=== PATIENT | female | born 1950 | race Caucasian/White ===

== ENCOUNTER 2020-07-25 10:12 | Outpatient (REF) | payer MEDICARE, SELFPAY ==
[2020-07-25 11:38] LABS: Anion Gap 9 (12-20); Blood Urea Nitrogen 12 mg/dL (9-16); Calcium 8.4 mg/dL (8.4-10.2); Carbon Dioxide 32 mmol/L (22-29); Chloride 106 mmol/L (96-108); Cholesterol 123 mg/dL; Estimated Glomerular Filt Rate 51; Glucose Random 98 mg/dL (60-115); HDL Cholesterol 36 mg/dL; LDL Cholesterol Calculated 46 mg/dl; Sodium 143 mmol/L (135-145); Triglycerides 206 mg/dL
== END 2020-07-25 10:13 | disposition home or self-care (01) ==
LOC: HO.HVNA 10:12
PROVIDERS: Visit Provider Internal Medicine
DX: E11.8 Type 2 diabetes mellitus with unspecified complications (principal); N17.9 Acute kidney failure, unspecified
CPT/HCPCS: 80048; 80061

== ENCOUNTER → 2020-07-30 10:13 | Outpatient (BNVA) | payer MEDICARE, SELFPAY | PROVIDERS: PCP Internal Medicine; Referring Provider Internal Medicine; Visit Provider Internal Medicine Pulmonary Disease | DX: J44.1 Chronic obstructive pulmonary disease with (acute) exacerbation (principal); G47.33 Obstructive sleep apnea (adult) (pediatric); Z99.89 Dependence on other enabling machines and devices | CPT/HCPCS: 99214 ==

== ENCOUNTER → 2020-08-29 14:36 | Outpatient (BNVA) | payer MEDICARE, SELFPAY | PROVIDERS: PCP Internal Medicine; Referring Provider Internal Medicine; Visit Provider Internal Medicine Pulmonary Disease | DX: J44.9 Chronic obstructive pulmonary disease, unspecified (principal); G47.33 Obstructive sleep apnea (adult) (pediatric); Z79.899 Other long term (current) drug therapy; Z99.89 Dependence on other enabling machines and devices | CPT/HCPCS: Q3014 ==

== ENCOUNTER → 2020-09-01 14:06 | Outpatient (BNVA) | payer MEDICARE, SELFPAY | PROVIDERS: PCP Internal Medicine; Referring Provider Internal Medicine; Visit Provider Surgery | DX: Z01.818 Encounter for other preprocedural examination (principal); Z86.010 Personal history of colon polyps | CPT/HCPCS: 99202 ==

== ENCOUNTER → 2020-10-13 11:03 | Outpatient (BNVA) | payer MEDICARE, SELFPAY | PROVIDERS: PCP Internal Medicine; Visit Provider Urology | DX: N39.41 Urge incontinence (principal); R35.0 Frequency of micturition | CPT/HCPCS: 51798; 81002; 99202 ==

== ENCOUNTER → 2020-10-28 15:07 | Outpatient (BNVA) | payer MEDICARE, SELFPAY | PROVIDERS: PCP Internal Medicine; Visit Provider Urology | DX: R35.0 Frequency of micturition (principal); N39.41 Urge incontinence | CPT/HCPCS: 81002; 99212 ==

== ENCOUNTER 2020-11-01 21:37 | Emergency (ER) | payer MEDICARE, SELFPAY ==
[2020-11-01 21:42] VITALS: BP 112/69; PULSE 68; RESP 18; TEMP 37.1; O2SAT 96; BMI 37.5
--- NOTE | 2020-11-01 22:12 | ED_ITS ---
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 Mode of arrival: ambulatory Limitations: no limitations History of Present Illness HPI narrative: 70 yo female with chronic headaches and last night developed n/v/d and L sided abdominal pain states she was on antibiotics for URI last week, comes in due to c/o pain and nausea that has not gone away, states she always has a headache takes no blood thinners and today's headache is no different MD elicited complaint: abdominal pain Pertinent past history: none Onset (ago): day(s) (2 (but did c/o this in past as she was supposed to have a colonoscopy in August but it was not scheduled)) Pain Consistency: constant Location: epigastric, LUQ and LLQ Severity: moderate Quality: cramping Radiation: none Migration to: no migration Exacerbating factors: movement Relieving factors: nothing Context: recent antibiotic use Associated symptoms: nausea, vomiting and diarrhea Related Data Home Medications Medication Instructions Recorded Confirmed acetaminophen 500 mg tablet 500 mg PO QID PRN 07/30/20 10/29/20 albuterol sulfate 90 mcg/actuation 1 inh INHALATION QID 07/30/20 10/29/20 aerosol inhaler bupropion HCl 300 mg 24 hr tablet, 300 mg PO QAM 07/30/20 10/29/20 extended release citalopram 20 mg tablet 20 mg PO DAILY 07/30/20 10/29/20 gabapentin 300 mg capsule 300 mg PO DAILY 07/30/20 10/29/20 glipizide 2.5 mg tablet, extended 2.5 mg PO DAILY 07/30/20 10/29/20 release 24 hr hydrochlorothiazide 12.5 mg tablet 12.5 mg PO DAILY 07/30/20 10/29/20 levothyroxine 200 mcg tablet 200 mcg PO DAILY 07/30/20 10/29/20 omeprazole 20 mg capsule,delayed 20 mg PO DAILY 07/30/20 10/29/20 release propranolol 20 mg tablet 20 mg PO BID 07/30/20 10/29/20 sitagliptin 100 mg tablet 100 mg PO DAILY 07/30/20 10/29/20 trazodone 100 mg tablet 100 mg PO BEDTIME PRN 07/30/20 10/29/20 alendronate 70 mg tablet 70 mg PO QWEEK 10/13/20 10/29/20 atorvastatin 40 mg tablet 40 mg PO BEDTIME 10/13/20 10/29/20 blood sugar diagnostic #10 ea 10/13/20 10/29/20 bupropion HCl 150 mg 24 hr tablet, 150 mg PO QAM 10/13/20 10/29/20 extended release estradiol 1 g VAGINAL 2XW 10/13/20 10/29/20 fluticasone propionate 220 1 puff INHALATION BID 10/13/20 10/29/20 mcg/actuation HFA aerosol inhaler fluticasone propionate 50 2 spray INTRANASAL DAILY PRN 10/13/20 10/29/20 mcg/actuation nasal spray,suspension insulin lispro 100 unit/mL unit SUBCUT 10/13/20 10/29/20 subcutaneous pen lancets 33 gauge #100 ea 10/13/20 10/29/20 lisinopril 20 mg tablet 20 mg PO BEDTIME 10/13/20 10/29/20 loratadine 10 mg tablet 10 mg PO DAILY PRN 10/13/20 10/29/20 pen needle, diabetic 31 gauge x #50 ea 10/13/20 10/29/20 3/16 prednisone 20 mg tablet 40 mg PO DAILY 10/13/20 10/29/20 primidone 50 mg tablet 0 mg PO 10/13/20 10/29/20 sennosides 8.6 mg tablet 17.2 mg PO DAILY PRN 10/13/20 10/29/20 tiotropium bromide 18 mcg capsule 1 cap INHALATION DAILY 10/13/20 10/29/20 with inhalation device Previous Rx's Medication Instructions Recorded azithromycin 250 mg tablet See Rx Instructions PO .COMPLEX #6 07/30/20 tab sodium,potassium,mag sulfates 17.5 See Rx Instructions PO .COMPLEX 09/01/20 gram-3.13 gram-1.6 gram oral soln #354 ml furosemide 20 mg tablet 10 mg PO DAILY #30 tab 09/30/20 oxybutynin chloride 5 mg 5 mg PO DAILY #30 tab 10/13/20 tablet,extended release 24 hr oxybutynin chloride 10 mg 10 mg PO DAILY #30 tab 10/28/20 tablet,extended release 24 hr dicyclomine 20 mg PO TID PRN #20 tab 11/02/20 ondansetron 4 mg PO Q8H PRN #20 tab 11/02/20 Allergies Allergy/AdvReac Type Severity Reaction Status Date / Time aspirin [Aspirin] Allergy Mild UPSET Verified 11/01/20 21:42 STOMACH Review of Systems Review of Systems Constitutional : No Weight loss, No Fever, No Chills ENT/Mouth : No sore throat, No Rhinorrhea Eyes: No Swelling, No Redness Cardiovascular : No Chest Pain, No SOB, NoEdema Respiratory : No Cough, No Sputum, No Wheezing Gastrointestinal : Positive Nausea, Positive Vomiting, positive Diarrhea, positive abdominal Pain, No Hematochezia, No Melena Genitourinary : No Dysuria, No Urinary Frequency, No Hematuria, No Urgency Musculoskeletal : No joint pain, No Myalgias, No Joint Swelling Skin : No Skin Lesions, No rash Neuro : No Weakness, No Numbness, No Dizziness, pos Headache Psych : No Anxiety/Panic, No Depression Heme/Lymph: No Bruising, No Lymphadenopathy Endocrine : No Polyuria, No Polydipsia All other systems reviewed and are negative. Physical Exam Vital Signs: Vital Signs: Last Vital Signs Temp 98.7 F 11/01/20 21:42 Pulse 68 11/01/20 21:42 Resp 15 11/01/20 22:52 BP 112/69 11/01/20 21:42 Pulse Ox 96 11/01/20 21:42 Body Mass Index 37.5 Appearance: Alert. Oriented X3. No acute distress. Eyes: Pupils equal, round and reactive to light. ENT: Pharynx normal. Neck: Normal inspection. Neck supple. CVS: Normal heart rate and rhythm. Pulses normal. Respiratory: No respiratory distress. Breath sounds normal. Abdomen: Soft and moderate LUQ and LLQ pain with no rebound or guarding Skin: Skin warm and dry. Normal skin color. Normal skin turgor. Extremities: No lower extremity edema. No calf ttp Neuro: Oriented X 3. No motor deficit. No sensory deficit. Course Course Course Narrative: normal WBC, negative leukocytes, normal CT scan doubt c diff patient feels much better, stool studies negative stable for DC MDM - Abdominal Pain MDM Narrative Medical decision making narrative: 70 yo female with HPL, asthma, obesity, DM, GERD here with abdominal pain n/v/d with recent antibiotic use at this time will obtain labs, given gentle fluids, IV morphine for pain, CT scan for colitis, she also c/o headache but states it is chronic and no change from baseline - has no focal deficits Lab Data Result diagrams: 11/01/20 22:45 11/01/20 22:45 Labs: Lab Results 11/01/20 11/01/20 11/01/20 Range/Units 22:45 22:45 22:45 WBC 6.9 (4.8-10.8) X10*3/uL RBC 5.55 H (4.20-5.50) X10*6/uL Hgb 15.1 (12.0-16.0) g/dl Hct 48.5 H (37-47) % MCV 87.4 (80-98) fL MCH 27.2 (27.0-33.0) pg MCHC 31.1 (31.0-35.0) g/dl RDW 13.4 (11.0-16.0) % Plt Count 209 (160-400) X10*3/uL MPV 10.1 (9.4-12.3) fL Immature Gran % (Auto) 0.3 (0.0-0.4) % Neut % (Auto) 61.4 (45-73) % Lymph % (Auto) 29.5 (20-40) % [place] % (Auto) 5.8 (2-11) % Eos % (Auto) 2.7 (0-4) % Baso % (Auto) 0.3 (0-2) % Lymph # (Auto) 2.1 (1.2-4.9) X10*3/uL [place] # (Auto) 0.4 (0.1-1.2) X10*3/uL Eos # (Auto) 0.2 (0.0-0.4) X10*3/uL Baso # (Auto) 0.0 (0.0-0.2) X10*3/uL Abs Immat Gran (auto) 0.02 (0.00-0.03) X10*3/uL Absolute Neuts (auto) 4.3 (2.0-8.3) X10*3/uL Absolute Nucleated RBC 0.000 (0.0-0.012) X10*3/uL Nucleated RBC % (auto) 0.0 (0.0-0.2) /100WBC Hold Blue Top Sodium 140 (135-145) mmol/L Potassium 4.1 (3.3-5.1) mmol/l Chloride 106 (96-108) mmol/L Carbon Dioxide 23 (22-29) mmol/L Anion Gap 15 (12-20) BUN 16 (9-16) mg/dL Creatinine 1.37 (0.5-1.4) mg/dL Estim Creat Clear Calc 39.4 Estimated GFR 38 Random Glucose 195 H D (60-115) mg/dL Lactic Acid (0.5-2.0) mmol/L Calcium 9.3 D (8.4-10.2) mg/dL Magnesium 2.0 (1.6-2.6) mg/dL Total Bilirubin 0.6 (0.0-1.0) mg/dL Direct Bilirubin 0.3 (0.0-0.5) mg/dL AST 19 (5-31) U/L ALT 17 (0-31) U/L Alkaline Phosphatase 95 (39-117) U/L Total Protein 7.6 (6.5-8.0) g/dL Albumin 4.7 (3.5-5.0) g/dL Lipase (8-78) U/L Stool Leukocytes, Qual (NEGATIVE) C. difficile Toxin A&B (Negative) C. difficile Antigen (Negative) C. difficile Interpret COVID-19 ([facility]) Negative (Negative) COVID-19 Clin Com See Note 11/01/20 11/01/20 11/01/20 Range/Units 22:45 22:45 22:45 WBC (4.8-10.8) X10*3/uL RBC (4.20-5.50) X10*6/uL Hgb (12.0-16.0) g/dl Hct (37-47) % MCV (80-98) fL MCH (27.0-33.0) pg MCHC (31.0-35.0) g/dl RDW (11.0-16.0) % Plt Count (160-400) X10*3/uL MPV (9.4-12.3) fL Immature Gran % (Auto) (0.0-0.4) % Neut % (Auto) (45-73) % Lymph % (Auto) (20-40) % [place] % (Auto) (2-11) % Eos % (Auto) (0-4) % Baso % (Auto) (0-2) % Lymph # (Auto) (1.2-4.9) X10*3/uL [place] # (Auto) (0.1-1.2) X10*3/uL Eos # (Auto) (0.0-0.4) X10*3/uL Baso # (Auto) (0.0-0.2) X10*3/uL Abs Immat Gran (auto) (0.00-0.03) X10*3/uL Absolute Neuts (auto) (2.0-8.3) X10*3/uL Absolute Nucleated RBC (0.0-0.012) X10*3/uL Nucleated RBC % (auto) (0.0-0.2) /100WBC Hold Blue Top SEE NOTE Sodium (135-145) mmol/L Potassium (3.3-5.1) mmol/l Chloride (96-108) mmol/L Carbon Dioxide (22-29) mmol/L Anion Gap (12-20) BUN (9-16) mg/dL Creatinine (0.5-1.4) mg/dL Estim Creat Clear Calc Estimated GFR Random Glucose (60-115) mg/dL Lactic Acid 1.0 (0.5-2.0) mmol/L Calcium (8.4-10.2) mg/dL Magnesium (1.6-2.6) mg/dL Total Bilirubin (0.0-1.0) mg/dL Direct Bilirubin (0.0-0.5) mg/dL AST (5-31) U/L ALT (0-31) U/L Alkaline Phosphatase (39-117) U/L Total Protein (6.5-8.0) g/dL Albumin (3.5-5.0) g/dL Lipase 34 (8-78) U/L Stool Leukocytes, Qual (NEGATIVE) C. difficile Toxin A&B (Negative) C. difficile Antigen (Negative) C. difficile Interpret COVID-19 ([facility]) (Negative) COVID-19 Clin Com 11/01/20 11/01/20 Range/Units 23:36 23:36 WBC (4.8-10.8) X10*3/uL RBC (4.20-5.50) X10*6/uL Hgb (12.0-16.0) g/dl Hct (37-47) % MCV (80-98) fL MCH (27.0-33.0) pg MCHC (31.0-35.0) g/dl RDW (11.0-16.0) % Plt Count (160-400) X10*3/uL MPV (9.4-12.3) fL Immature Gran % (Auto) (0.0-0.4) % Neut % (Auto) (45-73) % Lymph % (Auto) (20-40) % [place] % (Auto) (2-11) % Eos % (Auto) (0-4) % Baso % (Auto) (0-2) % Lymph # (Auto) (1.2-4.9) X10*3/uL [place] # (Auto) (0.1-1.2) X10*3/uL Eos # (Auto) (0.0-0.4) X10*3/uL Baso # (Auto) (0.0-0.2) X10*3/uL Abs Immat Gran (auto) (0.00-0.03) X10*3/uL Absolute Neuts (auto) (2.0-8.3) X10*3/uL Absolute Nucleated RBC (0.0-0.012) X10*3/uL Nucleated RBC % (auto) (0.0-0.2) /100WBC Hold Blue Top Sodium (135-145) mmol/L Potassium (3.3-5.1) mmol/l Chloride (96-108) mmol/L Carbon Dioxide (22-29) mmol/L Anion Gap (12-20) BUN (9-16) mg/dL Creatinine (0.5-1.4) mg/dL Estim Creat Clear Calc Estimated GFR Random Glucose (60-115) mg/dL Lactic Acid (0.5-2.0) mmol/L Calcium (8.4-10.2) mg/dL Magnesium (1.6-2.6) mg/dL Total Bilirubin (0.0-1.0) mg/dL Direct Bilirubin (0.0-0.5) mg/dL AST (5-31) U/L ALT (0-31) U/L Alkaline Phosphatase (39-117) U/L Total Protein (6.5-8.0) g/dL Albumin (3.5-5.0) g/dL Lipase (8-78) U/L Stool Leukocytes, Qual NEGATIVE (NEGATIVE) C. difficile Toxin A&B Negative (Negative) C. difficile Antigen Negative (Negative) C. difficile Interpret SEE NOTE COVID-19 ([facility]) (Negative) COVID-19 Clin Com Discharge Plan Discharge Clinical Impression: Abdominal pain, Diarrhea Patient Disposition: Home, Self-Care Instructions: Acute Diarrhea (ED), Abdominal Pain (ED) Additional Instructions: return to ED for any worsening symptoms or concerns Prescriptions: New ondansetron 4 mg tablet,disintegrating 4 mg PO Q8H PRN (Reason: nausea and vomiting) Qty: 20 RF: 0 dicyclomine 20 mg tablet 20 mg PO TID PRN (Reason: abdominal discomfort) Qty: 20 RF: 0 No Action furosemide 20 mg tablet 10 mg PO DAILY Qty: 30 RF: 1 propranolol 20 mg tablet 20 mg PO BID RF: 0 hydrochlorothiazide 12.5 mg tablet 12.5 mg PO DAILY RF: 0 Januvia 100 mg tablet 100 mg PO DAILY RF: 0 glipizide 2.5 mg tablet extended release 24hr 2.5 mg PO DAILY RF: 0 levothyroxine 200 mcg tablet 200 mcg PO DAILY RF: 0 omeprazole 20 mg capsule,delayed release(DR/EC) 20 mg PO DAILY RF: 0 bupropion HCl 300 mg tablet extended release 24 hr 300 mg PO QAM RF: 0 trazodone 100 mg tablet 100 mg PO BEDTIME PRNRF: 0 acetaminophen 500 mg tablet 500 mg PO QID PRNRF: 0 gabapentin 300 mg capsule 300 mg PO DAILY RF: 0 citalopram 20 mg tablet 20 mg PO DAILY RF: 0 albuterol sulfate 90 mcg/actuation HFA aerosol inhaler 1 inh inhalation QID RF: 0 azithromycin 250 mg tablet See Rx Instructions PO .COMPLEX Qty: 6 RF: 0 Suprep Bowel Prep Kit 17.5-3.13-1.6 gram recon soln See Rx Instructions PO .COMPLEX Qty: 354 RF: 0 prednisone 20 mg tablet 40 mg PO DAILY RF: 0 Spiriva with HandiHaler 18 mcg capsule, w/inhalation device 1 cap inhalation DAILY RF: 0 bupropion HCl 150 mg tablet extended release 24 hr 150 mg PO QAM RF: 0 fluticasone propionate 50 mcg/actuation spray,suspension 2 spray intranasal DAILY PRNRF: 0 alendronate 70 mg tablet 70 mg PO QWEEK RF: 0 lisinopril 20 mg tablet 20 mg PO BEDTIME RF: 0 sennosides 8.6 mg tablet 17.2 mg PO DAILY PRNRF: 0 primidone 50 mg tablet 0 mg PO RF: 0 estradiol 0.01 % (0.1 mg/gram) cream 1 g vaginal 2XW RF: 0 (DME) pen needle, diabetic 31 gauge x 3/16 needle See Rx Instructions ea .ROUTE TID Qty: 50 RF: 0 insulin lispro 100 unit/mL insulin pen subcut RF: 0 atorvastatin 40 mg tablet 40 mg PO BEDTIME RF: 0 (DME) lancets 33 gauge misc See Rx Instructions ea Not Applicable BID Qty: 100 RF: 0 loratadine 10 mg tablet 10 mg PO DAILY PRN (Reason: allergies) RF: 0 Flovent HFA 220 mcg/actuation HFA aerosol inhaler 1 puff inhalation BID RF: 0 (DME) OneTouch Ultra Blue Test Strip Strip See Rx Instructions ea Not Applicable BID Qty: 10 RF: 0 oxybutynin chloride 5 mg tablet extended release 24hr 5 mg PO DAILY Qty: 30 RF: 6 oxybutynin chloride 10 mg tablet extended release 24hr 10 mg PO DAILY Qty: 30 RF: 6 Referrals: Amparo Bustamante MD [Primary Care Provider] - 2 days (if not better) Print Language: Swedish [facility] Past Medical History Attestation statement: The following information was validated with the patient. Medical History Anxiety and depression Colon cancer screening COPD exacerbation Diabetes mellitus Frequency of micturition Urgency incontinence Urgency of micturition Surgical History History of cholecystectomy History of lumpectomy of right breast Family History Family History Mother History of pancreatic cancer Social History Social History Alcohol intake: unknown Smoking Status: Unknown if ever smoked Years Smoked: 55 yrs Smoked in Last 30 Days: No Use of substances other than those prescribed or required for medical reasons: No Advance Directives: No Advance Directives Information Provided: Yes
--- NOTE | 2020-11-01 22:25 | CT_ITS ---
EXAMINATION: CT ABDOMEN AND PELVIS WITH CONTRAST CLINICAL INFORMATION: Abdominal pain and diarrhea COMPARISON: 06/30/2019 TECHNIQUE: Multidetector volumetric images were obtained from the superior aspect of the liver through the pubic symphysis following administration 130 mL of Omnipaque 350 intravenous contrast. Sagittal and coronal reformatted images were obtained on the technologist's workstation. Oral contrast: No This CT examination was performed using dose optimization techniques as appropriate, variously including the following: *Automated exposure control *Adjustment of mA and/or kV according to patient size (this includes techniques or standardized protocols for targeted exams where dose is matched to indication/reason for exam; i.e. extremities or head) *Use of iterative reconstruction technique DLP: 881 mGy-cm FINDINGS: LUNG BASES: Some chronic reticulonodular changes are present at the lung bases. Findings are unchanged when compared to the prior study. LIVER, GALLBLADDER, AND BILIARY TREE: The liver is normal in size, shape, and attenuation. No focal hepatic lesion or biliary ductal dilatation is present. The gallbladder has been removed and surgical clips are present in the gallbladder fossa. PANCREAS: Unremarkable. SPLEEN: Unremarkable. ADRENAL GLANDS: Unremarkable. KIDNEYS AND URETERS: The kidneys are normal in size, shape, and attenuation. No hydronephrosis, hydroureter, or calculi seen. No perinephric stranding. BLADDER: Only partially filled and not adequately evaluated GASTROINTESTINAL TRACT: Fluid is present in the rectum. The small and large bowel are unremarkable. The appendix is unremarkable. ABDOMINAL WALL: No significant hernia is appreciated. LYMPH NODES: Normal. VASCULAR: Unremarkable. PELVIC VISCERA: Unremarkable. OSSEOUS STRUCTURES: Unremarkable. CT/CT abdomen pelvis w con IMPRESSION: An etiology for the patient's pain and diarrhea has not been found.
[2020-11-01 22:52] VITALS: RESP 15
[2020-11-01 22:52] LABS: MANUAL DIFF FLAG NO
[2020-11-01] MEDS: Morphine Sulfate 4 MG/ML CARTRIDGE IVPUSH (22:52)
[2020-11-01] MEDS: 0.9 % Sodium Chloride 500 ML IV (22:52)
[2020-11-01] MEDS: ondansetron HCL 4 MG/2 ML VIAL IVPUSH (22:52)
[2020-11-01 22:53] LABS: Basophils Percent Auto 0.3 % (0-2); Eosinophils Absolute Auto 0.2 X10*3/uL (0.0-0.4); Eosinophils Percent Auto 2.7 % (0-4); Hematocrit 48.5 % (37-47); Hemoglobin 15.1 g/dl (12.0-16.0); Imm Gran Abs Auto 0.02 X10*3/uL (0.00-0.03); Imm Gran Pct Auto 0.3 % (0.0-0.4); Lymphocytes Absolute Auto 2.1 X10*3/uL (1.2-4.9); Lymphocytes Percent Auto 29.5 % (20-40); Mean Corpuscular HGB Conc 31.1 g/dl (31.0-35.0); Mean Corpuscular Hemoglobin 27.2 pg (27.0-33.0); Mean Corpuscular Volume 87.4 fL (80-98); Mean Platelet Volume 10.1 fL (9.4-12.3); Monocytes Absolute Auto 0.4 X10*3/uL (0.1-1.2); Monocytes Percent Auto 5.8 % (2-11); Neutrophils Absolute Auto 4.3 X10*3/uL (2.0-8.3); Neutrophils Percent Auto 61.4 % (45-73); Platelet Count 209 X10*3/uL (160-400); Red Blood Count 5.55 X10*6/uL (4.20-5.50); Red Cell Distribution Width 13.4 % (11.0-16.0); White Blood Count 6.9 X10*3/uL (4.8-10.8)
[2020-11-01 23:08] LABS: COVID-19 Test Negative (Negative); IDNOW Serial# 9DD0AD1C
[2020-11-01 23:14] LABS: Lipase 34 U/L (8-78)
[2020-11-01 23:15] LABS: Alanine Aminotransferase 17 U/L (0-31); Albumin Level 4.7 g/dL (3.5-5.0); Alkaline Phosphatase 95 U/L (39-117); Anion Gap 15 (12-20); Aspartate Amino Transferase 19 U/L (5-31); Bilirubin Direct 0.3 mg/dL (0.0-0.5); Bilirubin Total 0.6 mg/dL (0.0-1.0); Blood Urea Nitrogen 16 mg/dL (9-16); Calcium 9.3 mg/dL (8.4-10.2); Carbon Dioxide 23 mmol/L (22-29); Chloride 106 mmol/L (96-108); Creatinine Clr Calc Pharmacy 39.4; Estimated Glomerular Filt Rate 38; Glucose Random 195 mg/dL (60-115); Potassium 4.1 mmol/l (3.3-5.1); Sodium 140 mmol/L (135-145); Total Protein 7.6 g/dL (6.5-8.0)
[2020-11-02] VITALS: BP 114/62; PULSE 68; RESP 15; O2SAT 96
[2020-11-02] MEDS: iohexoL 350 MG/ML 100 ML INFUS..BTL 85 ML IV (00:06)
[2020-11-02 00:41] LABS: CDIFF Ag Negative (Negative); CDIFF Internal ctrl Dots and bkg OK (V); CDiff Toxin Negative (Negative); Leukocytes Stool Qualitative NEGATIVE (NEGATIVE)
[2020-11-02 01:31] LABS: Glucose Urine UA NEG (NEG); Leukocyte Esterase Urine NEG (NEG); Nitrite Urine NEG (NEG); Urine Blood NEG (NEG); Urine Ketones NEG (NEG); Urine Protein NEG (NEG-TRACE)
[2020-11-02 01:32] LABS: Appearance Urine CLEAR; Color Urine YELLOW
== END 2020-11-02 02:23 | disposition home or self-care (01) ==
PROVIDERS: Emergency Provider Emergency Medicine; PCP Internal Medicine
DX: R51.9 Headache, unspecified (principal); R10.32 Left lower quadrant pain; R10.12 Left upper quadrant pain; R19.7 Diarrhea, unspecified; Z79.899 Other long term (current) drug therapy; Z20.822 Contact with and (suspected) exposure to COVID-19
CPT/HCPCS: 36415; 74177; 80048; 80076; 81003; 83605; 83690; 83735; 85025; 87045; 87046; 87324; 87449; 87635; 89055; 96361; 96374; 96375; 99284; 99285; J2270; J2405; Q9967

== ENCOUNTER 2020-11-14 06:57 | Day surgery (SDC) | payer MEDICARE, SELFPAY ==
[2020-11-07 14:10] VITALS: BMI 40.1
--- NOTE | 2020-11-12 14:12 | P.CONAN_ITS ---
Documented by User: Regina Christopher 11/12/20 14:15 HPI - Anesthesia Eval Consult details Narrative: 70yo F for Colonoscopy PMFSH Past Medical History Medical History Anxiety and depression Back pain Colon cancer screening COPD exacerbation Diabetes mellitus Frequency of micturition GERD (gastroesophageal reflux disease) High cholesterol Hypertension Hypothyroidism ENMA on CPAP Osteoarthritis Urgency incontinence Urgency of micturition Family History Family History Mother History of pancreatic cancer Surgical History Surgical History History of cholecystectomy History of lumpectomy of right breast Hx of colonoscopy Hx of cystoscopy Hx of right knee surgery Social History Social History Are you a primary behavioral health care coordinator to a significant other at home: No Do you presently have visiting nurse or 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 If so, by whom?: No Advance Directives: No Advance Directives Information Provided: No Advance Directives on File: No Recently lost weight without trying: No Meds Allergies Allergy/AdvReac Type Severity Reaction Status Date / Time aspirin [Aspirin] Allergy Mild UPSET Verified 11/07/20 13:41 STOMACH ibuprofen [From Motrin] Allergy Mild Gastrointestinal Verified 11/14/20 07:28 Upset Home Medications Medication Instructions Recorded Confirmed Type acetaminophen 500 mg tablet 500 mg PO QID PRN 07/30/20 11/07/20 History albuterol sulfate 90 mcg/actuation 1 inh INHALATION QID PRN 07/30/20 11/07/20 History aerosol inhaler bupropion HCl 300 mg 24 hr tablet, 300 mg PO QAM 07/30/20 10/29/20 History extended release citalopram 20 mg tablet 20 mg PO DAILY 07/30/20 11/07/20 History gabapentin 300 mg capsule 300 mg PO DAILY 07/30/20 11/07/20 History glipizide 2.5 mg tablet, extended 2.5 mg PO DAILY 07/30/20 11/07/20 History release 24 hr hydrochlorothiazide 12.5 mg tablet 12.5 mg PO DAILY 07/30/20 11/07/20 History levothyroxine 200 mcg tablet 200 mcg PO DAILY 07/30/20 11/07/20 History omeprazole 20 mg capsule,delayed 20 mg PO DAILY 07/30/20 11/07/20 History release propranolol 20 mg tablet 20 mg PO BID 07/30/20 11/07/20 History sitagliptin 100 mg tablet 100 mg PO DAILY 07/30/20 11/07/20 History trazodone 100 mg tablet 100 mg PO BEDTIME PRN 07/30/20 11/07/20 History alendronate 70 mg tablet 70 mg PO QWEEK 10/13/20 11/07/20 History atorvastatin 40 mg tablet 40 mg PO BEDTIME 10/13/20 11/07/20 History blood sugar diagnostic #10 ea 10/13/20 10/29/20 History bupropion HCl 150 mg 24 hr tablet, 150 mg PO QAM 10/13/20 11/07/20 History extended release estradiol 1 g VAGINAL 2XW 10/13/20 11/07/20 History fluticasone propionate 220 1 puff INHALATION BID 10/13/20 11/07/20 History mcg/actuation HFA aerosol inhaler fluticasone propionate 50 2 spray INTRANASAL DAILY PRN 10/13/20 11/07/20 History mcg/actuation nasal spray,suspension insulin lispro 100 unit/mL unit SUBCUT 10/13/20 10/29/20 History subcutaneous pen lancets 33 gauge #100 ea 10/13/20 10/29/20 History lisinopril 20 mg tablet 20 mg PO BEDTIME 10/13/20 11/07/20 History loratadine 10 mg tablet 10 mg PO DAILY PRN 10/13/20 11/07/20 History pen needle, diabetic 31 gauge x #50 ea 10/13/20 10/29/20 History 3/16 prednisone 20 mg tablet 40 mg PO DAILY 10/13/20 10/29/20 History primidone 50 mg tablet 50 mg PO DAILY 10/13/20 10/29/20 History sennosides 8.6 mg tablet 17.2 mg PO DAILY PRN 10/13/20 11/07/20 History tiotropium bromide 18 mcg capsule 1 cap INHALATION DAILY 10/13/20 11/07/20 History with inhalation device Exam Exam Date and Time: November 12, 2020 1412 Height,Weight and Vital Signs: Height 5 ft 3 in Weight 102.965 kg Pertinent Lab Results Pertinent Lab Results: Laboratory Tests 11/01/20 11/01/20 22:45 22:45 WBC 6.9 Hgb 15.1 Hct 48.5 H Plt Count 209 Sodium 140 Potassium 4.1 Chloride 106 Carbon Dioxide 23 BUN 16 Creatinine 1.37 Assessment and Plan Assessment Anesthesia Assessment: Chart Reviewed Documented by User: Beverley Huerta 11/14/20 08:07 PMFSH Past Medical History Medical History Anxiety and depression Back pain Colon cancer screening COPD exacerbation Diabetes mellitus Frequency of micturition GERD (gastroesophageal reflux disease) High cholesterol Hypertension Hypothyroidism ENMA on CPAP Osteoarthritis Urgency incontinence Urgency of micturition Family History Family History Mother History of pancreatic cancer Surgical History Surgical History History of cholecystectomy History of lumpectomy of right breast Hx of colonoscopy Hx of cystoscopy Hx of right knee surgery Social History Social History Are you a primary behavioral health care coordinator to a significant other at home: No Do you presently have visiting nurse or 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 If so, by whom?: No Advance Directives: No Advance Directives Information Provided: No Advance Directives on File: No Recently lost weight without trying: No Meds Allergies Allergy/AdvReac Type Severity Reaction Status Date / Time aspirin [Aspirin] Allergy Mild UPSET Verified 11/07/20 13:41 STOMACH ibuprofen [From Motrin] Allergy Mild Gastrointestinal Verified 11/14/20 07:28 Upset Home Medications Medication Instructions Recorded Confirmed Type acetaminophen 500 mg tablet 500 mg PO QID PRN 07/30/20 11/07/20 History albuterol sulfate 90 mcg/actuation 1 inh INHALATION QID PRN 07/30/20 11/07/20 History aerosol inhaler bupropion HCl 300 mg 24 hr tablet, 300 mg PO QAM 07/30/20 10/29/20 History extended release citalopram 20 mg tablet 20 mg PO DAILY 07/30/20 11/07/20 History gabapentin 300 mg capsule 300 mg PO DAILY 07/30/20 11/07/20 History glipizide 2.5 mg tablet, extended 2.5 mg PO DAILY 07/30/20 11/07/20 History release 24 hr hydrochlorothiazide 12.5 mg tablet 12.5 mg PO DAILY 07/30/20 11/07/20 History levothyroxine 200 mcg tablet 200 mcg PO DAILY 07/30/20 11/07/20 History omeprazole 20 mg capsule,delayed 20 mg PO DAILY 07/30/20 11/07/20 History release propranolol 20 mg tablet 20 mg PO BID 07/30/20 11/07/20 History sitagliptin 100 mg tablet 100 mg PO DAILY 07/30/20 11/07/20 History trazodone 100 mg tablet 100 mg PO BEDTIME PRN 07/30/20 11/07/20 History alendronate 70 mg tablet 70 mg PO QWEEK 10/13/20 11/07/20 History atorvastatin 40 mg tablet 40 mg PO BEDTIME 10/13/20 11/07/20 History blood sugar diagnostic #10 ea 10/13/20 10/29/20 History bupropion HCl 150 mg 24 hr tablet, 150 mg PO QAM 10/13/20 11/07/20 History extended release estradiol 1 g VAGINAL 2XW 10/13/20 11/07/20 History fluticasone propionate 220 1 puff INHALATION BID 10/13/20 11/07/20 History mcg/actuation HFA aerosol inhaler fluticasone propionate 50 2 spray INTRANASAL DAILY PRN 10/13/20 11/07/20 History mcg/actuation nasal spray,suspension insulin lispro 100 unit/mL unit SUBCUT 10/13/20 10/29/20 History subcutaneous pen lancets 33 gauge #100 ea 10/13/20 10/29/20 History lisinopril 20 mg tablet 20 mg PO BEDTIME 10/13/20 11/07/20 History loratadine 10 mg tablet 10 mg PO DAILY PRN 10/13/20 11/07/20 History pen needle, diabetic 31 gauge x #50 ea 10/13/20 10/29/20 History 3/16 prednisone 20 mg tablet 40 mg PO DAILY 10/13/20 10/29/20 History primidone 50 mg tablet 50 mg PO DAILY 10/13/20 10/29/20 History sennosides 8.6 mg tablet 17.2 mg PO DAILY PRN 10/13/20 11/07/20 History tiotropium bromide 18 mcg capsule 1 cap INHALATION DAILY 10/13/20 11/07/20 History with inhalation device Exam Airway Mallampati Class: II TM Dist: >3cm Neck ROM: Limited Assessment and Plan Assessment Anesthesia Assessment: Anesthesia Plan Discussed and Chart Reviewed Final Anesthetic Review NPO: Yes ASA Class: III Final Preanesthetic Review: No Changes in Pt Med Stat, Meds/Allgs Chart Reviewed, Consent Obtained/Reviewed and Anes Risks/Benef Reviewed Patient Risk: Intermediate Procedure Risk: Low Assessment/Block/Sedation in SS: Assess/Block/Sedation-SS Anesthetic Plan Anesthetic Plan: MAC: Disposition: Standard PACU
[2020-11-14 07:57] VITALS: BP 126/76; PULSE 68; RESP 16; TEMP 36.4; O2SAT 95
--- NOTE | 2020-11-14 08:00 | MHC.SHP ---
Pre-Procedural Eval Section A The patient is an INPATIENT: No The History & Physical has been completed within 30 days and I have reviewed it.: No Section B Chief Complaint: screening Details of Present Illness: 70-year-old female screening colonoscopy. No complaints, no family history of colon cancer Relevant Family History (Specify if Yes): No Relevant Social History: None Present Medications: see Short Stay Collaborative assessment Medical History: Significant History (COPD, sleep apnea, diabetes) Allergies: Allergies Allergy/AdvReac Type Severity Reaction Status Date / Time aspirin [Aspirin] Allergy Mild UPSET Verified 11/07/20 13:41 STOMACH ibuprofen [From Motrin] Allergy Mild Gastrointestinal Verified 11/14/20 07:28 Upset Review of Systems Sugical H&P ROS: Negative: Constitution, Cardiovascular, Respiratory, Neurological, Psychiatric, Hem-Onc, Allergic/Immunologic, Gastrointestinal, Genitourinary, Musculoskeletal, Integumentary, Endocrine and Eyes/Ears/Nose/Throat Exam Surgical H&P Exam: Normal: HEENT, Normal: Heart, Normal: Lungs, Normal: Extremities, Normal: Abdomen, Normal: Skin and Normal: Neurological Plan Diagnosis/Plan: Unchanged I have reviewed the history and physical and performed a pertinent physical examination on my patient. No changes have occurred unless specified.
[2020-11-14 08:02] LABS: Glucose, Whole Blood 152 mg/dL (60-115)
[2020-11-14] MEDS: Lactated Ringers 1,000 ML 100 ML IVCONT (08:07)
--- NOTE | 2020-11-14 08:55 | PM.OP ---
Brief Operative Note Date of Service: 11/14/20 Pre-op diagnosis: Colon cancer screening Post-op diagnosis: other (Polyp, about almost 1 cm right colon near the cecum; small polyp about 3 mm, hepatic flexure; polyp about 3 mm level 18 cm; diverticulosis, hemorrhoids) Procedure: Colonoscopy with polypectomy using hot snare x1, polypectomy using cold forceps x2 Surgeon: Hernan Laureano MD Anesthesia: MAC Estimated blood loss (mL): 2 Pathology: other (Polyps x3) Condition: stable Disposition: PACU
--- NOTE | 2020-11-14 08:57 | P.OP_ITS ---
Operative Note Operative Note Date of Service: 11/14/20 Narrative: PROCEDURE: COLONOSCOPY WITH POLYPECTOMY USING HOT SNARE X1 AND POLYPECTOMY USING COLD FORCEPS X2 PREOP DIAGNOSIS: COLON CANCER SCREENING POSTOP DIAGNOSIS: 1. POLYP ABOUT 9 MM IN THE RIGHT COLON NEAR THE ILEOCECAL VALVE 2.SMALL POLYP ABOUT 3 MM AT THE HEPATIC FLEXURE 3. SMALL POLYP ABOUT 2-3 MM AT LEVEL 18 CM 4. DIVERTICULOSIS, DIFFUSE, MODERATE IN THE SIGMOID 5. LARGE EXTERNAL HEMORRHOIDS SURGEON: HAILEY BOYER MD THE PATIENT IS A 70 YEAR FEMALE REFERRED FOR SCREENING COLONOSCOPY. HER LAST COLONOSCOPY IN 2008. SHE UNDERSTOOD THE TECHNIQUE OF THE PROCEDURE. SHE WAS AWARE OF THE RISKS, BENEFITS, AND ALTERNATIVES. THE PATIENT WAS BROUGHT THE OPERATING ROOM AND PLACED IN LEFT LATERAL DECUBITUS POSITION UNDER MONITORED ANESTHESIA CARE. A FULL DIGITAL RECTAL EXAM WAS DONE. SHE HAD A BULKY EXTERNAL HEMORRHOID. THERE WAS NO INDURATION OR ANY LESIONS IN THE ANAL CANAL. THE COLONOSCOPE WAS GENTLY INSERTED THROUGH THE ANAL ORIFICE ADVANCED GENTLY WITH INSUFFLATION ALL THE WAY TO CECUM. THE CECUM WAS INTUBATED. THE CECUM WAS IDENTIFIED VIA VISUALIZATION OF THE ILEOCECAL VALVE WELL THE APPENDICEAL ORIFICE. THE CECAL MUCOSA WAS UNREMARKABLE. THE SCOPE WAS GRADUALLY WITHDRAWN WITH CAREFUL EXAMINATION OF THE ENTIRE COLONIC MUCOSA BEING DONE WITH SCOPE WITHDRAWAL. THE PATIENT HAD ADEQUATE BOWEL PREP SO IT WAS UNLIKELY THAT ANY LARGE LESION MAY HAVE BEEN MISSED. THERE WAS NOTED OF A FLAT POLYP, RELATIVELY, AT THE RIGHT COLON JUST OUTSIDE OF THE ILEOCECAL VALVE. THIS WAS REMOVED USING HOT SNARE. THERE WAS NOTE OF A SMALL POLYP IN THE HEPATIC FLEXURE ABOUT 3 MM IN SIZE REMOVED USING COLD FORCEPS WITH MULTIPLE BITES. THERE WAS NOTE OF A SMALL POLYP AT THE LEVEL OF ABOUT 80 CM, ABOUT 2-3 MM IN SIZE REMOVED USING COLD FORCEPS WELL. THERE WAS NOTE OF SCATTERED DIVERTICULOSIS OF THE COLON, MODERATE IN THE SIGMOID. THE RECTUM WAS REACHED AN D THERE WERE NO LESIONS SEEN. THE ANAL CANAL WAS UNREMARKABLE EXCEPT FOR EXTERNAL HEMORRHOIDS AND THE SCOPE WAS WITHDRAWN COMPLETELY WITH DESUFFLATION. THE PROCEDURE WAS THEN COMPLETED. THE PATIENT TOLERATED THE PROCEDURE WELL. THERE WERE NO IMMEDIATE COMPLICATIONS. HER NEXT COLONOSCOPY MAY BE IN THE NEXT 5 YEARS DEPENDING ON THE PATH REPORT.
[2020-11-14 08:59] VITALS: BP 107/54; PULSE 61; RESP 16; TEMP 36.8; O2SAT 88
[2020-11-14 09:14] VITALS: BP 111/63; PULSE 56; RESP 16; O2SAT 95
[2020-11-14 09:30] VITALS: BP 104/58; PULSE 57; RESP 18; O2SAT 96
[2020-11-14 09:45] VITALS: BP 112/63; PULSE 55; RESP 18; TEMP 36.6; O2SAT 96
--- NOTE | 2020-11-14 10:21 | HO.POSTANES ---
Post Anesthesia Evaluation Post Anesthesia Evaluation Vital Signs: Vital Signs Temp Pulse Resp BP Pulse Ox 11/14/20 09:45 97.8 F 55 18 112/63 96 11/14/20 09:30 57 18 104/58 L 96 11/14/20 09:14 56 16 111/63 95 11/14/20 08:59 98.3 F 61 16 107/54 L 88 L 11/14/20 07:57 97.6 F 68 16 126/76 95 Anesthesia: TIVA Mental Status: Awake Pain Control: Satisfactory Nausea/Vomiting: None Hydration: Adequate Anesthesia-Related Issues: No Anes. Related Issues
== END 2020-11-14 10:27 | disposition home or self-care (01) ==
PROVIDERS: PCP Internal Medicine; Visit Provider Surgery
PROC: 0DJD8ZZ Inspection of Lower Intestinal Tract, Via Natural or Artificial Opening Endoscopic (ICD-10-PCS; CPT 45378; principal; 2020-11-14 09:30)
DX: Z12.11 Encounter for screening for malignant neoplasm of colon (principal); D12.3 Benign neoplasm of transverse colon; D12.2 Benign neoplasm of ascending colon; K63.5 Polyp of colon; K57.30 Diverticulosis of large intestine without perforation or abscess without bleeding; K64.4 Residual hemorrhoidal skin tags; E11.9 Type 2 diabetes mellitus without complications; I10 Essential (primary) hypertension; Z79.4 Long term (current) use of insulin; Z79.899 Other long term (current) drug therapy; Z80.0 Family history of malignant neoplasm of digestive organs; Z88.6 Allergy status to analgesic agent
CPT/HCPCS: 45385; 45380; 82947; 88305; J2405; J3010

== ENCOUNTER → 2020-11-26 09:35 | Outpatient (BNVA) | payer MEDICARE, SELFPAY | PROVIDERS: PCP Internal Medicine; Visit Provider Surgery | CPT/HCPCS: Q3014 ==

== ENCOUNTER → 2020-12-10 12:52 | Outpatient (BNVA) | payer MEDICARE, SELFPAY | PROVIDERS: PCP Internal Medicine; Visit Provider Internal Medicine Pulmonary Disease | DX: J44.9 Chronic obstructive pulmonary disease, unspecified (principal); R06.00 Dyspnea, unspecified; G47.33 Obstructive sleep apnea (adult) (pediatric); Z87.891 Personal history of nicotine dependence; Z79.899 Other long term (current) drug therapy; Z99.89 Dependence on other enabling machines and devices | CPT/HCPCS: 99212 ==

== ENCOUNTER 2020-12-28 13:26 | Emergency (ER) | payer MEDICARE, SELFPAY ==
--- NOTE | 2020-12-28 | ECG_ITS ---
Test Reason : CHEST PAIN Blood Pressure : / mmHG Vent. Rate : 058 BPM Atrial Rate : 058 BPM P-R Int : 174 ms QRS Dur : 140 ms QT Int : 448 ms P-R-T Axes : 033 -30 013 degrees QTc Int : 439 ms Sinus bradycardia Left axis deviation Right bundle branch block Minimal voltage criteria for LVH, may be normal variant Abnormal ECG When compared with ECG of 08-JUL-2020 22:23, No significant change was found Referred By: Generic ED Physician Electronically Signed By:TODD GILL
--- NOTE | ~2020-12-28 | CT_ITS ---
EXAMINATION: CT HEAD/BRAIN WITHOUT CONTRAST CLINICAL INFORMATION: Left-sided headache and dizziness COMPARISON: June 30, 2020 TECHNIQUE: CT scanning from base of skull to vertex performed without IV contrast administration. DLP: 702.5 to mGy-cm. FINDINGS: The ventricles, sulci, and cisterns appear unremarkable. No abnormal extra-axial fluid collection or intracranial hemorrhage is seen. No significant mass effect or midline structure shift is evident. Paranasal sinuses and mastoid air cells well aerated. CT/CT head/brain wo con IMPRESSION: Normal noncontrast cranial CT. EXAMINATION: CT OF THE CERVICAL SPINE CLINICAL INFORMATION: Left neck pain COMPARISON: August 15, 2017. TECHNIQUE: Thin helical images with sagittal and coronal reformats. DOSE: DLP 691.07 mGy-cm. FINDINGS: No abnormal prevertebral soft tissue swelling is seen. No acute cervical spine fracture is noted. Degenerative disc disease is seen at the C5-C6 and C6-C7 levels with narrowing of the disc space and marginal spurring. Schmorl's nodes are present within endplates of C5-C7. Visualized paranasal sinuses and mastoid air cells unremarkable. IMPRESSION: No acute cervical spine fracture. Degenerative change C5-C7.
--- NOTE | ~2020-12-28 | XR_ITS ---
EXAMINATION: XR CHEST CLINICAL INFORMATION: Chest pain COMPARISON: June 30, 2020 TECHNIQUE: AP portable view of the chest was obtained. FINDINGS: There are a few densities adjacent to the left heart border which may relate to atelectasis or pneumonitis. Lung nodule not excluded. There is some scarring seen along the left hemidiaphragm. Heart normal size. No evidence of pulmonary edema. No pneumothorax or pleural effusion. Status post previous neck surgery. XR/XR chest 1V IMPRESSION: A few small foci of density adjacent to the left heart border. No evidence of pulmonary edema.
--- NOTE | ~2020-12-28 | CT_ITS ---
EXAMINATION: CT HEAD/BRAIN WITHOUT CONTRAST CLINICAL INFORMATION: Left-sided headache and dizziness COMPARISON: June 30, 2020 TECHNIQUE: CT scanning from base of skull to vertex performed without IV contrast administration. DLP: 702.5 to mGy-cm. FINDINGS: The ventricles, sulci, and cisterns appear unremarkable. No abnormal extra-axial fluid collection or intracranial hemorrhage is seen. No significant mass effect or midline structure shift is evident. Paranasal sinuses and mastoid air cells well aerated. CT/CT cervical spine wo con IMPRESSION: Normal noncontrast cranial CT. EXAMINATION: CT OF THE CERVICAL SPINE CLINICAL INFORMATION: Left neck pain COMPARISON: August 15, 2017. TECHNIQUE: Thin helical images with sagittal and coronal reformats. DOSE: DLP 691.07 mGy-cm. FINDINGS: No abnormal prevertebral soft tissue swelling is seen. No acute cervical spine fracture is noted. Degenerative disc disease is seen at the C5-C6 and C6-C7 levels with narrowing of the disc space and marginal spurring. Schmorl's nodes are present within endplates of C5-C7. Visualized paranasal sinuses and mastoid air cells unremarkable. IMPRESSION: No acute cervical spine fracture. Degenerative change C5-C7.
[2020-12-28 13:30] VITALS: BP 106/56; PULSE 62; RESP 18; TEMP 37; O2SAT 97; BMI 39.3
--- NOTE | 2020-12-28 14:58 | ED.CHESTPAIN ---
HPI - Chest Pain General Chief Complaint: Chest Pain Stated Complaint: HEADACHE CHEST PAIN Time Seen by Provider: 12/28/20 14:52 Source: patient Mode of arrival: ambulatory Limitations: language barrier History of Present Illness HPI narrative: 70 y/o female with history of asthma/COPD overlap syndrome, ENMA on CPAP, DM, anxiety, depression, HTH, hypothyroidism, GERD, HLD chan presents to the ED with left sided chest pain x1 week, left sided headache and neck pain for the last 2 months. She is an inconsistent historian with multiple complaints. She reports the left sided chest pain comes from my head and neck. She is afraid she has a tumor. She states behind her ear is very tender on the left side and so are all of her muscles in her neck. It hurts to touch and move her neck for the last 2 months. She denies any injury. This last week she developed intermittently left sided chest pains that come and go. Her breathing it at her baseline. She recently ran out of her Trelegy inhaler. She has been non-compliant with her CPAP because it wakes her up at night so she has just been using nocturnal O2. She has no cough, fever, chills, abd pain, N/V/D, weakness, vision changes. She reports numbness in both of her arms and hands for the last 2 months. MD complaint: chest pain and other (headache and neck pain) Pertinent past history: asthma Onset (ago): week(s) Timing of current episode: episodic Prior episodes: Yes Onset: during rest and during exertion Pain location: left chest Pain radiation: left arm, neck and left shoulder Severity: moderate Quality: aching Relieving factors: nothing Exacerbating factors: inspiration, palpation and movement Treatment prior to arrival: none Risk Factors Coronary artery disease risk factors: diabetes, hyperlipidemia and hypertension Thoracic aortic dissection risk factors: longstanding hypertension Related Data On Oral Contraceptives: No Home Medications Medication Instructions Recorded Confirmed acetaminophen 500 mg tablet 500 mg PO QID PRN 07/30/20 11/26/20 albuterol sulfate 90 mcg/actuation 1 inh INHALATION QID PRN 07/30/20 11/26/20 aerosol inhaler bupropion HCl 300 mg 24 hr tablet, 300 mg PO QAM 07/30/20 11/26/20 extended release citalopram 20 mg tablet 20 mg PO DAILY 07/30/20 11/26/20 gabapentin 300 mg capsule 300 mg PO DAILY 07/30/20 11/26/20 glipizide 2.5 mg tablet, extended 2.5 mg PO DAILY 07/30/20 11/26/20 release 24 hr hydrochlorothiazide 12.5 mg tablet 12.5 mg PO DAILY 07/30/20 11/26/20 levothyroxine 200 mcg tablet 200 mcg PO DAILY 07/30/20 11/26/20 omeprazole 20 mg capsule,delayed 20 mg PO DAILY 07/30/20 11/26/20 release propranolol 20 mg tablet 20 mg PO BID 07/30/20 11/26/20 sitagliptin 100 mg tablet 100 mg PO DAILY 07/30/20 11/26/20 trazodone 100 mg tablet 100 mg PO BEDTIME PRN 07/30/20 11/26/20 alendronate 70 mg tablet 70 mg PO QWEEK 10/13/20 11/26/20 atorvastatin 40 mg tablet 40 mg PO BEDTIME 10/13/20 11/26/20 blood sugar diagnostic #10 ea 10/13/20 11/26/20 bupropion HCl 150 mg 24 hr tablet, 150 mg PO QAM 10/13/20 11/26/20 extended release estradiol 1 g VAGINAL 2XW 10/13/20 11/26/20 fluticasone propionate 50 2 spray INTRANASAL DAILY PRN 10/13/20 11/26/20 mcg/actuation nasal spray,suspension insulin lispro 100 unit/mL unit SUBCUT 10/13/20 11/26/20 subcutaneous pen lancets 33 gauge #100 ea 10/13/20 11/26/20 lisinopril 20 mg tablet 20 mg PO BEDTIME 10/13/20 11/26/20 loratadine 10 mg tablet 10 mg PO DAILY PRN 10/13/20 11/26/20 pen needle, diabetic 31 gauge x #50 ea 10/13/20 11/26/2012/23 prednisone 20 mg tablet 40 mg PO DAILY 10/13/20 11/26/20 primidone 50 mg tablet 50 mg PO DAILY 10/13/20 11/26/20 sennosides 8.6 mg tablet 17.2 mg PO DAILY PRN 10/13/20 11/26/20 Previous Rx's Medication Instructions Recorded sodium,potassium,mag sulfates 17.5 See Rx Instructions PO .COMPLEX 09/01/20 gram-3.13 gram-1.6 gram oral soln #354 ml oxybutynin chloride 5 mg 5 mg PO DAILY #30 tab 10/13/20 tablet,extended release 24 hr oxybutynin chloride 10 mg 10 mg PO DAILY #30 tab 10/28/20 tablet,extended release 24 hr dicyclomine 20 mg PO TID PRN #20 tab 11/02/20 ondansetron 4 mg PO Q8H PRN #20 tab 11/02/20 furosemide 20 mg tablet 20 mg PO QAM #30 tab 11/18/20 fluticasone fur. 200 mcg-umeclid 1 inh INHALATION DAILY 30 Days #1 12/10/20 62.5 mcg-vilant 25 mcg ea inhalat.powder [id number] 1 inh INHALATION DAILY #60 ea 12/28/20 [Trelegy Ellipta] Allergies Allergy/AdvReac Type Severity Reaction Status Date / Time aspirin [Aspirin] Allergy Mild UPSET Verified 12/10/20 13:03 STOMACH ibuprofen [From Motrin] Allergy Mild Gastrointestinal Verified 12/10/20 13:03 Upset Review of Systems Review of Systems: Constitutional: No Fever, No Chills ENT/Mouth: No sore throat, No Rhinorrhea, No Swallowing Difficulty Eyes: No Eye Pain, No Swelling, No Redness Cardiovascular: + Chest Pain, No SOB, No Orthopnea, No Edema Respiratory: No Cough, No Sputum, No Wheezing, + dyspnea Gastrointestinal: No Nausea, No Vomiting, No Diarrhea, No abdominal Pain, No Hematochezia, No Melena Genitourinary: No Dysuria, No Urinary Frequency, No Hematuria Musculoskeletal: + joint pain, + Myalgias Skin: No Skin Lesions, No rash Neuro: No Weakness, + Numbness, + Dizziness, + Headache Psych: + Anxiety/Panic, No Depression Heme/Lymph: No Bruising, No Lymphadenopathy Endocrine: No Polyuria, No Polydipsia PMFSH Past Medical History Attestation statement: The following information was validated with the patient. Medical History Anxiety and depression Back pain Colon cancer screening COPD exacerbation Diabetes mellitus Frequency of micturition GERD (gastroesophageal reflux disease) High cholesterol Hypertension Hypothyroidism ENMA on CPAP Osteoarthritis Tubular adenoma of colon Urgency incontinence Urgency of micturition Surgical History History of cholecystectomy History of lumpectomy of right breast Hx of colonoscopy Hx of cystoscopy Hx of right knee surgery Family History Family History Mother History of pancreatic cancer Social History Social History Alcohol intake: never Smoking Status: Former smoker Years Smoked: 30 Advance Directives: Yes Advance Directives Information Provided: Yes Advance Directives on File: No Physical Exam Vital Signs: Vital Signs: Last Vital Signs Temp 98.6 F 12/28/20 13:30 Pulse 62 12/28/20 13:30 Resp 18 12/28/20 13:30 BP 106/56 L 12/28/20 13:30 Pulse Ox 97 12/28/20 13:30 Body Mass Index 39.3 Appearance: Alert. Oriented X3. No acute distress. Eyes: Pupils equal, round and reactive to light. ENT: Pharynx normal. Dentures in place. Bilateral TM's are normal. Neck: Normal inspection. Neck supple. Left mastoid tenderness without skin changes. Left SCM tenderness and superior trapezius tenderness. No cervical spinal tenderness. CVS: Normal heart rate and rhythm. Pulses normal. Respiratory: No respiratory distress. Breath sounds diminished at bilateral bases. Abdomen: Obese, soft and nontender. +BS x4 Skin: Skin warm and dry. Normal skin color. Normal skin turgor. No rashes. Extremities: No lower extremity edema. Neuro: Oriented X 3. No motor deficit. No sensory deficit. Strength equal and symmetrical. Non-focal. Course Course Course Narrative: 70 y/o female with multiple medical co-morbidities presenting with multiple complaints including left sided chest pain, left sided headache, neck pain and back pain. These symptoms seem to be going on for 2 months aside from the chest pain. Neck pain seems muscular in nature with tenderness and pain w/ ROM. She could be experiencing cervical radiculopathy with numbness in her arms and hands. Doubt this is due to an acute CVA or dissection given chronicity and examination is non-focal. Will rule out PE and ACS. Will treat for muscular pain with low dose flexeril, tylenol and salonpas patch to her neck. Will reassess. Reevaluation(s) Reevaluation #1: CXR few small foci of density adjacent to the left heart border. No evidence of pulmonary edema. May be atelectasis vs pneumonitis. Will check procalcitonin to help differentiate for evolving infection as well as COVID swab. She has no productive cough or fevers. Labs show no leukocytosis. DDIMER 202 reassuring against PE. Reevaluation #2: 4:55 pm - patient reassessed, she was sleeping comfortably. She reports pain is improved after medications. Troponin slightly elevated at 23.9 with any new EKG changes from prior. Repeat troponin ordered. Will sign out to Jesu Hollis PA-C who will assume care. MDM - Chest Pain Medical Records Data Attestation: I reviewed the patient's medical records. Lab Data Attestation: I reviewed the patient's lab results. Result diagrams: 12/28/20 15:53 12/28/20 15:53 Labs: Lab Results 12/28/20 12/28/20 12/28/20 Range/Units 15:53 15:53 15:53 WBC 5.7 (4.8-10.8) X10*3/uL RBC 5.05 (4.20-5.50) X10*6/uL Hgb 13.8 (12.0-16.0) g/dl Hct 45.0 (37-47) % MCV 89.1 (80-98) fL MCH 27.3 (27.0-33.0) pg MCHC 30.7 L (31.0-35.0) g/dl RDW 14.0 (11.0-16.0) % Plt Count 166 (160-400) X10*3/uL MPV 10.0 (9.4-12.3) fL Immature Gran % (Auto) 0.2 (0.0-0.4) % Neut % (Auto) 56.2 (45-73) % Lymph % (Auto) 33.0 (20-40) % Schoolcraft % (Auto) 7.4 (2-11) % Eos % (Auto) 2.7 (0-4) % Baso % (Auto) 0.5 (0-2) % Lymph # (Auto) 1.9 (1.2-4.9) X10*3/uL Schoolcraft # (Auto) 0.4 (0.1-1.2) X10*3/uL Eos # (Auto) 0.2 (0.0-0.4) X10*3/uL Baso # (Auto) 0.0 (0.0-0.2) X10*3/uL Abs Immat Gran (auto) 0.01 (0.00-0.03) X10*3/uL Absolute Neuts (auto) 3.2 (2.0-8.3) X10*3/uL Absolute Nucleated RBC 0.000 (0.0-0.012) X10*3/uL Nucleated RBC % (auto) 0.0 (0.0-0.2) /100WBC D-Dimer 202 NG/ML Hold Blue Top SEE NOTE Sodium 141 (135-145) mmol/L Potassium 4.2 (3.3-5.1) mmol/L Chloride 105 (96-108) mmol/L Carbon Dioxide 26 (22-29) mmol/L Anion Gap 14 (12-20) BUN 14 (9-16) mg/dL Creatinine 1.10 (0.5-1.4) mg/dL Estim Creat Clear Calc 52.3 Estimated GFR 49 Random Glucose 85 D (60-115) mg/dL Calcium 8.5 D (8.4-10.2) mg/dL Magnesium 2.2 (1.6-2.6) mg/dL Total Bilirubin 0.3 (0.0-1.0) mg/dL Direct Bilirubin 0.2 (0.0-0.5) mg/dL AST 20 (5-31) U/L ALT 14 (0-31) U/L Alkaline Phosphatase 92 (39-117) U/L Troponin I High Sens (<3.5-17.0) ng/L B-Natriuretic Peptide (<100) pg/mL Total Protein 6.8 (6.5-8.0) g/dL Albumin 4.3 (3.5-5.0) g/dL Procalcitonin ng/mL COVID-19 ([facility]) (Negative) COVID-19 Clin Com 12/28/20 12/28/20 12/28/20 Range/Units 15:53 15:53 15:53 WBC (4.8-10.8) X10*3/uL RBC (4.20-5.50) X10*6/uL Hgb (12.0-16.0) g/dl Hct (37-47) % MCV (80-98) fL MCH (27.0-33.0) pg MCHC (31.0-35.0) g/dl RDW (11.0-16.0) % Plt Count (160-400) X10*3/uL MPV (9.4-12.3) fL Immature Gran % (Auto) (0.0-0.4) % Neut % (Auto) (45-73) % Lymph % (Auto) (20-40) % Schoolcraft % (Auto) (2-11) % Eos % (Auto) (0-4) % Baso % (Auto) (0-2) % Lymph # (Auto) (1.2-4.9) X10*3/uL Schoolcraft # (Auto) (0.1-1.2) X10*3/uL Eos # (Auto) (0.0-0.4) X10*3/uL Baso # (Auto) (0.0-0.2) X10*3/uL Abs Immat Gran (auto) (0.00-0.03) X10*3/uL Absolute Neuts (auto) (2.0-8.3) X10*3/uL Absolute Nucleated RBC (0.0-0.012) X10*3/uL Nucleated RBC % (auto) (0.0-0.2) /100WBC D-Dimer NG/ML Hold Blue Top Sodium (135-145) mmol/L Potassium (3.3-5.1) mmol/L Chloride (96-108) mmol/L Carbon Dioxide (22-29) mmol/L Anion Gap (12-20) BUN (9-16) mg/dL Creatinine (0.5-1.4) mg/dL Estim Creat Clear Calc Estimated GFR Random Glucose (60-115) mg/dL Calcium (8.4-10.2) mg/dL Magnesium (1.6-2.6) mg/dL Total Bilirubin (0.0-1.0) mg/dL Direct Bilirubin (0.0-0.5) mg/dL AST (5-31) U/L ALT (0-31) U/L Alkaline Phosphatase (39-117) U/L Troponin I High Sens 23.9 H (<3.5-17.0) ng/L B-Natriuretic Peptide 74 (<100) pg/mL Total Protein (6.5-8.0) g/dL Albumin (3.5-5.0) g/dL Procalcitonin 0.06 ng/mL COVID-19 ([facility]) Negative (Negative) COVID-19 Clin Com See Note ECG Data ECG #1: Attestation: I personally reviewed and interpreted this ECG as follows: ECG interpretation date: 12/28/20 ECG interpretation time: 16:48 Prior ECG tracings: available for review Interpretation: sinus bradycardia, HR 58 bpm, RBBB, no ST segment elevations. RBBB is old. Scores Heart Score History: -0- slightly suspicious ECG: -0- normal Age: -2- > or = 65 Risk factory: -2- 3 or more risk factors or treated atherosclerosis Troponin: -1- >1 - <3x normal limit Score: 5 Risk: 16.6% Discharge Plan Discharge Prescriptions: New Trelegy Ellipta 200-62.5-25 mcg blister with device 1 inh inhalation DAILY Qty: 60 RF: 0 No Action furosemide 20 mg tablet 20 mg PO QAM Qty: 30 RF: 12 ondansetron 4 mg tablet,disintegrating 4 mg PO Q8H PRN (Reason: nausea and vomiting) Qty: 20 RF: 0 dicyclomine 20 mg tablet 20 mg PO TID PRN (Reason: abdominal discomfort) Qty: 20 RF: 0 propranolol 20 mg tablet 20 mg PO BID RF: 0 hydrochlorothiazide 12.5 mg tablet 12.5 mg PO DAILY RF: 0 Januvia 100 mg tablet 100 mg PO DAILY RF: 0 glipizide 2.5 mg tablet extended release 24hr 2.5 mg PO DAILY RF: 0 levothyroxine 200 mcg tablet 200 mcg PO DAILY RF: 0 omeprazole 20 mg capsule,delayed release(DR/EC) 20 mg PO DAILY RF: 0 bupropion HCl 300 mg tablet extended release 24 hr 300 mg PO QAM RF: 0 trazodone 100 mg tablet 100 mg PO BEDTIME PRN (Reason: Sleep) RF: 0 acetaminophen 500 mg tablet 500 mg PO QID PRN (Reason: Pain) RF: 0 gabapentin 300 mg capsule 300 mg PO DAILY RF: 0 citalopram 20 mg tablet 20 mg PO DAILY RF: 0 albuterol sulfate 90 mcg/actuation HFA aerosol inhaler 1 inh inhalation QID PRN (Reason: Wheezing) RF: 0 Trelegy Ellipta 200-62.5-25 mcg blister with device 1 inh inhalation DAILY 30 Days Qty: 1 RF: 6 Suprep Bowel Prep Kit 17.5-3.13-1.6 gram recon soln See Rx Instructions PO .COMPLEX Qty: 354 RF: 0 prednisone 20 mg tablet 40 mg PO DAILY RF: 0 bupropion HCl 150 mg tablet extended release 24 hr 150 mg PO QAM RF: 0 fluticasone propionate 50 mcg/actuation spray,suspension 2 spray intranasal DAILY PRN (Reason: Nasal Congestion) RF: 0 alendronate 70 mg tablet 70 mg PO QWEEK RF: 0 lisinopril 20 mg tablet 20 mg PO BEDTIME RF: 0 sennosides 8.6 mg tablet 17.2 mg PO DAILY PRN (Reason: Constipation) RF: 0 primidone 50 mg tablet 50 mg PO DAILY RF: 0 estradiol 0.01 % (0.1 mg/gram) cream 1 g vaginal 2XW RF: 0 (DME) pen needle, diabetic 31 gauge x 3/16 needle See Rx Instructions ea .ROUTE TID Qty: 50 RF: 0 insulin lispro 100 unit/mL insulin pen subcut RF: 0 atorvastatin 40 mg tablet 40 mg PO BEDTIME RF: 0 (DME) lancets 33 gauge misc See Rx Instructions ea Not Applicable BID Qty: 100 RF: 0 loratadine 10 mg tablet 10 mg PO DAILY PRN (Reason: allergies) RF: 0 (DME) OneTouch Ultra Blue Test Strip Strip See Rx Instructions ea Not Applicable BID Qty: 10 RF: 0 oxybutynin chloride 5 mg tablet extended release 24hr 5 mg PO DAILY Qty: 30 RF: 6 oxybutynin chloride 10 mg tablet extended release 24hr 10 mg PO DAILY Qty: 30 RF: 6
[2020-12-28 16:03] LABS: MANUAL DIFF FLAG NO
[2020-12-28 16:04] LABS: Basophils Percent Auto 0.5 % (0-2); Eosinophils Absolute Auto 0.2 X10*3/uL (0.0-0.4); Eosinophils Percent Auto 2.7 % (0-4); Hemoglobin 13.8 g/dl (12.0-16.0); Imm Gran Abs Auto 0.01 X10*3/uL (0.00-0.03); Imm Gran Pct Auto 0.2 % (0.0-0.4); Lymphocytes Absolute Auto 1.9 X10*3/uL (1.2-4.9); Mean Corpuscular HGB Conc 30.7 g/dl (31.0-35.0); Mean Corpuscular Hemoglobin 27.3 pg (27.0-33.0); Mean Corpuscular Volume 89.1 fL (80-98); Monocytes Absolute Auto 0.4 X10*3/uL (0.1-1.2); Monocytes Percent Auto 7.4 % (2-11); Neutrophils Absolute Auto 3.2 X10*3/uL (2.0-8.3); Neutrophils Percent Auto 56.2 % (45-73); Platelet Count 166 X10*3/uL (160-400); Red Blood Count 5.05 X10*6/uL (4.20-5.50); White Blood Count 5.7 X10*3/uL (4.8-10.8)
[2020-12-28 16:19] LABS: D Dimer 202 NG/ML
[2020-12-28 16:23] LABS: Alanine Aminotransferase 14 U/L (0-31); Albumin Level 4.3 g/dL (3.5-5.0); Alkaline Phosphatase 92 U/L (39-117); Anion Gap 14 (12-20); Aspartate Amino Transferase 20 U/L (5-31); Bilirubin Direct 0.2 mg/dL (0.0-0.5); Bilirubin Total 0.3 mg/dL (0.0-1.0); Blood Urea Nitrogen 14 mg/dL (9-16); Calcium 8.5 mg/dL (8.4-10.2); Carbon Dioxide 26 mmol/L (22-29); Chloride 105 mmol/L (96-108); Creatinine Clr Calc Pharmacy 52.3; Estimated Glomerular Filt Rate 49; Glucose Random 85 mg/dL (60-115); Magnesium 2.2 mg/dL (1.6-2.6); Potassium 4.2 mmol/L (3.3-5.1); Sodium 141 mmol/L (135-145); Total Protein 6.8 g/dL (6.5-8.0)
[2020-12-28 16:26] LABS: COVID-19 Test Negative (Negative)
[2020-12-28] MEDS: 0.9 % Sodium Chloride 1,000 ML 999 ML IVCONT (16:26)
[2020-12-28] MEDS: Acetaminophen 325 MG TABLET 975 MG PO (16:27)
[2020-12-28] MEDS: Lidocaine 4 % Patch ADH..PATCH 1 PATCH TRANSDERMA (16:27)
[2020-12-28] MEDS: Cyclobenzaprine HCl 5 MG TABLET PO (16:27)
[2020-12-28 16:31] LABS: B Type Natriuretic Peptide 74 pg/mL (<100); Troponin-I High Sensitivity 23.9 ng/L (<3.5-17.0)
[2020-12-28 16:45] LABS: Procalcitonin 0.06 ng/mL
[2020-12-28 16:47] LABS: Glucose Urine UA NEG (NEG); Leukocyte Esterase Urine NEG (NEG); Nitrite Urine NEG (NEG); Specific Gravity - Urine <= 1.005 (1.005-1.025); Urine Blood NEG (NEG); Urine Ketones NEG (NEG); Urine Protein NEG (NEG-TRACE)
[2020-12-28 16:48] LABS: Appearance Urine CLEAR; Color Urine YELLOW
[2020-12-28 17:47] VITALS: BP 131/68; PULSE 59; RESP 16; TEMP 36.4; O2SAT 96
[2020-12-28 19:32] LABS: Troponin-I High Sensitivity 14.9 ng/L (<3.5-17.0)
[2020-12-28 21:11] VITALS: BP 135/78; PULSE 58; RESP 16; O2SAT 98
--- NOTE | 2020-12-28 21:14 | PC.NURSE ---
Pt aware of plan to DC, awaiting sign language interpreter. IV removed, VSS.
== END 2020-12-28 21:20 | disposition home or self-care (01) ==
PROVIDERS: Physician Assistant; Emergency Provider Emergency Medicine; PCP Internal Medicine
DX: R07.9 Chest pain, unspecified (principal); R51.9 Headache, unspecified; Z20.822 Contact with and (suspected) exposure to COVID-19; E11.9 Type 2 diabetes mellitus without complications; I10 Essential (primary) hypertension; J44.9 Chronic obstructive pulmonary disease, unspecified; Z79.899 Other long term (current) drug therapy
CPT/HCPCS: 36415; 70450; 71045; 72125; 80048; 80076; 81003; 83735; 83880; 84145; 84484; 85025; 85379; 87635; 93005; 96360; 99284

== ENCOUNTER → 2021-01-27 11:43 | Outpatient (BNVA) | payer MEDICARE, SELFPAY | PROVIDERS: PCP Internal Medicine; Visit Provider Urology | DX: N39.41 Urge incontinence (principal); R35.1 Nocturia | CPT/HCPCS: Q3014 ==

== ENCOUNTER 2021-03-02 11:32 | Outpatient (REF) | payer MEDICARE, SELFPAY ==
--- NOTE | ~2021-03-02 | MM_ITS ---
EXAMINATION: MM SCREENING DIGITAL BREAST TOMOSYNTHESIS, BILATERAL CLINICAL INFORMATION: Screening. Asymptomatic. The lifetime risk of breast cancer based on the Tyrer-Cuzick Model is 2.1%. COMPARISON: Mammography: December 17, 2019 and studies dating back to July 27, 2012 TECHNIQUE: Digital breast tomosynthesis is performed in both the craniocaudal and mediolateral oblique views along with computer-aided detection (CAD). Synthesized 2D images are generated from the tomosynthesis. FINDINGS: The breasts are heterogeneously dense, which may obscure small masses (ACR BI-RADS breast composition Category c). There are no significant masses, abnormal calcifications, or other abnormalities. MM/MM tomosynthesis screening BI IMPRESSION: There are no significant changes from prior study. ASSESSMENT: BI-RADS 1: Negative RECOMMENDATION: Routine annual mammography screening. This patient's information was entered into a reminder system with a target due date for their next mammogram.
== END 2021-03-02 11:33 | disposition home or self-care (01) ==
LOC: HO.MAMMO 11:32
PROVIDERS: Visit Provider Internal Medicine
DX: Z12.31 Encounter for screening mammogram for malignant neoplasm of breast (principal)
CPT/HCPCS: 77063; 77067

== ENCOUNTER → 2021-03-17 13:06 | Outpatient (BNVA) | payer MEDICARE, SELFPAY | PROVIDERS: PCP Internal Medicine; Visit Provider Internal Medicine Pulmonary Disease | DX: J44.9 Chronic obstructive pulmonary disease, unspecified (principal); G47.33 Obstructive sleep apnea (adult) (pediatric); Z99.89 Dependence on other enabling machines and devices | CPT/HCPCS: 99212 ==

== ENCOUNTER → 2021-03-31 14:08 | Outpatient (BNVA) | payer MEDICARE, SELFPAY | PROVIDERS: PCP Internal Medicine; Visit Provider Urology | DX: N32.81 Overactive bladder (principal) | CPT/HCPCS: 99212 ==

== ENCOUNTER 2021-04-08 14:38 | Emergency (ER) | payer MEDICARE, SELFPAY ==
--- NOTE | 2021-04-08 | ECG_ITS ---
Test Reason : CHEST PAIN Blood Pressure : / mmHG Vent. Rate : 066 BPM Atrial Rate : 066 BPM P-R Int : 172 ms QRS Dur : 140 ms QT Int : 440 ms P-R-T Axes : 029 -31 005 degrees QTc Int : 461 ms Normal sinus rhythm Left axis deviation Right bundle branch block Moderate voltage criteria for LVH, may be normal variant Abnormal ECG When compared with ECG of 28-DEC-2020 13:42, No significant change was found Referred By: Generic ED Physician Electronically Signed By:SHAVONNE IVERSON MD
--- NOTE | ~2021-04-08 | XR_ITS ---
EXAMINATION: XR CHEST CLINICAL INFORMATION: Chest pain. COMPARISON: None TECHNIQUE: 2 views of the chest were obtained. FINDINGS: The lungs are well-expanded and clear of acute pneumonic process. Minimal linear atelectasis is seen in the lingula segment. The heart size and pulmonary vascularity is normal. No gross bony abnormality seen. XR/XR chest 2V IMPRESSION: Interval atelectatic changes in the lingula. No acute consolidation seen.
[2021-04-08 15:59] VITALS: BP 113/68; PULSE 62; RESP 18; TEMP 36.6; O2SAT 96; BMI 38.9
[2021-04-08 16:19] LABS: MANUAL DIFF FLAG NO
[2021-04-08 16:25] LABS: Basophils Percent Auto 0.5 % (0-2); Eosinophils Absolute Auto 0.2 X10*3/uL (0.0-0.4); Eosinophils Percent Auto 2.7 % (0-4); Hematocrit 43.2 % (37-47); Hemoglobin 13.8 g/dl (12.0-16.0); Imm Gran Abs Auto 0.02 X10*3/uL (0.00-0.03); Imm Gran Pct Auto 0.3 % (0.0-0.4); Lymphocytes Absolute Auto 1.9 X10*3/uL (1.2-4.9); Lymphocytes Percent Auto 29.1 % (20-40); Mean Corpuscular HGB Conc 31.9 g/dl (31.0-35.0); Mean Corpuscular Hemoglobin 28.2 pg (27.0-33.0); Mean Corpuscular Volume 88.2 fL (80-98); Mean Platelet Volume 10.1 fL (9.4-12.3); Monocytes Absolute Auto 0.5 X10*3/uL (0.1-1.2); Monocytes Percent Auto 7.6 % (2-11); Neutrophils Absolute Auto 3.8 X10*3/uL (2.0-8.3); Neutrophils Percent Auto 59.8 % (45-73); Platelet Count 183 X10*3/uL (160-400); Red Cell Distribution Width 13.6 % (11.0-16.0); White Blood Count 6.4 X10*3/uL (4.8-10.8)
[2021-04-08 16:44] LABS: Anion Gap 11 (12-20); Blood Urea Nitrogen 12 mg/dL (9-16); Calcium 9.2 mg/dL (8.4-10.2); Carbon Dioxide 29 mmol/L (22-29); Chloride 104 mmol/L (96-108); Creatinine Clr Calc Pharmacy 50.2; Estimated Glomerular Filt Rate 47; Glucose Random 113 mg/dL (60-115); Sodium 140 mmol/L (135-145)
[2021-04-08 16:52] LABS: Troponin-I High Sensitivity 15.2 ng/L (<3.5-17.0)
--- NOTE | 2021-04-08 18:27 | ED.CHESTPAIN ---
HPI - Chest Pain General Chief Complaint: Chest Pain Stated Complaint: severe chest pain Time Seen by Provider: 04/08/21 20:41 Source: patient Mode of arrival: ambulatory Limitations: no limitations History of Present Illness HPI narrative: 70-year-old female with past medical history of asthma, COPD, ENMA on CPAP, urinary incontinence, diabetes, anxiety and depression presents with multiple complaints. Her initial triage complaint was severe chest pain however she states that her headache hurts more than her chest. She also reports restless legs. She states that the chest pain has been intermittent over the past several days, and the headache she gets on a daily basis. She does not report palpitations, fevers, chills, abdominal pain, abdominal distention, dysuria, hematuria, or any other concerning symptoms. MD complaint: chest pain Pertinent past history: asthma Onset (ago): day(s) Timing of current episode: episodic Prior episodes: Yes Onset: during rest and during exertion Pain location: substernal Pain radiation: none Severity: severe Quality: aching Relieving factors: nothing Associated symptoms: other ( Headache) Treatment prior to arrival: none Risk Factors Coronary artery disease risk factors: diabetes, hyperlipidemia and hypertension Thoracic aortic dissection risk factors: none Related Data On Oral Contraceptives: No Home Medications Medication Instructions Recorded Confirmed acetaminophen 500 mg tablet 500 mg PO QID PRN 07/30/20 11/26/20 albuterol sulfate 90 mcg/actuation 1 inh INHALATION QID PRN 07/30/20 11/26/20 aerosol inhaler bupropion HCl 300 mg 24 hr tablet, 300 mg PO QAM 07/30/20 11/26/20 extended release citalopram 20 mg tablet 20 mg PO DAILY 07/30/20 11/26/20 gabapentin 300 mg capsule 300 mg PO DAILY 07/30/20 11/26/20 glipizide 2.5 mg tablet, extended 2.5 mg PO DAILY 07/30/20 11/26/20 release 24 hr hydrochlorothiazide 12.5 mg tablet 12.5 mg PO DAILY 07/30/20 11/26/20 levothyroxine 200 mcg tablet 200 mcg PO DAILY 07/30/20 11/26/20 omeprazole 20 mg capsule,delayed 20 mg PO DAILY 07/30/20 11/26/20 release propranolol 20 mg tablet 20 mg PO BID 07/30/20 11/26/20 sitagliptin 100 mg tablet 100 mg PO DAILY 07/30/20 11/26/20 trazodone 100 mg tablet 100 mg PO BEDTIME PRN 07/30/20 11/26/20 alendronate 70 mg tablet 70 mg PO QWEEK 10/13/20 11/26/20 atorvastatin 40 mg tablet 40 mg PO BEDTIME 10/13/20 11/26/20 blood sugar diagnostic #10 ea 10/13/20 11/26/20 bupropion HCl 150 mg 24 hr tablet, 150 mg PO QAM 10/13/20 11/26/20 extended release estradiol 1 g VAGINAL 2XW 10/13/20 11/26/20 fluticasone propionate 50 2 spray INTRANASAL DAILY PRN 10/13/20 11/26/20 mcg/actuation nasal spray,suspension insulin lispro 100 unit/mL unit SUBCUT 10/13/20 11/26/20 subcutaneous pen lancets 33 gauge #100 ea 10/13/20 11/26/20 lisinopril 20 mg tablet 20 mg PO BEDTIME 10/13/20 11/26/20 loratadine 10 mg tablet 10 mg PO DAILY PRN 10/13/20 11/26/20 pen needle, diabetic 31 gauge x #50 ea 10/13/20 11/26/20/ primidone 50 mg tablet 50 mg PO DAILY 10/13/20 11/26/20 sennosides 8.6 mg tablet 17.2 mg PO DAILY PRN 10/13/20 11/26/20 Previous Rx's Medication Instructions Recorded sodium,potassium,mag sulfates 17.5 See Rx Instructions PO .COMPLEX 09/01/20 gram-3.13 gram-1.6 gram oral soln #354 ml oxybutynin chloride 5 mg 5 mg PO DAILY #30 tab 10/13/20 tablet,extended release 24 hr oxybutynin chloride 10 mg 10 mg PO DAILY #30 tab 10/28/20 tablet,extended release 24 hr dicyclomine 20 mg PO TID PRN #20 tab 11/02/20 ondansetron 4 mg PO Q8H PRN #20 tab 11/02/20 furosemide 20 mg tablet 20 mg PO QAM #30 tab 11/18/20 fluticasone fur. 200 mcg-umeclid 1 inh INHALATION DAILY 30 Days #1 12/10/20 62.5 mcg-vilant 25 mcg ea inhalat.powder prednisone 10 mg tablet 40 mg PO DAILY 5 Days #20 tab 03/17/21 mirabegron 25 mg tablet,extended 25 mg PO DAILY 90 Days #90 tab 03/31/21 release 24 hr cefuroxime axetil 500 mg PO Q12H 10 Days #20 tab 04/08/21 phenazopyridine [Pyridium] 200 mg PO TID PRN #6 tab 04/08/21 Allergies Allergy/AdvReac Type Severity Reaction Status Date / Time aspirin [Aspirin] Allergy Mild UPSET Verified 03/31/21 14:28 STOMACH ibuprofen [From Motrin] Allergy Mild Gastrointestinal Verified 03/31/21 14:28 Upset Review of Systems Review of Systems: Constitutional: No Weight loss, No Fever, No Chills, No Night Sweats, No Fatigue, No Malaise ENT/Mouth: No Hearing loss, No Ear Pain, No Nasal Congestion, No Sinus Pain, No Hoarseness, No sore throat, No Rhinorrhea, No Swallowing Difficulty Eyes: No Eye Pain, No Swelling, No Redness, No Foreign Body, No Discharge, No Vision Changes Cardiovascular: positive Chest Pain, no SOB, no Dyspnea on Exertion, No Orthopnea, No Edema, No Palpitations Respiratory: No Cough, No Sputum, No Wheezing, No Smoke Exposure, No Dyspnea Gastrointestinal: no Nausea, No Vomiting, No Diarrhea, No abdominal Pain, No Hematochezia, No Melena Genitourinary: No irregular bleeding, No Dysuria, No Urinary Frequency, No Hematuria, No Urinary Incontinence, No Urgency, No Flank Pain, No Urinary Flow Changes, No Hesitancy Musculoskeletal: No joint pain, No Myalgias, No Joint Swelling Skin: No Skin Lesions, No rash Neuro: positive headache, No Weakness, No Numbness, No Paresthesias, No Loss of Consciousness, No Dizziness Psych: No Anxiety/Panic, No Depression, No SI/HI/AH/VH Heme/Lymph: No Bruising, No Bleeding,No Lymphadenopathy Endocrine: No Polyuria, No Polydipsia, No Temperature Intolerance Yes all other systems are reviewed and are negative [facility] Past Medical History Attestation statement: The following information was validated with the patient. Source: old records reviewed Medical History Anxiety and depression Back pain Colon cancer screening COPD exacerbation Diabetes mellitus Frequency of micturition GERD (gastroesophageal reflux disease) High cholesterol Hypertension Hypothyroidism ENMA on CPAP Osteoarthritis Tubular adenoma of colon Urgency incontinence Urgency of micturition Surgical History History of cholecystectomy History of lumpectomy of right breast Hx of colonoscopy Hx of cystoscopy Hx of right knee surgery Family History Family History Mother History of pancreatic cancer Social History Social History Are you a primary certified caregiver to a significant other at home: No Do you presently have visiting nurse or other home services: Yes ([employer]) Alcohol intake: never Years Smoked: 30 Advance Directives: No Advance Directives Information Provided: Yes Physical Exam Vital Signs: Vital Signs: Last Vital Signs Temp 98.4 F 04/08/21 21:47 Pulse 63 04/08/21 21:47 Resp 16 04/08/21 21:47 BP 136/80 04/08/21 21:47 Pulse Ox 96 04/08/21 21:47 Body Mass Index 38.9 Appearance: Alert. Oriented X3. No acute distress. Head: Normal external exam. Normocephalic. Atraumatic. No [place] signs noted. No raccoon eyes noted Eyes: PERRLA. EOMI. Conjunctiva and sclera normal. Eyelids normal. ENT: TM's Normal. Pharynx normal. Uvula midline. Moist mucous membranes. No trismus noted. No drooling noted. No muffled voice noted. Neck: Normal inspection. Neck supple. No adenopathy. Thyroid Normal. No meningeal signs. No neck mass noted. CVS: Normal heart rate and rhythm. Heart sound normal. No murmurs noted. Pulses equal to all extremities. Respiratory: No respiratory distress. Painless inspiration. Breath sounds normal. No wheezes/rales/rhonchi noted. Chest nontender. No accessory muscle usage noted or decreased air movement noted. Abdomen: Soft and nontender. Bowel sounds normal in all 4 quadrants. No distention noted. No organomegaly noted. No visible injury noted. Back: No CVA tenderness. Full range of motion noted. Skin: Skin warm and dry. Normal skin color. Normal skin turgor. No rashes/lesions/lacerations noted. Extremities: No lower extremity edema. Extremities exhibit normal range of motion. Extremities nontender. Neuro: cranial nerves 2-12 intact, no focal neural deficits, strength 5/5 to all extremities, No motor deficit. No sensory deficit. Course Course Course Narrative: 70-year-old female presents with multiple complaints. Will rule out ACS, 1st troponin 15.2, will repeat at the 3 hour dino. Lab values drawn while patient was waiting in the emergency department waiting room. No abnormalities noted. Urinalysis is pending. Second troponin is 17, not a significant increase no 50% delta, highly unlikely that this is ACS at this time. Urinalysis positive for leukocyte esterase, will treat for UTI. Will have patient follow-up with primary care physician for further workup. Patient verbalized understanding of and agrees with plan of care discharge home. MDM - Chest Pain Differential Diagnosis Differential diagnosis: Likely fracture of rib, pneumothorax, stable angina, atypical chest pain, st elevation myocardial infarction, costochondritis and biliary colic Medical Records Data Attestation: I reviewed the patient's medical records. Lab Data Attestation: I reviewed the patient's lab results. Result diagrams: 04/08/21 16:09 04/08/21 16:09 Labs: Lab Results 04/08/21 04/08/21 04/08/21 Range/Units 16:09 16:09 16:09 WBC 6.4 (4.8-10.8) X10*3/uL RBC 4.90 (4.20-5.50) X10*6/uL Hgb 13.8 (12.0-16.0) g/dl Hct 43.2 (37-47) % MCV 88.2 (80-98) fL MCH 28.2 (27.0-33.0) pg MCHC 31.9 (31.0-35.0) g/dl RDW 13.6 (11.0-16.0) % Plt Count 183 (160-400) X10*3/uL MPV 10.1 (9.4-12.3) fL Immature Gran % (Auto) 0.3 (0.0-0.4) % Neut % (Auto) 59.8 (45-73) % Lymph % (Auto) 29.1 (20-40) % [place] % (Auto) 7.6 (2-11) % Eos % (Auto) 2.7 (0-4) % Baso % (Auto) 0.5 (0-2) % Lymph # (Auto) 1.9 (1.2-4.9) X10*3/uL [place] # (Auto) 0.5 (0.1-1.2) X10*3/uL Eos # (Auto) 0.2 (0.0-0.4) X10*3/uL Baso # (Auto) 0.0 (0.0-0.2) X10*3/uL Abs Immat Gran (auto) 0.02 (0.00-0.03) X10*3/uL Absolute Neuts (auto) 3.8 (2.0-8.3) X10*3/uL Absolute Nucleated RBC 0.000 (0.0-0.012) X10*3/uL Nucleated RBC % (auto) 0.0 (0.0-0.2) /100WBC Sodium 140 (135-145) mmol/L Potassium 4.0 (3.3-5.1) mmol/L Chloride 104 (96-108) mmol/L Carbon Dioxide 29 (22-29) mmol/L Anion Gap 11 L (12-20) BUN 12 (9-16) mg/dL Creatinine 1.14 (0.5-1.4) mg/dL Estim Creat Clear Calc 50.2 Estimated GFR 47 Random Glucose 113 (60-115) mg/dL Calcium 9.2 D (8.4-10.2) mg/dL Troponin I High Sens 15.2 (<3.5-17.0) ng/L Urine Color Urine Appearance Urine pH (5.0-8.0) Ur Specific [place] (1.005-1.025) Urine Protein (NEG-TRACE) MG/DL Urine Glucose (UA) (NEG) MG/DL Urine Ketones (NEG) MG/DL Urine Blood (NEG) Urine Nitrite (NEG) Ur Leukocyte Esterase (NEG) Urine RBC (0) /HPF Urine WBC (0-4) /HPF Ur Squamous Epith Cells /LPF Urine Bacteria /LPF Urine Mucus /LPF 04/08/21 04/08/21 Range/Units 19:48 19:48 WBC (4.8-10.8) X10*3/uL RBC (4.20-5.50) X10*6/uL Hgb (12.0-16.0) g/dl Hct (37-47) % MCV (80-98) fL MCH (27.0-33.0) pg MCHC (31.0-35.0) g/dl RDW (11.0-16.0) % Plt Count (160-400) X10*3/uL MPV (9.4-12.3) fL Immature Gran % (Auto) (0.0-0.4) % Neut % (Auto) (45-73) % Lymph % (Auto) (20-40) % [place] % (Auto) (2-11) % Eos % (Auto) (0-4) % Baso % (Auto) (0-2) % Lymph # (Auto) (1.2-4.9) X10*3/uL [place] # (Auto) (0.1-1.2) X10*3/uL Eos # (Auto) (0.0-0.4) X10*3/uL Baso # (Auto) (0.0-0.2) X10*3/uL Abs Immat Gran (auto) (0.00-0.03) X10*3/uL Absolute Neuts (auto) (2.0-8.3) X10*3/uL Absolute Nucleated RBC (0.0-0.012) X10*3/uL Nucleated RBC % (auto) (0.0-0.2) /100WBC Sodium (135-145) mmol/L Potassium (3.3-5.1) mmol/L Chloride (96-108) mmol/L Carbon Dioxide (22-29) mmol/L Anion Gap (12-20) BUN (9-16) mg/dL Creatinine (0.5-1.4) mg/dL Estim Creat Clear Calc Estimated GFR Random Glucose (60-115) mg/dL Calcium (8.4-10.2) mg/dL Troponin I High Sens 17.8 H* (<3.5-17.0) ng/L Urine Color YELLOW Urine Appearance CLEAR Urine pH 6.5 (5.0-8.0) Ur Specific [place] <= 1.005 (1.005-1.025) Urine Protein NEG (NEG-TRACE) MG/DL Urine Glucose (UA) NEG (NEG) MG/DL Urine Ketones NEG (NEG) MG/DL Urine Blood NEG (NEG) Urine Nitrite NEG (NEG) Ur Leukocyte Esterase 1+ H (NEG) Urine RBC 0-2 (0) /HPF Urine WBC 0-2 (0-4) /HPF Ur Squamous Epith Cells 2+ /LPF Urine Bacteria NONE /LPF Urine Mucus 2+ /LPF Imaging Data Chest x-ray: Attestation: I personally reviewed and interpreted this imaging study as follows: Radiologist's impression: EXAMINATION: XR CHEST CLINICAL INFORMATION: Chest pain. COMPARISON: None TECHNIQUE: 2 views of the chest were obtained. FINDINGS: The lungs are well-expanded and clear of acute pneumonic process. Minimal linear atelectasis is seen in the lingula segment. The heart size and pulmonary vascularity is normal. No gross bony abnormality seen. XR/XR chest 2V IMPRESSION: Interval atelectatic changes in the lingula. No acute consolidation seen. ECG Data ECG #1: Attestation: I personally reviewed and interpreted this ECG as follows: ECG interpretation date: 04/08/21 ECG interpretation time: 15:11 Prior ECG tracings: available for review Interpretation: Vent. rate 66 BPM NH interval 172 ms QRS duration 140 ms QT/QTc 440/461 ms P-R-T axes 29 -31 5 Normal sinus rhythm Left axis deviation Right bundle branch block Moderate voltage criteria for LVH, may be normal variant Abnormal ECG When compared with ECG of 28-DEC-2020 13:42, No significant change was found Scores Heart Score History: -1- moderately suspicious ECG: -0- normal Age: -2- > or = 65 Risk factory: -1- 1 or 2 risk factors Troponin: -0- < or = normal limit Score: 4 Risk: 16.6% Discharge Plan Discharge Clinical Impression: Atypical chest pain, Acute UTI, Headache Patient Disposition: Home, Self-Care Instructions: Acute Headache (ED), Noncardiac Chest Pain (ED), Urinary Tract Infection in Older Adults (ED) Additional Instructions: you were evaluated for chest pain. Your EKG was normal, your cardiac enzymes are mildly elevated Which is consistent with her prior medical history of diabetes and hypertension. You must follow-up with primary care physician. your urine is positive for UTI. Please take cefuroxime twice a day for the next 10 days. Use Pyridium as needed for pain management. This medication will turn your urine bright orange. This is a normal side effect of this medication. Thank you for choosing this emergency department for evaluation. Please follow-up with primary care physician as needed. Return to the emergency department for any new, concerning, or worsening symptoms. Prescriptions: New cefuroxime axetil 500 mg tablet 500 mg PO Q12H 10 Days Qty: 20 RF: 0 phenazopyridine [Pyridium] 200 mg tablet 200 mg PO TID PRN (Reason: pain) Qty: 6 RF: 0 No Action furosemide 20 mg tablet 20 mg PO QAM Qty: 30 RF: 12 ondansetron 4 mg tablet,disintegrating 4 mg PO Q8H PRN (Reason: nausea and vomiting) Qty: 20 RF: 0 dicyclomine 20 mg tablet 20 mg PO TID PRN (Reason: abdominal discomfort) Qty: 20 RF: 0 propranolol 20 mg tablet 20 mg PO BID RF: 0 hydrochlorothiazide 12.5 mg tablet 12.5 mg PO DAILY RF: 0 Januvia 100 mg tablet 100 mg PO DAILY RF: 0 glipizide 2.5 mg tablet extended release 24hr 2.5 mg PO DAILY RF: 0 levothyroxine 200 mcg tablet 200 mcg PO DAILY RF: 0 omeprazole 20 mg capsule,delayed release(DR/EC) 20 mg PO DAILY RF: 0 bupropion HCl 300 mg tablet extended release 24 hr 300 mg PO QAM RF: 0 trazodone 100 mg tablet 100 mg PO BEDTIME PRN (Reason: Sleep) RF: 0 acetaminophen 500 mg tablet 500 mg PO QID PRN (Reason: Pain) RF: 0 gabapentin 300 mg capsule 300 mg PO DAILY RF: 0 citalopram 20 mg tablet 20 mg PO DAILY RF: 0 albuterol sulfate 90 mcg/actuation HFA aerosol inhaler 1 inh inhalation QID PRN (Reason: Wheezing) RF: 0 Trelegy Ellipta 200-62.5-25 mcg blister with device 1 inh inhalation DAILY 30 Days Qty: 1 RF: 6 prednisone 10 mg tablet 40 mg PO DAILY 5 Days Qty: 20 RF: 0 Myrbetriq 25 mg tablet extended release 24 hr 25 mg PO DAILY 90 Days Qty: 90 RF: 1 Suprep Bowel Prep Kit 17.5-3.13-1.6 gram recon soln See Rx Instructions PO .COMPLEX Qty: 354 RF: 0 bupropion HCl 150 mg tablet extended release 24 hr 150 mg PO QAM RF: 0 fluticasone propionate 50 mcg/actuation spray,suspension 2 spray intranasal DAILY PRN (Reason: Nasal Congestion) RF: 0 alendronate 70 mg tablet 70 mg PO QWEEK RF: 0 lisinopril 20 mg tablet 20 mg PO BEDTIME RF: 0 sennosides 8.6 mg tablet 17.2 mg PO DAILY PRN (Reason: Constipation) RF: 0 primidone 50 mg tablet 50 mg PO DAILY RF: 0 estradiol 0.01 % (0.1 mg/gram) cream 1 g vaginal 2XW RF: 0 (DME) pen needle, diabetic 31 gauge x 3/16 needle See Rx Instructions ea .ROUTE TID Qty: 50 RF: 0 insulin lispro 100 unit/mL insulin pen subcut RF: 0 atorvastatin 40 mg tablet 40 mg PO BEDTIME RF: 0 (DME) lancets 33 gauge misc See Rx Instructions ea Not Applicable BID Qty: 100 RF: 0 loratadine 10 mg tablet 10 mg PO DAILY PRN (Reason: allergies) RF: 0 (DME) OneTouch Ultra Blue Test Strip Strip See Rx Instructions ea Not Applicable BID Qty: 10 RF: 0 oxybutynin chloride 5 mg tablet extended release 24hr 5 mg PO DAILY Qty: 30 RF: 6 oxybutynin chloride 10 mg tablet extended release 24hr 10 mg PO DAILY Qty: 30 RF: 6 Interventions: ED Discharge Assessment Last Done: 04/08/21 22:03 Discharge Date/Time: 04/08/21 22:06
[2021-04-08] MEDS: Butalb/Acetamin/Caff 50/325/40 TABLET 1 TAB PO (19:30)
[2021-04-08 19:41] VITALS: BP 123/84; PULSE 60; RESP 12; TEMP 36.4; O2SAT 95
[2021-04-08 19:55] LABS: Glucose Urine UA NEG (NEG); Leukocyte Esterase Urine 1+ (NEG); Nitrite Urine NEG (NEG); PH 6.5 (5.0-8.0); Specific Gravity - Urine <= 1.005 (1.005-1.025); UACC Culture Trigger YES; Urine Blood NEG (NEG); Urine Ketones NEG (NEG); Urine Protein NEG (NEG-TRACE)
[2021-04-08 19:56] LABS: Appearance Urine CLEAR; Color Urine YELLOW
[2021-04-08 20:02] LABS: Mucus Urine 2+ /LPF; RBC Urine 0-2 /HPF (0); Squamous Epithelial Cell Urine 2+ /LPF; WBC Urine 0-2 /HPF (0-4)
[2021-04-08 20:39] LABS: Troponin-I High Sensitivity 17.8 ng/L (<3.5-17.0)
[2021-04-08] MEDS: Phenazopyridine HCL 200 MG TABLET PO (21:08)
[2021-04-08 21:47] VITALS: BP 136/80; PULSE 63; RESP 16; TEMP 36.9; O2SAT 96
== END 2021-04-08 22:06 | disposition home or self-care (01) ==
PROVIDERS: Nurse Practitioner Family; Emergency Provider Emergency Medicine
DX: R07.89 Other chest pain (principal); N39.0 Urinary tract infection, site not specified; R51.9 Headache, unspecified; E11.9 Type 2 diabetes mellitus without complications; I10 Essential (primary) hypertension; J44.9 Chronic obstructive pulmonary disease, unspecified; Z79.84 Long term (current) use of oral hypoglycemic drugs; Z79.899 Other long term (current) drug therapy
CPT/HCPCS: 36415; 71046; 80048; 81001; 81003; 84484; 85025; 87086; 93005; 99283; 99284

== ENCOUNTER 2021-06-04 13:53 | Outpatient (REF) | payer MEDICARE, SELFPAY ==
--- NOTE | ~2021-06-04 | MM_ITS ---
EXAMINATION: BONE DENSITOMETRY CLINICAL INDICATION: Screening for osteoporosis. Old thoracic vertebral compression T4. COMPARISON: Previous BD dated 10/06/2018 and baseline BD dated 01/25/2012. CT chest 06/30/2020, chest radiographs 04/08/2021. TECHNIQUE: Using a [employer] DXA System (software version: 13.1) manufactured by [employer], dual-energy x-ray absorptiometry was performed of the lumbar spine and left hip. The images are of good technical quality. Summary results are attached. FINDINGS: AP SPINE L1-L4: Current: BMD 0.928 g/cm2, Z-score -1.5, T-score -2.1, osteopenia, 3.9% increase from previous, 1.9% increase from baseline (<5% change is not significant). Prior: BMD 0.893 g/cm2. Baseline: BMD 0.911 g/cm2. LEFT FEMUR, NECK: Current: BMD 0.801 g/cm2, Z-score -0.6, T-score -1.7, osteopenia. Prior: BMD 0.765 g/cm2. Baseline: BMD 0.824 g/cm2. LEFT FEMUR, TOTAL: Current: BMD 0.870 g/cm2, Z-score -0.3, T-score -1.1, osteopenia, 0.1% decrease from previous, 3.5% decrease from baseline (<5% change is not significant). Prior: BMD 0.871 g/cm2. Baseline: BMD 0.902 g/cm2. IDENTIFIED RISK FACTORS: Rheumatoid arthritis, renal, tobacco use (current smoker), recurrent falls, history of fracture (adult). Early menopause, secondary osteoporosis, glucocorticoids (chronic), hysterectomy. HISTORY OF FRACTURE: Mild compressioin T4, forearm, humerus, femur. MEDICATIONS: None listed. MM/XR DEXA axial skeleton IMPRESSION: 1. DIAGNOSIS: Osteopenia based on the lowest T-score value of -2.1 in the lumbar spine applying World Health Organization criteria. 2. 10-YEAR FRACTURE RISK PREDICTION, FRAX: Major osteoporotic fracture (clinical spine, forearm, hip or shoulder) 19.2%. Hip fracture 6.4%. 3. Treatment Recommendations: NOF guidelines recommend consideration for treatment in postmenopausal women and men age 50 and older presenting with the following: -A hip or vertebral (clinical or morphometric) fracture. -T-score less than or equal to -2.5 at the femoral neck or spine after appropriate evaluation to exclude secondary causes. -Low bone mass at the hip or spine and a 10-year fracture probability by FRAX of greater than or equal to 3% for hip fracture or greater than or equal to 20% for major osteoporotic fracture based on the [place] adapted WHO algorithm. 4. Other Recommendations: All treatment decisions require clinical judgment and consideration of individual patient factors, including patient preferences, comorbidities, previous drug use, risk factors not captured in the FRAX model (e.g. frailty, falls, vitamin D deficiency, increased bone turnover, interval significant decline in bone density) and possible under or overestimation of fracture risk by FRAX. Additional medical evaluation for secondary cause of low bone mineral density may be appropriate. FUTURE SCAN RECOMMENDATION: People with diagnosed cases of osteoporosis or at high risk for fracture should have regular bone mineral density tests. For patients eligible for Medicare, routine testing is allowed once every 2 years. The testing frequency can be increased to one year for patients who have rapidly progressing disease, those who are receiving or discontinuing medical therapy to restore bone mass, or have additional risk factors.
== END 2021-06-04 13:54 | disposition home or self-care (01) ==
LOC: HO.MAMMO 13:53
PROVIDERS: Visit Provider Internal Medicine
DX: Z13.820 Encounter for screening for osteoporosis (principal); M81.0 Age-related osteoporosis without current pathological fracture; M06.9 Rheumatoid arthritis, unspecified; Z87.81 Personal history of (healed) traumatic fracture; Z78.0 Asymptomatic menopausal state; Z98.890 Other specified postprocedural states
CPT/HCPCS: 77080

== ENCOUNTER → 2021-06-17 12:48 | Outpatient (BNVA) | payer MEDICARE, SELFPAY | PROVIDERS: PCP Internal Medicine; Visit Provider Internal Medicine Pulmonary Disease | DX: J44.9 Chronic obstructive pulmonary disease, unspecified (principal); G47.33 Obstructive sleep apnea (adult) (pediatric); R91.1 Solitary pulmonary nodule; Z99.89 Dependence on other enabling machines and devices | CPT/HCPCS: 99212 ==

== ENCOUNTER 2021-06-24 12:55 | Outpatient (REF) | payer MEDICARE, SELFPAY ==
--- NOTE | ~2021-06-24 | CT_ITS ---
EXAMINATION: CT CHEST WITHOUT CONTRAST CLINICAL INFORMATION: Abnormal lung findings on prior. COMPARISON: Chest CT from 01/04/2018 and 06/30/2020. CXR from 05/08/2021. TECHNIQUE: Multidetector volumetric CT imaging of the chest was done. Axial MIP volume rendering provided. Sagittal and coronal reformatted images were obtained. This CT examination was performed using dose optimization techniques as appropriate, variously including the following: *Automated exposure control *Adjustment of mA and/or kV according to patient size (this includes techniques or standardized protocols for targeted exams where dose is matched to indication/reason for exam; i.e. extremities or head) *Use of iterative reconstruction technique DLP: 894 mGy-cm FINDINGS: LUNGS AND PLEURA: Trachea and central airways are widely patent and normal in caliber. Multiple old noncalcified micronodules are present in both lungs. These have not significantly changed compared to 01/04/2018 or 06/30/2020. No interval development of a suspicious nodule or mass. The subpleural reticular opacities in mid to lower lung zones have a stable appearance compared to 06/30/2020, and there are some intermixed ground glass opacities from mild inflammatory changes and/or mild atelectasis, also similar compared to 06/30/2020. A linear opacity of focal scarring or atelectasis is present in the inferior lingula. No consolidation. There is chronic mild cylindrical bronchiectasis in the posteromedial right lower lobe. No honeycombing. No pleural effusion or pneumothorax. CARDIOVASCULAR: The heart size is normal. Pulmonary arteries are normal in caliber. Mild thoracic aorta atherosclerosis without aneurysm. No pericardial effusion. MEDIASTINUM AND LOWER NECK: The thyroid gland is absent. The esophagus is unremarkable. No mediastinal mass. LYMPHATICS: No pathologic sized lymph nodes. UPPER ABDOMEN: Gallbladder is surgically absent. Adrenal glands are normal. SKELETAL AND CHEST WALL: No acute findings in the degenerated spine. Old, moderate compression fracture of the T4 vertebral body. CT/CT chest wo con IMPRESSION: * The small, benign bilateral pulmonary micronodules exhibit long-term stability. * No interval development of a suspicious nodule, mass or lymphadenopathy. * Chronic, mild interstitial disease involving mid to lower lung zones has a stable appearance compared to 06/30/2020. * Old, moderate compression fracture of the T4 vertebral body.
--- NOTE | ~2021-06-24 | CT_ITS ---
EXAMINATION: CT SOFT TISSUE NECK WITHOUT CONTRAST CLINICAL INFORMATION: Circulatory and respiratory symptoms. COMPARISON: None TECHNIQUE: Helical imaging was performed in the axial plane with generation of coronal and sagittal reformatted images. This CT examination was performed using dose optimization techniques as appropriate, variously including the following: *Automated exposure control *Adjustment of mA and/or kV according to patient size (this includes techniques or standardized protocols for targeted exams where dose is matched to indication/reason for exam; i.e. extremities or head) *Use of iterative reconstruction technique DLP: 894 mGy-cm FINDINGS: The exam is slightly suboptimal due to the patient's body habitus and slight patient movement. No cervical adenopathy is identified. The parotid glands are homogeneous in attenuation. The submandibular glands are normal. No contour abnormality or pathologic enhancement is seen within the oral cavity or pharyngeal mucosal space. The laryngeal structures are normal. The parapharyngeal fat is preserved. The carotid sheath vasculature opacifies normally. No extramucosal soft tissue mass or fluid collection is seen. No retropharyngeal fluid collection is seen. The thyroid gland is normal. The superior mediastinum is unremarkable. The lung apices are clear. The mastoid air cells and visualized portions of the paranasal sinuses are well aerated. The temporomandibular joints are normal. No periapical disease is identified. There is loss of the C5-C6, C6-C7 and C7-T1 disc heights consistent with degenerative changes. The imaged portions of the brain parenchyma are unremarkable. CT/CT soft tissue neck wo con IMPRESSION: No evidence of neck mass, abnormal lymphadenopathy. Degenerative disc changes at the C5-C6, C6-C7 and C7-T1 disc levels.
== END 2021-06-24 12:56 | disposition home or self-care (01) ==
LOC: HO.CT 12:55
PROVIDERS: PCP Internal Medicine; Visit Provider Emergency Medicine
DX: R09.89 Other specified symptoms and signs involving the circulatory and respiratory systems (principal); R91.8 Other nonspecific abnormal finding of lung field
CPT/HCPCS: 70490; 71250

== ENCOUNTER 2021-07-06 12:39 | Outpatient (REF) | payer MEDICARE, SELFPAY ==
--- NOTE | ~2021-07-06 | CT_ITS ---
EXAMINATION: CT CHEST WITHOUT CONTRAST CLINICAL INFORMATION: Follow-up pulmonary nodules COMPARISON: Previous chest CT scans most recent most recent 06/24/2021 TECHNIQUE: Multidetector volumetric CT imaging of the chest was done. Axial MIP volume rendering provided. Sagittal and coronal reformatted images were obtained. This CT examination was performed using dose optimization techniques as appropriate, variously including the following: *Automated exposure control *Adjustment of mA and/or kV according to patient size (this includes techniques or standardized protocols for targeted exams where dose is matched to indication/reason for exam; i.e. extremities or head) *Use of iterative reconstruction technique DLP: 200 mGy-cm FINDINGS: LUNGS: The small bilateral pulmonary nodules or micronodules are stable. There are increased interstitial peripheral lung markings with the increased reticulation. This is greatest at the lung bases. There is scattered areas of increased peripheral or subpleural parenchymal attenuation and groundglass attenuation areas or opacities that appear unchanged. There is mild traction bronchiolectasis seen in the right lower lobe. No honeycombing is seen. No evidence of emphysema is seen. No endobronchial or endotracheal lesion is seen. MEDIASTINUM: There are small mediastinal lymph nodes that are stable. No enlarged lymph nodes are seen. The heart size is normal. Thoracic aorta and pulmonary arteries are normal in caliber. No pericardial effusion or coronary artery calcification. PLEURA: There is no pleural effusion. No pleural mass or thickening. AXILLA: No chest wall mass or enlarged axillary lymph nodes. UPPER ABDOMEN: The gallbladder has been removed. OSSEOUS STRUCTURES: There are degenerative changes of the spine. Old mild T4 vertebral body compression fracture is unchanged. CT/CT chest wo con IMPRESSION: Peripheral interstitial lung disease not appreciably changed. Stable small pulmonary nodules or micronodules.
== END 2021-07-06 12:40 | disposition home or self-care (01) ==
LOC: HO.CT 12:39
PROVIDERS: PCP Internal Medicine; Visit Provider Internal Medicine Pulmonary Disease
DX: R91.8 Other nonspecific abnormal finding of lung field (principal)
CPT/HCPCS: 71250

== ENCOUNTER 2021-07-10 15:21 | Emergency (ER) | payer MEDICARE, SELFPAY ==
--- NOTE | ~2021-07-10 | CT_ITS ---
EXAMINATION: CT HEAD WITHOUT CONTRAST CLINICAL INFORMATION: New onset dizziness and headache. COMPARISON: CT head dated from 12/28/2020. TECHNIQUE: Contiguous axial imaging was performed from the skull base to vertex without intravenous administration of contrast. This CT examination was performed using dose optimization techniques as appropriate, variously including the following: *Automated exposure control *Adjustment of mA and/or kV according to patient size (this includes techniques or standardized protocols for targeted exams where dose is matched to indication/reason for exam; i.e. extremities or head) *Use of iterative reconstruction technique DLP: 736 mGy-cm FINDINGS: There is no evidence of acute intracranial hemorrhage or territorial infarction. No abnormal mass effect or midline shift is seen. [place] to white matter differentiation is well preserved. No extra-axial fluid collections are identified. The ventricles are normal in size. There is no abnormal attenuation within the brain parenchyma. The osseous structures and soft tissues are normal. The mastoid air cells and visualized portions of the paranasal sinuses are well aerated. CT/CT head/brain wo con IMPRESSION: No acute intracranial pathology.
[2021-07-10 15:40] VITALS: BP 91/59; PULSE 77; RESP 20; TEMP 36.3; O2SAT 93; BMI 40.2
[2021-07-10 16:02] LABS: Appearance Urine CLEAR; Color Urine YELLOW; Glucose Urine UA NEG (NEG); Leukocyte Esterase Urine 1+ (NEG); Nitrite Urine NEG (NEG); Specific Gravity - Urine 1.025 (1.005-1.025); UACC Culture Trigger YES; Urine Blood NEG (NEG); Urine Ketones NEG (NEG); Urine Protein NEG (NEG-TRACE)
[2021-07-10 16:11] LABS: Bacteria Urine 1+ /LPF; Squamous Epithelial Cell Urine 1+ /LPF
[2021-07-10 16:13] LABS: RBC Urine 0 /HPF (0)
[2021-07-10 16:49] LABS: MANUAL DIFF FLAG NO
[2021-07-10 16:51] LABS: Basophils Percent Auto 0.4 % (0-2); Eosinophils Absolute Auto 0.2 X10*3/uL (0.0-0.4); Eosinophils Percent Auto 2.8 % (0-4); Hematocrit 45.5 % (37-47); Hemoglobin 14.5 g/dl (12.0-16.0); Imm Gran Abs Auto 0.01 X10*3/uL (0.00-0.03); Imm Gran Pct Auto 0.1 % (0.0-0.4); Lymphocytes Absolute Auto 2.2 X10*3/uL (1.2-4.9); Lymphocytes Percent Auto 32.8 % (20-40); Mean Corpuscular HGB Conc 31.9 g/dl (31.0-35.0); Mean Corpuscular Hemoglobin 28.4 pg (27.0-33.0); Mean Corpuscular Volume 89.2 fL (80-98); Mean Platelet Volume 10.3 fL (9.4-12.3); Monocytes Absolute Auto 0.6 X10*3/uL (0.1-1.2); Monocytes Percent Auto 8.5 % (2-11); Neutrophils Absolute Auto 3.8 X10*3/uL (2.0-8.3); Neutrophils Percent Auto 55.4 % (45-73); Platelet Count 179 X10*3/uL (160-400); Red Cell Distribution Width 13.8 % (11.0-16.0); White Blood Count 6.8 X10*3/uL (4.8-10.8)
[2021-07-10 17:03] LABS: Anion Gap 11 (12-20); Blood Urea Nitrogen 17 mg/dL (9-16); Calcium 9.6 mg/dL (8.4-10.2); Carbon Dioxide 28 mmol/L (22-29); Chloride 106 mmol/L (96-108); Estimated Glomerular Filt Rate 28; Glucose Random 159 mg/dL (60-115); Sodium 141 mmol/L (135-145)
--- NOTE | 2021-07-10 18:34 | ED_ITS ---
HPI - General Adult General Chief complaint: Dizziness Stated complaint: Dizzy, Weak, head pain Time Seen by Provider: 07/10/21 18:32 Source: patient Mode of arrival: ambulatory Limitations: no limitations History of Present Illness HPI narrative: Patient been feeling weak for last 1 week dizziness nausea body aches forgetfulness multiple complaints with headache. Patient describes her dizziness as vertiginous feeling especially when she moves her head to 1 side or other side associated with nausea no vomitingfeel off balance never had similar complaints in the past also patient has some tinnitus on the left side Related Data Home Medications Medication Instructions Recorded Confirmed acetaminophen 500 mg tablet 500 mg PO QID PRN 07/30/20 11/26/20 bupropion HCl 300 mg 24 hr tablet, 300 mg PO QAM 07/30/20 11/26/20 extended release citalopram 20 mg tablet 20 mg PO DAILY 07/30/20 11/26/20 gabapentin 300 mg capsule 300 mg PO DAILY 07/30/20 11/26/20 glipizide 2.5 mg tablet, extended 2.5 mg PO DAILY 07/30/20 11/26/20 release 24 hr hydrochlorothiazide 12.5 mg tablet 12.5 mg PO DAILY 07/30/20 11/26/20 levothyroxine 200 mcg tablet 200 mcg PO DAILY 07/30/20 11/26/20 omeprazole 20 mg capsule,delayed 20 mg PO DAILY 07/30/20 11/26/20 release propranolol 20 mg tablet 20 mg PO BID 07/30/20 11/26/20 sitagliptin 100 mg tablet (Januvia) 100 mg PO DAILY 07/30/20 11/26/20 trazodone 100 mg tablet 100 mg PO BEDTIME PRN 07/30/20 11/26/20 alendronate 70 mg tablet 70 mg PO QWEEK 10/13/20 11/26/20 atorvastatin 40 mg tablet 40 mg PO BEDTIME 10/13/20 11/26/20 blood sugar diagnostic #10 ea 10/13/20 11/26/20 bupropion HCl 150 mg 24 hr tablet, 150 mg PO QAM 10/13/20 11/26/20 extended release estradiol 1 g VAGINAL 2XW 10/13/20 11/26/20 fluticasone propionate 50 2 spray INTRANASAL DAILY PRN 10/13/20 11/26/20 mcg/actuation nasal spray,suspension insulin lispro 100 unit/mL unit SUBCUT 10/13/20 11/26/20 subcutaneous pen lancets 33 gauge #100 ea 10/13/20 11/26/20 lisinopril 20 mg tablet 20 mg PO BEDTIME 10/13/20 11/26/20 loratadine 10 mg tablet 10 mg PO DAILY PRN 10/13/20 11/26/20 pen needle, diabetic 31 gauge x #50 ea 10/13/20 11/26/2012/23 primidone 50 mg tablet 50 mg PO DAILY 10/13/20 11/26/20 sennosides 8.6 mg tablet 17.2 mg PO DAILY PRN 10/13/20 11/26/20 Previous Rx's Medication Instructions Recorded sodium,potassium,mag sulfates 17.5 See Rx Instructions PO .COMPLEX 09/01/20 gram-3.13 gram-1.6 gram oral soln #354 ml (Suprep Bowel Prep Kit) oxybutynin chloride 5 mg 5 mg PO DAILY #30 tab 10/13/20 tablet,extended release 24 hr oxybutynin chloride 10 mg 10 mg PO DAILY #30 tab 10/28/20 tablet,extended release 24 hr dicyclomine 20 mg tablet 20 mg PO TID PRN #20 tab 11/02/20 ondansetron 4 mg disintegrating 4 mg PO Q8H PRN #20 tab 11/02/20 tablet furosemide 20 mg tablet 20 mg PO QAM #30 tab 11/18/20 fluticasone fur. 200 mcg-umeclid 1 inh INHALATION DAILY 30 Days #1 12/10/20 62.5 mcg-vilant 25 mcg ea inhalat.powder (Trelegy Ellipta) prednisone 10 mg tablet 40 mg PO DAILY 5 Days #20 tab 03/17/21 mirabegron 25 mg tablet,extended 25 mg PO DAILY 90 Days #90 tab 03/31/21 release 24 hr (Myrbetriq) cefuroxime axetil 500 mg tablet 500 mg PO Q12H 10 Days #20 tab 04/08/21 phenazopyridine 200 mg tablet 200 mg PO TID PRN #6 tab 04/08/21 (Pyridium) albuterol sulfate 90 mcg/actuation 2 inh INHALATION QID PRN 30 Days 06/17/21 aerosol inhaler #1 ea meclizine 12.5 mg tablet 12.5 mg PO TID PRN #14 tab 07/10/21 Allergies Allergy/AdvReac Type Severity Reaction Status Date / Time aspirin [Aspirin] Allergy Mild UPSET Verified 07/10/21 15:44 STOMACH ibuprofen [From Motrin] Allergy Mild Gastrointestinal Verified 07/10/21 15:44 Upset Review of Systems Review of Systems: Yes all other systems are reviewed and are negative [facility] Past Medical History Medical History Anxiety and depression Back pain Colon cancer screening COPD (chronic obstructive pulmonary disease) COPD exacerbation Diabetes mellitus Frequency of micturition GERD (gastroesophageal reflux disease) High cholesterol Hypertension Hypothyroidism ENMA on CPAP Osteoarthritis Tubular adenoma of colon Urgency incontinence Urgency of micturition Surgical History History of cholecystectomy History of lumpectomy of right breast Hx of colonoscopy Hx of cystoscopy Hx of right knee surgery Family History Family History Mother History of pancreatic cancer Social History Social History Are you a primary manager urgent care to a significant other at home: No Do you presently have visiting nurse or other home services: Yes ([employer]ATOR) Alcohol intake: never Years Smoked: 30 Advance Directives: No Advance Directives Information Provided: Yes Physical Exam Vital Signs: Vital Signs: Last Vital Signs Temp 97.4 F 07/10/21 15:40 Pulse 77 07/10/21 15:40 Resp 20 07/10/21 15:40 BP 91/59 L 07/10/21 15:40 Pulse Ox 93 07/10/21 15:40 Body Mass Index 40.2 Appearance: Alert. Oriented X3. No acute distress. Feels dizzy on head m ovements especially the left side Eyes: PERRLA, No Nystagmus no pallor or icterus ENT: Pharynx normal. Oral Mucosa moist Neck: Normal inspection. Neck supple. CVS: Normal heart rate and rhythm. Pulses normal. Respiratory: No respiratory distress. Equal air entry bilateral, no wheezing/rales/rhonchi Abdomen: Soft and nontender. Bowel sounds are present, no mass palpable, no CVA tenderness Skin: Skin warm and dry. Normal skin color. Normal skin turgor. Extremities: No lower extremity edema. No calf tenderness Neuro: Oriented X 3. No motor deficit. No sensory deficit.No cerebellar signs , cranial nerves II-XII intact Course Reevaluation(s) Reevaluation #1: Patient feeling much better now dizziness almost gone advised her to drink plenty of fluids and take meclizine as needed for dizziness follow- up with PCP to repeat kidney function test in 1 week Time: 20:43 Medical Decision Making [facility] Narrative Medical decision making narrative: Patient with benign positional vertigo lab work was normal except slightly dehydrated with increased BUN/creatinine will give her IV fluids and meclizine CT head is negative Lab Data Lab results reviewed: Yes I reviewed the patient's lab results. Result diagrams: 07/10/21 16:45 07/10/21 16:45 Labs: Lab Results 07/10/21 07/10/21 07/10/21 Range/Units 15:51 16:45 16:45 WBC 6.8 (4.8-10.8) X10*3/uL RBC 5.10 (4.20-5.50) X10*6/uL Hgb 14.5 (12.0-16.0) g/dl Hct 45.5 (37-47) % MCV 89.2 (80-98) fL MCH 28.4 (27.0-33.0) pg MCHC 31.9 (31.0-35.0) g/dl RDW 13.8 (11.0-16.0) % Plt Count 179 (160-400) X10*3/uL MPV 10.3 (9.4-12.3) fL Immature Gran % (Auto) 0.1 (0.0-0.4) % Neut % (Auto) 55.4 (45-73) % Lymph % (Auto) 32.8 (20-40) % [place] % (Auto) 8.5 (2-11) % Eos % (Auto) 2.8 (0-4) % Baso % (Auto) 0.4 (0-2) % Lymph # (Auto) 2.2 (1.2-4.9) X10*3/uL [place] # (Auto) 0.6 (0.1-1.2) X10*3/uL Eos # (Auto) 0.2 (0.0-0.4) X10*3/uL Baso # (Auto) 0.0 (0.0-0.2) X10*3/uL Abs Immat Gran (auto) 0.01 (0.00-0.03) X10*3/uL Absolute Neuts (auto) 3.8 (2.0-8.3) X10*3/uL Absolute Nucleated RBC 0.000 (0.0-0.012) X10*3/uL Nucleated RBC % (auto) 0.0 (0.0-0.2) /100WBC Sodium 141 (135-145) mmol/L Potassium 4.0 (3.3-5.1) mmol/L Chloride 106 (96-108) mmol/L Carbon Dioxide 28 (22-29) mmol/L Anion Gap 11 L (12-20) BUN 17 H (9-16) mg/dL Creatinine 1.78 H (0.5-1.4) mg/dL Estim Creat Clear Calc 31.0 Estimated GFR 28 Random Glucose 159 H (60-115) mg/dL Calcium 9.6 (8.4-10.2) mg/dL Urine Color YELLOW Urine Appearance CLEAR Urine pH 6.0 (5.0-8.0) Ur Specific Aubrey 1.025 (1.005-1.025) Urine Protein NEG (NEG-TRACE) MG/DL Urine Glucose (UA) NEG (NEG) MG/DL Urine Ketones NEG (NEG) MG/DL Urine Blood NEG (NEG) Urine Nitrite NEG (NEG) Ur Leukocyte Esterase 1+ H (NEG) Urine RBC 0 (0) /HPF Urine WBC 1-4 (0-4) /HPF Ur Squamous Epith Cells 1+ /LPF Urine Bacteria 1+ /LPF Discharge Plan Discharge Clinical Impression: Elevated serum creatinine Benign paroxysmal positional vertigo Qualifiers: Laterality: bilateral Qualified Code(s): H81.13 - Benign paroxysmal vertigo, bilateral Patient Disposition: Home, Self-Care Instructions: Chronic Kidney Disease (ED), Benign Paroxysmal Positional Vertigo (ED) Additional Instructions: Drink plenty of fluids Take meclizine for dizziness as advised if needed Follow-up with PCP to recheckyou kidney functions in 1 week Sujata garza?quido Okay meclizina para los mareos seg?n las recomendaciones si es necesario. Seguimiento con el PCP para volver a controlar desi funciones renales en 1 semana Prescriptions: New meclizine 12.5 mg tablet 12.5 mg PO TID PRN (Reason: dizziness) Qty: 14 RF: 0 No Action furosemide 20 mg tablet 20 mg PO QAM Qty: 30 RF: 12 cefuroxime axetil 500 mg tablet 500 mg PO Q12H 10 Days Qty: 20 RF: 0 phenazopyridine [Pyridium] 200 mg tablet 200 mg PO TID PRN (Reason: pain) Qty: 6 RF: 0 ondansetron 4 mg tablet,disintegrating 4 mg PO Q8H PRN (Reason: nausea and vomiting) Qty: 20 RF: 0 dicyclomine 20 mg tablet 20 mg PO TID PRN (Reason: abdominal discomfort) Qty: 20 RF: 0 propranolol 20 mg tablet 20 mg PO BID RF: 0 hydrochlorothiazide 12.5 mg tablet 12.5 mg PO DAILY RF: 0 Januvia 100 mg tablet 100 mg PO DAILY RF: 0 glipizide 2.5 mg tablet extended release 24hr 2.5 mg PO DAILY RF: 0 levothyroxine 200 mcg tablet 200 mcg PO DAILY RF: 0 omeprazole 20 mg capsule,delayed release(DR/EC) 20 mg PO DAILY RF: 0 bupropion HCl 300 mg tablet extended release 24 hr 300 mg PO QAM RF: 0 trazodone 100 mg tablet 100 mg PO BEDTIME PRN (Reason: Sleep) RF: 0 acetaminophen 500 mg tablet 500 mg PO QID PRN (Reason: Pain) RF: 0 gabapentin 300 mg capsule 300 mg PO DAILY RF: 0 citalopram 20 mg tablet 20 mg PO DAILY RF: 0 Trelegy Ellipta 200-62.5-25 mcg blister with device 1 inh inhalation DAILY 30 Days Qty: 1 RF: 6 prednisone 10 mg tablet 40 mg PO DAILY 5 Days Qty: 20 RF: 0 Myrbetriq 25 mg tablet extended release 24 hr 25 mg PO DAILY 90 Days Qty: 90 RF: 1 albuterol sulfate 90 mcg/actuation HFA aerosol inhaler 2 inh inhalation QID PRN (Reason: Wheezing) 30 Days Qty: 1 RF: 6 Suprep Bowel Prep Kit 17.5-3.13-1.6 gram recon soln See Rx Instructions PO .COMPLEX Qty: 354 RF: 0 bupropion HCl 150 mg tablet extended release 24 hr 150 mg PO QAM RF: 0 fluticasone propionate 50 mcg/actuation spray,suspension 2 spray intranasal DAILY PRN (Reason: Nasal Congestion) RF: 0 alendronate 70 mg tablet 70 mg PO QWEEK RF: 0 lisinopril 20 mg tablet 20 mg PO BEDTIME RF: 0 sennosides 8.6 mg tablet 17.2 mg PO DAILY PRN (Reason: Constipation) RF: 0 primidone 50 mg tablet 50 mg PO DAILY RF: 0 estradiol 0.01 % (0.1 mg/gram) cream 1 g vaginal 2XW RF: 0 (DME) pen needle, diabetic 31 gauge x 3/16 needle See Rx Instructions ea .ROUTE TID Qty: 50 RF: 0 insulin lispro 100 unit/mL insulin pen subcut RF: 0 atorvastatin 40 mg tablet 40 mg PO BEDTIME RF: 0 (DME) lancets 33 gauge misc See Rx Instructions ea Not Applicable BID Qty: 100 RF: 0 loratadine 10 mg tablet 10 mg PO DAILY PRN (Reason: allergies) RF: 0 (DME) OneTouch Ultra Blue Test Strip Strip See Rx Instructions ea Not Applicable BID Qty: 10 RF: 0 oxybutynin chloride 5 mg tablet extended release 24hr 5 mg PO DAILY Qty: 30 RF: 6 oxybutynin chloride 10 mg tablet extended release 24hr 10 mg PO DAILY Qty: 30 RF: 6 Print Language: Uzbek
[2021-07-10] MEDS: 0.9 % Sodium Chloride 1,000 ML 999 ML IVCONT (19:21)
[2021-07-10] MEDS: Meclizine HCl 25 MG TABLET PO (19:21)
[2021-07-10] MEDS: Acetaminophen 325 MG TABLET 650 MG PO (20:57)
== END 2021-07-10 21:06 | disposition home or self-care (01) ==
PROVIDERS: Emergency Provider Internal Medicine; PCP Internal Medicine
DX: H81.13 Benign paroxysmal vertigo, bilateral (principal); R51.9 Headache, unspecified; R79.89 Other specified abnormal findings of blood chemistry; Z87.891 Personal history of nicotine dependence; Z79.899 Other long term (current) drug therapy
CPT/HCPCS: 36415; 70450; 80048; 81001; 81003; 85025; 87086; 96360; 99284

== ENCOUNTER 2021-07-30 15:56 | Emergency (ER) | payer MEDICARE, SELFPAY ==
--- NOTE | ~2021-07-30 | CT_ITS ---
EXAMINATION: CT ABDOMEN AND PELVIS WITHOUT CONTRAST CLINICAL INFORMATION: Constipation. No bowel movements x3 days. COMPARISON: None TECHNIQUE: Multidetector volumetric imaging was performed from the superior aspect of the liver through the pubic symphysis. Sagittal and coronal reformatted images were obtained on the technologist's workstation. This CT examination was performed using dose optimization techniques as appropriate, variously including the following: *Automated exposure control *Adjustment of mA and/or kV according to patient size (this includes techniques or standardized protocols for targeted exams where dose is matched to indication/reason for exam; i.e. extremities or head) *Use of iterative reconstruction technique DLP: 796 mGy-cm FINDINGS: LUNG BASES: The heart size is normal. There is mild atelectatic changes in both lung bases, right middle lobe and lingula. LIVER, GALLBLADDER, AND BILIARY TREE: The liver is normal in size, shape, and attenuation. No focal hepatic lesion or biliary ductal dilatation is present. The gallbladder has been surgically removed. PANCREAS: Unremarkable. SPLEEN: Unremarkable. ADRENAL GLANDS: Unremarkable. KIDNEYS AND URETERS: The kidneys are normal in size, shape, and attenuation. No hydronephrosis, hydroureter, or calculi seen. No perinephric stranding. BLADDER: Unremarkable. GASTROINTESTINAL TRACT: There is scattered moderate stool, gas and diverticuli seen throughout the colon without any significant distention. The small bowel loops are normal caliber. Appendix is normal caliber. No free air or free fluid seen. ABDOMINAL WALL: No significant hernia is appreciated. LYMPH NODES: Normal. VASCULAR: Unremarkable. PELVIC VISCERA: The uterus is anteverted and appears unremarkable. There is no adnexal mass or free fluid seen. OSSEOUS STRUCTURES: There are degenerative disc changes T12-L1 disc level. No lytic or sclerotic process seen CT/CT abdomen pelvis wo con IMPRESSION: Mild constipation. No acute process seen. Colonic diverticulosis without diverticulitis. Normal appendix. Cholecystectomy. Bilateral lower lobe, lingular and right middle lobe atelectasis or scarring.
[2021-07-30 16:37] VITALS: BP 130/98; PULSE 85; RESP 22; TEMP 37.4; O2SAT 94; BMI 38.9
[2021-07-30] MEDS: 0.9 % Sodium Chloride 1,000 ML 999 ML IVCONT (19:10)
[2021-07-30] MEDS: ondansetron HCL 4 MG/2 ML VIAL IVPUSH (19:11)
[2021-07-30 19:20] LABS: Basophils Percent Auto 0.3 % (0-2); Eosinophils Absolute Auto 0.1 X10*3/uL (0.0-0.4); Eosinophils Percent Auto 0.8 % (0-4); Hemoglobin 14.4 g/dl (12.0-16.0); Imm Gran Abs Auto 0.03 X10*3/uL (0.00-0.03); Imm Gran Pct Auto 0.3 % (0.0-0.4); Lymphocytes Absolute Auto 1.8 X10*3/uL (1.2-4.9); Lymphocytes Percent Auto 20.9 % (20-40); MANUAL DIFF FLAG NO; Mean Corpuscular HGB Conc 32.7 g/dl (31.0-35.0); Mean Corpuscular Hemoglobin 28.5 pg (27.0-33.0); Mean Corpuscular Volume 87.1 fL (80-98); Mean Platelet Volume 10.4 fL (9.4-12.3); Monocytes Absolute Auto 0.4 X10*3/uL (0.1-1.2); Monocytes Percent Auto 4.7 % (2-11); Neutrophils Absolute Auto 6.3 X10*3/uL (2.0-8.3); Platelet Count 175 X10*3/uL (160-400); Red Blood Count 5.05 X10*6/uL (4.20-5.50); Red Cell Distribution Width 13.3 % (11.0-16.0); White Blood Count 8.7 X10*3/uL (4.8-10.8)
[2021-07-30 19:38] LABS: Alanine Aminotransferase 14 U/L (0-31); Albumin Level 4.4 g/dL (3.5-5.0); Alkaline Phosphatase 85 U/L (39-117); Anion Gap 14 (12-20); Aspartate Amino Transferase 24 U/L (5-31); Bilirubin Direct 0.2 mg/dL (0.0-0.5); Bilirubin Total 0.6 mg/dL (0.0-1.0); Blood Urea Nitrogen 18 mg/dL (9-16); Calcium 9.8 mg/dL (8.4-10.2); Carbon Dioxide 25 mmol/L (22-29); Chloride 106 mmol/L (96-108); Estimated Glomerular Filt Rate 44; Glucose Random 156 mg/dL (60-115); Lipase 30 U/L (8-78); Potassium 4.4 mmol/L (3.3-5.1); Sodium 141 mmol/L (135-145); Total Protein 7.3 g/dL (6.5-8.0)
--- NOTE | 2021-07-30 19:41 | ED_ITS ---
HPI - Abdominal Pain General Chief Complaint: Abdominal Pain Stated Complaint: Constipation X 3days Time Seen by Provider: 07/30/21 18:19 Source: patient Mode of arrival: ambulatory History of Present Illness HPI narrative: 71-year-old female with a past medical history anxiety, depression, COPD, DM, GERD, hyperlipidemia, ENMA on CPAP, presenting to the ED complaining of constipation with associated lower abdominal pain radiating to back without BM x3 days. States it is not passing flatus. Reports difficulty urinating secondary to pain. Also reports nausea. Denies fever, chills, vomiting, diarrhea, dysuria/hematuria, rectal bleeding MD elicited complaint: abdominal pain Related Data Home Medications Medication Instructions Recorded Confirmed acetaminophen 500 mg tablet 500 mg PO QID PRN 07/30/20 11/26/20 bupropion HCl 300 mg 24 hr tablet, 300 mg PO QAM 07/30/20 11/26/20 extended release citalopram 20 mg tablet 20 mg PO DAILY 07/30/20 11/26/20 gabapentin 300 mg capsule 300 mg PO DAILY 07/30/20 11/26/20 glipizide 2.5 mg tablet, extended 2.5 mg PO DAILY 07/30/20 11/26/20 release 24 hr hydrochlorothiazide 12.5 mg tablet 12.5 mg PO DAILY 07/30/20 11/26/20 levothyroxine 200 mcg tablet 200 mcg PO DAILY 07/30/20 11/26/20 omeprazole 20 mg capsule,delayed 20 mg PO DAILY 07/30/20 11/26/20 release propranolol 20 mg tablet 20 mg PO BID 07/30/20 11/26/20 sitagliptin 100 mg tablet (Januvia) 100 mg PO DAILY 07/30/20 11/26/20 trazodone 100 mg tablet 100 mg PO BEDTIME PRN 07/30/20 11/26/20 alendronate 70 mg tablet 70 mg PO QWEEK 10/13/20 11/26/20 atorvastatin 40 mg tablet 40 mg PO BEDTIME 10/13/20 11/26/20 blood sugar diagnostic #10 ea 10/13/20 11/26/20 bupropion HCl 150 mg 24 hr tablet, 150 mg PO QAM 10/13/20 11/26/20 extended release estradiol 1 g VAGINAL 2XW 10/13/20 11/26/20 fluticasone propionate 50 2 spray INTRANASAL DAILY PRN 10/13/20 11/26/20 mcg/actuation nasal spray,suspension insulin lispro 100 unit/mL unit SUBCUT 10/13/20 11/26/20 subcutaneous pen lancets 33 gauge #100 ea 10/13/20 11/26/20 lisinopril 20 mg tablet 20 mg PO BEDTIME 10/13/20 11/26/20 loratadine 10 mg tablet 10 mg PO DAILY PRN 10/13/20 11/26/20 pen needle, diabetic 31 gauge x #50 ea 10/13/20 11/26/2012/23 primidone 50 mg tablet 50 mg PO DAILY 10/13/20 11/26/20 sennosides 8.6 mg tablet 17.2 mg PO DAILY PRN 10/13/20 11/26/20 Previous Rx's Medication Instructions Recorded sodium,potassium,mag sulfates 17.5 See Rx Instructions PO .COMPLEX 09/01/20 gram-3.13 gram-1.6 gram oral soln #354 ml (Suprep Bowel Prep Kit) oxybutynin chloride 5 mg 5 mg PO DAILY #30 tab 10/13/20 tablet,extended release 24 hr oxybutynin chloride 10 mg 10 mg PO DAILY #30 tab 10/28/20 tablet,extended release 24 hr dicyclomine 20 mg tablet 20 mg PO TID PRN #20 tab 11/02/20 ondansetron 4 mg disintegrating 4 mg PO Q8H PRN #20 tab 11/02/20 tablet furosemide 20 mg tablet 20 mg PO QAM #30 tab 11/18/20 fluticasone fur. 200 mcg-umeclid 1 inh INHALATION DAILY 30 Days #1 12/10/20 62.5 mcg-vilant 25 mcg ea inhalat.powder (Trelegy Ellipta) prednisone 10 mg tablet 40 mg PO DAILY 5 Days #20 tab 03/17/21 mirabegron 25 mg tablet,extended 25 mg PO DAILY 90 Days #90 tab 03/31/21 release 24 hr (Myrbetriq) cefuroxime axetil 500 mg tablet 500 mg PO Q12H 10 Days #20 tab 04/08/21 phenazopyridine 200 mg tablet 200 mg PO TID PRN #6 tab 04/08/21 (Pyridium) albuterol sulfate 90 mcg/actuation 2 inh INHALATION QID PRN 30 Days 06/17/21 aerosol inhaler #1 ea meclizine 12.5 mg tablet 12.5 mg PO TID PRN #14 tab 07/10/21 mineral oil (Fleet Mineral Oil) 118 ml NE DAILY PRN #6384 ml 07/30/21 polyethylene glycol 3350 17 17 g PO DAILY PRN #238 g 07/30/21 gram/dose oral powder (Miralax) Allergies Allergy/AdvReac Type Severity Reaction Status Date / Time aspirin [Aspirin] Allergy Mild UPSET Verified 07/30/21 16:40 STOMACH ibuprofen [From Motrin] Allergy Mild Gastrointestinal Verified 07/30/21 16:40 Upset Review of Systems Review of Systems Constitutional:No Fever, No Chills, No Fatigue, No Malaise ENT/Mouth: No Ear Pain, No sore throat, No Rhinorrhea, No Swallowing Difficulty Eyes: No Eye Pain, No Swelling Cardiovascular: No Chest Pain, No SOB, No Palpitations Respiratory: No Cough, No Dyspnea Gastrointestinal: + Nausea, No Vomiting, No Diarrhea, + Constipation, + Abdominal pain, No Hematochezia, No Melena Genitourinary: No irregular bleeding, No Dysuria, No Urgency, No Flank Pain, No Urinary Flow Changes, No Hesitancy Musculoskeletal: No joint pain, No Myalgias, No Joint Swelling Skin: No Skin Lesions, No rash Neuro: No Weakness, No Numbness, No Dizziness, No Headache Yes all other systems are reviewed and are negative Physical Exam Vital Signs: Vital Signs: Last Vital Signs Temp 98.7 F 07/30/21 20:27 Pulse 68 07/30/21 20:27 Resp 16 07/30/21 20:27 BP 146/86 H 07/30/21 20:27 Pulse Ox 91 L 07/30/21 20:27 Body Mass Index 38.9 Const: General: cooperative, healthy appearing and no acute distress Orientation/consciousness: patient oriented x3 Limitations: no limitations HENMT: Head: Yes normal to inspection Ears: hearing grossly normal bilaterally General nose exam: Normal external nose present Face and sinus: Yes normal facial exam Eyes: General: appearance normal, both eyes and all related structures EOM: EOMs intact bilaterally Neck: Neck: Yes normal visual inspection and Yes no meningeal signs Resp: Effort & Inspection: normal respiratory effort and no respiratory distress Cardio: Rate: regular rate GI: Other: Manual disimpaction performed with small amount of stool disimpacted from rectal vault Inspection: Yes normal to inspection Palpation (GI): Soft to palpation, Tenderness to palpation present (GI) (Lower abdominal), no guarding and not rigid Rectal Exam - Female: External hemorrhoid(s) present (Without cellulitis or thrombosis) : General: Yes no CVA tenderness Back/Spine/Pelvis: Back: no CVA tenderness Skin: Rashes: no rashes Wounds: no wounds Neuro: General: patient oriented x3 and no meningeal signs Gait exam (Neuro): Normal gait present Extrem: General: Yes normal to inspection Course Course Course Narrative: -1954--no leukocytosis. H&H stable. Labs otherwise unremarkable. A little over 200 cc on bladder scan CT abdomen pelvis wo con IMPRESSION: Mild constipation. No acute process seen. ? Colonic diverticulosis without diverticulitis. Normal appendix. ? Cholecystectomy. ? Bilateral lower lobe, lingular and right middle lobe atelectasis or scarring.? >> PO MiraLax and Senna ordered -2099--on re-evaluation patient reports symptomatic improvement. Results discussed including worrisome signs and symptoms and strict return precautions including if no BM in 48 hours return to the ED immediately MDM - Abdominal Pain MDM Narrative Medical decision making narrative: 71-year-old female with a past medical history anxiety, depression, COPD, DM, GERD, hyperlipidemia, ENMA on CPAP, presenting to the ED complaining of constipation with associated lower abdominal pain radiating to back without BM x3 days. On exam tachypneic, in pain, abdomen soft with lower abdominal TTP, no rebound or guarding, small amount of stool disimpacted from rectum. Concern for SBO/constipation vs fecal impaction vs diverticulitis or appendicitis vs urinary retention vs UTI. Lower concern for renal stone/pyelo. Plan: Labs, UA, CT abdomen/pelvis, IVF, symptomatic treatment, reassess Medical Records Attestation: I reviewed the patient's medical records. Lab Data Attestation: I reviewed the patient's lab results. Result diagrams: 07/30/21 19:10 07/30/21 19:10 Labs: Lab Results 07/30/21 07/30/21 07/30/21 Range/Units 19:10 19:10 20:20 WBC 8.7 (4.8-10.8) X10*3/uL RBC 5.05 (4.20-5.50) X10*6/uL Hgb 14.4 (12.0-16.0) g/dl Hct 44.0 (37-47) % MCV 87.1 (80-98) fL MCH 28.5 (27.0-33.0) pg MCHC 32.7 (31.0-35.0) g/dl RDW 13.3 (11.0-16.0) % Plt Count 175 (160-400) X10*3/uL MPV 10.4 (9.4-12.3) fL Immature Gran % (Auto) 0.3 (0.0-0.4) % Neut % (Auto) 73.0 (45-73) % Lymph % (Auto) 20.9 (20-40) % Churchill % (Auto) 4.7 (2-11) % Eos % (Auto) 0.8 (0-4) % Baso % (Auto) 0.3 (0-2) % Lymph # (Auto) 1.8 (1.2-4.9) X10*3/uL Churchill # (Auto) 0.4 (0.1-1.2) X10*3/uL Eos # (Auto) 0.1 (0.0-0.4) X10*3/uL Baso # (Auto) 0.0 (0.0-0.2) X10*3/uL Abs Immat Gran (auto) 0.03 (0.00-0.03) X10*3/uL Absolute Neuts (auto) 6.3 (2.0-8.3) X10*3/uL Absolute Nucleated RBC 0.000 (0.0-0.012) X10*3/uL Nucleated RBC % (auto) 0.0 (0.0-0.2) /100WBC Sodium 141 (135-145) mmol/L Potassium 4.4 (3.3-5.1) mmol/L Chloride 106 (96-108) mmol/L Carbon Dioxide 25 (22-29) mmol/L Anion Gap 14 (12-20) BUN 18 H (9-16) mg/dL Creatinine 1.20 (0.5-1.4) mg/dL Estim Creat Clear Calc 47.0 Estimated GFR 44 Random Glucose 156 H (60-115) mg/dL Calcium 9.8 (8.4-10.2) mg/dL Magnesium 2.0 (1.6-2.6) mg/dL Total Bilirubin 0.6 (0.0-1.0) mg/dL Direct Bilirubin 0.2 (0.0-0.5) mg/dL AST 24 (5-31) U/L ALT 14 (0-31) U/L Alkaline Phosphatase 85 (39-117) U/L Total Protein 7.3 (6.5-8.0) g/dL Albumin 4.4 (3.5-5.0) g/dL Lipase 30 (8-78) U/L Urine Color YELLOW Urine Appearance CLEAR Urine pH 6.0 (5.0-8.0) Ur Specific Dinosaur 1.025 (1.005-1.025) Urine Protein NEG (NEG-TRACE) MG/DL Urine Glucose (UA) NEG (NEG) MG/DL Urine Ketones NEG (NEG) MG/DL Urine Blood NEG (NEG) Urine Nitrite NEG (NEG) Ur Leukocyte Esterase NEG (NEG) Discharge Plan Discharge Clinical Impression: Constipation Qualifiers: Constipation type: unspecified constipation type Qualified Code(s): K59.00 - Constipation, unspecified Patient Disposition: Home, Self-Care Instructions: Constipation (ED), High Fiber Diet (ED), Fleet Enema (ED) Additional Instructions: Your CAT scan shows constipation Your blood work is reassuring Use Fleet enema at home MiraLax is a laxative Please increase fluid intake If you do not have a bowel movement in 48 hours return to the ED If her pain persists or worsens, you develop nausea/vomiting or unbearable abdominal pain please return to the ED Please follow-up with your doctor Prescriptions: New mineral oil [Fleet Mineral Oil] Enema 118 ml NE DAILY PRN (Reason: constipation) Qty: 6384 RF: 0 polyethylene glycol 3350 [Miralax] 17 gram/dose powder 17 g PO DAILY PRN (Reason: constipation) Qty: 238 RF: 0 No Action furosemide 20 mg tablet 20 mg PO QAM Qty: 30 RF: 12 cefuroxime axetil 500 mg tablet 500 mg PO Q12H 10 Days Qty: 20 RF: 0 phenazopyridine [Pyridium] 200 mg tablet 200 mg PO TID PRN (Reason: pain) Qty: 6 RF: 0 ondansetron 4 mg tablet,disintegrating 4 mg PO Q8H PRN (Reason: nausea and vomiting) Qty: 20 RF: 0 dicyclomine 20 mg tablet 20 mg PO TID PRN (Reason: abdominal discomfort) Qty: 20 RF: 0 meclizine 12.5 mg tablet 12.5 mg PO TID PRN (Reason: dizziness) Qty: 14 RF: 0 propranolol 20 mg tablet 20 mg PO BID RF: 0 hydrochlorothiazide 12.5 mg tablet 12.5 mg PO DAILY RF: 0 Januvia 100 mg tablet 100 mg PO DAILY RF: 0 glipizide 2.5 mg tablet extended release 24hr 2.5 mg PO DAILY RF: 0 levothyroxine 200 mcg tablet 200 mcg PO DAILY RF: 0 omeprazole 20 mg capsule,delayed release(DR/EC) 20 mg PO DAILY RF: 0 bupropion HCl 300 mg tablet extended release 24 hr 300 mg PO QAM RF: 0 trazodone 100 mg tablet 100 mg PO BEDTIME PRN (Reason: Sleep) RF: 0 acetaminophen 500 mg tablet 500 mg PO QID PRN (Reason: Pain) RF: 0 gabapentin 300 mg capsule 300 mg PO DAILY RF: 0 citalopram 20 mg tablet 20 mg PO DAILY RF: 0 Trelegy Ellipta 200-62.5-25 mcg blister with device 1 inh inhalation DAILY 30 Days Qty: 1 RF: 6 prednisone 10 mg tablet 40 mg PO DAILY 5 Days Qty: 20 RF: 0 Myrbetriq 25 mg tablet extended release 24 hr 25 mg PO DAILY 90 Days Qty: 90 RF: 1 albuterol sulfate 90 mcg/actuation HFA aerosol inhaler 2 inh inhalation QID PRN (Reason: Wheezing) 30 Days Qty: 1 RF: 6 Suprep Bowel Prep Kit 17.5-3.13-1.6 gram recon soln See Rx Instructions PO .COMPLEX Qty: 354 RF: 0 bupropion HCl 150 mg tablet extended release 24 hr 150 mg PO QAM RF: 0 fluticasone propionate 50 mcg/actuation spray,suspension 2 spray intranasal DAILY PRN (Reason: Nasal Congestion) RF: 0 alendronate 70 mg tablet 70 mg PO QWEEK RF: 0 lisinopril 20 mg tablet 20 mg PO BEDTIME RF: 0 sennosides 8.6 mg tablet 17.2 mg PO DAILY PRN (Reason: Constipation) RF: 0 primidone 50 mg tablet 50 mg PO DAILY RF: 0 estradiol 0.01 % (0.1 mg/gram) cream 1 g vaginal 2XW RF: 0 (DME) pen needle, diabetic 31 gauge x 3/16 needle See Rx Instructions ea .ROUTE TID Qty: 50 RF: 0 insulin lispro 100 unit/mL insulin pen subcut RF: 0 atorvastatin 40 mg tablet 40 mg PO BEDTIME RF: 0 (DME) lancets 33 gauge misc See Rx Instructions ea Not Applicable BID Qty: 100 RF: 0 loratadine 10 mg tablet 10 mg PO DAILY PRN (Reason: allergies) RF: 0 (DME) OneTouch Ultra Blue Test Strip Strip See Rx Instructions ea Not Applicable BID Qty: 10 RF: 0 oxybutynin chloride 5 mg tablet extended release 24hr 5 mg PO DAILY Qty: 30 RF: 6 oxybutynin chloride 10 mg tablet extended release 24hr 10 mg PO DAILY Qty: 30 RF: 6 Referrals: Amparo Bustamante MD [Primary Care Provider] - 2 days [facility] Past Medical History Attestation statement: The following information was validated with the patient. Medical History Anxiety and depression Back pain Colon cancer screening COPD (chronic obstructive pulmonary disease) COPD exacerbation Diabetes mellitus Frequency of micturition GERD (gastroesophageal reflux disease) High cholesterol Hypertension Hypothyroidism ENMA on CPAP Osteoarthritis Tubular adenoma of colon Urgency incontinence Urgency of micturition Surgical History History of cholecystectomy History of lumpectomy of right breast Hx of colonoscopy Hx of cystoscopy Hx of right knee surgery Family History Family History Mother History of pancreatic cancer Social History Social History Are you a primary child care giver to a significant other at home: No Do you presently have visiting nurse or other home services: Yes ([employer]PRES[employer]IVE) Alcohol intake: never Years Smoked: 30 Advance Directives: No Advance Directives Information Provided: No
[2021-07-30] MEDS: Ketorolac Tromethamine 15 MG/ML VIAL IVPUSH (20:14)
[2021-07-30] MEDS: polyethylene glycoL 3350 17 GM POWD.PACK PO (20:15)
--- NOTE | 2021-07-30 20:23 | PC.NURSE ---
pt a&O, no sob or chest pain. labs, ua collected and sent. Iv placed. Medicated per Dec.
[2021-07-30 20:27] VITALS: BP 146/86; PULSE 68; RESP 16; TEMP 37.1; O2SAT 91
[2021-07-30 20:27] LABS: Appearance Urine CLEAR; Color Urine YELLOW; Glucose Urine UA NEG (NEG); Leukocyte Esterase Urine NEG (NEG); Nitrite Urine NEG (NEG); Specific Gravity - Urine 1.025 (1.005-1.025); Urine Blood NEG (NEG); Urine Ketones NEG (NEG); Urine Protein NEG (NEG-TRACE)
== END 2021-07-30 21:26 | disposition home or self-care (01) ==
PROVIDERS: Physician Assistant; Emergency Provider Emergency Medicine; PCP Internal Medicine
DX: R10.30 Lower abdominal pain, unspecified (principal); M54.50 Low back pain, unspecified; K59.00 Constipation, unspecified; Z79.899 Other long term (current) drug therapy
CPT/HCPCS: 36415; 74176; 80048; 80076; 81003; 83690; 83735; 85025; 96361; 96374; 96375; 99284; J1885; J2405

== ENCOUNTER → 2021-09-30 13:46 | Outpatient (BNVA) | payer MEDICARE, SELFPAY | PROVIDERS: PCP Internal Medicine | DX: R39.15 Urgency of urination (principal) | CPT/HCPCS: 51798; 99212 ==

== ENCOUNTER → 2021-10-14 13:23 | Outpatient (BNVA) | payer MEDICARE, SELFPAY | PROVIDERS: PCP Internal Medicine; Visit Provider Internal Medicine Pulmonary Disease | DX: J44.9 Chronic obstructive pulmonary disease, unspecified (principal); J84.10 Pulmonary fibrosis, unspecified; G47.33 Obstructive sleep apnea (adult) (pediatric); Z99.89 Dependence on other enabling machines and devices | CPT/HCPCS: 99212 ==

== ENCOUNTER 2021-11-22 20:24 | Emergency (ER) | payer MEDICARE, SELFPAY ==
--- NOTE | ~2021-11-22 | XR_ITS ---
EXAMINATION: PORTABLE CHEST 1 VIEW CLINICAL INFORMATION: CP . COMPARISON: 04/08/2021. TECHNIQUE: Portable frontal view of the chest was obtained. FINDINGS: Lungs well-expanded. There is patchy bilateral airspace disease seen more so in the lateral aspect of the left base. Atypical infectious etiology would be suspected in this setting. No significant effusion edema or pneumothorax. Cardiac silhouette within normal limits for size with vascular calcification in aorta. XR/XR chest 1V IMPRESSION: Patchy bilateral airspace disease more so in the lateral aspect of the left base. In the acute setting infectious etiology would be suspected.
--- NOTE | ~2021-11-22 | CT_ITS ---
EXAMINATION: CT ABDOMEN AND PELVIS WITHOUT CONTRAST CLINICAL INFORMATION: Left abdominal pain rule out obstruction . COMPARISON: 07/30/2021 CT scan of the abdomen and pelvis. TECHNIQUE: Multidetector volumetric imaging was performed from the superior aspect of the liver through the pubic symphysis without contrast per request. Sagittal and coronal reformatted images were obtained on the technologist workstation. This CT examination was performed using dose optimization techniques as appropriate, variously including the following: *Automated exposure control *Adjustment of mA and/or kV according to patient size (this includes techniques or standardized protocols for targeted exams where dose is matched to indication/reason for exam; i.e. extremities or head) *Use of iterative reconstruction technique DLP: 798 mGy-cm. FINDINGS: LUNG BASES: Dependent atelectasis or scarring. LIVER, GALLBLADDER, BILIARY TREE: The non-contrast liver is normal in size, shape, and attenuation. No focal hepatic lesion or biliary ductal dilatation is present. The gallbladder surgically absent. PANCREAS: Unremarkable. SPLEEN: Unremarkable. ADRENAL GLANDS: Unremarkable. KIDNEYS AND URETERS: The kidneys are normal in size, shape, and attenuation. No hydronephrosis, hydroureter, or calculi seen. No perinephric stranding. BLADDER: Decompressed but otherwise unremarkable GASTROINTESTINAL TRACT: There is a few scattered colonic diverticula but no colonic wall thickening or pericolonic inflammatory changes to suggest acute diverticulitis. Normal-appearing appendix in the right lower quadrant. Visualized small bowel unremarkable. ABDOMINAL WALL: No significant hernia is appreciated. LYMPHOVASCULAR STRUCTURES: Minimal vascular calcification within the aorta iliac system. No bulky adenopathy.. PELVIC VISCERA: Anteroverted uterus. Tiny amount of air within the vaginal vault similar to the prior 07/30/2021 CT scan of uncertain significance. OSSEUS STRUCTURES: Mild degenerative changes in the spine. CT/CT abdomen pelvis wo con IMPRESSION: Chronic appearing changes as described above. Overall the appearance is similar to 07/30/2021 study without acute superimposed process. Diverticulosis but no obvious diverticulitis..
[2021-11-22 20:26] VITALS: BP 148/80; PULSE 72; RESP 20; TEMP 35.8; O2SAT 96; BMI 44.6
[2021-11-22 20:54] LABS: MANUAL DIFF FLAG NO
[2021-11-22 20:56] LABS: Basophils Percent Auto 0.5 % (0-2); Eosinophils Absolute Auto 0.2 X10*3/uL (0.0-0.4); Eosinophils Percent Auto 3.5 % (0-4); Hematocrit 43.1 % (37.0-47.0); Hemoglobin 13.7 g/dl (12.0-16.0); Imm Gran Abs Auto 0.02 X10*3/uL (0.00-0.03); Imm Gran Pct Auto 0.3 % (0.0-0.4); Lymphocytes Absolute Auto 2.6 X10*3/uL (1.2-4.9); Lymphocytes Percent Auto 43.8 % (20-40); Mean Corpuscular HGB Conc 31.8 g/dl (31.0-35.0); Mean Corpuscular Hemoglobin 27.7 pg (27.0-33.0); Mean Corpuscular Volume 87.1 fL (80.0-98.0); Mean Platelet Volume 10.1 fL (9.4-12.3); Monocytes Absolute Auto 0.5 X10*3/uL (0.1-1.2); Monocytes Percent Auto 8.1 % (2-11); Neutrophils Absolute Auto 2.6 x10*3/uL (2.0-8.3); Neutrophils Percent Auto 43.8 % (45-73); Platelet Count 182 X10*3/uL (160-400); Red Blood Count 4.95 X10*6/uL (4.20-5.50); Red Cell Distribution Width 13.6 % (11.0-16.0)
[2021-11-22 20:57] LABS: Appearance Urine HAZY; Color Urine YELLOW; Glucose Urine UA NEG (NEG); Leukocyte Esterase Urine 2+ (NEG); Nitrite Urine NEG (NEG); UACC Culture Trigger YES; Urine Blood NEG (NEG); Urine Ketones NEG (NEG); Urine Protein TRACE MG/DL (NEG-TRACE)
[2021-11-22 21:05] LABS: Bacteria Urine 1+ /LPF; RBC Urine 0 /HPF (0); Squamous Epithelial Cell Urine 1+ /LPF; UACC CULT YES
[2021-11-22 21:11] LABS: Alanine Aminotransferase 28 U/L (0-31); Albumin Level 4.2 g/dL (3.5-5.0); Alkaline Phosphatase 100 U/L (39-117); Anion Gap 9 (12-20); Aspartate Amino Transferase 32 U/L (5-31); Bilirubin Direct 0.2 mg/dL (0.0-0.5); Bilirubin Total 0.5 mg/dL (0.0-1.0); Blood Urea Nitrogen 12 mg/dL (9-16); Calcium 9.3 mg/dL (8.4-10.2); Carbon Dioxide 33 mmol/L (22-29); Chloride 104 mmol/L (96-108); Creatinine Clr Calc Pharmacy 54.6; Estimated Glomerular Filt Rate 46; Glucose Random 81 mg/dL (60-115); Lipase 41 U/L (8-78); Sodium 142 mmol/L (135-145); Total Protein 7.1 g/dL (6.5-8.0)
--- NOTE | 2021-11-22 21:13 | ECG_ITS ---
Test Reason : CP Blood Pressure : / mmHG Vent. Rate : 061 BPM Atrial Rate : 061 BPM P-R Int : 182 ms QRS Dur : 144 ms QT Int : 464 ms P-R-T Axes : 047 -24 023 degrees QTc Int : 467 ms Normal sinus rhythm Right bundle branch block Abnormal ECG When compared with ECG of 08-APR-2021 15:11, No significant change was found Referred By: Ibis Juarez Electronically Signed By:SHAVONNE IVERSON MD
--- NOTE | 2021-11-22 21:15 | ED.ABDPAIN ---
HPI - Abdominal Pain General Chief Complaint: Abdominal Pain Stated Complaint: abd pain Time Seen by Provider: 11/22/21 21:12 Source: patient and foreign language interpreter Mode of arrival: ambulatory Limitations: no limitations History of Present Illness HPI narrative: 71-year-old female only Polish-speaking came in complaining of left lower chest pain/left upper abdominal pain. Pain is started about 8-9 hours ago today, pain is localized to the area of under her left breast, no radiation, pain is intermittent comes and goes, crampy pain, no associated nausea or vomiting, nothing relieves the pain, nothing make it worse. Described as moderate 5/10. Pain is not related to her food. Never had it this pain in the past. Related Data Home Medications Medication Instructions Recorded Confirmed acetaminophen 500 mg tablet 500 mg PO QID PRN 07/30/20 11/26/20 bupropion HCl 300 mg 24 hr tablet, 300 mg PO QAM 07/30/20 11/26/20 extended release citalopram 20 mg tablet 20 mg PO DAILY 07/30/20 11/26/20 gabapentin 300 mg capsule 300 mg PO DAILY 07/30/20 11/26/20 glipizide 2.5 mg tablet, extended 2.5 mg PO DAILY 07/30/20 11/26/20 release 24 hr hydrochlorothiazide 12.5 mg tablet 12.5 mg PO DAILY 07/30/20 11/26/20 levothyroxine 200 mcg tablet 200 mcg PO DAILY 07/30/20 11/26/20 omeprazole 20 mg capsule,delayed 20 mg PO DAILY 07/30/20 11/26/20 release propranolol 20 mg tablet 20 mg PO BID 07/30/20 11/26/20 sitagliptin 100 mg tablet (Januvia) 100 mg PO DAILY 07/30/20 11/26/20 trazodone 100 mg tablet 100 mg PO BEDTIME PRN 07/30/20 11/26/20 alendronate 70 mg tablet 70 mg PO QWEEK 10/13/20 11/26/20 atorvastatin 40 mg tablet 40 mg PO BEDTIME 10/13/20 11/26/20 blood sugar diagnostic #10 ea 10/13/20 11/26/20 bupropion HCl 150 mg 24 hr tablet, 150 mg PO QAM 10/13/20 11/26/20 extended release estradiol 1 g VAGINAL 2XW 10/13/20 11/26/20 fluticasone propionate 50 2 spray INTRANASAL DAILY PRN 10/13/20 11/26/20 mcg/actuation nasal spray,suspension insulin lispro 100 unit/mL unit SUBCUT 10/13/20 11/26/20 subcutaneous pen lancets 33 gauge #100 ea 10/13/20 11/26/20 lisinopril 20 mg tablet 20 mg PO BEDTIME 10/13/20 11/26/20 loratadine 10 mg tablet 10 mg PO DAILY PRN 10/13/20 11/26/20 pen needle, diabetic 31 gauge x #50 ea 10/13/20 11/26/20/ primidone 50 mg tablet 50 mg PO DAILY 10/13/20 11/26/20 sennosides 8.6 mg tablet 17.2 mg PO DAILY PRN 10/13/20 11/26/20 trazodone 50 mg tablet 50 mg PO BEDTIME 09/30/21 Previous Rx's Medication Instructions Recorded sodium,potassium,mag sulfates 17.5 See Rx Instructions PO .COMPLEX 09/01/20 gram-3.13 gram-1.6 gram oral soln #354 ml (Suprep Bowel Prep Kit) oxybutynin chloride 5 mg 5 mg PO DAILY #30 tab 10/13/20 tablet,extended release 24 hr oxybutynin chloride 10 mg 10 mg PO DAILY #30 tab 10/28/20 tablet,extended release 24 hr dicyclomine 20 mg tablet 20 mg PO TID PRN #20 tab 11/02/20 ondansetron 4 mg disintegrating 4 mg PO Q8H PRN #20 tab 11/02/20 tablet furosemide 20 mg tablet 20 mg PO QAM #30 tab 11/18/20 prednisone 10 mg tablet 40 mg PO DAILY 5 Days #20 tab 03/17/21 cefuroxime axetil 500 mg tablet 500 mg PO Q12H 10 Days #20 tab 04/08/21 phenazopyridine 200 mg tablet 200 mg PO TID PRN #6 tab 04/08/21 (Pyridium) albuterol sulfate 90 mcg/actuation 2 inh INHALATION QID PRN 30 Days 06/17/21 aerosol inhaler #1 ea meclizine 12.5 mg tablet 12.5 mg PO TID PRN #14 tab 10/01/21 mineral oil (Fleet Mineral Oil) 118 ml RI DAILY PRN #6384 ml 07/30/21 polyethylene glycol 3350 17 17 g PO DAILY PRN #238 g 07/30/21 gram/dose oral powder (Miralax) mirabegron 25 mg tablet,extended 25 mg PO DAILY 90 Days #90 tab 09/23/21 release 24 hr (Myrbetriq) fluticasone fur. 200 mcg-umeclid 1 inh INHALATION DAILY 30 Days #1 10/14/21 62.5 mcg-vilant 25 mcg ea inhalat.powder (Trelegy Ellipta) azithromycin 250 mg tablet See Rx Instructions .ROUTE 11/23/21 (Zithromax Z-Leonel) .COMPLEX #6 tab Allergies Allergy/AdvReac Type Severity Reaction Status Date / Time aspirin [Aspirin] Allergy Mild UPSET Verified 10/14/21 13:27 STOMACH ibuprofen [From Motrin] Allergy Mild Gastrointestinal Verified 10/14/21 13:27 Upset Review of Systems Review of Systems All other systems are reviewed and are negative Constitutional: Reports as per HPI and Reports no additional constitutional complaints Eyes: Reports as per HPI and Reports no additional eye complaints Reports system reviewed and no additional complaints, except as documented Cardiovascular: Reports as per HPI and Reports no additional cardiovascular complaints Respiratory: Reports as per HPI and Reports no additional respiratory complaints Gastrointestinal: Reports as per HPI and Reports no additional gastrointestinal complaints Genitourinary: Reports no additional female genitourinary complaints Musculoskeletal: Reports no additional musculoskeletal complaints Skin/Breast: Reports system reviewed and no additional complaints, except as docu Psychiatric: Reports no additional psychiatric complaints Endocrine: Reports no additional endocrine complaints Hematologic/Lymphatic: Reports no additional hematologic/lymphatic complaints Allergic/Immunologic: Reports no additional allergic/immunologic complaints Reports system reviewed and no additional complaints, except as documented and Reports Abnormal speech present Physical Exam Vital Signs: Vital Signs: Last Vital Signs Temp 97.0 F 11/23/21 01:09 Pulse 62 11/23/21 01:09 Resp 14 11/23/21 01:09 BP 122/70 11/23/21 01:09 Pulse Ox 92 11/23/21 01:09 BMI result Body Mass Index 44.6 Vital signs have been reviewed as appeared to be correct. Blood pressure normal. Heart rate normal. Respiration rate normal. Temperature normal. Oxygen saturation normal. Appearance: Alert. Oriented X3. No acute distress. Head: Normal external exam. Normocephalic. Atraumatic. No Gilliland signs noted. No raccoon eyes noted Eyes: PERRLA. EOMI. Conjunctiva and sclera normal. Eyelids normal. ENT: TM's Normal. Pharynx normal. Uvula midline. Moist mucous membranes. No trismus noted. No drooling noted. No muffled voice noted. Neck: Normal inspection. Neck supple. FROM. No adenopathy. Thyroid Normal. No meningeal signs. No neck mass noted. CVS: Normal heart rate and rhythm. Heart sound normal. No murmurs noted. Pulses normal throughout. Respiratory: No respiratory distress. Painless inspiration. Breath sounds normal. No wheezes/rales/rhonchi noted. Point of tenderness to palpation under the left breast over 10th rib in the midclavicular line. No accessory muscle usage noted or decreased air movement noted. Abdomen: Soft and nontender. Bowel sounds normal in all 4 quadrants. No distention noted. No organomegaly noted. No visible injury noted. Back: No CVA tenderness. Full range of motion noted. Skin: Skin warm and dry. Normal skin color. Normal skin turgor. No rashes/lesions/lacerations noted. Extremities: No lower extremity edema. Extremities exhibit normal range of motion. Extremities nontender. Neuro: Oriented X 3. Cranial nerve exam: II-XII are grossly intact No motor deficit. No sensory deficit. Reflexes normal. Course Course Course Narrative: Assessment and plan. 71-year-old female came in for left-sided chest pain, there is a point of reproducible pain on the left side, x-ray showed no rib fracture slightly pulled muscle, patient given more history of coughing, and x-ray is suspecting pneumonia. Will start the patient on a Z-Leonel. EKG is unchanged troponin was slightly elevated with no delta change. MDM - Abdominal Pain Lab Data Attestation: I reviewed the patient's lab results. Result diagrams: 11/22/21 20:42 11/22/21 20:42 Labs: Lab Results 11/22/21 11/22/21 11/22/21 Range/Units 20:42 20:42 20:42 WBC 6.0 (4.8-10.8) X10*3/uL RBC 4.95 (4.20-5.50) X10*6/uL Hgb 13.7 (12.0-16.0) g/dl Hct 43.1 (37.0-47.0) % MCV 87.1 (80.0-98.0) fL MCH 27.7 (27.0-33.0) pg MCHC 31.8 (31.0-35.0) g/dl RDW 13.6 (11.0-16.0) % Plt Count 182 (160-400) X10*3/uL MPV 10.1 (9.4-12.3) fL Immature Gran % (Auto) 0.3 (0.0-0.4) % Neut % (Auto) 43.8 L (45-73) % Lymph % (Auto) 43.8 H (20-40) % Stewart % (Auto) 8.1 (2-11) % Eos % (Auto) 3.5 (0-4) % Baso % (Auto) 0.5 (0-2) % Lymph # (Auto) 2.6 (1.2-4.9) X10*3/uL Stewart # (Auto) 0.5 (0.1-1.2) X10*3/uL Eos # (Auto) 0.2 (0.0-0.4) X10*3/uL Baso # (Auto) 0.0 (0.0-0.2) X10*3/uL Abs Immat Gran (auto) 0.02 (0.00-0.03) X10*3/uL Absolute Neuts (auto) 2.6 (2.0-8.3) x10*3/uL Absolute Nucleated RBC 0.000 (0.0-0.012) X10*3/uL Nucleated RBC % (auto) 0.0 (0.0-0.2) /100WBC D-Dimer High Sensitivty NG/ML Sodium 142 (135-145) mmol/L Potassium 4.0 (3.3-5.1) mmol/L Chloride 104 (96-108) mmol/L Carbon Dioxide 33 H (22-29) mmol/L Anion Gap 9 L (12-20) BUN 12 (9-16) mg/dL Creatinine 1.16 (0.5-1.4) mg/dL Estim Creat Clear Calc 54.6 Estimated GFR 46 Random Glucose 81 (60-115) mg/dL Calcium 9.3 (8.4-10.2) mg/dL Total Bilirubin 0.5 (0.0-1.0) mg/dL Direct Bilirubin 0.2 (0.0-0.5) mg/dL AST 32 H (5-31) U/L ALT 28 (0-31) U/L Alkaline Phosphatase 100 (39-117) U/L Troponin I High Sens (<3.5-17.0) ng/L Total Protein 7.1 (6.5-8.0) g/dL Albumin 4.2 (3.5-5.0) g/dL Lipase 41 (8-78) U/L Urine Color YELLOW Urine Appearance HAZY Urine pH 6.0 (5.0-8.0) Ur Specific [place] 1.020 (1.005-1.025) Urine Protein TRACE (NEG-TRACE) MG/DL Urine Glucose (UA) NEG (NEG) MG/DL Urine Ketones NEG (NEG) MG/DL Urine Blood NEG (NEG) Urine Nitrite NEG (NEG) Ur Leukocyte Esterase 2+ H (NEG) Urine RBC 0 (0) /HPF Urine WBC 1-4 (0-4) /HPF Ur Squamous Epith Cells 1+ /LPF Urine Bacteria 1+ /LPF 11/22/21 11/22/21 11/23/21 Range/Units 21:47 21:47 01:03 WBC (4.8-10.8) X10*3/uL RBC (4.20-5.50) X10*6/uL Hgb (12.0-16.0) g/dl Hct (37.0-47.0) % MCV (80.0-98.0) fL MCH (27.0-33.0) pg MCHC (31.0-35.0) g/dl RDW (11.0-16.0) % Plt Count (160-400) X10*3/uL MPV (9.4-12.3) fL Immature Gran % (Auto) (0.0-0.4) % Neut % (Auto) (45-73) % Lymph % (Auto) (20-40) % Stewart % (Auto) (2-11) % Eos % (Auto) (0-4) % Baso % (Auto) (0-2) % Lymph # (Auto) (1.2-4.9) X10*3/uL Stewart # (Auto) (0.1-1.2) X10*3/uL Eos # (Auto) (0.0-0.4) X10*3/uL Baso # (Auto) (0.0-0.2) X10*3/uL Abs Immat Gran (auto) (0.00-0.03) X10*3/uL Absolute Neuts (auto) (2.0-8.3) x10*3/uL Absolute Nucleated RBC (0.0-0.012) X10*3/uL Nucleated RBC % (auto) (0.0-0.2) /100WBC D-Dimer High Sensitivty 188 NG/ML Sodium (135-145) mmol/L Potassium (3.3-5.1) mmol/L Chloride (96-108) mmol/L Carbon Dioxide (22-29) mmol/L Anion Gap (12-20) BUN (9-16) mg/dL Creatinine (0.5-1.4) mg/dL Estim Creat Clear Calc Estimated GFR Random Glucose (60-115) mg/dL Calcium (8.4-10.2) mg/dL Total Bilirubin (0.0-1.0) mg/dL Direct Bilirubin (0.0-0.5) mg/dL AST (5-31) U/L ALT (0-31) U/L Alkaline Phosphatase (39-117) U/L Troponin I High Sens 32.1 H 33.5 H (<3.5-17.0) ng/L Total Protein (6.5-8.0) g/dL Albumin (3.5-5.0) g/dL Lipase (8-78) U/L Urine Color Urine Appearance Urine pH (5.0-8.0) Ur Specific [place] (1.005-1.025) Urine Protein (NEG-TRACE) MG/DL Urine Glucose (UA) (NEG) MG/DL Urine Ketones (NEG) MG/DL Urine Blood (NEG) Urine Nitrite (NEG) Ur Leukocyte Esterase (NEG) Urine RBC (0) /HPF Urine WBC (0-4) /HPF Ur Squamous Epith Cells /LPF Urine Bacteria /LPF Imaging Data Chest x-ray: Attestation: I personally reviewed and interpreted this imaging study as follows: Radiologist's impression: Patchy bilateral airspace disease more so in the lateral aspect of the left base. In the acute setting infectious etiology would be suspected. ? CT scan - abdomen: Attestation: I personally reviewed and interpreted this imaging study as follows: Radiologist's impression: Chronic appearing changes as described above. Overall the appearance is similar to 07/30/2021 study without acute superimposed process. Diverticulosis but no obvious diverticulitis.. ? ECG Data Attestation: I personally reviewed and interpreted this ECG as follows: Interpretation: Normal sinus rhythm at 61 beats per minutes, left axis deviation, right bundle branch block. No change from 04/08/2021. Discharge Plan Discharge Clinical Impression: Pneumonia, Anterior chest wall pain Patient Disposition: Home, Self-Care Instructions: Pneumonia (ED), Chest Wall Pain (ED) Prescriptions: New azithromycin [Zithromax Z-Leonel] 250 mg tablet See Rx Instructions .ROUTE .COMPLEX Qty: 6 0RF Rx Instructions: For 250 mg dose pack: take 500 mg today (day 1), then 250 mg for 4 days (days 2-5) No Action furosemide 20 mg tablet 20 mg PO QAM Qty: 30 12RF Myrbetriq 25 mg tablet extended release 24 hr 25 mg PO DAILY 90 Days Qty: 90 1RF cefuroxime axetil 500 mg tablet 500 mg PO Q12H 10 Days Qty: 20 0RF phenazopyridine [Pyridium] 200 mg tablet 200 mg PO TID PRN (Reason: pain) Qty: 6 0RF ondansetron 4 mg tablet,disintegrating 4 mg PO Q8H PRN (Reason: nausea and vomiting) Qty: 20 0RF dicyclomine 20 mg tablet 20 mg PO TID PRN (Reason: abdominal discomfort) Qty: 20 0RF meclizine 12.5 mg tablet 12.5 mg PO TID PRN (Reason: dizziness) Qty: 14 0RF mineral oil [Fleet Mineral Oil] Enema 118 ml RI DAILY PRN (Reason: constipation) Qty: 6384 0RF Rx Instructions: discard any unused portion polyethylene glycol 3350 [Miralax] 17 gram/dose powder 17 g PO DAILY PRN (Reason: constipation) Qty: 238 0RF propranolol 20 mg tablet 20 mg PO BID 0RF hydrochlorothiazide 12.5 mg tablet 12.5 mg PO DAILY 0RF Januvia 100 mg tablet 100 mg PO DAILY 0RF glipizide 2.5 mg tablet extended release 24hr 2.5 mg PO DAILY 0RF levothyroxine 200 mcg tablet 200 mcg PO DAILY 0RF omeprazole 20 mg capsule,delayed release(DR/EC) 20 mg PO DAILY 0RF bupropion HCl 300 mg tablet extended release 24 hr 300 mg PO QAM 0RF trazodone 100 mg tablet 100 mg PO BEDTIME PRN (Reason: Sleep) 0RF acetaminophen 500 mg tablet 500 mg PO QID PRN (Reason: Pain) 0RF gabapentin 300 mg capsule 300 mg PO DAILY 0RF citalopram 20 mg tablet 20 mg PO DAILY 0RF prednisone 10 mg tablet 40 mg PO DAILY 5 Days Qty: 20 0RF albuterol sulfate 90 mcg/actuation HFA aerosol inhaler 2 inh inhalation QID PRN (Reason: Wheezing) 30 Days Qty: 1 6RF Trelegy Ellipta 200-62.5-25 mcg blister with device 1 inh inhalation DAILY 30 Days Qty: 1 6RF Suprep Bowel Prep Kit 17.5-3.13-1.6 gram recon soln See Rx Instructions PO .COMPLEX Qty: 354 0RF Rx Instructions: DILUTE; drink full amount early evening before AND next morning at least 2 hr before procedure; follow w 32 oz. water PO bupropion HCl 150 mg tablet extended release 24 hr 150 mg PO QAM 0RF fluticasone propionate 50 mcg/actuation spray,suspension 2 spray intranasal DAILY PRN (Reason: Nasal Congestion) 0RF alendronate 70 mg tablet 70 mg PO QWEEK 0RF lisinopril 20 mg tablet 20 mg PO BEDTIME 0RF sennosides 8.6 mg tablet 17.2 mg PO DAILY PRN (Reason: Constipation) 0RF primidone 50 mg tablet 50 mg PO DAILY 0RF estradiol 0.01 % (0.1 mg/gram) cream 1 g vaginal 2XW 0RF (DME) pen needle, diabetic 31 gauge x 3/16 needle See Rx Instructions ea .ROUTE TID Qty: 50 0RF Rx Instructions: As directed insulin lispro 100 unit/mL insulin pen subcut 0RF atorvastatin 40 mg tablet 40 mg PO BEDTIME 0RF (DME) lancets 33 gauge misc See Rx Instructions ea Not Applicable BID Qty: 100 0RF Rx Instructions: As directed loratadine 10 mg tablet 10 mg PO DAILY PRN (Reason: allergies) 0RF (DME) OneTouch Ultra Blue Test Strip Strip See Rx Instructions ea Not Applicable BID Qty: 10 0RF Rx Instructions: As directed oxybutynin chloride 5 mg tablet extended release 24hr 5 mg PO DAILY Qty: 30 6RF oxybutynin chloride 10 mg tablet extended release 24hr 10 mg PO DAILY Qty: 30 6RF trazodone 50 mg tablet 50 mg PO BEDTIME 0RF Referrals: Physician,Unknown J [Primary Care Provider] - 2 days [facility] Past Medical History Medical History Anxiety and depression Back pain Colon cancer screening COPD (chronic obstructive pulmonary disease) COPD exacerbation Diabetes mellitus Frequency of micturition GERD (gastroesophageal reflux disease) High cholesterol Hypertension Hypothyroidism ENMA on CPAP Osteoarthritis Tubular adenoma of colon Urgency incontinence Urgency of micturition Surgical History History of cholecystectomy History of lumpectomy of right breast Hx of colonoscopy Hx of cystoscopy Hx of right knee surgery Family History Family History Mother History of pancreatic cancer Social History Social History Are you a primary customer care professional to a significant other at home: No Do you presently have visiting nurse or other home services: Yes ([employer] WORK[employer]) Alcohol intake: never Patient Tobacco Use Status: Never used Tobacco Years Smoked: 30 Use of substances other than those prescribed or required for medical reasons: No Advance Directives: No Advance Directives Information Provided: Yes
[2021-11-22 22:00] LABS: D Dimer High Sensitivity 188 NG/ML
[2021-11-22 22:17] LABS: Troponin-I High Sensitivity 32.1 ng/L (<3.5-17.0)
[2021-11-22] MEDS: Morphine Sulfate 2 MG/ML CARTRIDGE 1 MG IVPUSH (23:32)
--- NOTE | 2021-11-22 23:49 | PC.NURSE ---
I assumed care of this pt upon their arrival to bed 8 from . She arrives alert and oriented x 3, primarily faroese speaking, for evaluation of LUQ abd/chest pain x 1-2 days. On arrival pt is guarding, tearful and grimacing from the pain. +nausea earlier but not currently. no vomiting. NO fevers. No diarrhea. She denies difficulty voiding. IV access/labs have been obtained. Pt medicated with morphine 1`mg IVP per MD order. Will continue to monitor/re-assess.
[2021-11-23 01:09] VITALS: BP 122/70; PULSE 62; RESP 14; TEMP 36.1; O2SAT 92
[2021-11-23 01:40] LABS: Troponin-I High Sensitivity 33.5 ng/L (<3.5-17.0)
[2021-11-23] MEDS: Azithromycin 500 MG TABLET PO (02:21)
== END 2021-11-23 02:33 | disposition home or self-care (01) ==
PROVIDERS: Emergency Provider Emergency Medicine
DX: J18.9 Pneumonia, unspecified organism (principal); R10.12 Left upper quadrant pain; R07.89 Other chest pain; Z79.899 Other long term (current) drug therapy
CPT/HCPCS: 36415; 71045; 74176; 80053; 81001; 82248; 83690; 84484; 85025; 85379; 87086; 93005; 99284; J2270

== ENCOUNTER → 2022-01-13 13:23 | Outpatient (BNVA) | payer MEDICARE, SELFPAY | PROVIDERS: PCP Internal Medicine; Visit Provider Internal Medicine Pulmonary Disease | DX: J44.9 Chronic obstructive pulmonary disease, unspecified (principal); J84.10 Pulmonary fibrosis, unspecified; J44.1 Chronic obstructive pulmonary disease with (acute) exacerbation | CPT/HCPCS: 99212 ==

== ENCOUNTER → 2022-02-08 13:35 | Outpatient (BNVA) | payer MEDICARE, MEDICAID, SELFPAY | PROVIDERS: PCP Internal Medicine; Visit Provider Orthopaedic Surgery | DX: M17.0 Bilateral primary osteoarthritis of knee (principal); E11.9 Type 2 diabetes mellitus without complications | CPT/HCPCS: 20610; 99212; J1100 ==

== ENCOUNTER 2022-02-28 14:58 | Emergency (ER) | payer MEDICARE, MEDICAID, SELFPAY ==
--- NOTE | ~2022-02-28 | XR_ITS ---
EXAMINATION: XR CHEST CLINICAL INFORMATION: 71-year-old female with chest pain COMPARISON: 11/22/2021 TECHNIQUE: Frontal view of the chest was obtained. FINDINGS: No significant abnormality is noted involving the heart, lungs, mediastinum, bony thorax or soft tissues. XR/XR chest 1V IMPRESSION: No active cardiopulmonary disease
[2022-02-28 15:30] VITALS: BP 93/69; PULSE 76; RESP 20; TEMP 37.1; O2SAT 94; BMI 40.8
[2022-02-28 15:42] LABS: MANUAL DIFF FLAG NO
[2022-02-28 15:49] LABS: Basophils Percent Auto 0.6 % (0-2); Eosinophils Absolute Auto 0.2 X10*3/uL (0.0-0.4); Eosinophils Percent Auto 3.2 % (0-4); Hemoglobin 13.5 g/dl (12.0-16.0); Imm Gran Abs Auto 0.02 X10*3/uL (0.00-0.03); Imm Gran Pct Auto 0.4 % (0.0-0.4); Lymphocytes Percent Auto 37.9 % (20-40); Mean Corpuscular HGB Conc 32.1 g/dl (31.0-35.0); Mean Corpuscular Volume 87.1 fL (80.0-98.0); Monocytes Absolute Auto 0.4 X10*3/uL (0.1-1.2); Monocytes Percent Auto 7.8 % (2-11); Neutrophils Absolute Auto 2.7 x10*3/uL (2.0-8.3); Neutrophils Percent Auto 50.1 % (45-73); Platelet Count 166 X10*3/uL (160-400); Red Blood Count 4.82 X10*6/uL (4.20-5.50); Red Cell Distribution Width 13.9 % (11.0-16.0); White Blood Count 5.4 X10*3/uL (4.8-10.8)
[2022-02-28 16:01] LABS: Anion Gap 12 (12-20); Blood Urea Nitrogen 13 mg/dL (9-16); Calcium 9.1 mg/dL (8.4-10.2); Carbon Dioxide 26 mmol/L (22-29); Chloride 106 mmol/L (96-108); Creatinine Clr Calc Pharmacy 48.5; Estimated Glomerular Filt Rate 46; Glucose Random 200 mg/dL (60-115); Potassium 3.8 mmol/L (3.3-5.1); Sodium 140 mmol/L (135-145)
[2022-02-28 16:15] LABS: COVID-19 Test Negative (Negative); IDNOW Serial# 16C4AD1C; Influenza A Negative (Negative); Influenza B2 Negative (Negative)
--- NOTE | 2022-02-28 16:58 | ED.SOB ---
HPI - SOB/Dyspnea General Chief Complaint: Dyspnea Stated Complaint: Weakness/SOB Time Seen by Provider: 02/28/22 16:54 Source: patient Mode of arrival: ambulatory Limitations: language barrier History of Present Illness HPI Narrative: Patient ex-smoker with history of asthma/COPD overlap syndrome, mild pulmonary fibrosis and obstructive sleep apnea on CPAP at night and 2 L oxygen as needed during daytime comes here for increased shortness of breath and chest tightness for last 3-4 days patient using nebulizer treatment only once or twice a day and has not used it today complaining of dry cough mostly no fever no chills no leg swelling Related Data Home Medications Medication Instructions Recorded Confirmed acetaminophen 500 mg tablet 500 mg PO QID PRN 07/30/20 11/26/20 citalopram 20 mg tablet 20 mg PO DAILY 07/30/20 11/26/20 gabapentin 300 mg capsule 300 mg PO DAILY 07/30/20 11/26/20 glipizide 2.5 mg tablet, extended 2.5 mg PO DAILY 07/30/20 11/26/20 release 24 hr hydrochlorothiazide 12.5 mg tablet 12.5 mg PO DAILY 07/30/20 11/26/20 levothyroxine 200 mcg tablet 200 mcg PO DAILY 07/30/20 11/26/20 omeprazole 20 mg capsule,delayed 20 mg PO DAILY 07/30/20 11/26/20 release propranolol 20 mg tablet 20 mg PO BID 07/30/20 11/26/20 sitagliptin 100 mg tablet (Januvia) 100 mg PO DAILY 07/30/20 11/26/20 alendronate 70 mg tablet 70 mg PO QWEEK 10/13/20 11/26/20 atorvastatin 40 mg tablet 40 mg PO BEDTIME 10/13/20 11/26/20 blood sugar diagnostic #10 ea 10/13/20 11/26/20 bupropion HCl 150 mg 24 hr tablet, 150 mg PO QAM 10/13/20 11/26/20 extended release estradiol 1 g VAGINAL 2XW 10/13/20 11/26/20 fluticasone propionate 50 2 spray INTRANASAL DAILY PRN 10/13/20 11/26/20 mcg/actuation nasal spray,suspension insulin lispro 100 unit/mL unit SUBCUT 10/13/20 11/26/20 subcutaneous pen lancets 33 gauge #100 ea 10/13/20 11/26/20 lisinopril 20 mg tablet 20 mg PO BEDTIME 10/13/20 11/26/20 loratadine 10 mg tablet 10 mg PO DAILY PRN 10/13/20 11/26/20 pen needle, diabetic 31 gauge x #50 ea 10/13/20 11/26/2012/23 primidone 50 mg tablet 50 mg PO DAILY 10/13/20 11/26/20 sennosides 8.6 mg tablet 17.2 mg PO DAILY PRN 10/13/20 11/26/20 trazodone 50 mg tablet 50 mg PO BEDTIME 09/30/21 Previous Rx's Medication Instructions Recorded sodium,potassium,mag sulfates 17.5 See Rx Instructions PO .COMPLEX 09/01/20 gram-3.13 gram-1.6 gram oral soln #354 ml (Suprep Bowel Prep Kit) oxybutynin chloride 5 mg 5 mg PO DAILY #30 tab 10/13/20 tablet,extended release 24 hr oxybutynin chloride 10 mg 10 mg PO DAILY #30 tab 10/28/20 tablet,extended release 24 hr dicyclomine 20 mg tablet 20 mg PO TID PRN #20 tab 11/02/20 ondansetron 4 mg disintegrating 4 mg PO Q8H PRN #20 tab 11/02/20 tablet cefuroxime axetil 500 mg tablet 500 mg PO Q12H 10 Days #20 tab 04/08/21 phenazopyridine 200 mg tablet 200 mg PO TID PRN #6 tab 04/08/21 (Pyridium) albuterol sulfate 90 mcg/actuation 2 inh INHALATION QID PRN 30 Days 06/17/21 aerosol inhaler #1 ea meclizine 12.5 mg tablet 12.5 mg PO TID PRN #14 tab 07/10/21 mineral oil (Fleet Mineral Oil) 118 ml ND DAILY PRN #6384 ml 07/30/21 polyethylene glycol 3350 17 17 g PO DAILY PRN #238 g 07/30/21 gram/dose oral powder (Miralax) mirabegron 25 mg tablet,extended 25 mg PO DAILY 90 Days #90 tab 09/23/21 release 24 hr (Myrbetriq) fluticasone fur. 200 mcg-umeclid 1 inh INHALATION DAILY 30 Days #1 12/07/21 62.5 mcg-vilant 25 mcg ea inhalat.powder (Trelegy Ellipta) furosemide 20 mg tablet 20 mg PO QAM #30 tab 12/07/21 azithromycin 250 mg tablet See Rx Instructions PO .COMPLEX #6 01/13/22 tab benzonatate 200 mg capsule 200 mg PO TID PRN #30 cap 02/28/22 prednisone 20 mg tablet 40 mg PO DAILY #10 tab 02/28/22 Allergies Allergy/AdvReac Type Severity Reaction Status Date / Time aspirin [Aspirin] Allergy Mild UPSET Verified 02/28/22 15:30 STOMACH ibuprofen [From Motrin] Allergy Mild Gastrointestinal Verified 02/28/22 15:30 Upset Review of Systems Review of Systems: Yes all other systems are reviewed and are negative [facility] Past Medical History Medical History Anxiety and depression Back pain Bilateral primary osteoarthritis of knee Colon cancer screening COPD (chronic obstructive pulmonary disease) COPD exacerbation Diabetes mellitus Frequency of micturition GERD (gastroesophageal reflux disease) High cholesterol Hypertension Hypothyroidism ENMA on CPAP Osteoarthritis Tubular adenoma of colon Urgency incontinence Urgency of micturition Surgical History History of cholecystectomy History of lumpectomy of right breast Hx of colonoscopy Hx of cystoscopy Hx of right knee surgery Family History Family History Mother History of pancreatic cancer Social History Social History Are you a primary cardiac care unit nurse to a significant other at home: No Do you presently have visiting nurse or other home services: Yes ([employer]) Alcohol intake: never Patient Tobacco Use Status: Never used Tobacco Years Smoked: 30 Advance Directives: No Advance Directives Information Provided: No Physical Exam Vital Signs: Vital Signs: Last Vital Signs Temp 98.8 F 02/28/22 15:30 Pulse 76 02/28/22 17:33 Resp 20 02/28/22 17:33 BP 93/69 02/28/22 15:30 Pulse Ox 94 02/28/22 15:30 BMI result Body Mass Index 40.8 Appearance: Alert. Oriented X3. No acute distress. Eyes: PERRLA, No Nystagmus ENT: Pharynx normal. Oral Mucosa moist Neck: Normal inspection. Neck supple. CVS: Normal heart rate and rhythm. Pulses normal. Respiratory: No respiratory distress. Decreased air entry bilateral, Equal air entry bilateral, no wheezing/rales/rhonchi Abdomen: Soft and nontender. Bowel sounds are present, no mass palpable, no CVA tenderness Skin: Skin warm and dry. Normal skin color. Normal skin turgor. Extremities: No lower extremity edema. No calf tenderness Neuro: Oriented X 3. No motor deficit. No sensory deficit.No cerebellar signs , cranial nerves II-XII intact MDM - SOB/Dyspnea MDM Narrative Medical decision making narrative: Patient with COPD-asthma overlap syndrome saturating 95% on room air workup is negative any infiltrate or pneumonia at this time patient is feeling much better will discharge patient home Lab Data Attestation: I reviewed the patient's lab results. Result diagrams: 02/28/22 15:38 02/28/22 15:38 Labs: Lab Results 02/28/22 02/28/22 02/28/22 Range/Units 15:37 15:37 15:38 WBC 5.4 (4.8-10.8) X10*3/uL RBC 4.82 (4.20-5.50) X10*6/uL Hgb 13.5 (12.0-16.0) g/dl Hct 42.0 (37.0-47.0) % MCV 87.1 (80.0-98.0) fL MCH 28.0 (27.0-33.0) pg MCHC 32.1 (31.0-35.0) g/dl RDW 13.9 (11.0-16.0) % Plt Count 166 (160-400) X10*3/uL MPV 10.0 (9.4-12.3) fL Immature Gran % (Auto) 0.4 (0.0-0.4) % Neut % (Auto) 50.1 (45-73) % Lymph % (Auto) 37.9 (20-40) % [place] % (Auto) 7.8 (2-11) % Eos % (Auto) 3.2 (0-4) % Baso % (Auto) 0.6 (0-2) % Lymph # (Auto) 2.0 (1.2-4.9) X10*3/uL [place] # (Auto) 0.4 (0.1-1.2) X10*3/uL Eos # (Auto) 0.2 (0.0-0.4) X10*3/uL Baso # (Auto) 0.0 (0.0-0.2) X10*3/uL Abs Immat Gran (auto) 0.02 (0.00-0.03) X10*3/uL Absolute Neuts (auto) 2.7 (2.0-8.3) x10*3/uL Absolute Nucleated RBC 0.000 (0.0-0.012) X10*3/uL Nucleated RBC % (auto) 0.0 (0.0-0.2) /100WBC Sodium (135-145) mmol/L Potassium (3.3-5.1) mmol/L Chloride (96-108) mmol/L Carbon Dioxide (22-29) mmol/L Anion Gap (12-20) BUN (9-16) mg/dL Creatinine (0.5-1.4) mg/dL Estim Creat Clear Calc Estimated GFR Random Glucose (60-115) mg/dL Calcium (8.4-10.2) mg/dL Urine Color Urine Appearance Urine pH (5.0-8.0) Ur Specific [place] (1.005-1.025) Urine Protein (NEG-TRACE) MG/DL Urine Glucose (UA) (NEG) MG/DL Urine Ketones (NEG) MG/DL Urine Blood (NEG) Urine Nitrite (NEG) Ur Leukocyte Esterase (NEG) COVID-19 (JUNIE) Negative (Negative) COVID-19 Clin Com See Note Influenza Type A (BRUCE) Negative (Negative) Influenza Type B (BRUCE) Negative (Negative) Influenza A & B Note See Note 02/28/22 02/28/22 Range/Units 15:38 19:00 WBC (4.8-10.8) X10*3/uL RBC (4.20-5.50) X10*6/uL Hgb (12.0-16.0) g/dl Hct (37.0-47.0) % MCV (80.0-98.0) fL MCH (27.0-33.0) pg MCHC (31.0-35.0) g/dl RDW (11.0-16.0) % Plt Count (160-400) X10*3/uL MPV (9.4-12.3) fL Immature Gran % (Auto) (0.0-0.4) % Neut % (Auto) (45-73) % Lymph % (Auto) (20-40) % [place] % (Auto) (2-11) % Eos % (Auto) (0-4) % Baso % (Auto) (0-2) % Lymph # (Auto) (1.2-4.9) X10*3/uL [place] # (Auto) (0.1-1.2) X10*3/uL Eos # (Auto) (0.0-0.4) X10*3/uL Baso # (Auto) (0.0-0.2) X10*3/uL Abs Immat Gran (auto) (0.00-0.03) X10*3/uL Absolute Neuts (auto) (2.0-8.3) x10*3/uL Absolute Nucleated RBC (0.0-0.012) X10*3/uL Nucleated RBC % (auto) (0.0-0.2) /100WBC Sodium 140 (135-145) mmol/L Potassium 3.8 (3.3-5.1) mmol/L Chloride 106 (96-108) mmol/L Carbon Dioxide 26 (22-29) mmol/L Anion Gap 12 (12-20) BUN 13 (9-16) mg/dL Creatinine 1.15 (0.5-1.4) mg/dL Estim Creat Clear Calc 48.5 Estimated GFR 46 Random Glucose 200 H (60-115) mg/dL Calcium 9.1 (8.4-10.2) mg/dL Urine Color YELLOW Urine Appearance CLEAR Urine pH 6.0 (5.0-8.0) Ur Specific [place] 1.015 (1.005-1.025) Urine Protein NEG (NEG-TRACE) MG/DL Urine Glucose (UA) NEG (NEG) MG/DL Urine Ketones NEG (NEG) MG/DL Urine Blood NEG (NEG) Urine Nitrite NEG (NEG) Ur Leukocyte Esterase NEG (NEG) COVID-19 (JUNIE) (Negative) COVID-19 Clin Com Influenza Type A (BRUCE) (Negative) Influenza Type B (BRUCE) (Negative) Influenza A & B Note Discharge Plan Discharge Clinical Impression: Asthma-COPD overlap syndrome Patient Disposition: Home, Self-Care Instructions: Chronic Bronchitis (ED) Additional Instructions: Use the inhaler as advised Prednisone as prescribed Cough drops as prescribed and follow with PCP Prescriptions: New benzonatate 200 mg capsule 200 mg PO TID PRN (Reason: cough) Qty: 30 0RF prednisone 20 mg tablet 40 mg PO DAILY Qty: 10 0RF No Action Myrbetriq 25 mg tablet extended release 24 hr 25 mg PO DAILY 90 Days Qty: 90 1RF Trelegy Ellipta 200-62.5-25 mcg blister with device 1 inh inhalation DAILY 30 Days Qty: 1 6RF furosemide 20 mg tablet 20 mg PO QAM Qty: 30 12RF cefuroxime axetil 500 mg tablet 500 mg PO Q12H 10 Days Qty: 20 0RF phenazopyridine [Pyridium] 200 mg tablet 200 mg PO TID PRN (Reason: pain) Qty: 6 0RF ondansetron 4 mg tablet,disintegrating 4 mg PO Q8H PRN (Reason: nausea and vomiting) Qty: 20 0RF dicyclomine 20 mg tablet 20 mg PO TID PRN (Reason: abdominal discomfort) Qty: 20 0RF meclizine 12.5 mg tablet 12.5 mg PO TID PRN (Reason: dizziness) Qty: 14 0RF mineral oil [Fleet Mineral Oil] Enema 118 ml ND DAILY PRN (Reason: constipation) Qty: 6384 0RF Rx Instructions: discard any unused portion polyethylene glycol 3350 [Miralax] 17 gram/dose powder 17 g PO DAILY PRN (Reason: constipation) Qty: 238 0RF propranolol 20 mg tablet 20 mg PO BID 0RF hydrochlorothiazide 12.5 mg tablet 12.5 mg PO DAILY 0RF Januvia 100 mg tablet 100 mg PO DAILY 0RF glipizide 2.5 mg tablet extended release 24hr 2.5 mg PO DAILY 0RF levothyroxine 200 mcg tablet 200 mcg PO DAILY 0RF omeprazole 20 mg capsule,delayed release(DR/EC) 20 mg PO DAILY 0RF acetaminophen 500 mg tablet 500 mg PO QID PRN (Reason: Pain) 0RF gabapentin 300 mg capsule 300 mg PO DAILY 0RF citalopram 20 mg tablet 20 mg PO DAILY 0RF albuterol sulfate 90 mcg/actuation HFA aerosol inhaler 2 inh inhalation QID PRN (Reason: Wheezing) 30 Days Qty: 1 6RF Suprep Bowel Prep Kit 17.5-3.13-1.6 gram recon soln See Rx Instructions PO .COMPLEX Qty: 354 0RF Rx Instructions: DILUTE; drink full amount early evening before AND next morning at least 2 hr before procedure; follow w 32 oz. water PO bupropion HCl 150 mg tablet extended release 24 hr 150 mg PO QAM 0RF fluticasone propionate 50 mcg/actuation spray,suspension 2 spray intranasal DAILY PRN (Reason: Nasal Congestion) 0RF alendronate 70 mg tablet 70 mg PO QWEEK 0RF lisinopril 20 mg tablet 20 mg PO BEDTIME 0RF sennosides 8.6 mg tablet 17.2 mg PO DAILY PRN (Reason: Constipation) 0RF primidone 50 mg tablet 50 mg PO DAILY 0RF estradiol 0.01 % (0.1 mg/gram) cream 1 g vaginal 2XW 0RF (DME) pen needle, diabetic 31 gauge x 3/16 needle See Rx Instructions ea .ROUTE TID Qty: 50 0RF Rx Instructions: As directed insulin lispro 100 unit/mL insulin pen subcut 0RF atorvastatin 40 mg tablet 40 mg PO BEDTIME 0RF (DME) lancets 33 gauge misc See Rx Instructions ea Not Applicable BID Qty: 100 0RF Rx Instructions: As directed loratadine 10 mg tablet 10 mg PO DAILY PRN (Reason: allergies) 0RF (DME) OneTouch Ultra Blue Test Strip Strip See Rx Instructions ea Not Applicable BID Qty: 10 0RF Rx Instructions: As directed oxybutynin chloride 5 mg tablet extended release 24hr 5 mg PO DAILY Qty: 30 6RF oxybutynin chloride 10 mg tablet extended release 24hr 10 mg PO DAILY Qty: 30 6RF trazodone 50 mg tablet 50 mg PO BEDTIME 0RF azithromycin 250 mg tablet See Rx Instructions PO .COMPLEX Qty: 6 0RF Rx Instructions: For 250 mg dose pack: take 500 mg today (day 1), then 250 mg for 4 days (days 2-5) PO Interventions: ED Discharge Assessment Last Done: 02/28/22 19:31 Discharge Date/Time: 02/28/22 19:32
--- NOTE | 2022-02-28 17:30 | ECG_ITS ---
Test Reason : CX TIGHTNESS Blood Pressure : / mmHG Vent. Rate : 057 BPM Atrial Rate : 057 BPM P-R Int : 182 ms QRS Dur : 142 ms QT Int : 480 ms P-R-T Axes : 050 -24 021 degrees QTc Int : 467 ms Sinus bradycardia Right bundle branch block Abnormal ECG When compared with ECG of 22-NOV-2021 21:37, No significant change was found Referred By: Hever Newberry Electronically Signed By:Bereket Silverman
[2022-02-28 17:33] VITALS: PULSE 76; RESP 20; O2SAT 94
[2022-02-28] MEDS: Albuterol/Iprat 2.5/0.5MG 3 ML AMPUL.NEB INHALE (17:33)
[2022-02-28] MEDS: Acetaminophen 325 MG TABLET 650 MG PO (18:58)
[2022-02-28 19:05] LABS: Appearance Urine CLEAR; Color Urine YELLOW; Glucose Urine UA NEG (NEG); Leukocyte Esterase Urine NEG (NEG); Nitrite Urine NEG (NEG); Specific Gravity - Urine 1.015 (1.005-1.025); Urine Blood NEG (NEG); Urine Ketones NEG (NEG); Urine Protein NEG (NEG-TRACE)
== END 2022-02-28 19:32 | disposition home or self-care (01) ==
PROVIDERS: Emergency Provider Internal Medicine; PCP Internal Medicine
DX: J44.9 Chronic obstructive pulmonary disease, unspecified (principal); Z20.822 Contact with and (suspected) exposure to COVID-19; R06.02 Shortness of breath; E11.9 Type 2 diabetes mellitus without complications; E78.5 Hyperlipidemia, unspecified; I10 Essential (primary) hypertension; Z79.02 Long term (current) use of antithrombotics/antiplatelets; Z79.899 Other long term (current) drug therapy; Z79.4 Long term (current) use of insulin
CPT/HCPCS: 71045; 80048; 81003; 85025; 87502; 87635; 93005; 94640; 99283; 99284

== ENCOUNTER 2022-03-10 14:03 | Outpatient (REF) | payer OTHER, SELFPAY ==
--- NOTE | ~2022-03-10 | MM_ITS ---
EXAMINATION: MM SCREENING DIGITAL BREAST TOMOSYNTHESIS, BILATERAL CLINICAL INFORMATION: Screening. Asymptomatic. The lifetime risk of breast cancer based on the Tyrer-Cuzick Model is 3%. COMPARISON: Mammography: 03/02/2021, 12/17/2019, 12/11/2018 TECHNIQUE: Digital breast tomosynthesis is performed in both the craniocaudal and mediolateral oblique views along with computer-aided detection (CAD). Synthesized 2D images are generated from the tomosynthesis. FINDINGS: The breasts are heterogeneously dense, which may obscure small masses (ACR BI-RADS breast composition Category c). There are no significant masses, abnormal calcifications, or other abnormalities. Breast tissue composition borders on average fibroglandular. Parenchymal pattern is similar to prior studies. No significant changes. MM/MM tomosynthesis screening BI IMPRESSION: No mammographic evidence of malignancy. ASSESSMENT: BI-RADS 1: Negative RECOMMENDATION: Routine annual mammography screening. This patient's information was entered into a reminder system with a target due date for their next mammogram.
== END 2022-03-10 14:04 | disposition home or self-care (01) ==
LOC: HO.MAMMO 14:03
PROVIDERS: Visit Provider Internal Medicine
DX: Z12.31 Encounter for screening mammogram for malignant neoplasm of breast (principal)
CPT/HCPCS: 77063; 77067

== ENCOUNTER 2022-03-11 16:38 | Emergency (ER) | payer OTHER, SELFPAY ==
--- NOTE | ~2022-03-11 | XR_ITS ---
EXAMINATION: XR HIP, LEFT CLINICAL INFORMATION: Left hip pain. COMPARISON: None TECHNIQUE: Two views of the left hip. FINDINGS: No acute fracture or dislocation. The joint spaces are unremarkable. The bony pelvis is intact. Incidental transitional L5-S1. The soft tissues are unremarkable. XR/XR hip LT w PEL1V IMPRESSION: Unremarkable left hip.
[2022-03-11 16:41] VITALS: BP 114/70; PULSE 71; RESP 19; TEMP 36.6; O2SAT 95; BMI 38.9
--- NOTE | 2022-03-11 23:29 | PC.NURSE ---
Addendum entered by Magali Shaver 03/11/22 23:30: correct hip is left, not right Original Note: pt able to transfer from wc to bed with minimal assist but has to furnature surf to keep weight off of LLE. grimaces with movement into bed. pain is right hip radiating down leg.
--- NOTE | 2022-03-11 23:40 | ED_ITS ---
HPI - General Adult General Chief complaint: Extremity Injury, Lower Stated complaint: hip pain - no known injury Time Seen by Provider: 03/11/22 23:27 Source: patient Limitations: no limitations History of Present Illness HPI narrative: This is a 71-year-old female who complains of pain in her left hip area and left lower back for about 3 days. The patient states she has some trouble getting around due to the pain. She does live at home with her son who can help her. She denies any fall or injury. She denies any urinary symptoms. She has not had any fever. Pain is severe, aching, worse with movement. Patient denies any incontinence of urine, weakness or numbness in her left foot Related Data Home Medications Medication Instructions Recorded Confirmed acetaminophen 500 mg tablet 500 mg PO QID PRN 07/30/20 11/26/20 citalopram 20 mg tablet 20 mg PO DAILY 07/30/20 11/26/20 gabapentin 300 mg capsule 300 mg PO DAILY 07/30/20 11/26/20 glipizide 2.5 mg tablet, extended 2.5 mg PO DAILY 07/30/20 11/26/20 release 24 hr hydrochlorothiazide 12.5 mg tablet 12.5 mg PO DAILY 07/30/20 11/26/20 levothyroxine 200 mcg tablet 200 mcg PO DAILY 07/30/20 11/26/20 omeprazole 20 mg capsule,delayed 20 mg PO DAILY 07/30/20 11/26/20 release propranolol 20 mg tablet 20 mg PO BID 07/30/20 11/26/20 sitagliptin 100 mg tablet (Januvia) 100 mg PO DAILY 07/30/20 11/26/20 alendronate 70 mg tablet 70 mg PO QWEEK 10/13/20 11/26/20 atorvastatin 40 mg tablet 40 mg PO BEDTIME 10/13/20 11/26/20 blood sugar diagnostic #10 ea 10/13/20 11/26/20 bupropion HCl 150 mg 24 hr tablet, 150 mg PO QAM 10/13/20 11/26/20 extended release estradiol 1 g VAGINAL 2XW 10/13/20 11/26/20 fluticasone propionate 50 2 spray INTRANASAL DAILY PRN 10/13/20 11/26/20 mcg/actuation nasal spray,suspension insulin lispro 100 unit/mL unit SUBCUT 10/13/20 11/26/20 subcutaneous pen lancets 33 gauge #100 ea 10/13/20 11/26/20 lisinopril 20 mg tablet 20 mg PO BEDTIME 10/13/20 11/26/20 loratadine 10 mg tablet 10 mg PO DAILY PRN 10/13/20 11/26/20 pen needle, diabetic 31 gauge x #50 ea 10/13/20 11/26/20 3/16 primidone 50 mg tablet 50 mg PO DAILY 10/13/20 11/26/20 sennosides 8.6 mg tablet 17.2 mg PO DAILY PRN 10/13/20 11/26/20 trazodone 50 mg tablet 50 mg PO BEDTIME 09/30/21 Previous Rx's Medication Instructions Recorded sodium,potassium,mag sulfates 17.5 See Rx Instructions PO .COMPLEX 09/01/20 gram-3.13 gram-1.6 gram oral soln #354 ml (Suprep Bowel Prep Kit) oxybutynin chloride 5 mg 5 mg PO DAILY #30 tab 10/13/20 tablet,extended release 24 hr oxybutynin chloride 10 mg 10 mg PO DAILY #30 tab 10/28/20 tablet,extended release 24 hr dicyclomine 20 mg tablet 20 mg PO TID PRN #20 tab 11/02/20 ondansetron 4 mg disintegrating 4 mg PO Q8H PRN #20 tab 11/02/20 tablet cefuroxime axetil 500 mg tablet 500 mg PO Q12H 10 Days #20 tab 04/08/21 phenazopyridine 200 mg tablet 200 mg PO TID PRN #6 tab 04/08/21 (Pyridium) albuterol sulfate 90 mcg/actuation 2 inh INHALATION QID PRN 30 Days 06/17/21 aerosol inhaler #1 ea meclizine 12.5 mg tablet 12.5 mg PO TID PRN #14 tab 07/10/21 mineral oil (Fleet Mineral Oil) 118 ml OK DAILY PRN #6384 ml 07/30/21 polyethylene glycol 3350 17 17 g PO DAILY PRN #238 g 07/30/21 gram/dose oral powder (Miralax) mirabegron 25 mg tablet,extended 25 mg PO DAILY 90 Days #90 tab 09/23/21 release 24 hr (Myrbetriq) fluticasone fur. 200 mcg-umeclid 1 inh INHALATION DAILY 30 Days #1 12/07/21 62.5 mcg-vilant 25 mcg ea inhalat.powder (Trelegy Ellipta) furosemide 20 mg tablet 20 mg PO QAM #30 tab 12/07/21 azithromycin 250 mg tablet See Rx Instructions PO .COMPLEX #6 01/13/22 tab benzonatate 200 mg capsule 200 mg PO TID PRN #30 cap 02/28/22 prednisone 20 mg tablet 40 mg PO DAILY #10 tab 02/28/22 prednisone 20 mg tablet 20 mg PO DAILY #7 tab 03/11/22 tramadol 50 mg tablet 50 - 100 mg PO Q4H PRN #20 tab 03/11/22 Allergies Allergy/AdvReac Type Severity Reaction Status Date / Time aspirin [Aspirin] Allergy Mild UPSET Verified 02/28/22 15:30 STOMACH ibuprofen [From Motrin] Allergy Mild Gastrointestinal Verified 02/28/22 15:30 Upset Review of Systems Constitutional: Constitutional: Denies fever(s) and Reports headache(s) ENT: Reports headache(s) Cardiovascular: Cardiovascular: Reports no additional cardiovascular complaints Respiratory: Respiratory: Reports no additional respiratory complaints Gastrointestinal: Gastrointestinal: Reports no additional gastrointestinal complaints Genitourinary: Genitourinary: Reports no additional female genitourinary complaints Musculoskeletal: Musculoskeletal: Reports back pain, Denies numbness and Reports other (Left hip pain) Neurologic: Reports headache(s), Denies focal weakness and Denies numbness PMFSH Past Medical History Medical History Anxiety and depression Back pain Bilateral primary osteoarthritis of knee Colon cancer screening COPD (chronic obstructive pulmonary disease) COPD exacerbation Diabetes mellitus Frequency of micturition GERD (gastroesophageal reflux disease) High cholesterol Hypertension Hypothyroidism ENMA on CPAP Osteoarthritis Tubular adenoma of colon Urgency incontinence Urgency of micturition Surgical History History of cholecystectomy History of lumpectomy of right breast Hx of colonoscopy Hx of cystoscopy Hx of right knee surgery Family History Family History Mother History of pancreatic cancer Social History Social History Are you a primary patient care to a significant other at home: No Do you presently have visiting nurse or other home services: Yes (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 NURSES AIDE) Alcohol intake: never Patient Tobacco Use Status: Never used Tobacco Years Smoked: 30 Advance Directives: No Advance Directives Information Provided: No Physical Exam ED Vital Signs: Vital Signs - 24 hr 03/11/22 16:41 03/12/22 00:23 Temperature 97.8 F Pulse Rate 71 63 Respiratory Rate 19 22 H Blood Pressure 114/70 145/81 H Pulse Oximetry 95 94 BMI result Body Mass Index 38.9 Const Other: Patient uncomfortable appearing, mildly abuse General: no acute distress Orientation/consciousness: patient oriented x3 HENMT Head: Yes normal to inspection General nose exam: Normal external nose present Mouth: moist mucous membranes Throat: Yes posterior oropharynx normal, Yes tonsils normal and Yes uvula midline Eyes Eyelids: Yes eyelids normal Conjunctivae: conjunctivae normal Pupils: Equal, round and reactive pupils present Neck Neck: Yes supple Resp Effort & Inspection: normal respiratory effort Auscultation: clear to auscultation bilaterally Cardio Rate: regular rate Rhythm: regular rhythm Heart sounds: S1 normal heart sound present, S2 normal heart sound present, no gallops, no murmurs and no rubs GI Inspection: No distended Palpation (GI): Soft to palpation and nontender Auscultation: normal bowel sounds Back/Spine/Pelvis Other: Tender lower left lumbar back Skin General skin exam: other (Warm and dry) Neuro General: patient oriented x3 and CN's II-XI intact bilaterally Cranial nerves: Yes Equal, round and reactive pupils present Extrem Other: Tender over left hip joint, no erythema or swelling or ecchymosis. The foot is neurovascularly intact General: Yes no pedal edema Psych Affect: normal affect Attitude: cooperative Medical Decision Making [facility] Narrative Medical decision making narrative: Patient with left lower back and left hip pain. Patient does have history of osteoarthritis among many other problems. Patient could have left hip osteoarthritis and does have tenderness over the hip joint, however x-ray was unimpressive. Patient also has left lower back pain and may have lumbar radiculopathy. Patient is moderately obese. Will treat the patient for lumbar radiculopathy with prednisone, tramadol (patient has intolerance to NSAIDs), and patient is to follow-up as an outpatient, may need outpatient MRI Imaging Data Pelvis and left hip x-ray: Radiologist's impression: IMPRESSION: Unremarkable left hip. ? Discharge Plan Discharge Clinical Impression: Sciatica Patient Disposition: Home, Self-Care Instructions: Sciatica (ED) Additional Instructions: You likely have sciatica. Youmay have compression of the nerve root in her back. You may need to have an MRI done as an outpatient. Arthritis in the left hip is another consideration. Use the medicine as prescribed and follow-up with her primary care physician. Physical therapy may also help. Prescriptions: New prednisone 20 mg tablet 20 mg PO DAILY Qty: 7 0RF tramadol 50 mg tablet 50 - 100 mg PO Q4H PRN (Reason: pain) Qty: 20 0RF No Action Myrbetriq 25 mg tablet extended release 24 hr 25 mg PO DAILY 90 Days Qty: 90 1RF Trelegy Ellipta 200-62.5-25 mcg blister with device 1 inh inhalation DAILY 30 Days Qty: 1 6RF furosemide 20 mg tablet 20 mg PO QAM Qty: 30 12RF cefuroxime axetil 500 mg tablet 500 mg PO Q12H 10 Days Qty: 20 0RF phenazopyridine [Pyridium] 200 mg tablet 200 mg PO TID PRN (Reason: pain) Qty: 6 0RF ondansetron 4 mg tablet,disintegrating 4 mg PO Q8H PRN (Reason: nausea and vomiting) Qty: 20 0RF dicyclomine 20 mg tablet 20 mg PO TID PRN (Reason: abdominal discomfort) Qty: 20 0RF meclizine 12.5 mg tablet 12.5 mg PO TID PRN (Reason: dizziness) Qty: 14 0RF mineral oil [Fleet Mineral Oil] Enema 118 ml OK DAILY PRN (Reason: constipation) Qty: 6384 0RF Rx Instructions: discard any unused portion polyethylene glycol 3350 [Miralax] 17 gram/dose powder 17 g PO DAILY PRN (Reason: constipation) Qty: 238 0RF benzonatate 200 mg capsule 200 mg PO TID PRN (Reason: cough) Qty: 30 0RF prednisone 20 mg tablet 40 mg PO DAILY Qty: 10 0RF propranolol 20 mg tablet 20 mg PO BID 0RF hydrochlorothiazide 12.5 mg tablet 12.5 mg PO DAILY 0RF Januvia 100 mg tablet 100 mg PO DAILY 0RF glipizide 2.5 mg tablet extended release 24hr 2.5 mg PO DAILY 0RF levothyroxine 200 mcg tablet 200 mcg PO DAILY 0RF omeprazole 20 mg capsule,delayed release(DR/EC) 20 mg PO DAILY 0RF acetaminophen 500 mg tablet 500 mg PO QID PRN (Reason: Pain) 0RF gabapentin 300 mg capsule 300 mg PO DAILY 0RF citalopram 20 mg tablet 20 mg PO DAILY 0RF albuterol sulfate 90 mcg/actuation HFA aerosol inhaler 2 inh inhalation QID PRN (Reason: Wheezing) 30 Days Qty: 1 6RF Suprep Bowel Prep Kit 17.5-3.13-1.6 gram recon soln See Rx Instructions PO .COMPLEX Qty: 354 0RF Rx Instructions: DILUTE; drink full amount early evening before AND next morning at least 2 hr before procedure; follow w 32 oz. water PO bupropion HCl 150 mg tablet extended release 24 hr 150 mg PO QAM 0RF fluticasone propionate 50 mcg/actuation spray,suspension 2 spray intranasal DAILY PRN (Reason: Nasal Congestion) 0RF alendronate 70 mg tablet 70 mg PO QWEEK 0RF lisinopril 20 mg tablet 20 mg PO BEDTIME 0RF sennosides 8.6 mg tablet 17.2 mg PO DAILY PRN (Reason: Constipation) 0RF primidone 50 mg tablet 50 mg PO DAILY 0RF estradiol 0.01 % (0.1 mg/gram) cream 1 g vaginal 2XW 0RF (DME) pen needle, diabetic 31 gauge x 3/16 needle See Rx Instructions ea .ROUTE TID Qty: 50 0RF Rx Instructions: As directed insulin lispro 100 unit/mL insulin pen subcut 0RF atorvastatin 40 mg tablet 40 mg PO BEDTIME 0RF (DME) lancets 33 gauge misc See Rx Instructions ea Not Applicable BID Qty: 100 0RF Rx Instructions: As directed loratadine 10 mg tablet 10 mg PO DAILY PRN (Reason: allergies) 0RF (DME) OneTouch Ultra Blue Test Strip Strip See Rx Instructions ea Not Applicable BID Qty: 10 0RF Rx Instructions: As directed oxybutynin chloride 5 mg tablet extended release 24hr 5 mg PO DAILY Qty: 30 6RF oxybutynin chloride 10 mg tablet extended release 24hr 10 mg PO DAILY Qty: 30 6RF trazodone 50 mg tablet 50 mg PO BEDTIME 0RF azithromycin 250 mg tablet See Rx Instructions PO .COMPLEX Qty: 6 0RF Rx Instructions: For 250 mg dose pack: take 500 mg today (day 1), then 250 mg for 4 days (days 2-5) PO Interventions: ED Discharge Assessment Last Done: 03/12/22 00:43 Discharge Date/Time: 03/12/22 00:44
[2022-03-12] MEDS: predniSONE 20 MG TABLET PO (00:15)
[2022-03-12] MEDS: traMADoL HCL 50 MG TABLET PO (00:15)
[2022-03-12] MEDS: Ketorolac Tromethamine 15 MG/ML VIAL IM (00:16)
[2022-03-12 00:23] VITALS: BP 145/81; PULSE 63; RESP 22; O2SAT 94
== END 2022-03-12 00:44 | disposition home or self-care (01) ==
PROVIDERS: Emergency Provider Emergency Medicine; PCP Internal Medicine
DX: M54.42 Lumbago with sciatica, left side (principal); M25.552 Pain in left hip; I10 Essential (primary) hypertension; E11.9 Type 2 diabetes mellitus without complications; J44.9 Chronic obstructive pulmonary disease, unspecified; G47.33 Obstructive sleep apnea (adult) (pediatric); Z99.89 Dependence on other enabling machines and devices
CPT/HCPCS: 73502; 96372; 99283; 99284; J1885

== ENCOUNTER → 2022-04-01 13:27 | Outpatient (BNVA) | payer OTHER, SELFPAY | DX: N32.81 Overactive bladder (principal); R35.1 Nocturia | CPT/HCPCS: 51798; 99212 ==

== ENCOUNTER → 2022-04-21 13:45 | Outpatient (BNVA) | payer OTHER, SELFPAY | PROVIDERS: PCP Internal Medicine; Visit Provider Internal Medicine Pulmonary Disease | DX: J44.9 Chronic obstructive pulmonary disease, unspecified (principal); J84.10 Pulmonary fibrosis, unspecified; R06.00 Dyspnea, unspecified; G47.33 Obstructive sleep apnea (adult) (pediatric); Z79.899 Other long term (current) drug therapy; Z99.89 Dependence on other enabling machines and devices | CPT/HCPCS: 99212 ==

== ENCOUNTER 2022-05-03 19:07 | Emergency (ER) | payer OTHER, SELFPAY ==
--- NOTE | ~2022-05-03 | XR_ITS ---
EXAMINATION: XR CHEST CLINICAL INFORMATION: Chest pain, shortness of breath COMPARISON: 02/28/2022 TECHNIQUE: Frontal view of the chest was obtained. FINDINGS: The lungs are well expanded. Streaky markings at the left base are noted. No dense consolidation. No pleural effusion or pneumothorax. The cardiomediastinal silhouette is normal in size. XR/XR chest 1V IMPRESSION: Streaky left basilar markings favor atelectasis. No dense consolidation.
[2022-05-03 19:18] VITALS: BP 113/60; PULSE 80; RESP 18; TEMP 37.2; O2SAT 94; BMI 40.8
[2022-05-03 19:32] LABS: MANUAL DIFF FLAG NO
[2022-05-03 19:34] LABS: Basophils Percent Auto 0.5 % (0-2); Eosinophils Absolute Auto 0.2 X10*3/uL (0.0-0.4); Eosinophils Percent Auto 2.8 % (0-4); Hematocrit 44.1 % (37.0-47.0); Imm Gran Abs Auto 0.01 X10*3/uL (0.00-0.03); Imm Gran Pct Auto 0.2 % (0.0-0.4); Lymphocytes Absolute Auto 2.2 X10*3/uL (1.2-4.9); Lymphocytes Percent Auto 38.2 % (20-40); Mean Corpuscular HGB Conc 31.7 g/dl (31.0-35.0); Mean Corpuscular Hemoglobin 27.9 pg (27.0-33.0); Mean Corpuscular Volume 87.8 fL (80.0-98.0); Mean Platelet Volume 10.1 fL (9.4-12.3); Monocytes Absolute Auto 0.5 X10*3/uL (0.1-1.2); Monocytes Percent Auto 8.5 % (2-11); Neutrophils Absolute Auto 2.9 x10*3/uL (2.0-8.3); Neutrophils Percent Auto 49.8 % (45-73); Platelet Count 179 X10*3/uL (160-400); Red Blood Count 5.02 X10*6/uL (4.20-5.50); Red Cell Distribution Width 13.7 % (11.0-16.0); White Blood Count 5.8 X10*3/uL (4.8-10.8)
[2022-05-03 19:54] LABS: Alanine Aminotransferase 15 U/L (0-31); Albumin Level 4.3 g/dL (3.5-5.0); Alkaline Phosphatase 86 U/L (39-117); Anion Gap 12 (12-20); Aspartate Amino Transferase 18 U/L (5-31); Bilirubin Total 0.5 mg/dL (0.0-1.0); Blood Urea Nitrogen 14 mg/dL (9-16); Calcium 9.2 mg/dL (8.4-10.2); Carbon Dioxide 26 mmol/L (22-29); Chloride 105 mmol/L (96-108); Creatinine Clr Calc Pharmacy 40.4; Estimated Glomerular Filt Rate 38; Glucose Random 176 mg/dL (60-115); Potassium 4.2 mmol/L (3.3-5.1); Sodium 139 mmol/L (135-145)
[2022-05-03 20:00] LABS: B Type Natriuretic Peptide < 10 pg/mL (<100); Troponin-I High Sensitivity 15.4 ng/L (<3.5-17.0)
[2022-05-03 20:39] VITALS: PULSE 72; RESP 12; O2SAT 95
--- NOTE | 2022-05-03 21:38 | ED.GENADULT ---
HPI - General Adult General Chief complaint: General Medical Stated complaint: hard to breathe, chest tightness Time Seen by Provider: 05/03/22 19:39 Source: patient, family and freelance interpreter/translator ( Family provided interpretation) Mode of arrival: ambulatory History of Present Illness HPI narrative: 72-year-old female who presents with family member for abdominal discomfort that started this morning and is located in the suprapubic area with associated nausea and vomiting this morning but she has been able to eat throughout the day although has noted a decrease in appetite. Patient also has reports low-grade temperature elevation but denies shortness of breath or chest pain however it is noted in the triage note that she reported chest pain and shortness of breath. Patient reports burning on urination but denies any pain or urinary frequency. patient does report constipation and states she has continued to pass flatus and her last BM was last night. Related Data Home Medications Medication Instructions Recorded Confirmed acetaminophen 500 mg tablet 500 mg PO QID PRN Pain 07/30/20 11/26/20 citalopram 20 mg tablet 20 mg PO DAILY 07/30/20 11/26/20 gabapentin 300 mg capsule 300 mg PO DAILY 07/30/20 11/26/20 glipizide 2.5 mg tablet, extended 2.5 mg PO DAILY 07/30/20 11/26/20 release 24 hr hydrochlorothiazide 12.5 mg tablet 12.5 mg PO DAILY 07/30/20 11/26/20 levothyroxine 200 mcg tablet 200 mcg PO DAILY 07/30/20 11/26/20 omeprazole 20 mg capsule,delayed 20 mg PO DAILY 07/30/20 11/26/20 release propranolol 20 mg tablet 20 mg PO BID 07/30/20 11/26/20 sitagliptin 100 mg tablet (Januvia) 100 mg PO DAILY 07/30/20 11/26/20 alendronate 70 mg tablet 70 mg PO QWEEK 10/13/20 11/26/20 atorvastatin 40 mg tablet 40 mg PO BEDTIME 10/13/20 11/26/20 blood sugar diagnostic #10 ea 10/13/20 11/26/20 bupropion HCl 150 mg 24 hr tablet, 150 mg PO QAM 10/13/20 11/26/20 extended release fluticasone propionate 50 2 spray intranasal DAILY PRN Nasal 01/04/21 02/17/21 mcg/actuation nasal Congestion spray,suspension insulin lispro 100 unit/mL unit subcut 10/13/20 11/26/20 subcutaneous pen lancets 33 gauge #100 ea 10/13/20 11/26/20 lisinopril 20 mg tablet 20 mg PO BEDTIME 10/13/20 11/26/20 loratadine 10 mg tablet 10 mg PO DAILY PRN allergies 10/13/20 11/26/20 pen needle, diabetic 31 gauge x #50 ea 10/13/20 11/26/2012/23 primidone 50 mg tablet 50 mg PO DAILY 10/13/20 11/26/20 sennosides 8.6 mg tablet 17.2 mg PO DAILY PRN Constipation 10/13/20 11/26/20 trazodone 50 mg tablet 50 mg PO BEDTIME 09/30/21 Previous Rx's Medication Instructions Recorded phenazopyridine 200 mg tablet 200 mg PO TID PRN pain 6 doses #6 04/08/21 (Pyridium) tabs mineral oil (Fleet Mineral Oil 118 ml [place] DAILY PRN constipation 07/30/21 enema) #6,384 mL fluticasone fur. 200 mcg-umeclid 1 inh inhalation DAILY 30 days #1 12/07/21 62.5 mcg-vilant 25 mcg ea inhalat.powder (Trelegy Ellipta) furosemide 20 mg tablet 20 mg PO QAM #30 tabs 12/07/21 benzonatate 200 mg capsule 200 mg PO TID PRN cough #30 caps 02/28/22 prednisone 20 mg tablet 20 mg PO DAILY #7 tabs 03/11/22 tramadol 50 mg tablet 50 - 100 mg PO Q4H PRN pain #20 03/11/22 tabs theophylline 600 mg 600 mg PO DAILY 30 days #30 tabs 04/21/22 tablet,extended release 24 hr cephalexin 500 mg capsule 500 mg PO Q12H 5 days #10 caps 05/03/22 Allergies Allergy/AdvReac Type Severity Reaction Status Date / Time aspirin [Aspirin] Allergy Mild UPSET Verified 04/21/22 13:49 STOMACH ibuprofen [From Motrin] Allergy Mild Gastrointestinal Verified 04/21/22 13:49 Upset Review of Systems Review of Systems: Pertinent positives and negatives as stated in HPI 10 point review of systems is otherwise negative. [facility] Past Medical History Source: nursing notes reviewed Medical History Anxiety and depression Back pain Bilateral primary osteoarthritis of knee Colon cancer screening COPD (chronic obstructive pulmonary disease) COPD exacerbation Diabetes mellitus Frequency of micturition GERD (gastroesophageal reflux disease) High cholesterol Hypertension Hypothyroidism ENMA on CPAP Osteoarthritis Tubular adenoma of colon Urgency incontinence Urgency of micturition Surgical History History of cholecystectomy History of lumpectomy of right breast Hx of colonoscopy Hx of cystoscopy Hx of right knee surgery Family History Family History Mother History of pancreatic cancer Social History Social History Are you a primary body care manager to a significant other at home: No Do you presently have visiting nurse or other home services: 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 GENERAL: Well developed, well nourished, in no acute distress. HEAD: Normocephalic/atraumatic EYES: PERRLA, EOMI EARS: Ext canals without abnormality OROPHARYNX: no oral lesions noted, posterior pharynx clear LUNGS: Normal breath sounds, no wheeze/rhonchi/ rales, there is no tachypnea or increased work of breathing. SpO2<94> CARDIOVASCULAR: Regular rate and rhythm without noted murmurs ABDOMEN: Soft, tenderness over the suprapubic without rebound, non-distended with bowel sounds, no CVA tenderness. MUSCULOSKELETAL: No tenderness, deformities, or effusions noted on gross inspection. EXTREMITIES: No cyanosis, clubbing or edema. SKIN: Inspection of the skin reveals no rashes NEUROLOGIC: Alert and oriented x 4. Strength and sensation to light touch were grossly intact x 4. Course Course Course Narrative: 72-year-old female with history and clinical presentation that is suspected to be a UTI, but possible that she is suffering from constipation as well. Review of all investigations demonstrates a UTI, there is a noted detect all high sensitivity troponin however this is consistent with patient's baseline without acute EKG changes and patient again endorses to me that she does not have chest pain. Patient was provided with initial antibiotics here and was discharged with remaining course. All results and findings were discussed with her and her family member at the bedside. Medical Decision Making Lab Data Result diagrams: 05/03/22 19:27 05/03/22 19: Labs: Lab Results 05/03/22 05/03/22 05/03/22 Range/Units 19: 19: 19:27 WBC 5.8 (4.8-10.8) X10*3/uL RBC 5.02 (4.20-5.50) X10*6/uL Hgb 14.0 (12.0-16.0) g/dl Hct 44.1 (37.0-47.0) % MCV 87.8 (80.0-98.0) fL MCH 27.9 (27.0-33.0) pg MCHC 31.7 (31.0-35.0) g/dl RDW 13.7 (11.0-16.0) % Plt Count 179 (160-400) X10*3/uL MPV 10.1 (9.4-12.3) fL Immature Gran % (Auto) 0.2 (0.0-0.4) % Neut % (Auto) 49.8 (45-73) % Lymph % (Auto) 38.2 (20-40) % [place] % (Auto) 8.5 (2-11) % Eos % (Auto) 2.8 (0-4) % Baso % (Auto) 0.5 (0-2) % Lymph # (Auto) 2.2 (1.2-4.9) X10*3/uL [place] # (Auto) 0.5 (0.1-1.2) X10*3/uL Eos # (Auto) 0.2 (0.0-0.4) X10*3/uL Baso # (Auto) 0.0 (0.0-0.2) X10*3/uL Abs Immat Gran (auto) 0.01 (0.00-0.03) X10*3/uL Absolute Neuts (auto) 2.9 (2.0-8.3) x10*3/uL Absolute Nucleated RBC 0.000 (0.0-0.012) X10*3/uL Nucleated RBC % (auto) 0.0 (0.0-0.2) /100WBC VBG pH (7.32-7.43) VBG pCO2 mmHg VBG pO2 mmHg VBG HCO3 (22-26) mmol/L VBG O2 Saturation % VBG Base Excess mmol/L Sodium 139 (135-145) mmol/L Potassium 4.2 (3.3-5.1) mmol/L Chloride 105 (96-108) mmol/L Carbon Dioxide 26 (22-29) mmol/L Anion Gap 12 (12-20) BUN 14 (9-16) mg/dL Creatinine 1.36 (0.5-1.4) mg/dL Estim Creat Clear Calc 40.4 Estimated GFR 38 Random Glucose 176 H (60-115) mg/dL Calcium 9.2 (8.4-10.2) mg/dL Total Bilirubin 0.5 (0.0-1.0) mg/dL AST 18 D (5-31) U/L ALT 15 (0-31) U/L Alkaline Phosphatase 86 (39-117) U/L Troponin I High Sens 15.4 D (<3.5-17.0) ng/L B-Natriuretic Peptide < 10 (<100) pg/mL Total Protein 7.0 (6.5-8.0) g/dL Albumin 4.3 (3.5-5.0) g/dL Urine Color Urine Appearance Urine pH (5.0-8.0) Ur Specific [place] (1.005-1.025) Urine Protein (NEG-TRACE) MG/DL Urine Glucose (UA) (NEG) MG/DL Urine Ketones (NEG) MG/DL Urine Blood (NEG) Urine Nitrite (NEG) Ur Leukocyte Esterase (NEG) Urine RBC (0) /HPF Urine WBC (0-4) /HPF Ur Squamous Epith Cells /LPF Urine Bacteria /LPF COVID-19 (JUNIE) (Negative) COVID-19 Clin Com 05/03/22 05/03/22 05/03/22 Range/Units 21:49 21:49 22:03 WBC (4.8-10.8) X10*3/uL RBC (4.20-5.50) X10*6/uL Hgb (12.0-16.0) g/dl Hct (37.0-47.0) % MCV (80.0-98.0) fL MCH (27.0-33.0) pg MCHC (31.0-35.0) g/dl RDW (11.0-16.0) % Plt Count (160-400) X10*3/uL MPV (9.4-12.3) fL Immature Gran % (Auto) (0.0-0.4) % Neut % (Auto) (45-73) % Lymph % (Auto) (20-40) % [place] % (Auto) (2-11) % Eos % (Auto) (0-4) % Baso % (Auto) (0-2) % Lymph # (Auto) (1.2-4.9) X10*3/uL [place] # (Auto) (0.1-1.2) X10*3/uL Eos # (Auto) (0.0-0.4) X10*3/uL Baso # (Auto) (0.0-0.2) X10*3/uL Abs Immat Gran (auto) (0.00-0.03) X10*3/uL Absolute Neuts (auto) (2.0-8.3) x10*3/uL Absolute Nucleated RBC (0.0-0.012) X10*3/uL Nucleated RBC % (auto) (0.0-0.2) /100WBC VBG pH 7.35 (7.32-7.43) VBG pCO2 43 mmHg VBG pO2 50 mmHg VBG HCO3 24 (22-26) mmol/L VBG O2 Saturation 80.0 % VBG Base Excess -1.0 mmol/L Sodium (135-145) mmol/L Potassium (3.3-5.1) mmol/L Chloride (96-108) mmol/L Carbon Dioxide (22-29) mmol/L Anion Gap (12-20) BUN (9-16) mg/dL Creatinine (0.5-1.4) mg/dL Estim Creat Clear Calc Estimated GFR Random Glucose (60-115) mg/dL Calcium (8.4-10.2) mg/dL Total Bilirubin (0.0-1.0) mg/dL AST (5-31) U/L ALT (0-31) U/L Alkaline Phosphatase (39-117) U/L Troponin I High Sens (<3.5-17.0) ng/L B-Natriuretic Peptide (<100) pg/mL Total Protein (6.5-8.0) g/dL Albumin (3.5-5.0) g/dL Urine Color YELLOW Urine Appearance CLEAR Urine pH 6.0 (5.0-8.0) Ur Specific [place] 1.015 (1.005-1.025) Urine Protein NEG (NEG-TRACE) MG/DL Urine Glucose (UA) NEG (NEG) MG/DL Urine Ketones NEG (NEG) MG/DL Urine Blood NEG (NEG) Urine Nitrite NEG (NEG) Ur Leukocyte Esterase TRACE H (NEG) Urine RBC 0 (0) /HPF Urine WBC 0-2 (0-4) /HPF Ur Squamous Epith Cells 1+ /LPF Urine Bacteria 1+ /LPF COVID-19 (JUNIE) Negative (Negative) COVID-19 Clin Com See Note ECG Data Attestation: I personally reviewed and interpreted this ECG as follows: Prior ECG tracings: available for review Interpretation: NSR, HR- 77, RBBB, no STEMI, WI /QTC are within normal limits. Discharge Plan Discharge Clinical Impression: Acute UTI Patient Disposition: Home, Self-Care Instructions: Urinary Tract Infection in Older Adults (ED) Additional Instructions: 1. Reanudar todos los medicamentos caseros seg?n lo prescrito. 2. Complete todo el curso de antibi?ticos seg?n lo prescrito. 3. Quinten un seguimiento con goldstein proveedor de atenci?n primaria llamando al consultorio por la ma?fawad y programando octavia yaima para octavia reevaluaci?n y seguimiento del cultivo de orina. Regrese a la yong de emergencias si los s?ntomas empeoran. Prescriptions: New cephalexin 500 mg capsule 500 mg PO Q12H 5 Days Qty: 10 0RF No Action Trelegy Ellipta 200-62.5-25 mcg blister with device 1 inh inhalation DAILY 30 Days Qty: 1 6RF furosemide 20 mg tablet 20 mg PO QAM Qty: 30 12RF phenazopyridine [Pyridium] 200 mg tablet 200 mg PO TID PRN (Reason: pain) Qty: 6 0RF mineral oil [Fleet Mineral Oil] Enema 118 ml WI DAILY PRN (Reason: constipation) Qty: 6384 0RF Rx Instructions: discard any unused portion benzonatate 200 mg capsule 200 mg PO TID PRN (Reason: cough) Qty: 30 0RF prednisone 20 mg tablet 20 mg PO DAILY Qty: 7 0RF tramadol 50 mg tablet 50 - 100 mg PO Q4H PRN (Reason: pain) Qty: 20 0RF propranolol 20 mg tablet 20 mg PO BID hydrochlorothiazide 12.5 mg tablet 12.5 mg PO DAILY Januvia 100 mg tablet 100 mg PO DAILY glipizide 2.5 mg tablet extended release 24hr 2.5 mg PO DAILY levothyroxine 200 mcg tablet 200 mcg PO DAILY omeprazole 20 mg capsule,delayed release(DR/EC) 20 mg PO DAILY acetaminophen 500 mg tablet 500 mg PO QID PRN (Reason: Pain) gabapentin 300 mg capsule 300 mg PO DAILY citalopram 20 mg tablet 20 mg PO DAILY bupropion HCl 150 mg tablet extended release 24 hr 150 mg PO QAM fluticasone propionate 50 mcg/actuation spray,suspension 2 spray intranasal DAILY PRN (Reason: Nasal Congestion) alendronate 70 mg tablet 70 mg PO QWEEK lisinopril 20 mg tablet 20 mg PO BEDTIME sennosides 8.6 mg tablet 17.2 mg PO DAILY PRN (Reason: Constipation) primidone 50 mg tablet 50 mg PO DAILY (DME) pen needle, diabetic 31 gauge x 3/16 needle See Rx Instructions .ROUTE TID Qty: 50 Rx Instructions: As directed insulin lispro 100 unit/mL insulin pen subcut atorvastatin 40 mg tablet 40 mg PO BEDTIME (DME) lancets 33 gauge misc See Rx Instructions Not Applicable BID Qty: 100 Rx Instructions: As directed loratadine 10 mg tablet 10 mg PO DAILY PRN (Reason: allergies) (DME) OneTouch Ultra Blue Test Strip Strip See Rx Instructions Not Applicable BID Qty: 10 Rx Instructions: As directed trazodone 50 mg tablet 50 mg PO BEDTIME theophylline 600 mg tablet extended release 24 hr 600 mg PO DAILY 30 Days Qty: 30 6RF Print Language: [place] Zealander
[2022-05-03 21:57] VITALS: BP 118/76; PULSE 76; RESP 12; O2SAT 95
[2022-05-03 22:04] LABS: Appearance Urine CLEAR; Color Urine YELLOW; Glucose Urine UA NEG (NEG); Leukocyte Esterase Urine TRACE (NEG); Nitrite Urine NEG (NEG); Specific Gravity - Urine 1.015 (1.005-1.025); Urine Blood NEG (NEG); Urine Ketones NEG (NEG); Urine Protein NEG (NEG-TRACE)
[2022-05-03 22:09] LABS: VBG HCO3 24 mmol/L (22-26); VBG pCO2 43 mmHg; VBG pH 7.35 (7.32-7.43); VBG pO2 50 mmHg
[2022-05-03 22:09] LABS: Venous Blood Gas Refer to POC result
[2022-05-03 22:12] LABS: WBC Urine 0-2 /HPF (0-4)
[2022-05-03 22:13] LABS: Bacteria Urine 1+ /LPF; RBC Urine 0 /HPF (0); Squamous Epithelial Cell Urine 1+ /LPF
[2022-05-03 22:20] LABS: COVID-19 Test Negative (Negative)
[2022-05-03] MEDS: cephALEXin 500 MG CAPSULE PO (22:35)
--- NOTE | 2022-05-03 22:45 | PC.NURSE ---
pt a&ox3, vss, medicated per provider order.
--- NOTE | 2022-05-04 09:25 | ECG_ITS ---
Test Reason : cp Blood Pressure : / mmHG Vent. Rate : 077 BPM Atrial Rate : 077 BPM P-R Int : 166 ms QRS Dur : 140 ms QT Int : 426 ms P-R-T Axes : 040 -30 016 degrees QTc Int : 482 ms Normal sinus rhythm Left axis deviation Right bundle branch block Abnormal ECG When compared with ECG of 28-FEB-2022 18:13, No significant change was found Referred By: Mechelle Golden Electronically Signed By:TODD GILL
== END 2022-05-03 22:46 | disposition home or self-care (01) ==
PROVIDERS: Emergency Provider Student in an Organized Health Care Education/Training Program
DX: N39.0 Urinary tract infection, site not specified (principal); R07.89 Other chest pain; R06.02 Shortness of breath; Z20.822 Contact with and (suspected) exposure to COVID-19; Z87.891 Personal history of nicotine dependence; Z79.899 Other long term (current) drug therapy
CPT/HCPCS: 36415; 71045; 80053; 81001; 82803; 83880; 84484; 85025; 87635; 93005; 99283

== ENCOUNTER 2022-05-07 19:24 | Emergency (ER) | payer OTHER, SELFPAY ==
--- NOTE | ~2022-05-07 | CT_ITS ---
EXAMINATION: CT ABDOMEN AND PELVIS WITHOUT CONTRAST CLINICAL INFORMATION: Abdominal pain COMPARISON: 11/22/2021 TECHNIQUE: Multidetector volumetric imaging was performed from the superior aspect of the liver through the pubic symphysis. Sagittal and coronal reformatted images were obtained on the technologist's workstation. This CT examination was performed using dose optimization techniques as appropriate, variously including the following: *Automated exposure control *Adjustment of mA and/or kV according to patient size (this includes techniques or standardized protocols for targeted exams where dose is matched to indication/reason for exam; i.e. extremities or head) *Use of iterative reconstruction technique DLP: 927 mGy-cm FINDINGS: LUNG BASES: Bronchial thickening and scattered endobronchial secretions. Pleural parenchymal scarring in the lateral lingula. LIVER, GALLBLADDER, AND BILIARY TREE: The liver is normal in size, shape, and attenuation. No focal hepatic lesion or biliary ductal dilatation is present. Cholecystectomy. PANCREAS: Unremarkable. SPLEEN: Unremarkable. ADRENAL GLANDS: Unremarkable. KIDNEYS AND URETERS: The kidneys are normal in size, shape, and attenuation. No hydronephrosis, hydroureter, or calculi seen. No perinephric stranding. BLADDER: Unremarkable. GASTROINTESTINAL TRACT: Scattered colonic diverticula. No evidence of diverticulitis. Normal appendix. Stomach and small bowel unremarkable. ABDOMINAL WALL: No significant hernia is appreciated. LYMPH NODES: Normal. VASCULAR: Aorta is atherosclerotic but normal caliber. PELVIC VISCERA: Uterus and adnexa unremarkable. OSSEOUS STRUCTURES: No acute or suspicious osseous abnormalities. CT/CT abdomen pelvis wo con IMPRESSION: * No acute findings within the abdomen or pelvis. * Scattered colonic diverticula without evidence of diverticulitis. * Chronic airways disease with scattered endobronchial secretions within the lower lungs bilaterally.
--- NOTE | ~2022-05-07 | XR_ITS ---
EXAMINATION: XR CHEST CLINICAL INFORMATION: Dizziness COMPARISON: Chest x-ray 05/03/2022, chest CT 07/06/2021 TECHNIQUE: Frontal view of the chest was obtained. FINDINGS: No airspace consolidation. No pleural effusion or pneumothorax. Slightly increased irregular reticular markings in the lower lungs, unchanged. Normal cardiomediastinal silhouette. No evidence of pulmonary edema. No acute osseous injury. XR/XR chest 1V IMPRESSION: 1. No acute pulmonary process identified. 2. Slightly increased reticular markings in the lower lungs, unchanged and may represent chronic interstitial change.
[2022-05-07 20:40] VITALS: BP 110/80; PULSE 97; RESP 22; TEMP 36.1; O2SAT 94; BMI 38.9
--- NOTE | 2022-05-07 20:46 | ECG_ITS ---
Test Reason : DIZZINESS Blood Pressure : / mmHG Vent. Rate : 090 BPM Atrial Rate : 090 BPM P-R Int : 160 ms QRS Dur : 136 ms QT Int : 406 ms P-R-T Axes : 028 -34 010 degrees QTc Int : 496 ms Normal sinus rhythm Left axis deviation Right bundle branch block Abnormal ECG When compared with ECG of 03-MAY-2022 19:32, No significant change was found Referred By: Generic ED Physician Electronically Signed By:TODD GILL
[2022-05-07 21:27] LABS: MANUAL DIFF FLAG NO
[2022-05-07 21:28] LABS: Basophils Percent Auto 0.4 % (0-2); Eosinophils Absolute Auto 0.2 X10*3/uL (0.0-0.4); Eosinophils Percent Auto 2.8 % (0-4); Hematocrit 45.7 % (37.0-47.0); Hemoglobin 14.6 g/dl (12.0-16.0); Imm Gran Abs Auto 0.03 X10*3/uL (0.00-0.03); Imm Gran Pct Auto 0.4 % (0.0-0.4); Lymphocytes Absolute Auto 2.4 X10*3/uL (1.2-4.9); Lymphocytes Percent Auto 31.2 % (20-40); Mean Corpuscular HGB Conc 31.9 g/dl (31.0-35.0); Mean Corpuscular Hemoglobin 27.9 pg (27.0-33.0); Mean Corpuscular Volume 87.4 fL (80.0-98.0); Mean Platelet Volume 9.8 fL (9.4-12.3); Monocytes Absolute Auto 0.7 X10*3/uL (0.1-1.2); Monocytes Percent Auto 8.9 % (2-11); Neutrophils Absolute Auto 4.3 x10*3/uL (2.0-8.3); Neutrophils Percent Auto 56.3 % (45-73); Platelet Count 198 X10*3/uL (160-400); Red Blood Count 5.23 X10*6/uL (4.20-5.50); Red Cell Distribution Width 13.3 % (11.0-16.0); White Blood Count 7.6 X10*3/uL (4.8-10.8)
[2022-05-07 21:48] LABS: Anion Gap 16 (12-20); Blood Urea Nitrogen 14 mg/dL (9-16); Calcium 9.5 mg/dL (8.4-10.2); Carbon Dioxide 26 mmol/L (22-29); Chloride 104 mmol/L (96-108); Creatinine Clr Calc Pharmacy 33.7; Estimated Glomerular Filt Rate 30; Glucose Random 169 mg/dL (60-115); Potassium 4.2 mmol/L (3.3-5.1); Sodium 142 mmol/L (135-145)
[2022-05-07 21:55] LABS: Troponin-I High Sensitivity 12.7 ng/L (<3.5-17.0)
[2022-05-08] VITALS (7 sets, daily range): BP systolic 98–128; BP diastolic 66–72; PULSE 88–107; RESP 16–18; TEMP 36.6–37; O2SAT 93–94
--- NOTE | 2022-05-08 00:33 | ED_ITS ---
HPI - General Adult General Chief complaint: Dizziness <GUS Bruce - Last Filed: 05/08/22 02:08> Stated complaint: blood pressure is low, feeling ill <GUS Bruce Last Filed: 05/08/22 02:08> Time Seen by Provider: 05/07/22 23:18 <GUS Bruce - Last Filed: 05/08/22 02:08> Source: patient <GUS Bruce Last Filed: 05/08/22 02:08> Mode of arrival: ambulatory <GUS Bruce Last Filed: 05/08/22 02:08> Limitations: no limitations <GUS Bruce Last Filed: 05/08/22 02:08> History of Present Illness HPI narrative: This is a 72-year-old female presenting to the emergency department with multiple complaints times a week. Patient tells me over the past week she has been experiencing fatigue, malaise, abdominal pain, chest pain, shortness of breath. Patient tells me chest pain substernal, intermittent in nature, nonradiating described as sharp. She describes shortness of breath worse with exertion. She is also describing diffuse abdominal pain and she tells me it hurts when she presses on her abdomen. She tells me she just does not feel right and she is concerned because her blood pressures have been low at home, in the low 100s. <GUS Bruce Last Filed: 05/08/22 02:08> Related Data Home medications: Home Medications Medication Instructions Recorded Confirmed acetaminophen 500 mg tablet 500 mg PO QID PRN Pain 07/30/20 11/26/20 citalopram 20 mg tablet 20 mg PO DAILY 07/30/20 11/26/20 gabapentin 300 mg capsule 300 mg PO DAILY 07/30/20 11/26/20 glipizide 2.5 mg tablet, extended 2.5 mg PO DAILY 07/30/20 11/26/20 release 24 hr hydrochlorothiazide 12.5 mg tablet 12.5 mg PO DAILY 07/30/20 11/26/20 levothyroxine 200 mcg tablet 200 mcg PO DAILY 07/30/20 11/26/20 omeprazole 20 mg capsule,delayed 20 mg PO DAILY 07/30/20 11/26/20 release propranolol 20 mg tablet 20 mg PO BID 07/30/20 11/26/20 sitagliptin 100 mg tablet (Januvia) 100 mg PO DAILY 07/30/20 11/26/20 alendronate 70 mg tablet 70 mg PO QWEEK 10/13/20 11/26/20 atorvastatin 40 mg tablet 40 mg PO BEDTIME 10/13/20 11/26/20 blood sugar diagnostic #10 ea 10/13/20 11/26/20 bupropion HCl 150 mg 24 hr tablet, 150 mg PO QAM 10/13/20 11/26/20 extended release fluticasone propionate 50 2 spray intranasal DAILY PRN Nasal 10/13/20 11/26/20 mcg/actuation nasal Congestion spray,suspension insulin lispro 100 unit/mL unit subcut 10/13/20 11/26/20 subcutaneous pen lancets 33 gauge #100 ea 10/13/20 11/26/20 lisinopril 20 mg tablet 20 mg PO BEDTIME 10/13/20 11/26/20 loratadine 10 mg tablet 10 mg PO DAILY PRN allergies 10/13/20 11/26/20 pen needle, diabetic 31 gauge x #50 ea 10/13/20 11/26/2012/23 primidone 50 mg tablet 50 mg PO DAILY 10/13/20 11/26/20 sennosides 8.6 mg tablet 17.2 mg PO DAILY PRN Constipation 10/13/20 11/26/20 trazodone 50 mg tablet 50 mg PO BEDTIME 09/30/21 Previous Rx's Medication Instructions Recorded phenazopyridine 200 mg tablet 200 mg PO TID PRN pain 6 doses #6 04/08/21 (Pyridium) tabs mineral oil (Fleet Mineral Oil 118 ml AL DAILY PRN constipation 07/30/21 enema) #6,384 mL fluticasone fur. 200 mcg-umeclid 1 inh inhalation DAILY 30 days #1 12/07/21 62.5 mcg-vilant 25 mcg ea inhalat.powder (Trelegy Ellipta) furosemide 20 mg tablet 20 mg PO QAM #30 tabs 12/07/21 benzonatate 200 mg capsule 200 mg PO TID PRN cough #30 caps 02/28/22 prednisone 20 mg tablet 20 mg PO DAILY #7 tabs 03/11/22 tramadol 50 mg tablet 50 - 100 mg PO Q4H PRN pain #20 03/11/22 tabs theophylline 600 mg 600 mg PO DAILY 30 days #30 tabs 04/21/22 tablet,extended release 24 hr cephalexin 500 mg capsule 500 mg PO Q12H 5 days #10 caps 05/03/22 <GUS Bruce Last Filed: 05/08/22 02:08> Allergies/adverse reactions: Allergies Allergy/AdvReac Type Severity Reaction Status Date / Time aspirin [Aspirin] Allergy Mild UPSET Verified 05/07/22 20:47 STOMACH ibuprofen [From Motrin] Allergy Mild Gastrointestinal Verified 05/07/22 20:47 Upset <GUS Bruce Last Filed: 05/08/22 02:08> Review of Systems Review of Systems: Constitutional : No Weight loss, No Fever, No Chills, + Fatigue, + Malaise ENT/Mouth : No sore throat, No Rhinorrhea Eyes: No Eye Pain, No Swelling, No Redness Cardiovascular : + Chest Pain, + SOB, No Dyspnea on Exertion, No Orthopnea, No Edema, No Palpitations Respiratory : No Cough, No Sputum, No Wheezing Gastrointestinal : No Nausea, No Vomiting, No Diarrhea, No Constipation, + abdominal Pain, No Hematochezia, No Melena Genitourinary : No Dysuria, No Urinary Frequency, No Hematuria, Musculoskeletal : No joint pain, No Myalgias, No Joint Swelling Skin : No Skin Lesions, No rash Neuro : No Weakness, No Numbness, No Dizziness, No Headache All other systems reviewed and are negative <GUS Bruce Last Filed: 05/08/22 02:08> Yes all other systems are reviewed and are negative <GUS Bruce Last Filed: 05/08/22 02:08> [facility] Past Medical History Attestation statement: The following information was validated with the patient. <GUS Bruce Last Filed: 05/08/22 02:08> Source: old records reviewed and nursing notes reviewed <GUS Bruce Last Filed: 05/08/22 02:08> Medical History: Medical History Anxiety and depression Back pain Bilateral primary osteoarthritis of knee Colon cancer screening COPD (chronic obstructive pulmonary disease) COPD exacerbation Diabetes mellitus Frequency of micturition GERD (gastroesophageal reflux disease) High cholesterol Hypertension Hypothyroidism ENMA on CPAP Osteoarthritis Tubular adenoma of colon Urgency incontinence Urgency of micturition <GUS Bruce - Last Filed: 05/08/22 02:08> Surgical History: Surgical History History of cholecystectomy History of lumpectomy of right breast Hx of colonoscopy Hx of cystoscopy Hx of right knee surgery <GUS Bruce - Last Filed: 05/08/22 02:08> Family History Family History: Family History Mother History of pancreatic cancer <GUS Bruce - Last Filed: 05/08/22 02:08> Social History Social History: Social History Are you a primary resident caregiver to a significant other at home: No Do you presently have visiting nurse or other home services: Yes ([employer]) Alcohol intake: never Patient Tobacco Use Status: Never used Tobacco Years Smoked: 30 Advance Directives: No <GUS Bruce - Last Filed: 05/08/22 02:08> Physical Exam ED Vital Signs: Vital Signs - 24 hr 05/07/22 20:40 05/08/22 00:00 05/08/22 02:00 Temperature 96.9 F 98.6 F 98.1 F Pulse Rate 97 89 88 Respiratory Rate 22 H 16 16 Blood Pressure 110/80 119/71 127/70 Pulse Oximetry 94 94 93 Oxygen Delivery Method Room Air Room Air Room Air 05/08/22 04:00 Temperature 98.1 F Pulse Rate 88 Respiratory Rate 17 Blood Pressure 128/72 Pulse Oximetry 94 Oxygen Delivery Method Room Air BMI result Body Mass Index 38.9 VSS <GUS Bruce - Last Filed: 05/08/22 02:08> Vital Signs - 24 hr 05/07/22 20:40 05/08/22 00:00 05/08/22 02:00 Temperature 96.9 F 98.6 F 98.1 F Pulse Rate 97 89 88 Respiratory Rate 22 H 16 16 Blood Pressure 110/80 119/71 127/70 Pulse Oximetry 94 94 93 Oxygen Delivery Method Room Air Room Air Room Air 05/08/22 04:00 Temperature 98.1 F Pulse Rate 88 Respiratory Rate 17 Blood Pressure 128/72 Pulse Oximetry 94 Oxygen Delivery Method Room Air BMI result Body Mass Index 38.9 <Yosef Mixon MD - Last Filed: 05/08/22 05:05> Appearance: Alert.? Oriented X3.? No acute distress.? Head: Normocephalic, atraumatic, no step-offs or deformities Eyes: Pupils equal, round and reactive to light.? ENT: Pharynx normal.? Neck: Normal inspection.? Neck supple.? CVS: Normal heart rate and rhythm.? Pulses normal.? Respiratory: No respiratory distress.? Breath sounds normal.? Abdomen: Soft and + diffusely tender abdomen.? Skin: Skin warm and dry.? Normal skin color.? Normal skin turgor.? Extremities: No lower extremity edema.? No calf ttp. 5/5 strength to bilateral upper and lower extremities Neuro: Oriented X 3.? No motor deficit.? No sensory deficit. CN 2-12 intact <GUS Bruce - Last Filed: 05/08/22 02:08> Course Reevaluation(s) Reevaluation #1: CBC within normal limits. Chemistry with no acute findings, creatinine slightly elevated, however patient tolerating p.o. fluids and it down trended. Lipase within normal limits. Patient's initial troponin 12.7, repeat troponin 12.4, no signs of acute ischemia on EKG, unlikely that this is ACS. Dimer 201 unlikley PE. Urine, COVID, abdomen and pelvis CT pending. <GUS Bruce - Last Filed: 05/08/22 02:08> Time: 01:41 <GUS Bruce - Last Filed: 05/08/22 02:08> Reevaluation #2: CT of abdomen and pelvis w/o acute findings. Pending urine and covid. I suspect patient can be dc home. Sign out given to Dr. Mixon. <GUS Bruce - Last Filed: 05/08/22 02:08> Time: 02:06 <GUS Bruce - Last Filed: 05/08/22 02:08> Reevaluation #3: I assumed care of this patient from my colleague, physician clerical dentist assistant Nikki Samayoa at 02:00 hours the patient's COVID-19 test was negative the patient's urinalysis was negative. The patient will be discharged home. <Yosef Mixon MD - Last Filed: 05/08/22 05:05> Time: 05:02 <Yosef Mixon MD - Last Filed: 05/08/22 05:05> Medical Decision Making [facility] Narrative Medical decision making narrative: [id number] 72-year-old female presenting with multiple complaints including abdominal pain, chest pain, shortness of breath, nausea, vomiting times a week worsening. Upon chart review it is noted the patient was seen here in the emergency depart ment and was diagnosed with a urinary tract infection, she presented initially with abdominal pain, suprapubic tenderness and low-grade fevers at home. At that time she also reported chest pain and shortness of breath. Patient was discharged home on cephalexin 500 mg p.o. b.i.d. x5 days, she tells me that she still has 1 day of antibiotics left however she is still not feeling well. Physical examination was a diffusely tender abdomen. Regular rate and rhythm. Lungs clear. Abdomen soft with normoactive bowel sounds. Neuro exam is nonfocal. Vital signs are stable. No signs of acute abdomen at this time. Likely symptoms secondary to UTI. Will rule out pyelo. Plan at this time is to obtain labs, troponin, EKG, chest x-ray, urine, abdomen CT. <GUS Bruce - Last Filed: 05/08/22 02:08> Medical Records Medical records reviewed: Yes I reviewed the patient's medical records. <GUS Bruce - Last Filed: 05/08/22 02:08> Lab Data Lab results reviewed: Yes I reviewed the patient's lab results. <GUS Bruce - Last Filed: 05/08/22 02:08> Result diagrams: : 05/07/22 21:23 05/08/22 00:57 <GUS Bruce - Last Filed: 05/08/22 02:08> Labs: Lab Results 05/07/22 05/07/22 05/07/22 Range/Units 21:23 21:23 21:23 WBC 7.6 (4.8-10.8) X10*3/uL RBC 5.23 (4.20-5.50) X10*6/uL Hgb 14.6 (12.0-16.0) g/dl Hct 45.7 (37.0-47.0) % MCV 87.4 (80.0-98.0) fL MCH 27.9 (27.0-33.0) pg MCHC 31.9 (31.0-35.0) g/dl RDW 13.3 (11.0-16.0) % Plt Count 198 (160-400) X10*3/uL MPV 9.8 (9.4-12.3) fL Immature Gran % (Auto) 0.4 (0.0-0.4) % Neut % (Auto) 56.3 (45-73) % Lymph % (Auto) 31.2 (20-40) % [place] % (Auto) 8.9 (2-11) % Eos % (Auto) 2.8 (0-4) % Baso % (Auto) 0.4 (0-2) % Lymph # (Auto) 2.4 (1.2-4.9) X10*3/uL [place] # (Auto) 0.7 (0.1-1.2) X10*3/uL Eos # (Auto) 0.2 (0.0-0.4) X10*3/uL Baso # (Auto) 0.0 (0.0-0.2) X10*3/uL Abs Immat Gran (auto) 0.03 (0.00-0.03) X10*3/uL Absolute Neuts (auto) 4.3 (2.0-8.3) x10*3/uL Absolute Nucleated RBC 0.000 (0.0-0.012) X10*3/uL Nucleated RBC % (auto) 0.0 (0.0-0.2) /100WBC D-Dimer High Sensitivty NG/ML Sodium 142 (135-145) mmol/L Potassium 4.2 (3.3-5.1) mmol/L Chloride 104 (96-108) mmol/L Carbon Dioxide 26 (22-29) mmol/L Anion Gap 16 (12-20) BUN 14 (9-16) mg/dL Creatinine 1.65 H (0.5-1.4) mg/dL Estim Creat Clear Calc 33.7 Estimated GFR 30 Random Glucose 169 H (60-115) mg/dL Calcium 9.5 (8.4-10.2) mg/dL Magnesium (1.6-2.6) mg/dL Total Bilirubin (0.0-1.0) mg/dL AST (5-31) U/L ALT (0-31) U/L Alkaline Phosphatase (39-117) U/L Troponin I High Sens 12.7 (<3.5-17.0) ng/L B-Natriuretic Peptide (<100) pg/mL Total Protein (6.5-8.0) g/dL Albumin (3.5-5.0) g/dL Lipase (8-78) U/L Urine Color Urine Appearance Urine pH (5.0-8.0) Ur Specific [place] (1.005-1.025) Urine Protein (NEG-TRACE) MG/DL Urine Glucose (UA) (NEG) MG/DL Urine Ketones (NEG) MG/DL Urine Blood (NEG) Urine Nitrite (NEG) Ur Leukocyte Esterase (NEG) COVID-19 (JUNIE) (Negative) COVID-19 Clin Com 05/08/22 05/08/22 05/08/22 Range/Units 00:57 00:57 00:57 WBC (4.8-10.8) X10*3/uL RBC (4.20-5.50) X10*6/uL Hgb (12.0-16.0) g/dl Hct (37.0-47.0) % MCV (80.0-98.0) fL MCH (27.0-33.0) pg MCHC (31.0-35.0) g/dl RDW (11.0-16.0) % Plt Count (160-400) X10*3/uL MPV (9.4-12.3) fL Immature Gran % (Auto) (0.0-0.4) % Neut % (Auto) (45-73) % Lymph % (Auto) (20-40) % [place] % (Auto) (2-11) % Eos % (Auto) (0-4) % Baso % (Auto) (0-2) % Lymph # (Auto) (1.2-4.9) X10*3/uL [place] # (Auto) (0.1-1.2) X10*3/uL Eos # (Auto) (0.0-0.4) X10*3/uL Baso # (Auto) (0.0-0.2) X10*3/uL Abs Immat Gran (auto) (0.00-0.03) X10*3/uL Absolute Neuts (auto) (2.0-8.3) x10*3/uL Absolute Nucleated RBC (0.0-0.012) X10*3/uL Nucleated RBC % (auto) (0.0-0.2) /100WBC D-Dimer High Sensitivty 201 NG/ML Sodium 143 (135-145) mmol/L Potassium 3.9 (3.3-5.1) mmol/L Chloride 106 (96-108) mmol/L Carbon Dioxide 26 (22-29) mmol/L Anion Gap 15 (12-20) BUN 14 (9-16) mg/dL Creatinine 1.48 H (0.5-1.4) mg/dL Estim Creat Clear Calc 37.5 Estimated GFR 34 Random Glucose 115 (60-115) mg/dL Calcium 9.5 (8.4-10.2) mg/dL Magnesium 1.8 (1.6-2.6) mg/dL Total Bilirubin 0.6 (0.0-1.0) mg/dL AST 18 (5-31) U/L ALT 12 (0-31) U/L Alkaline Phosphatase 89 (39-117) U/L Troponin I High Sens 12.4 (<3.5-17.0) ng/L B-Natriuretic Peptide < 10 (<100) pg/mL Total Protein 7.2 (6.5-8.0) g/dL Albumin 4.4 (3.5-5.0) g/dL Lipase 33 (8-78) U/L Urine Color Urine Appearance Urine pH (5.0-8.0) Ur Specific [place] (1.005-1.025) Urine Protein (NEG-TRACE) MG/DL Urine Glucose (UA) (NEG) MG/DL Urine Ketones (NEG) MG/DL Urine Blood (NEG) Urine Nitrite (NEG) Ur Leukocyte Esterase (NEG) COVID-19 (JUNIE) (Negative) COVID-19 Clin Com 05/08/22 05/08/22 Range/Units 01:40 03:39 WBC (4.8-10.8) X10*3/uL RBC (4.20-5.50) X10*6/uL Hgb (12.0-16.0) g/dl Hct (37.0-47.0) % MCV (80.0-98.0) fL MCH (27.0-33.0) pg MCHC (31.0-35.0) g/dl RDW (11.0-16.0) % Plt Count (160-400) X10*3/uL MPV (9.4-12.3) fL Immature Gran % (Auto) (0.0-0.4) % Neut % (Auto) (45-73) % Lymph % (Auto) (20-40) % [place] % (Auto) (2-11) % Eos % (Auto) (0-4) % Baso % (Auto) (0-2) % Lymph # (Auto) (1.2-4.9) X10*3/uL [place] # (Auto) (0.1-1.2) X10*3/uL Eos # (Auto) (0.0-0.4) X10*3/uL Baso # (Auto) (0.0-0.2) X10*3/uL Abs Immat Gran (auto) (0.00-0.03) X10*3/uL Absolute Neuts (auto) (2.0-8.3) x10*3/uL Absolute Nucleated RBC (0.0-0.012) X10*3/uL Nucleated RBC % (auto) (0.0-0.2) /100WBC D-Dimer High Sensitivty NG/ML Sodium (135-145) mmol/L Potassium (3.3-5.1) mmol/L Chloride (96-108) mmol/L Carbon Dioxide (22-29) mmol/L Anion Gap (12-20) BUN (9-16) mg/dL Creatinine (0.5-1.4) mg/dL Estim Creat Clear Calc Estimated GFR Random Glucose (60-115) mg/dL Calcium (8.4-10.2) mg/dL Magnesium (1.6-2.6) mg/dL Total Bilirubin (0.0-1.0) mg/dL AST (5-31) U/L ALT (0-31) U/L Alkaline Phosphatase (39-117) U/L Troponin I High Sens (<3.5-17.0) ng/L B-Natriuretic Peptide (<100) pg/mL Total Protein (6.5-8.0) g/dL Albumin (3.5-5.0) g/dL Lipase (8-78) U/L Urine Color YELLOW Urine Appearance CLEAR Urine pH 6.0 (5.0-8.0) Ur Specific [place] 1.020 (1.005-1.025) Urine Protein NEG (NEG-TRACE) MG/DL Urine Glucose (UA) NEG (NEG) MG/DL Urine Ketones NEG (NEG) MG/DL Urine Blood NEG (NEG) Urine Nitrite NEG (NEG) Ur Leukocyte Esterase NEG (NEG) COVID-19 (JUNIE) Negative (Negative) COVID-19 Clin Com See Note <GUS Bruce - Last Filed: 05/08/22 02:08> Lab Results 05/07/22 05/07/22 05/07/22 Range/Units 21:23 21:23 21:23 WBC 7.6 (4.8-10.8) X10*3/uL RBC 5.23 (4.20-5.50) X10*6/uL Hgb 14.6 (12.0-16.0) g/dl Hct 45.7 (37.0-47.0) % MCV 87.4 (80.0-98.0) fL MCH 27.9 (27.0-33.0) pg MCHC 31.9 (31.0-35.0) g/dl RDW 13.3 (11.0-16.0) % Plt Count 198 (160-400) X10*3/uL MPV 9.8 (9.4-12.3) fL Immature Gran % (Auto) 0.4 (0.0-0.4) % Neut % (Auto) 56.3 (45-73) % Lymph % (Auto) 31.2 (20-40) % [place] % (Auto) 8.9 (2-11) % Eos % (Auto) 2.8 (0-4) % Baso % (Auto) 0.4 (0-2) % Lymph # (Auto) 2.4 (1.2-4.9) X10*3/uL [place] # (Auto) 0.7 (0.1-1.2) X10*3/uL Eos # (Auto) 0.2 (0.0-0.4) X10*3/uL Baso # (Auto) 0.0 (0.0-0.2) X10*3/uL Abs Immat Gran (auto) 0.03 (0.00-0.03) X10*3/uL Absolute Neuts (auto) 4.3 (2.0-8.3) x10*3/uL Absolute Nucleated RBC 0.000 (0.0-0.012) X10*3/uL Nucleated RBC % (auto) 0.0 (0.0-0.2) /100WBC D-Dimer High Sensitivty NG/ML Sodium 142 (135-145) mmol/L Potassium 4.2 (3.3-5.1) mmol/L Chloride 104 (96-108) mmol/L Carbon Dioxide 26 (22-29) mmol/L Anion Gap 16 (12-20) BUN 14 (9-16) mg/dL Creatinine 1.65 H (0.5-1.4) mg/dL Estim Creat Clear Calc 33.7 Estimated GFR 30 Random Glucose 169 H (60-115) mg/dL Calcium 9.5 (8.4-10.2) mg/dL Magnesium (1.6-2.6) mg/dL Total Bilirubin (0.0-1.0) mg/dL AST (5-31) U/L ALT (0-31) U/L Alkaline Phosphatase (39-117) U/L Troponin I High Sens 12.7 (<3.5-17.0) ng/L B-Natriuretic Peptide (<100) pg/mL Total Protein (6.5-8.0) g/dL Albumin (3.5-5.0) g/dL Lipase (8-78) U/L Urine Color Urine Appearance Urine pH (5.0-8.0) Ur Specific [place] (1.005-1.025) Urine Protein (NEG-TRACE) MG/DL Urine Glucose (UA) (NEG) MG/DL Urine Ketones (NEG) MG/DL Urine Blood (NEG) Urine Nitrite (NEG) Ur Leukocyte Esterase (NEG) COVID-19 (JUNIE) (Negative) COVID-19 Clin Com 05/08/22 05/08/22 05/08/22 Range/Units 00:57 00:57 00:57 WBC (4.8-10.8) X10*3/uL RBC (4.20-5.50) X10*6/uL Hgb (12.0-16.0) g/dl Hct (37.0-47.0) % MCV (80.0-98.0) fL MCH (27.0-33.0) pg MCHC (31.0-35.0) g/dl RDW (11.0-16.0) % Plt Count (160-400) X10*3/uL MPV (9.4-12.3) fL Immature Gran % (Auto) (0.0-0.4) % Neut % (Auto) (45-73) % Lymph % (Auto) (20-40) % [place] % (Auto) (2-11) % Eos % (Auto) (0-4) % Baso % (Auto) (0-2) % Lymph # (Auto) (1.2-4.9) X10*3/uL [place] # (Auto) (0.1-1.2) X10*3/uL Eos # (Auto) (0.0-0.4) X10*3/uL Baso # (Auto) (0.0-0.2) X10*3/uL Abs Immat Gran (auto) (0.00-0.03) X10*3/uL Absolute Neuts (auto) (2.0-8.3) x10*3/uL Absolute Nucleated RBC (0.0-0.012) X10*3/uL Nucleated RBC % (auto) (0.0-0.2) /100WBC D-Dimer High Sensitivty 201 NG/ML Sodium 143 (135-145) mmol/L Potassium 3.9 (3.3-5.1) mmol/L Chloride 106 (96-108) mmol/L Carbon Dioxide 26 (22-29) mmol/L Anion Gap 15 (12-20) BUN 14 (9-16) mg/dL Creatinine 1.48 H (0.5-1.4) mg/dL Estim Creat Clear Calc 37.5 Estimated GFR 34 Random Glucose 115 (60-115) mg/dL Calcium 9.5 (8.4-10.2) mg/dL Magnesium 1.8 (1.6-2.6) mg/dL Total Bilirubin 0.6 (0.0-1.0) mg/dL AST 18 (5-31) U/L ALT 12 (0-31) U/L Alkaline Phosphatase 89 (39-117) U/L Troponin I High Sens 12.4 (<3.5-17.0) ng/L B-Natriuretic Peptide < 10 (<100) pg/mL Total Protein 7.2 (6.5-8.0) g/dL Albumin 4.4 (3.5-5.0) g/dL Lipase 33 (8-78) U/L Urine Color Urine Appearance Urine pH (5.0-8.0) Ur Specific [place] (1.005-1.025) Urine Protein (NEG-TRACE) MG/DL Urine Glucose (UA) (NEG) MG/DL Urine Ketones (NEG) MG/DL Urine Blood (NEG) Urine Nitrite (NEG) Ur Leukocyte Esterase (NEG) COVID-19 (JUNIE) (Negative) COVID-19 Clin Com 05/08/22 05/08/22 Range/Units 01:40 03:39 WBC (4.8-10.8) X10*3/uL RBC (4.20-5.50) X10*6/uL Hgb (12.0-16.0) g/dl Hct (37.0-47.0) % MCV (80.0-98.0) fL MCH (27.0-33.0) pg MCHC (31.0-35.0) g/dl RDW (11.0-16.0) % Plt Count (160-400) X10*3/uL MPV (9.4-12.3) fL Immature Gran % (Auto) (0.0-0.4) % Neut % (Auto) (45-73) % Lymph % (Auto) (20-40) % [place] % (Auto) (2-11) % Eos % (Auto) (0-4) % Baso % (Auto) (0-2) % Lymph # (Auto) (1.2-4.9) X10*3/uL [place] # (Auto) (0.1-1.2) X10*3/uL Eos # (Auto) (0.0-0.4) X10*3/uL Baso # (Auto) (0.0-0.2) X10*3/uL Abs Immat Gran (auto) (0.00-0.03) X10*3/uL Absolute Neuts (auto) (2.0-8.3) x10*3/uL Absolute Nucleated RBC (0.0-0.012) X10*3/uL Nucleated RBC % (auto) (0.0-0.2) /100WBC D-Dimer High Sensitivty NG/ML Sodium (135-145) mmol/L Potassium (3.3-5.1) mmol/L Chloride (96-108) mmol/L Carbon Dioxide (22-29) mmol/L Anion Gap (12-20) BUN (9-16) mg/dL Creatinine (0.5-1.4) mg/dL Estim Creat Clear Calc Estimated GFR Random Glucose (60-115) mg/dL Calcium (8.4-10.2) mg/dL Magnesium (1.6-2.6) mg/dL Total Bilirubin (0.0-1.0) mg/dL AST (5-31) U/L ALT (0-31) U/L Alkaline Phosphatase (39-117) U/L Troponin I High Sens (<3.5-17.0) ng/L B-Natriuretic Peptide (<100) pg/mL Total Protein (6.5-8.0) g/dL Albumin (3.5-5.0) g/dL Lipase (8-78) U/L Urine Color YELLOW Urine Appearance CLEAR Urine pH 6.0 (5.0-8.0) Ur Specific [place] 1.020 (1.005-1.025) Urine Protein NEG (NEG-TRACE) MG/DL Urine Glucose (UA) NEG (NEG) MG/DL Urine Ketones NEG (NEG) MG/DL Urine Blood NEG (NEG) Urine Nitrite NEG (NEG) Ur Leukocyte Esterase NEG (NEG) COVID-19 (JUNIE) Negative (Negative) COVID-19 Clin Com See Note <Yosef Mixon MD - Last Filed: 05/08/22 05:05> Critical Care Time Critical Care Time Critical Care Time: No <GUS Bruce - Last Filed: 05/08/22 02:08> Discharge Plan Discharge Clinical Impression: Chest pain not due to acute coronary syndrome, Abdominal pain, Upper respiratory infection <GUS Bruce - Last Filed: 05/08/22 02:08> Patient Disposition: Home, Self-Care <GUS Bruce - Last Filed: 05/08/22 02:08> Instructions: Chest Pain (ED), Abdominal Pain (ED) <GUS Bruce - Last Filed: 05/08/22 02:08> Additional Instructions: Take your medications as prescribed. If you were prescribed antibiotics today, it is important that you take your medication to their entirety, do not skip any doses, do not finish them early. Follow-up with your primary care provider this week. Return to the emergency department with new or worsening symptoms. Such as fevers, chills, chest pain, shortness of breath, nausea, vomiting, dizziness, headache, vision changes, lethargy In case of emergency call 911 <GUS Bruce - Last Filed: 05/08/22 02:08> Prescriptions: No Action Trelegy Ellipta 200-62.5-25 mcg blister with device 1 inh inhalation DAILY 30 Days Qty: 1 6RF furosemide 20 mg tablet 20 mg PO QAM Qty: 30 12RF phenazopyridine [Pyridium] 200 mg tablet 200 mg PO TID PRN (Reason: pain) Qty: 6 0RF mineral oil [Fleet Mineral Oil] Enema 118 ml AL DAILY PRN (Reason: constipation) Qty: 6384 0RF Rx Instructions: discard any unused portion benzonatate 200 mg capsule 200 mg PO TID PRN (Reason: cough) Qty: 30 0RF prednisone 20 mg tablet 20 mg PO DAILY Qty: 7 0RF tramadol 50 mg tablet 50 - 100 mg PO Q4H PRN (Reason: pain) Qty: 20 0RF cephalexin 500 mg capsule 500 mg PO Q12H 5 Days Qty: 10 0RF propranolol 20 mg tablet 20 mg PO BID hydrochlorothiazide 12.5 mg tablet 12.5 mg PO DAILY Januvia 100 mg tablet 100 mg PO DAILY glipizide 2.5 mg tablet extended release 24hr 2.5 mg PO DAILY levothyroxine 200 mcg tablet 200 mcg PO DAILY omeprazole 20 mg capsule,delayed release(DR/EC) 20 mg PO DAILY acetaminophen 500 mg tablet 500 mg PO QID PRN (Reason: Pain) gabapentin 300 mg capsule 300 mg PO DAILY citalopram 20 mg tablet 20 mg PO DAILY bupropion HCl 150 mg tablet extended release 24 hr 150 mg PO QAM fluticasone propionate 50 mcg/actuation spray,suspension 2 spray intranasal DAILY PRN (Reason: Nasal Congestion) alendronate 70 mg tablet 70 mg PO QWEEK lisinopril 20 mg tablet 20 mg PO BEDTIME sennosides 8.6 mg tablet 17.2 mg PO DAILY PRN (Reason: Constipation) primidone 50 mg tablet 50 mg PO DAILY (DME) pen needle, diabetic 31 gauge x 3/16 needle See Rx Instructions .ROUTE TID Qty: 50 Rx Instructions: As directed insulin lispro 100 unit/mL insulin pen subcut atorvastatin 40 mg tablet 40 mg PO BEDTIME (DME) lancets 33 gauge misc See Rx Instructions Not Applicable BID Qty: 100 Rx Instructions: As directed loratadine 10 mg tablet 10 mg PO DAILY PRN (Reason: allergies) (DME) OneTouch Ultra Blue Test Strip Strip See Rx Instructions Not Applicable BID Qty: 10 Rx Instructions: As directed trazodone 50 mg tablet 50 mg PO BEDTIME theophylline 600 mg tablet extended release 24 hr 600 mg PO DAILY 30 Days Qty: 30 6RF <GUS Bruce - Last Filed: 05/08/22 02:08> Referrals: Daniel Colon MD [Primary Care Provider] - 2 days <GUS Bruce - Last Filed: 05/08/22 02:08>
[2022-05-08 01:23] LABS: Alanine Aminotransferase 12 U/L (0-31); Albumin Level 4.4 g/dL (3.5-5.0); Alkaline Phosphatase 89 U/L (39-117); Anion Gap 15 (12-20); Aspartate Amino Transferase 18 U/L (5-31); Bilirubin Total 0.6 mg/dL (0.0-1.0); Blood Urea Nitrogen 14 mg/dL (9-16); Calcium 9.5 mg/dL (8.4-10.2); Carbon Dioxide 26 mmol/L (22-29); Chloride 106 mmol/L (96-108); Creatinine Clr Calc Pharmacy 37.5; D Dimer High Sensitivity 201 NG/ML; Estimated Glomerular Filt Rate 34; Glucose Random 115 mg/dL (60-115); Magnesium 1.8 mg/dL (1.6-2.6); Potassium 3.9 mmol/L (3.3-5.1); Sodium 143 mmol/L (135-145); Total Protein 7.2 g/dL (6.5-8.0)
[2022-05-08 01:27] LABS: B Type Natriuretic Peptide < 10 pg/mL (<100); Troponin-I High Sensitivity 12.4 ng/L (<3.5-17.0)
[2022-05-08 01:55] LABS: Lipase 33 U/L (8-78)
[2022-05-08 02:15] LABS: COVID-19 Test Negative (Negative)
[2022-05-08] MEDS: Acetaminophen 325 MG TABLET 650 MG PO (02:37)
[2022-05-08 03:45] LABS: Appearance Urine CLEAR; Color Urine YELLOW; Glucose Urine UA NEG (NEG); Leukocyte Esterase Urine NEG (NEG); Nitrite Urine NEG (NEG); Urine Blood NEG (NEG); Urine Ketones NEG (NEG); Urine Protein NEG (NEG-TRACE)
--- NOTE | 2022-05-08 04:55 | PC.NURSE ---
pt well appearing, sitting upright in stretcher, in NAD, awaiting disposition, call light within reach
== END 2022-05-08 05:17 | disposition home or self-care (01) ==
PROVIDERS: Physician Assistant; Emergency Provider Emergency Medicine Emergency Medical Services; PCP Internal Medicine
DX: R07.89 Other chest pain (principal); J06.9 Acute upper respiratory infection, unspecified; R10.9 Unspecified abdominal pain; R06.02 Shortness of breath; Z20.822 Contact with and (suspected) exposure to COVID-19; E11.9 Type 2 diabetes mellitus without complications; I10 Essential (primary) hypertension; E78.5 Hyperlipidemia, unspecified; Z79.02 Long term (current) use of antithrombotics/antiplatelets; Z79.4 Long term (current) use of insulin; Z79.899 Other long term (current) drug therapy; Z87.891 Personal history of nicotine dependence
CPT/HCPCS: 36415; 71045; 74176; 80048; 80053; 81003; 83690; 83735; 83880; 84484; 85025; 85379; 87635; 93005; 99284

== ENCOUNTER 2022-05-10 19:59 | Emergency (ER) | payer OTHER, SELFPAY ==
[2022-05-10 21:42] VITALS: BP 107/67; PULSE 91; RESP 20; TEMP 36.6; O2SAT 91; BMI 40.2
[2022-05-10 22:02] LABS: MANUAL DIFF FLAG NO
[2022-05-10 22:03] LABS: Basophils Percent Auto 0.5 % (0-2); Eosinophils Absolute Auto 0.2 X10*3/uL (0.0-0.4); Eosinophils Percent Auto 3.4 % (0-4); Hematocrit 46.1 % (37.0-47.0); Hemoglobin 14.6 g/dl (12.0-16.0); Imm Gran Abs Auto 0.02 X10*3/uL (0.00-0.03); Imm Gran Pct Auto 0.3 % (0.0-0.4); Lymphocytes Absolute Auto 2.4 X10*3/uL (1.2-4.9); Lymphocytes Percent Auto 37.4 % (20-40); Mean Corpuscular HGB Conc 31.7 g/dl (31.0-35.0); Mean Corpuscular Hemoglobin 27.6 pg (27.0-33.0); Mean Corpuscular Volume 87.1 fL (80.0-98.0); Mean Platelet Volume 9.9 fL (9.4-12.3); Monocytes Absolute Auto 0.6 X10*3/uL (0.1-1.2); Monocytes Percent Auto 9.7 % (2-11); Neutrophils Absolute Auto 3.1 x10*3/uL (2.0-8.3); Neutrophils Percent Auto 48.7 % (45-73); Platelet Count 191 X10*3/uL (160-400); Red Blood Count 5.29 X10*6/uL (4.20-5.50); Red Cell Distribution Width 13.6 % (11.0-16.0); White Blood Count 6.4 X10*3/uL (4.8-10.8)
[2022-05-10 22:19] LABS: Alanine Aminotransferase 13 U/L (0-31); Albumin Level 4.4 g/dL (3.5-5.0); Alkaline Phosphatase 91 U/L (39-117); Anion Gap 15 (12-20); Aspartate Amino Transferase 18 U/L (5-31); Bilirubin Total 0.4 mg/dL (0.0-1.0); Blood Urea Nitrogen 15 mg/dL (9-16); Calcium 9.6 mg/dL (8.4-10.2); Carbon Dioxide 26 mmol/L (22-29); Chloride 104 mmol/L (96-108); Creatinine Clr Calc Pharmacy 31.9; Estimated Glomerular Filt Rate 29; Glucose Random 216 mg/dL (60-115); Lipase 34 U/L (8-78); Potassium 3.7 mmol/L (3.3-5.1); Sodium 141 mmol/L (135-145); Total Protein 7.2 g/dL (6.5-8.0)
[2022-05-10 22:26] LABS: Appearance Urine CLEAR; Color Urine YELLOW; Glucose Urine UA NEG (NEG); Leukocyte Esterase Urine TRACE (NEG); Nitrite Urine NEG (NEG); Specific Gravity - Urine >= 1.030 (1.005-1.025); Urine Blood NEG (NEG); Urine Ketones NEG (NEG); Urine Protein NEG (NEG-TRACE)
[2022-05-10 22:27] LABS: COVID-19 Test Negative (Negative)
[2022-05-10 22:33] LABS: Squamous Epithelial Cell Urine 2+ /LPF
[2022-05-10 22:34] LABS: Bacteria Urine 1+ /LPF; RBC Urine 0 /HPF (0); WBC Urine 0-2 /HPF (0-4)
[2022-05-11 02:17] VITALS: BP 125/79; PULSE 98; RESP 20; O2SAT 94
--- NOTE | 2022-05-11 03:06 | ED.ABDPAIN ---
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 Patient was recently diagnosed with UTI and finished a course of Keflex, patient still not feeling well. Patient reported epigastric pain localized to the epigastric area with no radiation, associated with nausea and decrease appetite, pain is worsening with food. Related Data Home Medications Medication Instructions Recorded Confirmed acetaminophen 500 mg tablet 500 mg PO QID PRN Pain 07/30/20 11/26/20 citalopram 20 mg tablet 20 mg PO DAILY 07/30/20 11/26/20 gabapentin 300 mg capsule 300 mg PO DAILY 07/30/20 11/26/20 glipizide 2.5 mg tablet, extended 2.5 mg PO DAILY 07/30/20 11/26/20 release 24 hr hydrochlorothiazide 12.5 mg tablet 12.5 mg PO DAILY 07/30/20 11/26/20 levothyroxine 200 mcg tablet 200 mcg PO DAILY 07/30/20 11/26/20 omeprazole 20 mg capsule,delayed 20 mg PO DAILY 07/30/20 11/26/20 release propranolol 20 mg tablet 20 mg PO BID 07/30/20 11/26/20 sitagliptin 100 mg tablet (Januvia) 100 mg PO DAILY 07/30/20 11/26/20 alendronate 70 mg tablet 70 mg PO QWEEK 10/13/20 11/26/20 atorvastatin 40 mg tablet 40 mg PO BEDTIME 10/13/20 11/26/20 blood sugar diagnostic #10 ea 10/13/20 11/26/20 bupropion HCl 150 mg 24 hr tablet, 150 mg PO QAM 10/13/20 11/26/20 extended release fluticasone propionate 50 2 spray intranasal DAILY PRN Nasal 10/13/20 11/26/20 mcg/actuation nasal Congestion spray,suspension insulin lispro 100 unit/mL unit subcut 10/13/20 11/26/20 subcutaneous pen lancets 33 gauge #100 ea 10/13/20 11/26/20 lisinopril 20 mg tablet 20 mg PO BEDTIME 10/13/20 11/26/20 loratadine 10 mg tablet 10 mg PO DAILY PRN allergies 10/13/20 11/26/20 pen needle, diabetic 31 gauge x #50 ea 10/13/20 11/26/20/16 primidone 50 mg tablet 50 mg PO DAILY 10/13/20 11/26/20 sennosides 8.6 mg tablet 17.2 mg PO DAILY PRN Constipation 10/13/20 11/26/20 trazodone 50 mg tablet 50 mg PO BEDTIME 09/30/21 Previous Rx's Medication Instructions Recorded phenazopyridine 200 mg tablet 200 mg PO TID PRN pain 6 doses #6 04/08/21 (Pyridium) tabs mineral oil (Fleet Mineral Oil 118 ml [place] DAILY PRN constipation 07/30/21 enema) #6,384 mL fluticasone fur. 200 mcg-umeclid 1 inh inhalation DAILY 30 days #1 12/07/21 62.5 mcg-vilant 25 mcg ea inhalat.powder (Trelegy Ellipta) furosemide 20 mg tablet 20 mg PO QAM #30 tabs 12/07/21 benzonatate 200 mg capsule 200 mg PO TID PRN cough #30 caps 02/28/22 prednisone 20 mg tablet 20 mg PO DAILY #7 tabs 03/11/22 tramadol 50 mg tablet 50 - 100 mg PO Q4H PRN pain #20 03/11/22 tabs theophylline 600 mg 600 mg PO DAILY 30 days #30 tabs 04/21/22 tablet,extended release 24 hr cephalexin 500 mg capsule 500 mg PO Q12H 5 days #10 caps 05/03/22 omeprazole 20 mg capsule,delayed 20 mg PO DAILY #15 caps 05/11/22 release Allergies Allergy/AdvReac Type Severity Reaction Status Date / Time aspirin [Aspirin] Allergy Mild UPSET Verified 05/10/22 21:41 STOMACH ibuprofen [From Motrin] Allergy Mild Gastrointestinal Verified 05/10/22 21:41 Upset Review of Systems Review of Systems All other systems are reviewed and are negative Constitutional: Reports as per HPI and Reports no additional constitutional complaints Eyes: Reports as per HPI and Reports no additional eye complaints Reports system reviewed and no additional complaints, except as documented Cardiovascular: Reports as per HPI and Reports no additional cardiovascular complaints Respiratory: Reports as per HPI and Reports no additional respiratory complaints Gastrointestinal: Reports as per HPI and Reports no additional gastrointestinal complaints Genitourinary: Reports no additional female genitourinary complaints Musculoskeletal: Reports no additional musculoskeletal complaints Skin/Breast: Reports system reviewed and no additional complaints, except as docu Psychiatric: Reports no additional psychiatric complaints Endocrine: Reports no additional endocrine complaints Hematologic/Lymphatic: Reports no additional hematologic/lymphatic complaints Allergic/Immunologic: Reports no additional allergic/immunologic complaints Reports system reviewed and no additional complaints, except as documented and Reports Abnormal speech present [facility] Past Medical History Medical History Anxiety and depression Back pain Bilateral primary osteoarthritis of knee Colon cancer screening COPD (chronic obstructive pulmonary disease) COPD exacerbation Diabetes mellitus Frequency of micturition GERD (gastroesophageal reflux disease) High cholesterol Hypertension Hypothyroidism ENMA on CPAP Osteoarthritis Tubular adenoma of colon Urgency incontinence Urgency of micturition Surgical History History of cholecystectomy History of lumpectomy of right breast Hx of colonoscopy Hx of cystoscopy Hx of right knee surgery Family History Family History Mother History of pancreatic cancer Social History Social History Are you a primary home care nurse to a significant other at home: No Do you presently have 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 Blood pressure normal. Heart rate normal. Respiration rate normal. Temperature normal. Oxygen saturation normal. Appearance: Alert. Oriented X3. No acute distress. Head: Normal external exam. Normocephalic. Atraumatic. No Gilliland signs noted. No raccoon eyes noted Eyes: PERRLA. EOMI. Conjunctiva and sclera normal. Eyelids normal. ENT: TM's Normal. Pharynx normal. Uvula midline. Moist mucous membranes. No trismus noted. No drooling noted. No muffled voice noted. Neck: Normal inspection. Neck supple. FROM. No adenopathy. Thyroid Normal. No meningeal signs. No neck mass noted. CVS: Normal heart rate and rhythm. Heart sound normal. No murmurs noted. Pulses normal throughout. Respiratory: No respiratory distress. Painless inspiration. Breath sounds normal. No wheezes/rales/rhonchi noted. Chest nontender. No accessory muscle usage noted or decreased air movement noted. Abdomen: Soft and nontender. Bowel sounds normal in all 4 quadrants. No distention noted. No organomegaly noted. No visible injury noted. Back: No CVA tenderness. Full range of motion noted. Skin: Skin warm and dry. Normal skin color. Normal skin turgor. No rashes/lesions/lacerations noted. Extremities: No lower extremity edema. Extremities exhibit normal range of motion. Extremities nontender. Neuro: Oriented X 3. Cranial nerve exam: II-XII are grossly intact No motor deficit. No sensory deficit. Reflexes normal. Course Course Course Narrative: assessment and plan. 72-year-old female had multiple ED visits for epigastric abdominal pain, physical exam is consistent with gastritis will start the patient on Prilosec and referral to directional driller for further evaluation of the patient's symptoms, patient had CT abdomen and pelvis yesterday and chest x-ray which was unremarkable, today's lab and yesterday labs are unremarkable for significant changes. The plan was discussed with the patient and patient agreed. MDM - Abdominal Pain Lab Data Attestation: I reviewed the patient's lab results. Result diagrams: 05/10/22 21:56 05/10/22 21:56 Labs: Lab Results 05/10/22 05/10/22 05/10/22 Range/Units 21:56 21:56 21:56 WBC 6.4 (4.8-10.8) X10*3/uL RBC 5.29 (4.20-5.50) X10*6/uL Hgb 14.6 (12.0-16.0) g/dl Hct 46.1 (37.0-47.0) % MCV 87.1 (80.0-98.0) fL MCH 27.6 (27.0-33.0) pg MCHC 31.7 (31.0-35.0) g/dl RDW 13.6 (11.0-16.0) % Plt Count 191 (160-400) X10*3/uL MPV 9.9 (9.4-12.3) fL Immature Gran % (Auto) 0.3 (0.0-0.4) % Neut % (Auto) 48.7 (45-73) % Lymph % (Auto) 37.4 (20-40) % [place] % (Auto) 9.7 (2-11) % Eos % (Auto) 3.4 (0-4) % Baso % (Auto) 0.5 (0-2) % Lymph # (Auto) 2.4 (1.2-4.9) X10*3/uL [place] # (Auto) 0.6 (0.1-1.2) X10*3/uL Eos # (Auto) 0.2 (0.0-0.4) X10*3/uL Baso # (Auto) 0.0 (0.0-0.2) X10*3/uL Abs Immat Gran (auto) 0.02 (0.00-0.03) X10*3/uL Absolute Neuts (auto) 3.1 (2.0-8.3) x10*3/uL Absolute Nucleated RBC 0.000 (0.0-0.012) X10*3/uL Nucleated RBC % (auto) 0.0 (0.0-0.2) /100WBC Sodium 141 (135-145) mmol/L Potassium 3.7 (3.3-5.1) mmol/L Chloride 104 (96-108) mmol/L Carbon Dioxide 26 (22-29) mmol/L Anion Gap 15 (12-20) BUN 15 (9-16) mg/dL Creatinine 1.71 H (0.5-1.4) mg/dL Estim Creat Clear Calc 31.9 Estimated GFR 29 Random Glucose 216 H (60-115) mg/dL Calcium 9.6 (8.4-10.2) mg/dL Total Bilirubin 0.4 (0.0-1.0) mg/dL AST 18 (5-31) U/L ALT 13 (0-31) U/L Alkaline Phosphatase 91 (39-117) U/L Total Protein 7.2 (6.5-8.0) g/dL Albumin 4.4 (3.5-5.0) g/dL Lipase 34 (8-78) U/L Urine Color Urine Appearance Urine pH (5.0-8.0) Ur Specific [place] (1.005-1.025) Urine Protein (NEG-TRACE) MG/DL Urine Glucose (UA) (NEG) MG/DL Urine Ketones (NEG) MG/DL Urine Blood (NEG) Urine Nitrite (NEG) Ur Leukocyte Esterase (NEG) Urine RBC (0) /HPF Urine WBC (0-4) /HPF Ur Squamous Epith Cells /LPF Urine Bacteria /LPF COVID-19 ([facility]) Negative (Negative) COVID-19 Clin Com See Note 05/10/22 Range/Units 22:17 WBC (4.8-10.8) X10*3/uL RBC (4.20-5.50) X10*6/uL Hgb (12.0-16.0) g/dl Hct (37.0-47.0) % MCV (80.0-98.0) fL MCH (27.0-33.0) pg MCHC (31.0-35.0) g/dl RDW (11.0-16.0) % Plt Count (160-400) X10*3/uL MPV (9.4-12.3) fL Immature Gran % (Auto) (0.0-0.4) % Neut % (Auto) (45-73) % Lymph % (Auto) (20-40) % [place] % (Auto) (2-11) % Eos % (Auto) (0-4) % Baso % (Auto) (0-2) % Lymph # (Auto) (1.2-4.9) X10*3/uL [place] # (Auto) (0.1-1.2) X10*3/uL Eos # (Auto) (0.0-0.4) X10*3/uL Baso # (Auto) (0.0-0.2) X10*3/uL Abs Immat Gran (auto) (0.00-0.03) X10*3/uL Absolute Neuts (auto) (2.0-8.3) x10*3/uL Absolute Nucleated RBC (0.0-0.012) X10*3/uL Nucleated RBC % (auto) (0.0-0.2) /100WBC Sodium (135-145) mmol/L Potassium (3.3-5.1) mmol/L Chloride (96-108) mmol/L Carbon Dioxide (22-29) mmol/L Anion Gap (12-20) BUN (9-16) mg/dL Creatinine (0.5-1.4) mg/dL Estim Creat Clear Calc Estimated GFR Random Glucose (60-115) mg/dL Calcium (8.4-10.2) mg/dL Total Bilirubin (0.0-1.0) mg/dL AST (5-31) U/L ALT (0-31) U/L Alkaline Phosphatase (39-117) U/L Total Protein (6.5-8.0) g/dL Albumin (3.5-5.0) g/dL Lipase (8-78) U/L Urine Color YELLOW Urine Appearance CLEAR Urine pH 6.0 (5.0-8.0) Ur Specific [place] >= 1.030 H (1.005-1.025) Urine Protein NEG (NEG-TRACE) MG/DL Urine Glucose (UA) NEG (NEG) MG/DL Urine Ketones NEG (NEG) MG/DL Urine Blood NEG (NEG) Urine Nitrite NEG (NEG) Ur Leukocyte Esterase TRACE H (NEG) Urine RBC 0 (0) /HPF Urine WBC 0-2 (0-4) /HPF Ur Squamous Epith Cells 2+ /LPF Urine Bacteria 1+ /LPF COVID-19 ([facility]) (Negative) COVID-19 Clin Com Discharge Plan Discharge Clinical Impression: Abdominal pain, Gastritis Patient Disposition: Home, Self-Care Instructions: Gastritis (ED) Prescriptions: New omeprazole 20 mg capsule,delayed release(DR/EC) 20 mg PO DAILY Qty: 15 0RF No Action Trelegy Ellipta 200-62.5-25 mcg blister with device 1 inh inhalation DAILY 30 Days Qty: 1 6RF furosemide 20 mg tablet 20 mg PO QAM Qty: 30 12RF phenazopyridine [Pyridium] 200 mg tablet 200 mg PO TID PRN (Reason: pain) Qty: 6 0RF mineral oil [Fleet Mineral Oil] Enema 118 ml [place] DAILY PRN (Reason: constipation) Qty: 6384 0RF Rx Instructions: discard any unused portion benzonatate 200 mg capsule 200 mg PO TID PRN (Reason: cough) Qty: 30 0RF prednisone 20 mg tablet 20 mg PO DAILY Qty: 7 0RF tramadol 50 mg tablet 50 - 100 mg PO Q4H PRN (Reason: pain) Qty: 20 0RF cephalexin 500 mg capsule 500 mg PO Q12H 5 Days Qty: 10 0RF propranolol 20 mg tablet 20 mg PO BID hydrochlorothiazide 12.5 mg tablet 12.5 mg PO DAILY Januvia 100 mg tablet 100 mg PO DAILY glipizide 2.5 mg tablet extended release 24hr 2.5 mg PO DAILY levothyroxine 200 mcg tablet 200 mcg PO DAILY omeprazole 20 mg capsule,delayed release(DR/EC) 20 mg PO DAILY acetaminophen 500 mg tablet 500 mg PO QID PRN (Reason: Pain) gabapentin 300 mg capsule 300 mg PO DAILY citalopram 20 mg tablet 20 mg PO DAILY bupropion HCl 150 mg tablet extended release 24 hr 150 mg PO QAM fluticasone propionate 50 mcg/actuation spray,suspension 2 spray intranasal DAILY PRN (Reason: Nasal Congestion) alendronate 70 mg tablet 70 mg PO QWEEK lisinopril 20 mg tablet 20 mg PO BEDTIME sennosides 8.6 mg tablet 17.2 mg PO DAILY PRN (Reason: Constipation) primidone 50 mg tablet 50 mg PO DAILY (DME) pen needle, diabetic 31 gauge x 3/16 needle See Rx Instructions .ROUTE TID Qty: 50 Rx Instructions: As directed insulin lispro 100 unit/mL insulin pen subcut atorvastatin 40 mg tablet 40 mg PO BEDTIME (DME) lancets 33 gauge misc See Rx Instructions Not Applicable BID Qty: 100 Rx Instructions: As directed loratadine 10 mg tablet 10 mg PO DAILY PRN (Reason: allergies) (DME) OneTouch Ultra Blue Test Strip Strip See Rx Instructions Not Applicable BID Qty: 10 Rx Instructions: As directed trazodone 50 mg tablet 50 mg PO BEDTIME theophylline 600 mg tablet extended release 24 hr 600 mg PO DAILY 30 Days Qty: 30 6RF Referrals: [facility] [Primary Care Provider] - Epi Hernandes MD [Physician] -
[2022-05-11 03:27] VITALS: BP 117/89; PULSE 91; RESP 16; TEMP 36.6; O2SAT 98
--- NOTE | 2022-05-11 03:38 | PC.NURSE ---
pt left without receiving discharge instructions.
== END 2022-05-11 03:38 | disposition home or self-care (01) ==
PROVIDERS: Emergency Provider Emergency Medicine
DX: K29.70 Gastritis, unspecified, without bleeding (principal); R10.13 Epigastric pain; Z20.822 Contact with and (suspected) exposure to COVID-19; E11.9 Type 2 diabetes mellitus without complications; I10 Essential (primary) hypertension; E78.5 Hyperlipidemia, unspecified; Z79.02 Long term (current) use of antithrombotics/antiplatelets; Z79.84 Long term (current) use of oral hypoglycemic drugs; Z79.899 Other long term (current) drug therapy
CPT/HCPCS: 80053; 81001; 83690; 85025; 87635; 99283

== ENCOUNTER → 2022-05-28 10:31 | Outpatient (REF) | payer OTHER, SELFPAY ==
--- NOTE | 2022-05-28 10:35 | CA_ITS ---
Transthoracic Echocardiogram Patient (Last, First, Middle): Joselyn Soto, Benjamin Gender: Female Date of : 1950 Age: 72 Procedure Date: 05/28/2022 Procedure Type: Transthoracic Echocardiogram Location: OP Height: 160.02 cm Weight: 102.97 kg BSA: 2.04 m2 Heart Rate: bpm BP: 140 / 90 mmHg Ball Assembler: TO Referring MD: Jay Jay Jones MD Symptoms: R06.00 - Dyspnea, unspecified Study Quality: Fair/Contrast Conclusions: - Normal left ventricular size and systolic function. There is mildly increased left ventricular wall thickness. The visually estimated ejection fraction is between 55-60%. - Normal right ventricular cavity size and systolic function. - The left atrium is mildly dilated. The right atrium is normal in size. - There is mild dilatation of the ascending aorta measuring 3.50 cm. Findings Procedure Information Contrast agent, definity, is being given per protocol without apparent complications. Left Ventricle Normal left ventricular size and systolic function. There is mildly increased left ventricular wall thickness. The visually estimated ejection fraction is between 55-60%. There is no evidence of regional wall motion abnormalities. Diastolic function is normal for age. Right Ventricle Normal right ventricular cavity size and systolic function. Atria The left atrium is mildly dilated. The right atrium is normal in size. Aortic Valve Normal aortic valve structure and function. There is no aortic valve stenosis. There is no aortic valve regurgitation. Mitral Valve Normal mitral valve structure and function. There is trace mitral valve regurgitation. There is no mitral valve stenosis. Pulmonic Valve The pulmonic valve is likely normal. Tricuspid Valve Normal tricuspid valve structure and function. There is trace tricuspid valve regurgitation. Normal right atrial pressure. Mild pulmonary hypertension is present. Great Vessels There is mild dilatation of the ascending aorta measuring 3.50 cm. The visualized portions of the pulmonary artery and branches are normal. Venous The inferior vena cava is normal in size and collapses greater than 50% with inspiration. Pericardium/Pleural There is no evidence of pericardial effusion. Prior Study Comparison No change compared to prior study dated: 04/20/2019. Measurements 2D Linear Measurements IVSd: 1.03 0.6-0.9/0.6-1.0 cm LVIDd: 4.89 3.9-5.3/4.2-5.9 cm LVIDd Index: 2.40 2.4-3.2/2.2-3.1 cm/m2 LVIDs: 2.82 2.0-3.6 cm LVPWd: 1.00 0.7-1.1 cm LA Diam: 3.90 2.7-3.8/3.0-4.0 cm LAIDs Index: 1.91 1.5-2.3 cm/m2 LV Mass: 223.02 67-162/88-224 g LV Mass Index: 109.32 43-95/49-115 g/m2 LVOT Diam: 2.20 3.0+(-)1.3 cm 2D Systolic Function EF 4C: 73.70 >55% EF 2C: 64.00 >55% EF BiP: 69.90 >55% Mitral Valve MV Pk E: 0.70 MV PK A: 0.69 MV Decel Time: 258.00 E/A: 1.00 E'Lateral: 8.81 E'Medial: 6.42 E/E' Med: 10.90 E/E' Lat: 7.90 PHT: 76.00 MVA PHT: 2.89 Decel [place]: 2.70 Aortic Valve AoV Pk Nicholas: 1.06 AoV Mn Nicholas: 0.80 AoV VTI: 0.25 AoV Pk Grad: 4.00 Aov Mn Grad: 3.00 LINDSAY Cont.VTI: 3.39 LVOT LVOT Pk Nicholas: 0.92 LVOT Mn Nicholas: 0.61 LVOT VTI: 0.22 LVOT Pk Grad: 3.00 LVOT Mn Grad: 2.00 LVOT Diam: 2.20 LVOT Area: 3.80 Diastolic Function MV Pk E: 0.70 MV Pk A: 0.69 E/A: 1.00 E'Medial: 6.42 E/E' Med: 10.90 E' Laterial: 8.81 E/E' Lat: 7.90 Right Ventricle TAPSE (mm): 20.80 TVS' Nicholas: 9.14 Tricuspid Valve TR Pk Nicholas: 3.04 TR Pk Grad: 37.00 RA Press: 8.00 RVSP: 45.00 Great Vessels Aorta Sinus of Valsalva: 3.73 2.0-3.[address] [place]: 3.18 1.7-3.4 cm Ao Asc: 3.50 2.1-3.4 cm Updated in Other Vendor System with Status of Final Bereket Silverman MD electronically signed on 05/30/2022 5:57:43 PM with status of Final
== END ==
LOC: HO.CARD 10:31
PROVIDERS: Visit Provider Internal Medicine Pulmonary Disease
DX: R06.00 Dyspnea, unspecified (principal); J44.9 Chronic obstructive pulmonary disease, unspecified
CPT/HCPCS: 93306; Q9957

== ENCOUNTER → 2022-06-02 12:54 | Outpatient (BNVA) | payer OTHER, SELFPAY | PROVIDERS: PCP Internal Medicine; Visit Provider Internal Medicine Pulmonary Disease | DX: J44.9 Chronic obstructive pulmonary disease, unspecified (principal); J84.10 Pulmonary fibrosis, unspecified; G47.33 Obstructive sleep apnea (adult) (pediatric); R91.8 Other nonspecific abnormal finding of lung field; Z99.89 Dependence on other enabling machines and devices | CPT/HCPCS: 99212 ==

== ENCOUNTER → 2022-06-11 11:47 | Outpatient (BNVA) | payer OTHER, SELFPAY | PROVIDERS: PCP Internal Medicine; Visit Provider Orthopaedic Surgery | DX: M17.0 Bilateral primary osteoarthritis of knee (principal); E11.9 Type 2 diabetes mellitus without complications | CPT/HCPCS: 20610; 99212; J1100 ==

== ENCOUNTER → 2022-07-14 13:06 | Outpatient (BNVA) | payer OTHER, SELFPAY | PROVIDERS: PCP Internal Medicine; Visit Provider Internal Medicine Pulmonary Disease | DX: J44.9 Chronic obstructive pulmonary disease, unspecified (principal); J84.10 Pulmonary fibrosis, unspecified; G47.33 Obstructive sleep apnea (adult) (pediatric); Z99.89 Dependence on other enabling machines and devices | CPT/HCPCS: 99212 ==

== ENCOUNTER 2022-08-16 16:23 | Emergency (ER) | payer OTHER, SELFPAY ==
--- NOTE | ~2022-08-16 | XR_ITS ---
EXAMINATION: XR CHEST CLINICAL INFORMATION: Cough. COMPARISON: Multiple prior studies. Most recent exam Chest x-ray 05/07/2022 TECHNIQUE: Frontal view of the chest was obtained. 5:59 PM FINDINGS: There are hazy densities at the peripheral lung bases bilaterally which are chronic unchanged since chest x-ray 11/22/2021. No acute airspace opacities. Heart size is normal. Cardiac and mediastinal contours are normal. There is no pulmonary vascular congestion. XR/XR chest 1V IMPRESSION: No acute abnormality of chest.
[2022-08-16 17:25] VITALS: BP 126/74; PULSE 79; RESP 20; TEMP 36.7; O2SAT 95; BMI 41.5
[2022-08-16 18:11] LABS: Influenza A PCR NEGATIVE (Negative); Influenza B PCR NEGATIVE (Negative); Resp Syncy Virus RNA Qual PCR NEGATIVE (Negative); SARS COV2 PCR INHOUSE NEGATIVE (Negative)
--- NOTE | 2022-08-16 21:14 | ECG_ITS ---
Test Reason : CHEST PAIN Blood Pressure : / mmHG Vent. Rate : 075 BPM Atrial Rate : 075 BPM P-R Int : 172 ms QRS Dur : 134 ms QT Int : 430 ms P-R-T Axes : 020 -31 018 degrees QTc Int : 480 ms Poor data quality Sinus rhythm Left axis deviation Right bundle branch block Abnormal ECG When compared with ECG of 07-MAY-2022 21:31, No significant changes seen Referred By: Patti Recinos Electronically Signed By:KYAW RAMIREZ MD
[2022-08-16 21:32] VITALS: BP 120/74; PULSE 80; RESP 15; TEMP 36.8; O2SAT 95
--- NOTE | 2022-08-16 21:33 | ED_ITS ---
HPI - Chest Pain General Chief Complaint: Chest Pain Stated Complaint: chest pain Time Seen by Provider: 08/16/22 21:06 Source: patient Mode of arrival: ambulatory Limitations: language barrier (Mosotho-speaking) History of Present Illness HPI narrative: 72-year-old female with a past medical history of anxiety, depression, COPD, diabetes, GERD, hyperlipidemia, septic sleep apnea on CPAP who is Mosotho- speaking presenting to the ER with complaints of a right-sided neck pain that is radiating to her right side of her chest/back and right shoulder for the past week with associated generalized fatigue/malaise, nasal congestion/rhinorrhea, dyspnea on exertion/shortness of breath and a dry cough. She reports the symptoms have all been persistent. She denies any dizziness, headaches, neck stiffness, sore throat, trouble swallowing or breathing, palpitations, paresthesias, abdominal pain, nausea/vomiting/diarrhea constipation, black or bloody stools, dysuria, hematuria, abnormal vaginal discharge, lower extremity edema or calf tenderness, recent travel or sick contacts or any other symptoms complaints or concerns at this time. MD complaint: chest pain Pertinent past history: other (See above) Onset (ago): week(s) (1) Timing of current episode: constant Onset: other (Patient unsure) Pain location: right chest Pain radiation: right arm and back Severity: mild Quality: aching Relieving factors: nothing Exacerbating factors: exertion Associated symptoms: cough Treatment prior to arrival: none Related Data Home Medications Medication Instructions Recorded Confirmed acetaminophen 500 mg tablet 500 mg PO QID PRN Pain 07/30/20 11/26/20 citalopram 20 mg tablet 20 mg PO DAILY 07/30/20 11/26/20 gabapentin 300 mg capsule 300 mg PO DAILY 07/30/20 11/26/20 glipizide 2.5 mg tablet, extended 2.5 mg PO DAILY 07/30/20 11/26/20 release 24 hr hydrochlorothiazide 12.5 mg tablet 12.5 mg PO DAILY 07/30/20 11/26/20 levothyroxine 200 mcg tablet 200 mcg PO DAILY 07/30/20 11/26/20 omeprazole 20 mg capsule,delayed 20 mg PO DAILY 07/30/20 11/26/20 release propranolol 20 mg tablet 20 mg PO BID 07/30/20 11/26/20 sitagliptin 100 mg tablet (Januvia) 100 mg PO DAILY 07/30/20 11/26/20 alendronate 70 mg tablet 70 mg PO QWEEK 10/13/20 11/26/20 atorvastatin 40 mg tablet 40 mg PO BEDTIME 10/13/20 11/26/20 blood sugar diagnostic #10 ea 10/13/20 11/26/20 bupropion HCl 150 mg 24 hr tablet, 150 mg PO QAM 10/13/20 11/26/20 extended release fluticasone propionate 50 2 spray intranasal DAILY PRN Nasal 10/13/20 11/26/20 mcg/actuation nasal Congestion spray,suspension insulin lispro 100 unit/mL unit subcut 10/13/20 11/26/20 subcutaneous pen lancets 33 gauge #100 ea 10/13/20 11/26/20 lisinopril 20 mg tablet 20 mg PO BEDTIME 10/13/20 11/26/20 loratadine 10 mg tablet 10 mg PO DAILY PRN allergies 10/13/20 11/26/20 pen needle, diabetic 31 gauge x #50 ea 10/13/20 11/26/2012/23 primidone 50 mg tablet 50 mg PO DAILY 10/13/20 11/26/20 sennosides 8.6 mg tablet 17.2 mg PO DAILY PRN Constipation 10/13/20 11/26/20 trazodone 50 mg tablet 50 mg PO BEDTIME 09/30/21 Previous Rx's Medication Instructions Recorded phenazopyridine 200 mg tablet 200 mg PO TID PRN pain 6 doses #6 04/08/21 (Pyridium) tabs mineral oil (Fleet Mineral Oil 118 ml NC DAILY PRN constipation 07/30/21 enema) #6,384 mL fluticasone fur. 200 mcg-umeclid 1 inh inhalation DAILY 30 days #1 12/07/21 62.5 mcg-vilant 25 mcg ea inhalat.powder (Trelegy Ellipta) furosemide 20 mg tablet 20 mg PO QAM #30 tabs 12/07/21 benzonatate 200 mg capsule 200 mg PO TID PRN cough #30 caps 02/28/22 tramadol 50 mg tablet 50 - 100 mg PO Q4H PRN pain #20 03/11/22 tabs cephalexin 500 mg capsule 500 mg PO Q12H 5 days #10 caps 05/03/22 omeprazole 20 mg capsule,delayed 20 mg PO DAILY #15 caps 05/11/22 release albuterol sulfate 90 mcg/actuation 2 puff PO QID PRN for wheezing 05/17/22 aerosol inhaler #8.5 grams theophylline 300 mg 300 mg PO DAILY #30 tabs 06/22/22 tablet,extended release,12 hr budesonide 0.5 mg/2 mL suspension 0.25 mg inhalation BID 30 days #60 07/14/22 for nebulization mL albuterol sulfate 90 mcg/actuation 1 inh inhalation QID PRN shortness 08/17/22 aerosol inhaler of breath or wheezing #8.5 grams azithromycin 250 mg tablet See Rx Instructions PO .COMPLEX #6 08/17/22 tabs cyclobenzaprine 10 mg tablet 10 mg PO Q8H #14 tabs 08/17/22 prednisone 20 mg tablet 40 mg PO DAILY rash 5 days #10 tabs 08/17/22 Allergies Allergy/AdvReac Type Severity Reaction Status Date / Time aspirin [Aspirin] Allergy Mild UPSET Verified 07/14/22 13:10 STOMACH ibuprofen [From Motrin] Allergy Mild Gastrointestinal Verified 07/14/22 13:10 Upset Review of Systems Review of Systems: Constitutional : + generalized fatigue/malaise, No Weight loss, No Fever, No Chills, No Night Sweats ENT/Mouth : + nasal congestion/rhinorrhea, No Hearing loss, No Ear Pain, No Sinus Pain, No Hoarseness, No sore throat, No Swallowing Difficulty Eyes: No Eye Pain, No Swelling, No Redness, No Foreign Body, No Discharge, No Vision Changes Cardiovascular : + Chest Pain, + SOB, + Dyspnea on Exertion, + Orthopnea, No Rolly ma, No Palpitations Respiratory : + Cough, No Sputum, No Wheezing, No Smoke Exposure Gastrointestinal : No Nausea, No Vomiting, No Diarrhea, No Constipation, No abdominal Pain, No Hematochezia, No Melena Genitourinary : no irregular bleeding, No Dysuria, No Urinary Frequency, No Hematuria, No Urinary Incontinence, No Urgency, No Flank Pain, No Urinary Flow Changes, No Hesitancy Musculoskeletal : No joint pain, No Myalgias, No Joint Swelling Skin : No Skin Lesions, No rash Neuro : + general Weakness, No Focal weakness, No Numbness, No Paresthesias, No Loss of Consciousness, No Dizziness, No Headache Psych : No Anxiety/Panic, No Depression, No SI/HI/AH/VH, No Social Issues, Heme/Lymph: No Bruising, No Bleeding,No Lymphadenopathy Endocrine : No Polyuria, No Polydipsia, No Temperature Intolerance Yes all other systems are reviewed and are negative [facility] Past Medical History Attestation statement: The following information was validated with the patient. Source: old records reviewed and nursing notes reviewed Medical History Anxiety and depression Back pain Bilateral primary osteoarthritis of knee Colon cancer screening COPD (chronic obstructive pulmonary disease) COPD exacerbation Diabetes mellitus Frequency of micturition GERD (gastroesophageal reflux disease) High cholesterol Hypertension Hypothyroidism ENMA on CPAP Osteoarthritis Tubular adenoma of colon Urgency incontinence Urgency of micturition Surgical History History of cholecystectomy History of lumpectomy of right breast Hx of colonoscopy Hx of cystoscopy Hx of right knee surgery Family History Family History Mother History of pancreatic cancer Social History Social History Are you a primary rehab care assistant to a significant other at home: No Do you presently have 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 Blood pressure normal. Heart rate normal. Respiration rate normal. Temperature normal. Oxygen saturation normal. Appearance: Alert. Oriented X3. No acute distress. Head: Normal external exam. Normocephalic. Atraumatic. Eyes: PERRLA. EOMI. Conjunctiva and sclera normal. Eyelids normal. ENT: EAC normal. TM's Normal. Pharynx normal. Uvula midline. Moist mucous membranes. No lesions/ulcerations or masses noted on the tongue. Normal voice. No trismus noted. No drooling noted. No muffled voice noted. Neck: Normal inspection. Neck supple. FROM. No adenopathy. Thyroid Normal. No tracheal deviation noted. No crepitus is noted. No meningeal signs. No neck mass noted. No signs of trauma noted. CVS: Normal heart rate and rhythm. Heart sound normal. Pulses normal throughout. No murmurs/rales/gallops. Respiratory: No respiratory distress. Painless inspiration. Breath sounds normal. No wheezes/rales/rhonchi noted. Chest nontender. No crepitus is noted. No accessory muscle usage noted or decreased air movement noted. No signs of trauma. Abdomen: Soft and nontender. Nondistended. No guarding. No rigidity. Bowel sounds normal in all 4 quadrants. No distention noted. No organomegaly noted. No visible injury noted. No rebound tenderness. Negative Rovsing sign. Negative obturator's sign. Negative psoas sign. Negative Retana sign. Back: No CVA tenderness. Full range of motion noted. Nontender. No signs of trauma. Patient neuro intact bilaterally and distally on all 4 extremities. Patient's reflexes intact bilaterally and distally on all 4 extremities. No rashes/lesion/induration/fluctuance or signs of infection noted. Skin: Skin warm and dry. Normal skin color. Normal skin turgor. No r ashes/lesions/lacerations noted. Extremities: No lower extremity edema. No calf tenderness is noted. Extremities exhibit normal range of motion and nontender. Neuro: Oriented X 3. No motor deficit. No sensory deficit. Reflexes normal. Normal steady gait. No focal neuro deficits noted. CN's II-XII intact bilaterally? Vascular: + radial pulses/+ 2 distal pedal pulses/+2 dorsalis pedis b/l. Normal cap refill. No cyanosis noted to upper extremity nails and lower extremity toes nails. Course Course Course Narrative: 21:15pm - 72-year-old female with a past medical history of anxiety, depression, COPD, diabetes, GERD, hyperlipidemia, septic sleep apnea on CPAP who is Mosotho- speaking presenting to the ER with complaints of a right-sided neck pain that is radiating to her right side of her chest/back and right shoulder for the past week with associated generalized fatigue/malaise, nasal congestion/rhinorrhea, dyspnea on exertion/shortness of breath and a dry cough. She reports the symptoms have all been persistent. Plan: Labs, chest x-ray, EKG and re-evaluate. Reevaluation(s) Reevaluation #1: - labs reviewed D-dimer negative. Sodium 146. Glucose 150. Troponin 16.3. - patient negative for COVID/RSV/flu. - chest x-ray within normal limits no acute processes noted. - therefore will repeat troponin Time: 22:54 Reevaluation #2: Awaiting repeat troponin. Sign out to Dr. Joiner pending repeat troponin. Time: 00:56 [facility] - Chest Pain Medical Records Data Attestation: I reviewed the patient's medical records. Lab Data Attestation: I reviewed the patient's lab results. Result diagrams: 08/16/22 21:48 08/16/22 21:48 Labs: Lab Results 08/16/22 08/16/22 08/16/22 Range/Units 17:28 21:48 21:48 WBC 5.4 (4.8-10.8) X10*3/uL RBC 5.10 (4.20-5.50) X10*6/uL Hgb 13.9 (12.0-16.0) g/dl Hct 43.7 (37.0-47.0) % MCV 85.7 (80.0-98.0) fL MCH 27.3 (27.0-33.0) pg MCHC 31.8 (31.0-35.0) g/dl RDW 13.8 (11.0-16.0) % Plt Count 164 (160-400) X10*3/uL MPV 10.1 (9.4-12.3) fL Immature Gran % (Auto) 0.4 (0.0-0.4) % Neut % (Auto) 49.7 (45-73) % Lymph % (Auto) 37.5 (20-40) % [place] % (Auto) 8.6 (2-11) % Eos % (Auto) 3.4 (0-4) % Baso % (Auto) 0.4 (0-2) % Lymph # (Auto) 2.0 (1.2-4.9) X10*3/uL [place] # (Auto) 0.5 (0.1-1.2) X10*3/uL Eos # (Auto) 0.2 (0.0-0.4) X10*3/uL Baso # (Auto) 0.0 (0.0-0.2) X10*3/uL Abs Immat Gran (auto) 0.02 (0.00-0.03) X10*3/uL Absolute Neuts (auto) 2.7 (2.0-8.3) x10*3/uL Absolute Nucleated RBC 0.000 (0.0-0.012) X10*3/uL Nucleated RBC % (auto) 0.0 (0.0-0.2) /100WBC PT 11.5 (10.0-13.1) SEC INR 1.0 (0.9-1.1) D-Dimer High Sensitivty NG/ML Sodium (135-145) mmol/L Potassium (3.3-5.1) mmol/L Chloride (96-108) mmol/L Carbon Dioxide (22-29) mmol/L Anion Gap (12-20) BUN (9-16) mg/dL Creatinine (0.5-1.4) mg/dL Estim Creat Clear Calc Estimated GFR Random Glucose (60-115) mg/dL Calcium (8.4-10.2) mg/dL Magnesium (1.6-2.6) mg/dL Total Bilirubin (0.0-1.0) mg/dL AST (5-31) U/L ALT (0-31) U/L Alkaline Phosphatase (39-117) U/L Troponin I High Sens (<3.5-17.0) ng/L B-Natriuretic Peptide (<100) pg/mL Total Protein (6.5-8.0) g/dL Albumin (3.5-5.0) g/dL Influenza Type A (PCR) NEGATIVE (Negative) Influenza Type B (PCR) NEGATIVE (Negative) RSV RNA Qual (PCR) NEGATIVE (Negative) SARS-CoV-2 RNA (RT-PCR) NEGATIVE (Negative) 08/16/22 08/16/22 08/16/22 Range/Units 21:48 21:48 21:48 WBC (4.8-10.8) X10*3/uL RBC (4.20-5.50) X10*6/uL Hgb (12.0-16.0) g/dl Hct (37.0-47.0) % MCV (80.0-98.0) fL MCH (27.0-33.0) pg MCHC (31.0-35.0) g/dl RDW (11.0-16.0) % Plt Count (160-400) X10*3/uL MPV (9.4-12.3) fL Immature Gran % (Auto) (0.0-0.4) % Neut % (Auto) (45-73) % Lymph % (Auto) (20-40) % Barnwell % (Auto) (2-11) % Eos % (Auto) (0-4) % Baso % (Auto) (0-2) % Lymph # (Auto) (1.2-4.9) X10*3/uL [place] # (Auto) (0.1-1.2) X10*3/uL Eos # (Auto) (0.0-0.4) X10*3/uL Baso # (Auto) (0.0-0.2) X10*3/uL Abs Immat Gran (auto) (0.00-0.03) X10*3/uL Absolute Neuts (auto) (2.0-8.3) x10*3/uL Absolute Nucleated RBC (0.0-0.012) X10*3/uL Nucleated RBC % (auto) (0.0-0.2) /100WBC PT (10.0-13.1) SEC INR (0.9-1.1) D-Dimer High Sensitivty 176 NG/ML Sodium 146 H (135-145) mmol/L Potassium 3.8 (3.3-5.1) mmol/L Chloride 107 (96-108) mmol/L Carbon Dioxide 28 (22-29) mmol/L Anion Gap 15 (12-20) BUN 16 (9-16) mg/dL Creatinine 1.25 (0.5-1.4) mg/dL Estim Creat Clear Calc 44.4 Estimated GFR 42 Random Glucose 150 H (60-115) mg/dL Calcium 9.3 (8.4-10.2) mg/dL Magnesium 1.8 (1.6-2.6) mg/dL Total Bilirubin 0.5 (0.0-1.0) mg/dL AST 18 (5-31) U/L ALT 15 (0-31) U/L Alkaline Phosphatase 103 (39-117) U/L Troponin I High Sens 16.3 (<3.5-17.0) ng/L B-Natriuretic Peptide 47 (<100) pg/mL Total Protein 6.9 (6.5-8.0) g/dL Albumin 4.3 (3.5-5.0) g/dL Influenza Type A (PCR) (Negative) Influenza Type B (PCR) (Negative) RSV RNA Qual (PCR) (Negative) SARS-CoV-2 RNA (RT-PCR) (Negative) Imaging Data Chest x-ray: Attestation: I personally reviewed and interpreted this imaging study as follows: Radiologist's impression: FINDINGS: There are hazy densities at the peripheral lung bases bilaterally which are chronic unchanged since chest x-ray 11/22/2021. No acute airspace opacities. Heart size is normal. Cardiac and mediastinal contours are normal. There is no pulmonary vascular congestion. XR/XR chest 1V IMPRESSION: No acute abnormality of chest. ECG Data ECG #1: Attestation: I personally reviewed and interpreted this ECG as follows: ECG interpretation date: 08/16/22 ECG interpretation time: 21:46 Interpretation: Sinus rhythm with premature ventricular complexes with left axis deviation right bundle-branch block nonspecific ST abnormalities. Similar compared to prior EKGs no acute ischemic change noted. Critical Care Time Critical Care Time Critical Care Time: Yes Total Critical Care Time: 60 Attestation: I personally attest to this time spent taking care of the patient Discharge Plan Discharge Clinical Impression: Upper respiratory infection, Atypical chest pain Patient Disposition: Still a Patient Instructions: Chest Pain (DC), Upper Respiratory Infection (ED) Prescriptions: New azithromycin 250 mg tablet See Rx Instructions PO .COMPLEX Qty: 6 0RF Rx Instructions: take 500 mg today (day 1), then 250 mg for 4 days (days 2-5) cyclobenzaprine 10 mg tablet 10 mg PO Q8H Qty: 14 0RF prednisone 20 mg tablet 40 mg PO DAILY 5 Days Qty: 10 0RF albuterol sulfate 90 mcg/actuation HFA aerosol inhaler 1 inh inhalation QID PRN (Reason: shortness of breath or wheezing) Qty: 8.5 0RF No Action Trelegy Ellipta 200-62.5-25 mcg blister with device 1 inh inhalation DAILY 30 Days Qty: 1 6RF furosemide 20 mg tablet 20 mg PO QAM Qty: 30 12RF albuterol sulfate 90 mcg/actuation HFA aerosol inhaler 2 puff PO QID PRN (Reason: for wheezing) Qty: 8.5 2RF theophylline 300 mg tablet extended release 12 hr 300 mg PO DAILY Qty: 30 3RF phenazopyridine [Pyridium] 200 mg tablet 200 mg PO TID PRN (Reason: pain) Qty: 6 0RF omeprazole 20 mg capsule,delayed release(DR/EC) 20 mg PO DAILY Qty: 15 0RF mineral oil [Fleet Mineral Oil] Enema 118 ml NC DAILY PRN (Reason: constipation) Qty: 6384 0RF Rx Instructions: discard any unused portion benzonatate 200 mg capsule 200 mg PO TID PRN (Reason: cough) Qty: 30 0RF tramadol 50 mg tablet 50 - 100 mg PO Q4H PRN (Reason: pain) Qty: 20 0RF cephalexin 500 mg capsule 500 mg PO Q12H 5 Days Qty: 10 0RF propranolol 20 mg tablet 20 mg PO BID hydrochlorothiazide 12.5 mg tablet 12.5 mg PO DAILY Januvia 100 mg tablet 100 mg PO DAILY glipizide 2.5 mg tablet extended release 24hr 2.5 mg PO DAILY levothyroxine 200 mcg tablet 200 mcg PO DAILY omeprazole 20 mg capsule,delayed release(DR/EC) 20 mg PO DAILY acetaminophen 500 mg tablet 500 mg PO QID PRN (Reason: Pain) gabapentin 300 mg capsule 300 mg PO DAILY citalopram 20 mg tablet 20 mg PO DAILY bupropion HCl 150 mg tablet extended release 24 hr 150 mg PO QAM fluticasone propionate 50 mcg/actuation spray,suspension 2 spray intranasal DAILY PRN (Reason: Nasal Congestion) alendronate 70 mg tablet 70 mg PO QWEEK lisinopril 20 mg tablet 20 mg PO BEDTIME sennosides 8.6 mg tablet 17.2 mg PO DAILY PRN (Reason: Constipation) primidone 50 mg tablet 50 mg PO DAILY (DME) pen needle, diabetic 31 gauge x 3/16 needle See Rx Instructions .ROUTE TID Qty: 50 Rx Instructions: As directed insulin lispro 100 unit/mL insulin pen subcut atorvastatin 40 mg tablet 40 mg PO BEDTIME (DME) lancets 33 gauge misc See Rx Instructions Not Applicable BID Qty: 100 Rx Instructions: As directed loratadine 10 mg tablet 10 mg PO DAILY PRN (Reason: allergies) (DME) OneTouch Ultra Blue Test Strip Strip See Rx Instructions Not Applicable BID Qty: 10 Rx Instructions: As directed trazodone 50 mg tablet 50 mg PO BEDTIME budesonide 0.5 mg/2 mL suspension for nebulization 0.25 mg inhalation BID 30 Days Qty: 60 3RF Referrals: Kraig Mendoza MD [Primary Care Provider] - 2 days Print Language: Mosotho
--- NOTE | 2022-08-16 22:00 | PC.NURSE ---
Upon admission to [facility] patient's complaint is further explained. right side chest/back pain and right shoulder for the past week. She also c/o, nasal congestion and a dry cough. She reports the symptoms have all been constant in nautre despite OTC meds.
[2022-08-16 22:09] LABS: MANUAL DIFF FLAG NO
[2022-08-16 22:14] LABS: Basophils Percent Auto 0.4 % (0-2); Eosinophils Absolute Auto 0.2 X10*3/uL (0.0-0.4); Eosinophils Percent Auto 3.4 % (0-4); Hematocrit 43.7 % (37.0-47.0); Hemoglobin 13.9 g/dl (12.0-16.0); Imm Gran Abs Auto 0.02 X10*3/uL (0.00-0.03); Imm Gran Pct Auto 0.4 % (0.0-0.4); Lymphocytes Percent Auto 37.5 % (20-40); Mean Corpuscular HGB Conc 31.8 g/dl (31.0-35.0); Mean Corpuscular Hemoglobin 27.3 pg (27.0-33.0); Mean Corpuscular Volume 85.7 fL (80.0-98.0); Mean Platelet Volume 10.1 fL (9.4-12.3); Monocytes Absolute Auto 0.5 X10*3/uL (0.1-1.2); Monocytes Percent Auto 8.6 % (2-11); Neutrophils Absolute Auto 2.7 x10*3/uL (2.0-8.3); Neutrophils Percent Auto 49.7 % (45-73); Platelet Count 164 X10*3/uL (160-400); Red Cell Distribution Width 13.8 % (11.0-16.0); White Blood Count 5.4 X10*3/uL (4.8-10.8)
[2022-08-16 22:20] LABS: Prothrombin Time 11.5 SEC (10.0-13.1)
[2022-08-16 22:22] LABS: D Dimer High Sensitivity 176 NG/ML
[2022-08-16 22:28] LABS: Alanine Aminotransferase 15 U/L (0-31); Albumin Level 4.3 g/dL (3.5-5.0); Alkaline Phosphatase 103 U/L (39-117); Anion Gap 15 (12-20); Aspartate Amino Transferase 18 U/L (5-31); Bilirubin Total 0.5 mg/dL (0.0-1.0); Blood Urea Nitrogen 16 mg/dL (9-16); Calcium 9.3 mg/dL (8.4-10.2); Carbon Dioxide 28 mmol/L (22-29); Chloride 107 mmol/L (96-108); Creatinine Clr Calc Pharmacy 44.4; Estimated Glomerular Filt Rate 42; Glucose Random 150 mg/dL (60-115); Magnesium 1.8 mg/dL (1.6-2.6); Potassium 3.8 mmol/L (3.3-5.1); Sodium 146 mmol/L (135-145); Total Protein 6.9 g/dL (6.5-8.0)
[2022-08-16 22:33] LABS: B Type Natriuretic Peptide 47 pg/mL (<100); Troponin-I High Sensitivity 16.3 ng/L (<3.5-17.0)
[2022-08-17 01:30] VITALS: BP 129/74; PULSE 78; RESP 15; O2SAT 96
[2022-08-17] MEDS: Cyclobenzaprine HCl 5 MG TABLET PO (01:45)
[2022-08-17] MEDS: Acetaminophen 325 MG TABLET 975 MG PO (01:45)
[2022-08-17 02:13] LABS: Troponin-I High Sensitivity 18.6 ng/L (<3.5-17.0)
== END 2022-08-17 02:38 | disposition home or self-care (01) ==
PROVIDERS: Emergency Medicine; Physician Assistant Medical; Emergency Provider Internal Medicine; PCP Family Medicine
DX: J06.9 Acute upper respiratory infection, unspecified (principal); R07.89 Other chest pain; R06.02 Shortness of breath; Z20.822 Contact with and (suspected) exposure to COVID-19; E11.9 Type 2 diabetes mellitus without complications; I10 Essential (primary) hypertension; E78.5 Hyperlipidemia, unspecified; Z79.899 Other long term (current) drug therapy; Z79.4 Long term (current) use of insulin; Z79.02 Long term (current) use of antithrombotics/antiplatelets
CPT/HCPCS: 0241U; 36415; 71045; 80053; 83735; 83880; 84484; 85025; 85379; 85610; 93005; 99284; 99285

== ENCOUNTER → 2022-08-19 12:38 | Outpatient (BNVA) | payer OTHER, SELFPAY | PROVIDERS: PCP Family Medicine; Visit Provider Physician Assistant | DX: Z86.010 Personal history of colon polyps (principal) | CPT/HCPCS: 99202 ==

== ENCOUNTER → 2022-09-16 13:37 | Outpatient (BNVA) | payer OTHER, SELFPAY | PROVIDERS: PCP Internal Medicine; Visit Provider Internal Medicine Pulmonary Disease | DX: J44.9 Chronic obstructive pulmonary disease, unspecified (principal); J84.10 Pulmonary fibrosis, unspecified; R06.09 Other forms of dyspnea; Z79.899 Other long term (current) drug therapy | CPT/HCPCS: 99212 ==

== ENCOUNTER → 2022-09-22 11:13 | Outpatient (BNVA) | payer OTHER, SELFPAY | PROVIDERS: PCP Internal Medicine; Visit Provider Internal Medicine Pulmonary Disease | DX: J44.9 Chronic obstructive pulmonary disease, unspecified (principal); J84.10 Pulmonary fibrosis, unspecified; G47.33 Obstructive sleep apnea (adult) (pediatric); Z99.89 Dependence on other enabling machines and devices | CPT/HCPCS: 99212 ==

== ENCOUNTER 2022-12-17 11:51 | Emergency (ER) | payer OTHER, SELFPAY ==
--- NOTE | ~2022-12-17 | CT_ITS ---
EXAMINATION: CTA CHEST PE STUDY, CT ABDOMEN AND PELVIS CLINICAL INFORMATION: Shortness of breath. Pain COMPARISON: No pertinent prior studies are available for comparison. TECHNIQUE: Prior to contrast administration, noncontrast localization images were obtained. After the administration of 79 mL of Omnipaque nonionic IV contrast, contiguous thin slice helical images were obtained through the thorax. Following this the examination was continued through the abdomen and then pelvis. Reformatted MIP images in the coronal and sagittal planes as well as thin slice reformatted images of coronal and sagittal planes were obtained at the acquisition workstation. This CT examination was performed using dose optimization techniques as appropriate, variously including the following: *Automated exposure control *Adjustment of mA and/or kV according to patient size (this includes techniques or standardized protocols for targeted exams where dose is matched to indication/reason for exam; i.e. extremities or head) *Use of iterative reconstruction technique DLP: 1202 mGy-cm. FINDINGS: CHEST: The bolus timing on this study was acceptable for visualization of the pulmonary arterial tree. There are no intraluminal pulmonary arterial filling defects present to suggest pulmonary embolism. Dependent airspace changes more likely due to atelectasis. No abnormal pulmonary nodules or masses are appreciated. No significant hilar or mediastinal adenopathy. There is no evidence of pleural effusion or pneumothorax. The heart is normal in size. No evidence of ventricular septal bowing or right heart strain. Vascular calcification within the aorta.. There is no pericardial effusion or pericardial thickening. ABDOMEN/PELVIS: Liver, Gallbladder and Biliary Tree: The liver is normal in size, shape, and attenuation. No focal hepatic lesion or biliary ductal dilatation is present. Gallbladder surgically absent Pancreas: Unremarkable. Spleen: Unremarkable. Adrenal Glands: Unremarkable. Kidneys and Ureters: The kidneys are normal in size, shape, and attenuation. No hydronephrosis, hydroureter, or calculi seen. No perinephric stranding. Bladder: Unremarkable. Gastrointestinal Tract: A few scattered colonic diverticula are seen. There is no colonic wall thickening or pericolonic inflammatory change to suggest diverticulitis. Normal-appearing appendix in the right lower quadrant. Visualized small bowel unremarkable. Abdominal Wall: No significant hernia is appreciated. Lymphovascular Structures: Mild vascular calcification within the aorta iliac system. No bulky retroperitoneal or mesenteric adenopathy Pelvic Viscera: Unremarkable. Osseous Structures: Degenerative changes within the spine more so lower lumbar spine. I do not appreciate any acute fracture or spondylolisthesis in the spine. There are several healed right-sided rib fractures incidentally noted. No acute appearing displaced rib fractures appreciated. CT/CT angio chest PE protocol IMPRESSION: 1. No evidence for pulmonary emboli. Dependent airspace changes more likely due to atelectasis. 2. No acute abnormality within the abdomen or pelvis. VTE: Negative
--- NOTE | ~2022-12-17 | US_ITS ---
EXAMINATION: US ABDOMEN LIMITED CLINICAL INFORMATION: Right upper quadrant. COMPARISON: CT scan of the abdomen and pelvis dated 05/08/2022. TECHNIQUE: Real-time imaging of the right upper quadrant abdominal viscera. FINDINGS: PANCREAS: Visualized portions unremarkable. LIVER: Mild diffuse increased echotexture without focal abnormality. GALLBLADDER: Status post cholecystectomy. COMMON BILE DUCT: Normal in caliber measuring 1.1 cm in diameter. RIGHT KIDNEY: 11.0 cm unremarkable. FREE FLUID: None. US/US abdomen limited IMPRESSION: Hepatic steatosis without other significant abnormality.
--- NOTE | ~2022-12-17 | XR_ITS ---
EXAMINATION: XR CHEST CLINICAL INFORMATION: Cough. COMPARISON: 08/16/2022 chest radiograph. TECHNIQUE: 2 views of the chest were obtained. FINDINGS: No significant abnormality is noted involving the heart, lungs, mediastinum, bony thorax or soft tissues. XR/XR chest 2V IMPRESSION: No acute cardiopulmonary process.
--- NOTE | 2022-12-17 12:26 | ED.URI ---
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 patient has a history of hypertension, diabetes, obstructive sleep apnea, osteoarthritis COPD, overactive bladder presents for evaluation of mostly abdominal pain that radiates to her back as well as chest pain, cough. patient reports that her symptoms started quite some time ago. She states as a more than a few weeks. Her pain is worse with movement, stretching. her pain is intermittent, at worst a and 10. Patient reports that her pain is all right-sided abdomen for right-sided chest and right-sided back it is not related to exertion denies any fevers, chills denies any injury to the area. Denies any nausea, vomiting, diarrhea <Edward Lyons - Last Filed: 12/17/22 18:45> Related Data Home Medications: Home Medications Medication Instructions Recorded Confirmed acetaminophen 500 mg tablet 500 mg PO QID PRN Pain 07/30/20 11/26/20 citalopram 20 mg tablet 20 mg PO DAILY 07/30/20 11/26/20 gabapentin 300 mg capsule 300 mg PO DAILY 07/30/20 11/26/20 levothyroxine 200 mcg tablet 200 mcg PO DAILY 07/30/20 11/26/20 propranolol 20 mg tablet 20 mg PO BID 07/30/20 11/26/20 sitagliptin phosphate 100 mg 100 mg PO DAILY 07/30/20 11/26/20 tablet (Januvia) alendronate 70 mg tablet 70 mg PO QWEEK 10/13/20 11/26/20 atorvastatin 40 mg tablet 40 mg PO BEDTIME 10/13/20 11/26/20 blood sugar diagnostic #10 ea 10/13/20 11/26/20 fluticasone propionate 50 2 spray intranasal DAILY PRN Nasal 10/13/20 11/26/20 mcg/actuation nasal Congestion spray,suspension insulin lispro 100 unit/mL unit subcut 10/13/20 11/26/20 subcutaneous pen lancets 33 gauge #100 ea 10/13/20 11/26/20 loratadine 10 mg tablet 10 mg PO DAILY PRN allergies 10/13/20 11/26/20 pen needle, diabetic 31 gauge x #50 ea 10/13/20 11/26/2012/23 primidone 50 mg tablet 50 mg PO DAILY 10/13/20 11/26/20 sennosides 8.6 mg tablet 17.2 mg PO DAILY PRN Constipation 10/13/20 11/26/20 trazodone 50 mg tablet 50 mg PO BEDTIME 09/30/21 bupropion HCl 300 mg 24 hr tablet, 300 mg PO QAM 08/19/22 extended release doxepin 10 mg capsule 10 mg PO BEDTIME 08/19/22 glipizide 10 mg tablet, extended 10 mg PO QAM 08/19/22 release 24 hr lisinopril 40 mg tablet 40 mg PO QPM 08/19/22 omeprazole 40 mg capsule,delayed 40 mg PO QAM 08/19/22 release Previous Rx's Medication Instructions Recorded phenazopyridine 200 mg tablet 200 mg PO TID PRN pain 6 doses #6 04/08/21 (Pyridium) tabs mineral oil (Fleet Mineral Oil 118 ml VA DAILY PRN constipation 07/30/21 enema) #6,384 mL benzonatate 200 mg capsule 200 mg PO TID PRN cough #30 caps 02/28/22 tramadol 50 mg tablet 50 - 100 mg PO Q4H PRN pain #20 03/11/22 tabs cephalexin 500 mg capsule 500 mg PO Q12H 5 days #10 caps 05/03/22 albuterol sulfate 90 mcg/actuation 1 inh inhalation QID PRN shortness 08/17/22 aerosol inhaler of breath or wheezing #8.5 grams cyclobenzaprine 10 mg tablet 10 mg PO Q8H #14 tabs 08/17/22 methylcellulose (laxative) 500 mg 500 mg PO BID #60 tabs 08/19/22 tablet (Citrucel) peg-electrolyte solution 420 gram 240 ml PO ONCE 1 day #4,000 mL 08/19/22 oral solution fluticasone fur. 200 mcg-umeclid 1 ea inhalation DAILY #60 ea 09/06/22 62.5 mcg-vilant 25 mcg inhalat.powder (Trelegy Ellipta) furosemide 40 mg tablet (Lasix) 40 mg PO DAILY 30 days #30 tabs 09/16/22 ipratropium 0.5 mg-albuterol 3 mg 3 ml inhalation Q4-6H PRN wheezing 09/16/22 (2.5 mg base)/3 mL nebulization 30 days #180 mL soln budesonide 0.5 mg/2 mL suspension 0.5 mg (2 mL) inhalation BID #180 11/11/22 for nebulization mL theophylline 300 mg 300 mg PO DAILY #30 tabs 12/13/22 tablet,extended release,12 hr <GUS Burgess - Last Filed: 12/17/22 12:33> Allergies/Adverse Reactions: Allergies Allergy/AdvReac Type Severity Reaction Status Date / Time aspirin [Aspirin] Allergy Mild UPSET Verified 09/22/22 11:15 STOMACH ibuprofen [From Motrin] Allergy Mild Gastrointestinal Verified 09/22/22 11:15 Upset <GUS Burgess - Last Filed: 12/17/22 12:33> Review of Systems Constitutional: Constitutional: Reports as per HPI, Denies chills, Denies fatigue and Denies headache(s) <Edward Lyons - Last Filed: 12/17/22 18:45> ENT: Denies headache(s) <Edward Lyons - Last Filed: 12/17/22 18:45> Cardiovascular: Cardiovascular: Reports chest pain and Reports dyspnea <Edward Lyons - Last Filed: 12/17/22 18:45> Respiratory: Respiratory: Reports cough and Reports dyspnea <Edward Lyons - Last Filed: 12/17/22 18:45> Gastrointestinal: Gastrointestinal: Reports abdominal pain, Denies constipation and Denies vomiting <Edward Lyons - Last Filed: 12/17/22 18:45> Genitourinary: Genitourinary: Denies dysuria <Edward Lyons - Last Filed: 12/17/22 18:45> Musculoskeletal: Musculoskeletal: Reports back pain <Edward Lyons - Last Filed: 12/17/22 18:45> Neurologic: Denies headache(s) <Edward Lyons - Last Filed: 12/17/22 18:45> Endocrine: Endocrine: Denies fatigue <Edward Lyons - Last Filed: 12/17/22 18:45> [facility] Past Medical History Medical History: Medical History Anxiety and depression Back pain Bilateral primary osteoarthritis of knee Colon cancer screening COPD (chronic obstructive pulmonary disease) COPD exacerbation Diabetes mellitus Frequency of micturition GERD (gastroesophageal reflux disease) High cholesterol Hypertension Hypothyroidism ENMA on CPAP Osteoarthritis Tubular adenoma of colon Urgency incontinence Urgency of micturition <GUS Burgess - Last Filed: 12/17/22 12:33> Surgical History: Surgical History History of cholecystectomy History of lumpectomy of right breast Hx of colonoscopy Hx of cystoscopy Hx of right knee surgery <GUS Burgess - Last Filed: 12/17/22 12:33> Family History Family History: Family History Mother History of pancreatic cancer <GUS Burgess - Last Filed: 12/17/22 12:33> Social History Social History: Social History (Updated 08/19/22 @ 13:08 by Emily Manrique PA-C) Household Members Other:: lives with grandson Are you a primary foster care social worker to a significant other at home: No Do you presently have visiting nurse or other home services: Yes ([employer]) Alcohol intake: never Patient Tobacco Use Status: Never used Tobacco Years Smoked: 30 Advance Directives: No Advance Directives Information Provided: No <GUS Burgess - Last Filed: 12/17/22 12:33> Physical Exam Vital Signs: Vital Signs: Last Vital Signs Temp 98.1 F 12/17/22 12:28 Pulse 90 12/17/22 12:28 Resp 20 12/17/22 12:28 BP 90/42 L 12/17/22 12:28 Pulse Ox 96 12/17/22 12:28 O2 Del Method 12/17/22 12:28 BMI result Body Mass Index 38.9 <GUS Burgess - Last Filed: 12/17/22 12:33> Vital Signs: Last Vital Signs Temp 98.1 F 12/17/22 12:28 Pulse 90 12/17/22 12:28 Resp 20 12/17/22 12:28 BP 90/42 L 12/17/22 12:28 Pulse Ox 96 12/17/22 12:28 O2 Del Method 12/17/22 12:28 BMI result Body Mass Index 38.9 <Edward Hawkins - Last Filed: 12/17/22 18:45> Const: General: cooperative, healthy appearing, comfortable and no acute distress <Edward Hawkins - Last Filed: 12/17/22 18:45> Orientation/consciousness: patient oriented x3 <Edward - Last Filed: 12/17/22 18:45> Limitations: language barrier <Edward - Last Filed: 12/17/22 18:45> HEENT: Head: Yes normocephalic and Yes atraumatic <Edward - Last Filed: 12/17/22 18:45> Mouth: other (upper dentures in place) <Edward O - Last Filed: 12/17/22 18:45> Throat: Yes posterior oropharynx normal <Edward - Last Filed: 12/17/22 18:45> Eyes: Eyelids: Yes eyelids normal <Edward O - Last Filed: 12/17/22 18:45> Conjunctivae: conjunctivae normal <Edward - Last Filed: 12/17/22 18:45> Sclerae: sclerae normal <Edward - Last Filed: 12/17/22 18:45> Corneas: corneas normal <Edward O - Last Filed: 12/17/22 18:45> Pupils: Equal, round and reactive pupils present < Last Filed: 12/17/22 18:45> EOM: EOMs intact bilaterally < Last Filed: 12/17/22 18:45> Neck: Neck: Yes full ROM < Last Filed: 12/17/22 18:45> Resp: Effort & Inspection: normal respiratory effort and able to speak in complete sentences < Last Filed: 12/17/22 18:45> Auscultation: clear to auscultation bilaterally < Last Filed: 12/17/22 18:45> Cardio: Rate: regular rate < Last Filed: 12/17/22 18:45> Rhythm: regular rhythm < Last Filed: 12/17/22 18:45> GI: Inspection: Yes normal to inspection and No distended < Last Filed: 12/17/22 18:45> Palpation (GI): Soft to palpation, Tenderness to palpation present (GI) in the RLQ and in the RUQ; Retana's sign negative and Rovsing's sign negative and no guarding < Last Filed: 12/17/22 18:45> Auscultation: normoactive bowel sounds < Last Filed: 12/17/22 18:45> Back/Spine/Pelvis: Other: patient has mild lumbar and thoracic paraspinal spasms eyes without any visual or palpable deformities. No vertebral tenderness < Last Filed: 12/17/22 18:45> Thoracic/Lumbar Spine: thoracic and lumbar spine normal to inspection, No Thoracic/lumbar spine scar(s) and straight leg raise negative bilaterally < Last Filed: 12/17/22 18:45> Skin: General skin exam: no rashes or lesions noted < Last Filed: 12/17/22 18:45> Neuro: General: patient oriented x3 < Last Filed: 12/17/22 18:45> Cranial nerves: Yes Equal, round and reactive pupils present < Last Filed: 12/17/22 18:45> Cognition (Neuro): normal cognition <Edward HawkinsMariposay - Last Filed: 12/17/22 18:45> Extrem: Other: Moving all extremities well <Edward Lyons - Last Filed: 12/17/22 18:45> Course Course Course Narrative: RME - 72 yo citizen of [place] speaking female, with a hx of COPD, pulmonary fibrosis, and diabetes, who presents to the emergency department with complaints of chest pain, abdominal pain, and back pain x 1 week. Also states that she has had shortness of breath. States that her chest pain is intermittent, right sided and radiates into her back. States the chest pain worsens with movement and with coughing. BP 88/49 in triage. Patient states that her blood pressure is usually low states its usually systolically 94. Lung sounds diminished in the bases, no wheezes. Pain in the right upper abdomen and right upper back. States that she has been vomiting in the morning for the last two days. Plan - Labs, EKG, chest xray, US abdomen ordered. <GUS Burgess - Last Filed: 12/17/22 12:33> Reevaluation(s) Reevaluation #1: Patient's troponin without significant change. CT scan of the abdomen pelvis as well as CTA chest not show any acute abnormalities. Patient did not give a UA, house no urologic complaints. CT scan abdomen pelvis did not show any perinephric fat stranding, hydronephrosis with I doubt this is the etiology of her symptoms. Will not alter for UA at this time. The patient can be discharged will treat her symptoms is musculoskeletal pain. <Edward Rajeshy - Last Filed: 12/17/22 18:45> Time: 18:42 <Edward Rajeshy - Last Filed: 12/17/22 18:45> Medications Administered Discontinued Medications Generic Name Dose Route Start Last Admin Trade Name Freq PRN Reason Stop Dose Admin Sodium Chloride 1,000 mls @ 999 mls/hr 12/17/22 16:45 12/17/22 17:36 Ns IV 12/17/22 17:45 Infused .Q1H1M MASOUD Infusion Iohexol 100 ml 12/17/22 17:54 12/17/22 17:55 Iohexol 350 Mg/Ml 100 Ml Infus..Btl IV 12/17/22 17:55 85 ml ONCE ONE Administration <GUS Burgess - Last Filed: 12/17/22 12:33> Medications Administered Discontinued Medications Generic Name Dose Route Start Last Admin Trade Name Gaviota PRN Reason Stop Dose Admin Sodium Chloride 1,000 mls @ 999 mls/hr 12/17/22 16:45 12/17/22 17:36 Ns IV 12/17/22 17:45 Infused .Q1H1M MASOUD Infusion Iohexol 100 ml 12/17/22 17:54 12/17/22 17:55 Iohexol 350 Mg/Ml 100 Ml Infus..Btl IV 12/17/22 17:55 85 ml ONCE ONE Administration <Edward Lyons - Last Filed: 12/17/22 18:45> Medical Decision Making Medical Decision Making [facility] Narrative: 72 within with multiple medical issues being for evaluation of abdominal and chest pain. Her son is 100 persistent for several weeks, she has had negative troponin. Her chest pain is not reproducible abdominal and back pain are visible. She had a similar presentation in August with negative workup. Clinically her symptoms are most likely musculoskeletal in origin as her abdominal back pain reproducible, worse with movement. Her chest pa.in is reproducible with coughing. CXR labs are without significant abnormality except for a blood sugar of 215. Initial troponin is negative at 16. We will redraw a trending troponin. The patient's blood pressure is noted to be low on arrival at 90/42. Vital signs are otherwise unremarkable. She reports that her blood pressure at baseline is systolic less than 100. Will treat with IV fluids. We did CT of the chest and a CT scan with IV contrast of the abdomen given her multiple risk factors. the patient noted an ultrasound of her abdomen did not show any evidence of cholecystitis. I feel that if her CTA chest, CT has been and repeat troponin are negative, patient can be safely discharged at this time. otherwise will address any abnormal findings <Edward Lyons - Last Filed: 12/17/22 18:45> Differential Diagnosis Back pain Muscle strain Muscle spasms Chest wall pain Radiculopathy ACS less likely COPD upper respiratory infection PE cholelithiasis Acute cholecystitis Constipation Bowel obstruction <Edward Lyons - Last Filed: 12/17/22 18:45> Lab Data [facility] Lab Attestation statement: I reviewed the patient's lab results. <Edward Lyons - Last Filed: 12/17/22 18:45> Elevated blood sugar of 215 <Edward Lyons - Last Filed: 12/17/22 18:45> Result Diagrams: 12/17/22 12:41 12/17/22 12:41 <GUS Burgess - Last Filed: 12/17/22 12:33> Labs: Lab Results 12/17/22 12/17/22 12/17/22 Range/Units 12:41 12:41 12:41 WBC 4.8 (4.8-10.8) X10*3/uL RBC 4.95 (4.20-5.50) X10*6/uL Hgb 13.7 (12.0-16.0) g/dl Hct 43.2 (37.0-47.0) % MCV 87.3 (80.0-98.0) fL MCH 27.7 (27.0-33.0) pg MCHC 31.7 (31.0-35.0) g/dl RDW 13.3 (11.0-16.0) % Plt Count 178 (160-400) X10*3/uL MPV 10.5 (9.4-12.3) fL Immature Gran % (Auto) 0.2 (0.0-0.4) % Neut % (Auto) 51.1 (45-73) % Lymph % (Auto) 36.9 (20-40) % Dickenson % (Auto) 7.9 (2-11) % Eos % (Auto) 3.1 (0-4) % Baso % (Auto) 0.8 (0-2) % Lymph # (Auto) 1.8 (1.2-4.9) X10*3/uL Dickenson # (Auto) 0.4 (0.1-1.2) X10*3/uL Eos # (Auto) 0.2 (0.0-0.4) X10*3/uL Baso # (Auto) 0.0 (0.0-0.2) X10*3/uL Abs Immat Gran (auto) 0.01 (0.00-0.03) X10*3/uL Absolute Neuts (auto) 2.5 (2.0-8.3) x10*3/uL Absolute Nucleated RBC 0.000 (0.0-0.012) X10*3/uL Nucleated RBC % (auto) 0.0 (0.0-0.2) /100WBC Sodium 139 (135-145) mmol/L Potassium 4.0 (3.3-5.1) mmol/L Chloride 106 (96-108) mmol/L Carbon Dioxide 26 (22-29) mmol/L Anion Gap 11 L (12-20) BUN 14 (9-16) mg/dL Creatinine 1.30 (0.5-1.4) mg/dL Estim Creat Clear Calc 42.8 Estimated GFR 40 Random Glucose 215 H (60-115) mg/dL Calcium 8.6 D (8.4-10.2) mg/dL Magnesium 1.8 (1.6-2.6) mg/dL Total Bilirubin 0.8 (0.0-1.0) mg/dL Direct Bilirubin 0.2 (0.0-0.5) mg/dL AST 18 (5-31) U/L ALT 13 (0-31) U/L Alkaline Phosphatase 97 (39-117) U/L Troponin I High Sens 16.0 (<3.5-17.0) ng/L Total Protein 6.5 (6.5-8.0) g/dL Albumin 4.0 (3.5-5.0) g/dL Lipase 24 (8-78) U/L 12/17/22 Range/Units 16:46 WBC (4.8-10.8) X10*3/uL RBC (4.20-5.50) X10*6/uL Hgb (12.0-16.0) g/dl Hct (37.0-47.0) % MCV (80.0-98.0) fL MCH (27.0-33.0) pg MCHC (31.0-35.0) g/dl RDW (11.0-16.0) % Plt Count (160-400) X10*3/uL MPV (9.4-12.3) fL Immature Gran % (Auto) (0.0-0.4) % Neut % (Auto) (45-73) % Lymph % (Auto) (20-40) % Dickenson % (Auto) (2-11) % Eos % (Auto) (0-4) % Baso % (Auto) (0-2) % Lymph # (Auto) (1.2-4.9) X10*3/uL Dickenson # (Auto) (0.1-1.2) X10*3/uL Eos # (Auto) (0.0-0.4) X10*3/uL Baso # (Auto) (0.0-0.2) X10*3/uL Abs Immat Gran (auto) (0.00-0.03) X10*3/uL Absolute Neuts (auto) (2.0-8.3) x10*3/uL Absolute Nucleated RBC (0.0-0.012) X10*3/uL Nucleated RBC % (auto) (0.0-0.2) /100WBC Sodium (135-145) mmol/L Potassium (3.3-5.1) mmol/L Chloride (96-108) mmol/L Carbon Dioxide (22-29) mmol/L Anion Gap (12-20) BUN (9-16) mg/dL Creatinine (0.5-1.4) mg/dL Estim Creat Clear Calc Estimated GFR Random Glucose (60-115) mg/dL Calcium (8.4-10.2) mg/dL Magnesium (1.6-2.6) mg/dL Total Bilirubin (0.0-1.0) mg/dL Direct Bilirubin (0.0-0.5) mg/dL AST (5-31) U/L ALT (0-31) U/L Alkaline Phosphatase (39-117) U/L Troponin I High Sens 18.7 H (<3.5-17.0) ng/L Total Protein (6.5-8.0) g/dL Albumin (3.5-5.0) g/dL Lipase (8-78) U/L <GUS Burgess - Last Filed: 12/17/22 12:33> Lab Results 12/17/22 12/17/22 12/17/22 Range/Units 12:41 12:41 12:41 WBC 4.8 (4.8-10.8) X10*3/uL RBC 4.95 (4.20-5.50) X10*6/uL Hgb 13.7 (12.0-16.0) g/dl Hct 43.2 (37.0-47.0) % MCV 87.3 (80.0-98.0) fL MCH 27.7 (27.0-33.0) pg MCHC 31.7 (31.0-35.0) g/dl RDW 13.3 (11.0-16.0) % Plt Count 178 (160-400) X10*3/uL MPV 10.5 (9.4-12.3) fL Immature Gran % (Auto) 0.2 (0.0-0.4) % Neut % (Auto) 51.1 (45-73) % Lymph % (Auto) 36.9 (20-40) % Dickenson % (Auto) 7.9 (2-11) % Eos % (Auto) 3.1 (0-4) % Baso % (Auto) 0.8 (0-2) % Lymph # (Auto) 1.8 (1.2-4.9) X10*3/uL Dickenson # (Auto) 0.4 (0.1-1.2) X10*3/uL Eos # (Auto) 0.2 (0.0-0.4) X10*3/uL Baso # (Auto) 0.0 (0.0-0.2) X10*3/uL Abs Immat Gran (auto) 0.01 (0.00-0.03) X10*3/uL Absolute Neuts (auto) 2.5 (2.0-8.3) x10*3/uL Absolute Nucleated RBC 0.000 (0.0-0.012) X10*3/uL Nucleated RBC % (auto) 0.0 (0.0-0.2) /100WBC Sodium 139 (135-145) mmol/L Potassium 4.0 (3.3-5.1) mmol/L Chloride 106 (96-108) mmol/L Carbon Dioxide 26 (22-29) mmol/L Anion Gap 11 L (12-20) BUN 14 (9-16) mg/dL Creatinine 1.30 (0.5-1.4) mg/dL Estim Creat Clear Calc 42.8 Estimated GFR 40 Random Glucose 215 H (60-115) mg/dL Calcium 8.6 D (8.4-10.2) mg/dL Magnesium 1.8 (1.6-2.6) mg/dL Total Bilirubin 0.8 (0.0-1.0) mg/dL Direct Bilirubin 0.2 (0.0-0.5) mg/dL AST 18 (5-31) U/L ALT 13 (0-31) U/L Alkaline Phosphatase 97 (39-117) U/L Troponin I High Sens 16.0 (<3.5-17.0) ng/L Total Protein 6.5 (6.5-8.0) g/dL Albumin 4.0 (3.5-5.0) g/dL Lipase 24 (8-78) U/L 12/17/22 Range/Units 16:46 WBC (4.8-10.8) X10*3/uL RBC (4.20-5.50) X10*6/uL Hgb (12.0-16.0) g/dl Hct (37.0-47.0) % MCV (80.0-98.0) fL MCH (27.0-33.0) pg MCHC (31.0-35.0) g/dl RDW (11.0-16.0) % Plt Count (160-400) X10*3/uL MPV (9.4-12.3) fL Immature Gran % (Auto) (0.0-0.4) % Neut % (Auto) (45-73) % Lymph % (Auto) (20-40) % Dickenson % (Auto) (2-11) % Eos % (Auto) (0-4) % Baso % (Auto) (0-2) % Lymph # (Auto) (1.2-4.9) X10*3/uL Dickenson # (Auto) (0.1-1.2) X10*3/uL Eos # (Auto) (0.0-0.4) X10*3/uL Baso # (Auto) (0.0-0.2) X10*3/uL Abs Immat Gran (auto) (0.00-0.03) X10*3/uL Absolute Neuts (auto) (2.0-8.3) x10*3/uL Absolute Nucleated RBC (0.0-0.012) X10*3/uL Nucleated RBC % (auto) (0.0-0.2) /100WBC Sodium (135-145) mmol/L Potassium (3.3-5.1) mmol/L Chloride (96-108) mmol/L Carbon Dioxide (22-29) mmol/L Anion Gap (12-20) BUN (9-16) mg/dL Creatinine (0.5-1.4) mg/dL Estim Creat Clear Calc Estimated GFR Random Glucose (60-115) mg/dL Calcium (8.4-10.2) mg/dL Magnesium (1.6-2.6) mg/dL Total Bilirubin (0.0-1.0) mg/dL Direct Bilirubin (0.0-0.5) mg/dL AST (5-31) U/L ALT (0-31) U/L Alkaline Phosphatase (39-117) U/L Troponin I High Sens 18.7 H (<3.5-17.0) ng/L Total Protein (6.5-8.0) g/dL Albumin (3.5-5.0) g/dL Lipase (8-78) U/L <Edward Lyons - Last Filed: 12/17/22 18:45> Independent Interpretation I performed an independent interpretation of an: EKG and Plain X-Ray <Edward Lyons - Last Filed: 12/17/22 18:45> Interpretation: no acute intrathoracic pathology on chest x-ray. EKG normal sinus rhythm rate of 80 beats per minute. No significant ST abnormalities <Edward Lyons - Last Filed: 12/17/22 18:45> Radiology Impression Discussion of test interpretation with radiology: I have reviewed the radiologist's reading. <Edward Lyons - Last Filed: 12/17/22 18:45> Discharge Plan Discharge Clinical Impression: Back pain, Atypical chest pain <GUS Burgess - Last Filed: 12/17/22 12:33> Patient Disposition: Home, Self-Care <GUS Burgess - Last Filed: 12/17/22 12:33> Instructions: Chest Pain (ED) <GUS Burgess - Last Filed: 12/17/22 12:33> Additional Instructions: your workup in the emergency department was reassuring. Your blood test, imaging of her chest and abdomen as well as her EKG did not show any concerning abnormalities. I believe your pain is most likely muscle pains. You may use Tylenol for the pain or you may add ibuprofen and take it with food as this is known to cause GI upset and is listed as an adverse reaction for you. Follow-up with your primary doctor <GUS Burgess - Last Filed: 12/17/22 12:33> Prescriptions: No Action Trelegy Ellipta 200-62.5-25 mcg blister with device 1 ea inhalation DAILY Qty: 60 5RF budesonide 0.5 mg/2 mL suspension for nebulization 0.5 mg inhalation BID Qty: 180 1RF theophylline 300 mg tablet extended release 12 hr 300 mg PO DAILY Qty: 30 3RF phenazopyridine [Pyridium] 200 mg tablet 200 mg PO TID PRN (Reason: pain) Qty: 6 0RF mineral oil [Fleet Mineral Oil] Enema 118 ml [place] DAILY PRN (Reason: constipation) Qty: 6384 0RF Rx Instructions: discard any unused portion benzonatate 200 mg capsule 200 mg PO TID PRN (Reason: cough) Qty: 30 0RF tramadol 50 mg tablet 50 - 100 mg PO Q4H PRN (Reason: pain) Qty: 20 0RF cephalexin 500 mg capsule 500 mg PO Q12H 5 Days Qty: 10 0RF cyclobenzaprine 10 mg tablet 10 mg PO Q8H Qty: 14 0RF albuterol sulfate 90 mcg/actuation HFA aerosol inhaler 1 inh inhalation QID PRN (Reason: shortness of breath or wheezing) Qty: 8.5 0RF propranolol 20 mg tablet 20 mg PO BID Januvia 100 mg tablet 100 mg PO DAILY levothyroxine 200 mcg tablet 200 mcg PO DAILY acetaminophen 500 mg tablet 500 mg PO QID PRN (Reason: Pain) gabapentin 300 mg capsule 300 mg PO DAILY citalopram 20 mg tablet 20 mg PO DAILY fluticasone propionate 50 mcg/actuation spray,suspension 2 spray intranasal DAILY PRN (Reason: Nasal Congestion) alendronate 70 mg tablet 70 mg PO QWEEK sennosides 8.6 mg tablet 17.2 mg PO DAILY PRN (Reason: Constipation) primidone 50 mg tablet 50 mg PO DAILY (DME) pen needle, diabetic 31 gauge x 3/16 needle See Rx Instructions .ROUTE TID Qty: 50 Rx Instructions: As directed insulin lispro 100 unit/mL insulin pen subcut atorvastatin 40 mg tablet 40 mg PO BEDTIME (DME) lancets 33 gauge misc See Rx Instructions Not Applicable BID Qty: 100 Rx Instructions: As directed loratadine 10 mg tablet 10 mg PO DAILY PRN (Reason: allergies) (DME) OneTouch Ultra Blue Test Strip Strip See Rx Instructions Not Applicable BID Qty: 10 Rx Instructions: As directed trazodone 50 mg tablet 50 mg PO BEDTIME bupropion HCl 300 mg tablet extended release 24 hr 300 mg PO QAM lisinopril 40 mg tablet 40 mg PO QPM omeprazole 40 mg capsule,delayed release(DR/EC) 40 mg PO QAM doxepin 10 mg capsule 10 mg PO BEDTIME glipizide 10 mg tablet extended release 24hr 10 mg PO QAM peg-electrolyte soln 420 gram recon soln 240 ml PO ONCE 1 Days Qty: 4000 0RF Rx Instructions: Start at 6:00pm the evening before procedure, drink one 8oz glass every 15 minutes until complete Citrucel 500 mg tablet 500 mg PO BID Qty: 60 5RF furosemide [Lasix] 40 mg tablet 40 mg PO DAILY 30 Days Qty: 30 3RF ipratropium-albuterol 0.5 mg-3 mg(2.5 mg base)/3 mL solution for nebulization 3 ml inhalation Q4-6H PRN (Reason: wheezing) 30 Days Qty: 180 6RF <GUS Burgess - Last Filed: 12/17/22 12:33>
[2022-12-17 12:28] VITALS: BP 90/42; PULSE 90; RESP 20; TEMP 36.7; O2SAT 96; BMI 38.9
--- NOTE | 2022-12-17 12:31 | ECG_ITS ---
Test Reason : chest pain Blood Pressure : / mmHG Vent. Rate : 080 BPM Atrial Rate : 080 BPM P-R Int : 164 ms QRS Dur : 146 ms QT Int : 416 ms P-R-T Axes : 040 -22 012 degrees QTc Int : 479 ms Normal sinus rhythm Right bundle branch block Abnormal ECG When compared with ECG of 16-AUG-2022 21:46, No significant change was found Referred By: Altagracia Hodges Electronically Signed By:TODD GILL
--- NOTE | 2022-12-17 12:42 | MHC.EDTECH ---
EKG completed and signd by . Labs drawn and sent
[2022-12-17 12:53] LABS: MANUAL DIFF FLAG NO
[2022-12-17 12:55] LABS: Basophils Percent Auto 0.8 % (0-2); Eosinophils Absolute Auto 0.2 X10*3/uL (0.0-0.4); Eosinophils Percent Auto 3.1 % (0-4); Hematocrit 43.2 % (37.0-47.0); Hemoglobin 13.7 g/dl (12.0-16.0); Imm Gran Abs Auto 0.01 X10*3/uL (0.00-0.03); Imm Gran Pct Auto 0.2 % (0.0-0.4); Lymphocytes Absolute Auto 1.8 X10*3/uL (1.2-4.9); Lymphocytes Percent Auto 36.9 % (20-40); Mean Corpuscular HGB Conc 31.7 g/dl (31.0-35.0); Mean Corpuscular Hemoglobin 27.7 pg (27.0-33.0); Mean Corpuscular Volume 87.3 fL (80.0-98.0); Mean Platelet Volume 10.5 fL (9.4-12.3); Monocytes Absolute Auto 0.4 X10*3/uL (0.1-1.2); Monocytes Percent Auto 7.9 % (2-11); Neutrophils Absolute Auto 2.5 x10*3/uL (2.0-8.3); Neutrophils Percent Auto 51.1 % (45-73); Platelet Count 178 X10*3/uL (160-400); Red Blood Count 4.95 X10*6/uL (4.20-5.50); Red Cell Distribution Width 13.3 % (11.0-16.0); White Blood Count 4.8 X10*3/uL (4.8-10.8)
[2022-12-17 13:10] LABS: Alanine Aminotransferase 13 U/L (0-31); Alkaline Phosphatase 97 U/L (39-117); Anion Gap 11 (12-20); Aspartate Amino Transferase 18 U/L (5-31); Bilirubin Direct 0.2 mg/dL (0.0-0.5); Bilirubin Total 0.8 mg/dL (0.0-1.0); Blood Urea Nitrogen 14 mg/dL (9-16); Calcium 8.6 mg/dL (8.4-10.2); Carbon Dioxide 26 mmol/L (22-29); Chloride 106 mmol/L (96-108); Creatinine Clr Calc Pharmacy 42.8; Estimated Glomerular Filt Rate 40; Glucose Random 215 mg/dL (60-115); Lipase 24 U/L (8-78); Magnesium 1.8 mg/dL (1.6-2.6); Sodium 139 mmol/L (135-145); Total Protein 6.5 g/dL (6.5-8.0)
[2022-12-17] MEDS: 0.9 % Sodium Chloride 1,000 ML 999 ML IV (16:48)
[2022-12-17 17:17] LABS: Troponin-I High Sensitivity 18.7 ng/L (<3.5-17.0)
[2022-12-17] MEDS: iohexoL 350 MG/ML 100 ML INFUS..BTL IV (17:55)
== END 2022-12-17 18:49 | disposition home or self-care (01) ==
PROVIDERS: Physician Assistant; Emergency Provider Internal Medicine; PCP Internal Medicine
DX: R10.9 Unspecified abdominal pain (principal); R05.9 Cough, unspecified; R07.89 Other chest pain; I10 Essential (primary) hypertension; E11.9 Type 2 diabetes mellitus without complications; N32.81 Overactive bladder
CPT/HCPCS: 36415; 71046; 71275; 74177; 76705; 80048; 80076; 83690; 83735; 84484; 85025; 93005; 96360; 99284; 99285; Q9967

== ENCOUNTER 2023-01-02 18:16 | Emergency (ER) | payer OTHER, SELFPAY ==
--- NOTE | ~2023-01-02 | CT_ITS ---
EXAMINATION: CT CERVICAL SPINE WITHOUT CONTRAST CLINICAL INFORMATION: Posterior neck pain COMPARISON: 12/28/2020. TECHNIQUE: A noncontrast CT of the cervical spine with sagittal and coronal reformats. This CT examination was performed using dose optimization techniques as appropriate, variously including the following: *Automated exposure control *Adjustment of mA and/or kV according to patient size (this includes techniques or standardized protocols for targeted exams where dose is matched to indication/reason for exam; i.e. extremities or head) *Use of iterative reconstruction technique DLP: 588 mGy-cm FINDINGS: Normal alignment. No fracture. No prevertebral soft tissue swelling. Possible surgical clip status post thyroidectomy. Multilevel degenerative disc disease, most prominent at C5-C6 and C6-C7, not significantly changed. CT/CT cervical spine wo IV con IMPRESSION: No cervical spine fracture or traumatic subluxation. Multilevel degenerative disc disease, most prominent at C5-C6 and C6-C7. Fleischner guidelines were followed.
--- NOTE | ~2023-01-02 | XR_ITS ---
EXAMINATION: XR SHOULDER, RIGHT CLINICAL INFORMATION: Right shoulder pain COMPARISON: None available. TECHNIQUE: Three views of the right shoulder. FINDINGS: Degenerative changes are present in the right shoulder with some mild osteophyte formation at the inferior glenoid along with degenerative changes at the AC joint. Sclerosis is present at the greater tubercle which can be seen with rotator cuff disease. No tendinous calcifications are seen. No fractures or dislocations. XR/XR shoulder RT min 2V IMPRESSION: Degenerative changes right shoulder as described above.
--- NOTE | 2023-01-02 18:36 | ED.GENADULT ---
HPI - General Adult General Chief complaint: Extremity Injury, Upper <GUS Tinsley - Last Filed: 01/03/23 12:20> Stated complaint: right arm pain/cant lift <GUS Tinsley - Last Filed: 01/03/23 12:20> Time Seen by Provider: 01/02/23 21:15 <GUS Tinsley - Last Filed: 01/03/23 12:20> History of Present Illness HPI narrative: Patient is 72 years old presents today with having right-sided neck pain. Patient claims there is no pain when she leans to the left. The pain is worse when she moved to the right. No weaknesses in the arms or legs. No chest pain or shortness of breath no diaphoresis. No pain on urination. Patient is from home. No abdominal pain. No nausea no vomiting. No focal weakness. No changes in vision. Patient denies any trauma. <Bettie Overton MD - Last Filed: 01/02/23 22:24> Related Data Home medications: Home Medications Medication Instructions Recorded Confirmed acetaminophen 500 mg tablet 500 mg PO QID PRN Pain 07/30/20 11/26/20 citalopram 20 mg tablet 20 mg PO DAILY 07/30/20 11/26/20 gabapentin 300 mg capsule 300 mg PO DAILY 07/30/20 11/26/20 levothyroxine 200 mcg tablet 200 mcg PO DAILY 07/30/20 11/26/20 propranolol 20 mg tablet 20 mg PO BID 07/30/20 11/26/20 sitagliptin phosphate 100 mg 100 mg PO DAILY 07/30/20 11/26/20 tablet (Januvia) alendronate 70 mg tablet 70 mg PO QWEEK 10/13/20 11/26/20 atorvastatin 40 mg tablet 40 mg PO BEDTIME 10/13/20 11/26/20 blood sugar diagnostic #10 ea 10/13/20 11/26/20 fluticasone propionate 50 2 spray intranasal DAILY PRN Nasal 10/13/20 11/26/20 mcg/actuation nasal Congestion spray,suspension insulin lispro 100 unit/mL unit subcut 10/13/20 11/26/20 subcutaneous pen lancets 33 gauge #100 ea 10/13/20 11/26/20 loratadine 10 mg tablet 10 mg PO DAILY PRN allergies 10/13/20 11/26/20 pen needle, diabetic 31 gauge x #50 ea 10/13/20 11/26/20 3/16 primidone 50 mg tablet 50 mg PO DAILY 10/13/20 11/26/20 sennosides 8.6 mg tablet 17.2 mg PO DAILY PRN Constipation 10/13/20 11/26/20 trazodone 50 mg tablet 50 mg PO BEDTIME 09/30/21 bupropion HCl 300 mg 24 hr tablet, 300 mg PO QAM 08/19/22 extended release doxepin 10 mg capsule 10 mg PO BEDTIME 08/19/22 glipizide 10 mg tablet, extended 10 mg PO QAM 08/19/22 release 24 hr lisinopril 40 mg tablet 40 mg PO QPM 08/19/22 omeprazole 40 mg capsule,delayed 40 mg PO QAM 08/19/22 release Previous Rx's Medication Instructions Recorded phenazopyridine 200 mg tablet 200 mg PO TID PRN pain 6 doses #6 04/08/21 (Pyridium) tabs mineral oil (Fleet Mineral Oil 118 ml [place] DAILY PRN constipation 07/30/21 enema) #6,384 mL benzonatate 200 mg capsule 200 mg PO TID PRN cough #30 caps 02/28/22 tramadol 50 mg tablet 50 - 100 mg PO Q4H PRN pain #20 03/11/22 tabs cephalexin 500 mg capsule 500 mg PO Q12H 5 days #10 caps 05/03/22 albuterol sulfate 90 mcg/actuation 1 inh inhalation QID PRN shortness 08/17/22 aerosol inhaler of breath or wheezing #8.5 grams cyclobenzaprine 10 mg tablet 10 mg PO Q8H #14 tabs 08/17/22 methylcellulose (laxative) 500 mg 500 mg PO BID #60 tabs 08/19/22 tablet (Citrucel) peg-electrolyte solution 420 gram 240 ml PO ONCE 1 day #4,000 mL 08/19/22 oral solution fluticasone fur. 200 mcg-umeclid 1 ea inhalation DAILY #60 ea 09/06/22 62.5 mcg-vilant 25 mcg inhalat.powder (Trelegy Ellipta) ipratropium 0.5 mg-albuterol 3 mg 3 ml inhalation Q4-6H PRN wheezing 09/16/22 (2.5 mg base)/3 mL nebulization 30 days #180 mL soln budesonide 0.5 mg/2 mL suspension 0.5 mg (2 mL) inhalation BID #180 11/11/22 for nebulization mL theophylline 300 mg 300 mg PO DAILY #30 tabs 12/13/22 tablet,extended release,12 hr furosemide 40 mg tablet 40 mg PO QAM 30 days #30 tabs 12/30/22 cyclobenzaprine 10 mg tablet 10 mg PO TID PRN pain #14 tabs 01/02/23 <GUS Tinsley - Last Filed: 01/03/23 12:20> Allergies/adverse reactions: Allergies Allergy/AdvReac Type Severity Reaction Status Date / Time aspirin [Aspirin] Allergy Mild UPSET Verified 09/22/22 11:15 STOMACH ibuprofen [From Motrin] Allergy Mild Gastrointestinal Verified 09/22/22 11:15 Upset <GUS Tinsley - Last Filed: 01/03/23 12:20> Review of Systems Review of Systems: No fever no chills no nuchal rigidity no focal weakness <Bettie Overton MD - Last Filed: 01/02/23 22:24> Yes all other systems are reviewed and are negative <Bettie Overton MD - Last Filed: 01/02/23 22:24> [facility] Past Medical History Medical History: Medical History Anxiety and depression Back pain Bilateral primary osteoarthritis of knee Colon cancer screening COPD (chronic obstructive pulmonary disease) COPD exacerbation Diabetes mellitus Frequency of micturition GERD (gastroesophageal reflux disease) High cholesterol Hypertension Hypothyroidism ENMA on CPAP Osteoarthritis Tubular adenoma of colon Urgency incontinence Urgency of micturition <GUS Tinsley - Last Filed: 01/03/23 12:20> Surgical History: Surgical History History of cholecystectomy History of lumpectomy of right breast Hx of colonoscopy Hx of cystoscopy Hx of right knee surgery <GUS Tinsley - Last Filed: 01/03/23 12:20> Family History Family History: Family History Mother History of pancreatic cancer <GUS Tinsley - Last Filed: 01/03/23 12:20> Social History Social History: Social History (Updated 08/19/22 @ 13:08 by Emily Manrique PA-C) Household Members Other:: lives with grandson Are you a primary before and after school daycare worker to a significant other at home: No Do you presently have visiting nurse or other home services: Yes ([employer]) Alcohol intake: never Patient Tobacco Use Status: Never used Tobacco Years Smoked: 30 Advance Directives: No Advance Directives Information Provided: Yes <GUS Tinsley Last Filed: 01/03/23 12:20> Physical Exam ED Vital Signs: Vital Signs - 24 hr 01/02/23 18:41 01/02/23 22:14 Temperature 99.0 F 96.8 F Pulse Rate 98 85 Respiratory Rate 18 18 Blood Pressure 125/75 118/69 Pulse Oximetry 94 97 Oxygen Delivery Method Room Air Room Air BMI result Body Mass Index 41.5 <GUS Tinsley - Last Filed: 01/03/23 12:20> Vital Signs - 24 hr 01/02/23 18:41 01/02/23 22:14 Temperature 99.0 F 96.8 F Pulse Rate 98 85 Respiratory Rate 18 18 Blood Pressure 125/75 118/69 Pulse Oximetry 94 97 Oxygen Delivery Method Room Air Room Air BMI result Body Mass Index 41.5 Appearance: Alert. Oriented X3. No acute distress. Eyes: Pupils equal, round and reactive to light. ENT: Pharynx normal. Neck: Normal inspection. Neck supple. No lymph nodes noted. No crepitus. No posterior C-spine tenderness. Trachea is midline. Pain on movement of the head to the right. No nuchal rigidity. CVS: Normal heart rate and rhythm. Pulses normal. Normal S1 and S2 Respiratory: No respiratory distress. Breath sounds normal. No Wheezing. No rales Abdomen: Soft and nontender. No rigidity. No distention. good BS x4 Skin: Skin warm and dry. Normal skin color. Normal skin turgor. Extremities: No lower extremity edema. Neurovascular intact to all extremities. No Lacerations. No Rash Neuro: Oriented X 3. No motor deficit. No sensory deficit. Moving all extermities. No slurred speech <Bettie Overton MD - Last Filed: 01/02/23 22:24> Course Course Course Narrative: RME; 72 yold female presents to the ED for right shoulder pain since this morning with pain on lifting right arm. patient states slept on arm and woke up with pain. patient also states posterior neck pain. Negative for any neuro defcitis. Vascular/nuero exam of RUE intact. positive for pain on palpation of right trapezius/posterior neck and lefting of right upper arm. imaging ordered. patient states no other complaints. <GUS Tinsley - Last Filed: 01/03/23 12:20> Medications Administered Discontinued Medications Generic Name Dose Route Start Last Admin Trade Name Freq PRN Reason Stop Dose Admin Cyclobenzaprine HCl 10 mg 01/02/23 22:20 01/02/23 22:36 Cyclobenzaprine Hcl 10 Mg Tablet PO 01/02/23 22:21 10 mg ONCE ONE Administration <GUS Tinsley - Last Filed: 01/03/23 12:20> Medications Administered Discontinued Medications Generic Name Dose Route Start Last Admin Trade Name Freq PRN Reason Stop Dose Admin Cyclobenzaprine HCl 10 mg 01/02/23 22:20 01/02/23 22:36 Cyclobenzaprine Hcl 10 Mg Tablet PO 01/02/23 22:21 10 mg ONCE ONE Administration <Bettie Overton MD - Last Filed: 01/02/23 22:24> Medical Decision Making Medical Decision Making MDM Narrative: Patient's symptoms consistent with torticollis. Patient's x-ray was reviewed. There is no gross fracture noted. No malalignment noted. Patient has no fever no chills no suggestions of meningitis. No focal weakness. CT scan of the cervical spine was grossly negative for any acute evidence of fracture or malalignment. Neurologically intact. Pain worsen with specific movements. Patient has allergies to NSAIDs will have patient take Tylenol and use muscle relaxant. Close follow-up on outpatient basis. Additional history was obtained from patient's family. Joint decision was made to discharge patient home <Bettie Overton MD - Last Filed: 01/02/23 22:24> Differential Diagnosis Differential Diagnoses: The differential diagnosis associated with the presentation includes <Bettie Overton MD - Last Filed: 01/02/23 22:24> Meningitis, stroke, carotid dissection although history and symptoms not consistent. <Bettie Overton MD - Last Filed: 01/02/23 22:24> Admission/Observation Consideration of admission/observation: Escalation of care including admission/observation considered <Bettie Overton MD - Last Filed: 01/02/23 22:24> Lab Data MDM Lab Attestation statement: I reviewed the patient's lab results. <Bettie Overton MD - Last Filed: 01/02/23 22:24> Radiology Impression Discussion of test interpretation with radiology: I have reviewed the radiologist's reading. <Bettie Overton MD - Last Filed: 01/02/23 22:24> Radiologist Impression: CT scan of the neck was grossly negative. X-ray of the shoulder was grossly negative for any acute evidence of fracture <Bettie Overton MD - Last Filed: 01/02/23 22:24> Discharge Plan Discharge Clinical Impression: Torticollis <GUS Tinsley - Last Filed: 01/03/23 12:20> Patient Disposition: Home, Self-Care <GUS Tinsley - Last Filed: 01/03/23 12:20> Instructions: Spasmodic Torticollis (ED) <GUS Tinsley - Last Filed: 01/03/23 12:20> Prescriptions: New cyclobenzaprine 10 mg tablet 10 mg PO TID PRN (Reason: pain) Qty: 14 0RF No Action Trelegy Ellipta 200-62.5-25 mcg blister with device 1 ea inhalation DAILY Qty: 60 5RF budesonide 0.5 mg/2 mL suspension for nebulization 0.5 mg inhalation BID Qty: 180 1RF theophylline 300 mg tablet extended release 12 hr 300 mg PO DAILY Qty: 30 3RF furosemide 40 mg tablet 40 mg PO QAM 30 Days Qty: 30 3RF phenazopyridine [Pyridium] 200 mg tablet 200 mg PO TID PRN (Reason: pain) Qty: 6 0RF mineral oil [Fleet Mineral Oil] Enema 118 ml [place] DAILY PRN (Reason: constipation) Qty: 6384 0RF Rx Instructions: discard any unused portion benzonatate 200 mg capsule 200 mg PO TID PRN (Reason: cough) Qty: 30 0RF tramadol 50 mg tablet 50 - 100 mg PO Q4H PRN (Reason: pain) Qty: 20 0RF cephalexin 500 mg capsule 500 mg PO Q12H 5 Days Qty: 10 0RF cyclobenzaprine 10 mg tablet 10 mg PO Q8H Qty: 14 0RF albuterol sulfate 90 mcg/actuation HFA aerosol inhaler 1 inh inhalation QID PRN (Reason: shortness of breath or wheezing) Qty: 8.5 0RF propranolol 20 mg tablet 20 mg PO BID Januvia 100 mg tablet 100 mg PO DAILY levothyroxine 200 mcg tablet 200 mcg PO DAILY acetaminophen 500 mg tablet 500 mg PO QID PRN (Reason: Pain) gabapentin 300 mg capsule 300 mg PO DAILY citalopram 20 mg tablet 20 mg PO DAILY fluticasone propionate 50 mcg/actuation spray,suspension 2 spray intranasal DAILY PRN (Reason: Nasal Congestion) alendronate 70 mg tablet 70 mg PO QWEEK sennosides 8.6 mg tablet 17.2 mg PO DAILY PRN (Reason: Constipation) primidone 50 mg tablet 50 mg PO DAILY (DME) pen needle, diabetic 31 gauge x 3/16 needle See Rx Instructions .ROUTE TID Qty: 50 Rx Instructions: As directed insulin lispro 100 unit/mL insulin pen subcut atorvastatin 40 mg tablet 40 mg PO BEDTIME (DME) lancets 33 gauge misc See Rx Instructions Not Applicable BID Qty: 100 Rx Instructions: As directed loratadine 10 mg tablet 10 mg PO DAILY PRN (Reason: allergies) (DME) OneTouch Ultra Blue Test Strip Strip See Rx Instructions Not Applicable BID Qty: 10 Rx Instructions: As directed trazodone 50 mg tablet 50 mg PO BEDTIME bupropion HCl 300 mg tablet extended release 24 hr 300 mg PO QAM lisinopril 40 mg tablet 40 mg PO QPM omeprazole 40 mg capsule,delayed release(DR/EC) 40 mg PO QAM doxepin 10 mg capsule 10 mg PO BEDTIME glipizide 10 mg tablet extended release 24hr 10 mg PO QAM peg-electrolyte soln 420 gram recon soln 240 ml PO ONCE 1 Days Qty: 4000 0RF Rx Instructions: Start at 6:00pm the evening before procedure, drink one 8oz glass every 15 minutes until complete Citrucel 500 mg tablet 500 mg PO BID Qty: 60 5RF ipratropium-albuterol 0.5 mg-3 mg(2.5 mg base)/3 mL solution for nebulization 3 ml inhalation Q4-6H PRN (Reason: wheezing) 30 Days Qty: 180 6RF <GUS Tinsley - Last Filed: 01/03/23 12:20> Referrals: Amparo Bustamante MD [Primary Care Provider] - 01/04/23 <GUS Tinsley - Last Filed: 01/03/23 12:20> Interventions: ED Discharge Assessment Last Done: 01/02/23 22:40 <GUS Tinsley - Last Filed: 01/03/23 12:20> Discharge Date/Time: 01/02/23 22:40 <GUS Tinsley - Last Filed: 01/03/23 12:20>
[2023-01-02 18:41] VITALS: BP 125/75; PULSE 98; RESP 18; TEMP 37.2; O2SAT 94; BMI 41.5
[2023-01-02 22:14] VITALS: BP 118/69; PULSE 85; RESP 18; TEMP 36; O2SAT 97
[2023-01-02] MEDS: Cyclobenzaprine HCl 10 MG TABLET PO (22:36)
== END 2023-01-02 22:40 | disposition home or self-care (01) ==
PROVIDERS: Emergency Provider Emergency Medicine Emergency Medical Services; PCP Internal Medicine
DX: M43.6 Torticollis (principal); M54.2 Cervicalgia; M25.511 Pain in right shoulder
CPT/HCPCS: 72125; 73030; 99283

== ENCOUNTER 2023-01-17 15:24 | Outpatient (REF) | payer OTHER, SELFPAY ==
--- NOTE | ~2023-01-17 | XR_ITS ---
EXAMINATION: XR FACIAL BONES CLINICAL INFORMATION: Left facial pain after fall COMPARISON: None available. TECHNIQUE: 3 views of the facial bones were obtained. FINDINGS: Bone alignment is normal. No fracture or dislocation. Paranasal sinuses are clear. Degenerative changes of the visualized cervical spine. XR/XR facial bones <3V IMPRESSION: No facial bone fracture seen.
--- NOTE | ~2023-01-17 | XR_ITS ---
EXAMINATION: XR RIBS, LEFT CLINICAL INFORMATION: Rib pain after fall COMPARISON: Previous chest x-ray and CTA December 2022 TECHNIQUE: 3 views of the left ribs and one view of the chest were obtained. FINDINGS: The cardiac and mediastinal contours are stable. There is subsegmental atelectasis at the left lung base. There is left lateral pleural thickening. There may be a small left pleural effusion. There is no pneumothorax. There are surgical clips in the lower neck. There is a minimally displaced left posterior lateral seventh rib fracture. There are degenerative changes of the spine. XR/XR ribs LT min 3V w CXR1V IMPRESSION: Left posterior lateral seventh rib fracture. Mild adjacent pleural thickening and question very small left pleural effusion. Subsegmental atelectasis at the left lung base.
== END 2023-01-17 15:25 | disposition home or self-care (01) ==
LOC: HO.XRAY 15:24
PROVIDERS: Absent Provider Internal Medicine; PCP Internal Medicine; Visit Provider Emergency Medicine
DX: R07.81 Pleurodynia (principal); R51.9 Headache, unspecified; Z91.81 History of falling
CPT/HCPCS: 70140; 71101

== ENCOUNTER 2023-01-30 13:54 | Emergency (ER) | payer OTHER, SELFPAY ==
[2023-01-30] VITALS (7 sets, daily range): BP systolic 100–120; BP diastolic 59–80; PULSE 76–104; RESP 16–20; TEMP 36.3–36.6; O2SAT 92–98; BMI 43.0
--- NOTE | ~2023-01-30 | XR_ITS ---
EXAMINATION: XR ANKLE, LEFT CLINICAL INFORMATION: Status post slip and fall. COMPARISON: None available. TECHNIQUE: AP, lateral, and mortise views of the left ankle. FINDINGS: Mildly displaced medial and posterior malleoli fractures are seen. Possible nondisplaced fracture of the distal fibular/lateral malleolus. There is mild widening of the tibiotalar joint space, most pronounced medially. The tarsal bones are normally aligned. Small plantar and hemorrhage calcaneal spurs are noted. Moderate soft tissue swelling is seen. XR/XR ankle LT min 3V IMPRESSION: Mildly/medial and posterior malleoli fractures. A nondisplaced distal fibular/lateral malleolus fracture cannot be excluded.
--- NOTE | ~2023-01-30 | XR_ITS ---
EXAMINATION: XR CHEST CLINICAL INFORMATION: Decreased oxygen. COMPARISON: Chest radiograph 01/17/2023. TECHNIQUE: 2 views of the chest were obtained. FINDINGS: Stable prominence of the cardiomediastinal silhouette. Unchanged enlargement of the right central pulmonary vasculature. Stable asymmetric focal airspace opacity in the right apex adjacent to the paratracheal stripe. Unchanged asymmetric subpleural opacity in the left lower lobe. No new focal airspace opacity. No significant pleural effusion or pneumothorax. Left posterior lateral seventh rib fracture best seen on recent prior chest radiograph. XR/XR chest 2V IMPRESSION: 1. No significant change when compared to 01/17/2023. 2. Stable asymmetric airspace opacity in the right apex and left lower lobe. Recommend a short-term follow-up chest radiograph, and if not resolved, correlation with a chest CT to rule out malignancy. 3. Left posterior lateral seventh rib fracture best seen on recent prior chest radiograph.
--- NOTE | 2023-01-30 14:34 | ED.GENADULT ---
HPI - General Adult General Chief complaint: Extremity Injury, Lower <Edward Lyons - Last Filed: 01/30/23 14:35> Stated complaint: L ankle inj <Edward Lyons - Last Filed: 01/30/23 14:35> Time Seen by Provider: 01/30/23 16:29 <Edward Lyons - Last Filed: 01/30/23 14:35> Related Data Home medications: Home Medications Medication Instructions Recorded Confirmed acetaminophen 500 mg tablet 500 mg PO Q8H PRN Pain 01/30/23 01/30/23 albuterol sulfate 2.5 mg/3 mL 2.5 mg inhalation Q8H PRN wheezing 01/30/23 01/30/23 (0.083 %) solution for nebulization albuterol sulfate 90 mcg/actuation 1 puff inhalation QID PRN wheezing 01/30/23 01/30/23 aerosol inhaler atorvastatin 40 mg tablet 40 mg PO BEDTIME 01/30/23 01/30/23 blood sugar diagnostic (OneTouch 01/30/23 01/30/23 Ultra Test strips) budesonide 0.5 mg/2 mL suspension 0.5 mg inhalation BID 01/30/23 01/30/23 for nebulization bupropion HCl 150 mg 24 hr tablet, 150 mg PO QAM 01/30/23 01/30/23 extended release bupropion HCl 300 mg 24 hr tablet, 300 mg PO QAM 01/30/23 01/30/23 extended release citalopram 20 mg tablet 20 mg PO QAM 01/30/23 01/30/23 doxepin 10 mg capsule 20 mg PO BEDTIME 01/30/23 01/30/23 fluticasone fur. 200 mcg-umeclid 1 ea inhalation DAILY 01/30/23 01/30/23 62.5 mcg-vilant 25 mcg inhalat.powder (Trelegy Ellipta) furosemide 40 mg tablet 40 mg PO QAM 01/30/23 01/30/23 gabapentin 300 mg capsule 300 mg PO BID 01/30/23 01/30/23 glipizide 10 mg tablet, extended 10 mg PO QAM 01/30/23 01/30/23 release 24 hr lancets 33 gauge (OneTouch Delica 01/30/23 01/30/23 Plus Lancet) levothyroxine 200 mcg tablet 200 mcg PO QAM 01/30/23 01/30/23 lisinopril 40 mg tablet 40 mg PO QPM 01/30/23 01/30/23 mirabegron 25 mg tablet,extended 25 mg PO QAM 01/30/23 01/30/23 release 24 hr (Myrbetriq) omeprazole 40 mg capsule,delayed 40 mg PO QAM 01/30/23 01/30/23 release ondansetron 4 mg disintegrating 4 mg PO Q8H PRN nausea/vomiting 01/30/23 01/30/23 tablet primidone 250 mg tablet 250 mg PO QID 01/30/23 01/30/23 sennosides 8.6 mg tablet (senna) 17.2 mg PO DAILY PRN constipation 01/30/23 01/30/23 simethicone 80 mg chewable tablet 80 mg PO Q6H PRN gas 01/30/23 01/30/23 (Gas Relief (simethicone)) sitagliptin phosphate 100 mg 100 mg PO QAM 01/30/23 01/30/23 tablet (Januvia) <Edward Lyons - Last Filed: 01/30/23 14:35> Allergies/adverse reactions: Allergies Allergy/AdvReac Type Severity Reaction Status Date / Time aspirin [Aspirin] Allergy Mild UPSET Verified 01/30/23 14:33 STOMACH ibuprofen [From Motrin] Allergy Mild Gastrointestinal Verified 01/30/23 14:33 Upset <Edward Lyons - Last Filed: 01/30/23 14:35> [facility] Past Medical History Medical History: Medical History Anxiety and depression Back pain Bilateral primary osteoarthritis of knee Colon cancer screening COPD (chronic obstructive pulmonary disease) COPD exacerbation Diabetes mellitus Frequency of micturition GERD (gastroesophageal reflux disease) High cholesterol Hypertension Hypothyroidism ENMA on CPAP Osteoarthritis Tubular adenoma of colon Urgency incontinence Urgency of micturition <Edward Lyons - Last Filed: 01/30/23 14:35> Surgical History: Surgical History History of cholecystectomy History of lumpectomy of right breast Hx of colonoscopy Hx of cystoscopy Hx of right knee surgery <Edward Eloy - Last Filed: 01/30/23 14:35> Family History Family History: Family History Mother History of pancreatic cancer <Edward Lyons - Last Filed: 01/30/23 14:35> Social History Social History: Social History (Updated 08/19/22 @ 13:08 by Emily Manrique PA-C) Household Members Other:: lives with grandson Are you a primary child care development specialist to a significant other at home: No Do you presently have visiting nurse or other home services: Yes ([employer]) Alcohol intake: never Patient Tobacco Use Status: Never used Tobacco Years Smoked: 30 Smoked in Last 30 Days: No Use of substances other than those prescribed or required for medical reasons: No Advance Directives: Yes Advance Directives on File: Yes Advance Directives Date on File: 01/31/23 <Edward Lyons - Last Filed: 01/30/23 14:35> Physical Exam ED Vital Signs: Vital Signs - 24 hr 01/30/23 16:40 01/30/23 16:41 01/30/23 18:15 Temperature 97.3 F Pulse Rate 81 84 Respiratory Rate 16 18 16 Blood Pressure 100/66 116/80 Pulse Oximetry 93 92 Oxygen Delivery Method Room Air Room Air Oxygen Flow Rate 01/30/23 21:28 01/30/23 21:30 01/30/23 21:58 Temperature Pulse Rate 76 104 H Respiratory Rate 20 20 20 Blood Pressure 120/70 Pulse Oximetry 92 Oxygen Delivery Method Room Air Oxygen Flow Rate 01/31/23 00:59 01/31/23 03:06 01/31/23 05:47 Temperature 98.1 F 97.6 F 97.0 F Pulse Rate 94 102 H 100 Respiratory Rate 18 16 16 Blood Pressure 116/68 105/81 98/61 Pulse Oximetry 91 L 96 100 Oxygen Delivery Method Room Air Room Air Oxygen Flow Rate 01/31/23 08:40 01/31/23 13:02 01/31/23 13:11 Temperature 99.7 F Pulse Rate 94 79 79 Respiratory Rate 12 16 Blood Pressure 118/60 108/68 108/68 Pulse Oximetry 92 95 95 Oxygen Delivery Method Nasal Cannula Nasal Cannula Oxygen Flow Rate 2 2 BMI result Body Mass Index 43.0 <Edward Lyons - Last Filed: 01/30/23 14:35> Vital Signs - 24 hr 01/30/23 16:40 01/30/23 16:41 01/30/23 18:15 Temperature 97.3 F Pulse Rate 81 84 Respiratory Rate 16 18 16 Blood Pressure 100/66 116/80 Pulse Oximetry 93 92 Oxygen Delivery Method Room Air Room Air Oxygen Flow Rate 01/30/23 21:28 01/30/23 21:30 01/30/23 21:58 Temperature Pulse Rate 76 104 H Respiratory Rate 20 20 20 Blood Pressure 120/70 Pulse Oximetry 92 Oxygen Delivery Method Room Air Oxygen Flow Rate 01/31/23 00:59 01/31/23 03:06 01/31/23 05:47 Temperature 98.1 F 97.6 F 97.0 F Pulse Rate 94 102 H 100 Respiratory Rate 18 16 16 Blood Pressure 116/68 105/81 98/61 Pulse Oximetry 91 L 96 100 Oxygen Delivery Method Room Air Room Air Oxygen Flow Rate 01/31/23 08:40 01/31/23 13:02 01/31/23 13:11 Temperature 99.7 F Pulse Rate 94 79 79 Respiratory Rate 12 16 Blood Pressure 118/60 108/68 108/68 Pulse Oximetry 92 95 95 Oxygen Delivery Method Nasal Cannula Nasal Cannula Oxygen Flow Rate 2 2 BMI result Body Mass Index 43.0 <GUS Weber - Last Filed: 01/31/23 16:01> Course Course Course Narrative: 72-year-old female presents for evaluation of left ankle pain after a fall. She does not know if she hit her head or not. Her med list does not have any blood thinners on a, but she is unsure she takes any anticoagulation. She states that she slipped and fell and was a nonsyncopal fall <Edward Lyons - Last Filed: 01/30/23 14:35> Reevaluation(s) Reevaluation #1: Physician observation continued. No overnight events per nursing staff. ?Swallowing difficulties, swallow study ordered. Recommending CHOPPED/ADVANCED solids (NDD3), THIN liquids, pills WHOLE w/ LIQUID. Recommend supervision d/t reported coughing during meals (for now). D/t pt reports of consistent coughing when eating and drinking, recommend [employer] to follow during hospitalization. If reported symptoms continue or worsen, patient may benefit from MBSS. [employer] to follow. Patient medicated with morphine 4mg IV, and dilauded 0.25mg IM. Discussed case with Dr. Jj who recommends follow up in 1 week and nonweightbearing. PT evaluation recommending short term rehab. Case management placement pending. <GUS Weber - Last Filed: 01/31/23 16:01> Medications Administered Generic Name Dose Route Start Last Admin Trade Name Freq PRN Reason Stop Dose Admin Atorvastatin Calcium 40 mg 01/30/23 21:15 01/30/23 21:28 Atorvastatin Calcium 40 Mg Tablet PO 40 mg BEDTIME MASOUD Administration Bupropion HCl 150 mg 01/31/23 09:00 01/31/23 09:47 Bupropion Hcl Xl 150 Mg Tab.Er.24h PO Not Given DAILY MASOUD Bupropion HCl 300 mg 01/31/23 09:00 01/31/23 09:47 Bupropion Hcl Xl 300 Mg Tab.Er.24h PO Not Given DAILY MASOUD Doxepin HCl 20 mg 01/30/23 21:15 01/30/23 21:51 Doxepin Hcl 10 Mg Capsule PO 20 mg BEDTIME MASOUD Administration Escitalopram Oxalate 10 mg 01/31/23 09:00 01/31/23 09:47 Escitalopram Oxalate 10 Mg Tablet PO Not Given DAILY MASOUD Furosemide 40 mg 01/31/23 09:00 01/31/23 09:47 Furosemide 40 Mg Tablet PO Not Given DAILY MASOUD Protocol Gabapentin 300 mg 01/30/23 21:15 01/31/23 09:47 Gabapentin 300 Mg Capsule PO Not Given BID MASOUD Glipizide 10 mg 01/31/23 09:00 01/31/23 09:47 Glipizide Xl 10 Mg Tab.Er.24 PO Not Given DAILY MASOUD Levothyroxine Sodium 200 mcg 01/31/23 06:30 01/31/23 07:26 Levothyroxine Sodium 200 Mcg Tablet PO Not Given DAILY@0630 MASOUD Mirabegron 25 mg 01/31/23 09:00 01/31/23 09:47 Mirabegron 25 Mg Tab.Er.24h PO Not Given DAILY MASOUD Omeprazole 40 mg 01/31/23 06:30 01/31/23 06:25 Omeprazole 40 Mg Capsule. PO 40 mg DAILY@0630 MASOUD Administration Primidone 250 mg 01/31/23 09:00 01/31/23 13:56 Primidone 50 Mg Tablet PO Not Given QID MASOUD Sitagliptin Phosphate 100 mg 01/31/23 09:00 01/31/23 09:47 Sitagliptin Phosphate 100 Mg Tablet PO Not Given DAILY MASOUD Discontinued Medications Generic Name Dose Route Start Last Admin Trade Name Gaviota PRN Reason Stop Dose Admin Hydromorphone HCl 1 mg 01/30/23 16:33 01/30/23 16:40 Hydromorphone Hcl 1 Mg/Ml Syringe IM 01/30/23 16:34 1 mg ONCE ONE Administration Protocol Hydromorphone HCl 0.25 mg 01/31/23 09:30 01/31/23 09:58 Hydromorphone Hcl 0.5 Mg/0.5 Ml Syringe IM 01/31/23 09:31 0.25 mg ONCE ONE Administration Protocol Morphine Sulfate 4 mg 01/30/23 21:11 01/30/23 21:28 Morphine Sulfate 4 Mg/Ml Cartridge IVPUSH 01/30/23 21:12 4 mg ONCE ONE Administration Protocol Morphine Sulfate 4 mg 01/31/23 02:52 01/31/23 02:58 Morphine Sulfate 4 Mg/Ml Cartridge IVPUSH 01/31/23 02:53 4 mg ONCE ONE Administration Protocol Morphine Sulfate 4 mg 01/31/23 11:55 01/31/23 12:38 Morphine Sulfate 4 Mg/Ml Cartridge IVPUSH 01/31/23 11:56 4 mg ONCE ONE Administration Protocol Sodium Zirconium Cyclosilicate 10 gm 01/30/23 21:11 01/30/23 21:28 Sodium Zirconium Cyclosilicate 10 Gm Powd.Pack PO 01/30/23 21:12 10 gm ONCE ONE Administration <Edward Lyons - Last Filed: 01/30/23 14:35> Medications Administered Generic Name Dose Route Start Last Admin Trade Name Gaviota PRN Reason Stop Dose Admin Atorvastatin Calcium 40 mg 01/30/23 21:15 01/30/23 21:28 Atorvastatin Calcium 40 Mg Tablet PO 40 mg BEDTIME MASOUD Administration Bupropion HCl 150 mg 01/31/23 09:00 01/31/23 09:47 Bupropion Hcl Xl 150 Mg Tab.Er.24h PO Not Given DAILY MASOUD Bupropion HCl 300 mg 01/31/23 09:00 01/31/23 09:47 Bupropion Hcl Xl 300 Mg Tab.Er.24h PO Not Given DAILY MASOUD Doxepin HCl 20 mg 01/30/23 21:15 01/30/23 21:51 Doxepin Hcl 10 Mg Capsule PO 20 mg BEDTIME MASOUD Administration Escitalopram Oxalate 10 mg 01/31/23 09:00 01/31/23 09:47 Escitalopram Oxalate 10 Mg Tablet PO Not Given DAILY MASOUD Furosemide 40 mg 01/31/23 09:00 01/31/23 09:47 Furosemide 40 Mg Tablet PO Not Given DAILY [facility] Protocol Gabapentin 300 mg 01/30/23 21:15 01/31/23 09:47 Gabapentin 300 Mg Capsule PO Not Given BID MASOUD Glipizide 10 mg 01/31/23 09:00 01/31/23 09:47 Glipizide Xl 10 Mg Tab.Er.24 PO Not Given DAILY MASOUD Levothyroxine Sodium 200 mcg 01/31/23 06:30 01/31/23 07:26 Levothyroxine Sodium 200 Mcg Tablet PO Not Given DAILY@0630 [facility] Mirabegron 25 mg 01/31/23 09:00 01/31/23 09:47 Mirabegron 25 Mg Tab.Er.24h PO Not Given DAILY [facility] Omeprazole 40 mg 01/31/23 06:30 01/31/23 06:25 Omeprazole 40 Mg Capsule.Dr PO 40 mg DAILY@0630 [facility] Administration Primidone 250 mg 01/31/23 09:00 01/31/23 13:56 Primidone 50 Mg Tablet PO Not Given QID [facility] Sitagliptin Phosphate 100 mg 01/31/23 09:00 01/31/23 09:47 Sitagliptin Phosphate 100 Mg Tablet PO Not Given DAILY [facility] Discontinued Medications Generic Name Dose Route Start Last Admin Trade Name Freq PRN Reason Stop Dose Admin Hydromorphone HCl 1 mg 01/30/23 16:33 01/30/23 16:40 Hydromorphone Hcl 1 Mg/Ml Syringe IM 01/30/23 16:34 1 mg ONCE ONE Administration Protocol Hydromorphone HCl 0.25 mg 01/31/23 09:30 01/31/23 09:58 Hydromorphone Hcl 0.5 Mg/0.5 Ml Syringe IM 01/31/23 09:31 0.25 mg ONCE ONE Administration Protocol Morphine Sulfate 4 mg 01/30/23 21:11 01/30/23 21:28 Morphine Sulfate 4 Mg/Ml Cartridge IVPUSH 01/30/23 21:12 4 mg ONCE ONE Administration Protocol Morphine Sulfate 4 mg 01/31/23 02:52 01/31/23 02:58 Morphine Sulfate 4 Mg/Ml Cartridge IVPUSH 01/31/23 02:53 4 mg ONCE ONE Administration Protocol Morphine Sulfate 4 mg 01/31/23 11:55 01/31/23 12:38 Morphine Sulfate 4 Mg/Ml Cartridge IVPUSH 01/31/23 11:56 4 mg ONCE ONE Administration Protocol Sodium Zirconium Cyclosilicate 10 gm 01/30/23 21:11 01/30/23 21:28 Sodium Zirconium Cyclosilicate 10 Gm Powd.Pack PO 01/30/23 21:12 10 gm ONCE ONE Administration <GUS Weber - Last Filed: 01/31/23 16:01> Medical Decision Making Lab Data Result Diagrams: 01/30/23 20:00 01/31/23 08:05 <Edward Lyons - Last Filed: 01/30/23 14:35> Labs: Lab Results 01/30/23 01/30/23 01/31/23 Range/Units 20:00 20:00 08:05 WBC 6.8 (4.8-10.8) X10*3/uL RBC 4.74 (4.20-5.50) X10*6/uL Hgb 13.2 (12.0-16.0) g/dl Hct 42.5 (37.0-47.0) % MCV 89.7 (80.0-98.0) fL MCH 27.8 (27.0-33.0) pg MCHC 31.1 (31.0-35.0) g/dl RDW 13.6 (11.0-16.0) % Plt Count 181 (160-400) X10*3/uL MPV Not Reportable Immature Gran % (Auto) 0.1 (0.0-0.4) % Neut % (Auto) 67.4 (45-73) % Lymph % (Auto) 24.7 (20-40) % [place] % (Auto) 4.7 (2-11) % Eos % (Auto) 2.8 (0-4) % Baso % (Auto) 0.3 (0-2) % Lymph # (Auto) 1.7 (1.2-4.9) X10*3/uL [place] # (Auto) 0.3 (0.1-1.2) X10*3/uL Eos # (Auto) 0.2 (0.0-0.4) X10*3/uL Baso # (Auto) 0.0 (0.0-0.2) X10*3/uL Abs Immat Gran (auto) 0.01 (0.00-0.03) X10*3/uL Absolute Neuts (auto) 4.6 (2.0-8.3) x10*3/uL Absolute Nucleated RBC 0.000 (0.0-0.012) X10*3/uL Nucleated RBC % (auto) 0.0 (0.0-0.2) /100WBC Smear Tech's Comments VERIFIED Sodium 142 138 (135-145) mmol/L Potassium 5.3 H D 4.3 (3.3-5.1) mmol/L Chloride 103 101 (96-108) mmol/L Carbon Dioxide 32 H 27 (22-29) mmol/L Anion Gap 12 14 (12-20) BUN 15 19 H (9-16) mg/dL Creatinine 1.16 1.26 (0.5-1.4) mg/dL Estim Creat Clear Calc 48.8 44.9 Estimated GFR 46 42 Random Glucose 148 H 150 H (60-115) mg/dL Calcium 9.4 D 9.0 (8.4-10.2) mg/dL Total Bilirubin 0.8 (0.0-1.0) mg/dL AST 179 H (5-31) U/L ALT 81 H (0-31) U/L Alkaline Phosphatase 148 H (39-117) U/L Total Protein 6.8 (6.5-8.0) g/dL Albumin 4.1 (3.5-5.0) g/dL COVID-19 ([facility]) (Negative) COVID-19 Clin Com 01/31/23 Range/Units 14:54 WBC (4.8-10.8) X10*3/uL RBC (4.20-5.50) X10*6/uL Hgb (12.0-16.0) g/dl Hct (37.0-47.0) % MCV (80.0-98.0) fL MCH (27.0-33.0) pg MCHC (31.0-35.0) g/dl RDW (11.0-16.0) % Plt Count (160-400) X10*3/uL MPV Immature Gran % (Auto) (0.0-0.4) % Neut % (Auto) (45-73) % Lymph % (Auto) (20-40) % [place] % (Auto) (2-11) % Eos % (Auto) (0-4) % Baso % (Auto) (0-2) % Lymph # (Auto) (1.2-4.9) X10*3/uL [place] # (Auto) (0.1-1.2) X10*3/uL Eos # (Auto) (0.0-0.4) X10*3/uL Baso # (Auto) (0.0-0.2) X10*3/uL Abs Immat Gran (auto) (0.00-0.03) X10*3/uL Absolute Neuts (auto) (2.0-8.3) x10*3/uL Absolute Nucleated RBC (0.0-0.012) X10*3/uL Nucleated RBC % (auto) (0.0-0.2) /100WBC Smear Tech's Comments Sodium (135-145) mmol/L Potassium (3.3-5.1) mmol/L Chloride (96-108) mmol/L Carbon Dioxide (22-29) mmol/L Anion Gap (12-20) BUN (9-16) mg/dL Creatinine (0.5-1.4) mg/dL Estim Creat Clear Calc Estimated GFR Random Glucose (60-115) mg/dL Calcium (8.4-10.2) mg/dL Total Bilirubin (0.0-1.0) mg/dL AST (5-31) U/L ALT (0-31) U/L Alkaline Phosphatase (39-117) U/L Total Protein (6.5-8.0) g/dL Albumin (3.5-5.0) g/dL COVID-19 ([facility]) Negative (Negative) COVID-19 Clin Com See Note <Edward Lyons - Last Filed: 01/30/23 14:35> Lab Results 01/30/23 01/30/23 01/31/23 Range/Units 20:00 20:00 08:05 WBC 6.8 (4.8-10.8) X10*3/uL RBC 4.74 (4.20-5.50) X10*6/uL Hgb 13.2 (12.0-16.0) g/dl Hct 42.5 (37.0-47.0) % MCV 89.7 (80.0-98.0) fL MCH 27.8 (27.0-33.0) pg MCHC 31.1 (31.0-35.0) g/dl RDW 13.6 (11.0-16.0) % Plt Count 181 (160-400) X10*3/uL MPV Not Reportable Immature Gran % (Auto) 0.1 (0.0-0.4) % Neut % (Auto) 67.4 (45-73) % Lymph % (Auto) 24.7 (20-40) % [place] % (Auto) 4.7 (2-11) % Eos % (Auto) 2.8 (0-4) % Baso % (Auto) 0.3 (0-2) % Lymph # (Auto) 1.7 (1.2-4.9) X10*3/uL [place] # (Auto) 0.3 (0.1-1.2) X10*3/uL Eos # (Auto) 0.2 (0.0-0.4) X10*3/uL Baso # (Auto) 0.0 (0.0-0.2) X10*3/uL Abs Immat Gran (auto) 0.01 (0.00-0.03) X10*3/uL Absolute Neuts (auto) 4.6 (2.0-8.3) x10*3/uL Absolute Nucleated RBC 0.000 (0.0-0.012) X10*3/uL Nucleated RBC % (auto) 0.0 (0.0-0.2) /100WBC Smear Tech's Comments VERIFIED Sodium 142 138 (135-145) mmol/L Potassium 5.3 H D 4.3 (3.3-5.1) mmol/L Chloride 103 101 (96-108) mmol/L Carbon Dioxide 32 H 27 (22-29) mmol/L Anion Gap 12 14 (12-20) BUN 15 19 H (9-16) mg/dL Creatinine 1.16 1.26 (0.5-1.4) mg/dL Estim Creat Clear Calc 48.8 44.9 Estimated GFR 46 42 Random Glucose 148 H 150 H (60-115) mg/dL Calcium 9.4 D 9.0 (8.4-10.2) mg/dL Total Bilirubin 0.8 (0.0-1.0) mg/dL AST 179 H (5-31) U/L ALT 81 H (0-31) U/L Alkaline Phosphatase 148 H (39-117) U/L Total Protein 6.8 (6.5-8.0) g/dL Albumin 4.1 (3.5-5.0) g/dL COVID-19 ([facility]) (Negative) COVID-19 Clin Com 01/31/23 Range/Units 14:54 WBC (4.8-10.8) X10*3/uL RBC (4.20-5.50) X10*6/uL Hgb (12.0-16.0) g/dl Hct (37.0-47.0) % MCV (80.0-98.0) fL MCH (27.0-33.0) pg MCHC (31.0-35.0) g/dl RDW (11.0-16.0) % Plt Count (160-400) X10*3/uL MPV Immature Gran % (Auto) (0.0-0.4) % Neut % (Auto) (45-73) % Lymph % (Auto) (20-40) % [place] % (Auto) (2-11) % Eos % (Auto) (0-4) % Baso % (Auto) (0-2) % Lymph # (Auto) (1.2-4.9) X10*3/uL [place] # (Auto) (0.1-1.2) X10*3/uL Eos # (Auto) (0.0-0.4) X10*3/uL Baso # (Auto) (0.0-0.2) X10*3/uL Abs Immat Gran (auto) (0.00-0.03) X10*3/uL Absolute Neuts (auto) (2.0-8.3) x10*3/uL Absolute Nucleated RBC (0.0-0.012) X10*3/uL Nucleated RBC % (auto) (0.0-0.2) /100WBC Smear Tech's Comments Sodium (135-145) mmol/L Potassium (3.3-5.1) mmol/L Chloride (96-108) mmol/L Carbon Dioxide (22-29) mmol/L Anion Gap (12-20) BUN (9-16) mg/dL Creatinine (0.5-1.4) mg/dL Estim Creat Clear Calc Estimated GFR Random Glucose (60-115) mg/dL Calcium (8.4-10.2) mg/dL Total Bilirubin (0.0-1.0) mg/dL AST (5-31) U/L ALT (0-31) U/L Alkaline Phosphatase (39-117) U/L Total Protein (6.5-8.0) g/dL Albumin (3.5-5.0) g/dL COVID-19 ([facility]) Negative (Negative) COVID-19 Clin Com See Note <GUS Weber - Last Filed: 01/31/23 16:01> Discharge Plan Discharge Clinical Impression: Ankle fracture, left <Edward Lyons - Last Filed: 01/30/23 14:35> Patient Disposition: Still a Patient <Edward Lyons - Last Filed: 01/30/23 14:35> Prescriptions: No Action furosemide 40 mg tablet 40 mg PO QAM atorvastatin 40 mg tablet 40 mg PO BEDTIME sennosides [senna] 8.6 mg tablet 17.2 mg PO DAILY PRN (Reason: constipation) albuterol sulfate 2.5 mg /3 mL (0.083 %) solution for nebulization 2.5 mg inhalation Q8H PRN (Reason: wheezing) glipizide 10 mg tablet extended release 24hr 10 mg PO QAM (DME) OneTouch Ultra Test Strip MISCELLANEOUS BID doxepin 10 mg capsule 20 mg PO BEDTIME omeprazole 40 mg capsule,delayed release(DR/EC) 40 mg PO QAM acetaminophen 500 mg tablet 500 mg PO Q8H PRN (Reason: Pain) citalopram 20 mg tablet 20 mg PO QAM primidone 250 mg tablet 250 mg PO QID gabapentin 300 mg capsule 300 mg PO BID budesonide 0.5 mg/2 mL suspension for nebulization 0.5 mg inhalation BID levothyroxine 200 mcg tablet 200 mcg PO QAM albuterol sulfate 90 mcg/actuation HFA aerosol inhaler 1 puff INHALATION QID PRN (Reason: wheezing) lisinopril 40 mg tablet 40 mg PO QPM ondansetron 4 mg tablet,disintegrating 4 mg PO Q8H PRN (Reason: nausea/vomiting) simethicone [Gas Relief (simethicone)] 80 mg tablet,chewable 80 mg PO Q6H PRN (Reason: gas) bupropion HCl 300 mg tablet extended release 24 hr 300 mg PO QAM bupropion HCl 150 mg tablet extended release 24 hr 150 mg PO QAM Januvia 100 mg tablet 100 mg PO QAM Myrbetriq 25 mg tablet extended release 24 hr 25 mg PO QAM (DME) lancets [OneTouch Delica Plus Lancet] 33 gauge misc MISCELLANEOUS BID Trelegy Ellipta 200-62.5-25 mcg blister with device 1 ea inhalation DAILY <Edward Lyons - Last Filed: 01/30/23 14:35>
[2023-01-30] MEDS: HYDROmorphone HCl 1 MG/ML SYRINGE IM (16:40)
--- NOTE | 2023-01-30 19:12 | ED.GENADULT ---
HPI - General Adult General Chief complaint: Extremity Injury, Lower Stated complaint: L ankle inj Time Seen by Provider: 01/30/23 16:29 Source: patient Mode of arrival: ambulatory Limitations: no limitations History of Present Illness HPI narrative: [age] year female history of obstructive sleep apnea, asthma COPD, diabetes, anxiety, depression, presents to the ED for left foot pain. Patient states this morning she got up from her bed without the walker she tripped and fell on ankle. Patient states usually use a walker but this morning she did not. Patient denies hitting head or loss of consciousness. Patient states no other complaint. Related Data Home Medications Medication Instructions Recorded Confirmed acetaminophen 500 mg tablet 500 mg PO Q8H PRN Pain 01/30/23 01/30/23 albuterol sulfate 2.5 mg/3 mL 2.5 mg inhalation Q8H PRN wheezing 01/30/23 01/30/23 (0.083 %) solution for nebulization albuterol sulfate 90 mcg/actuation 1 puff inhalation QID PRN wheezing 01/30/23 01/30/23 aerosol inhaler atorvastatin 40 mg tablet 40 mg PO BEDTIME 01/30/23 01/30/23 blood sugar diagnostic (OneTouch 01/30/23 01/30/23 Ultra Test strips) budesonide 0.5 mg/2 mL suspension 0.5 mg inhalation BID 01/30/23 01/30/23 for nebulization bupropion HCl 150 mg 24 hr tablet, 150 mg PO QAM 01/30/23 01/30/23 extended release bupropion HCl 300 mg 24 hr tablet, 300 mg PO QAM 01/30/23 01/30/23 extended release citalopram 20 mg tablet 20 mg PO QAM 01/30/23 01/30/23 doxepin 10 mg capsule 20 mg PO BEDTIME 01/30/23 01/30/23 fluticasone fur. 200 mcg-umeclid 1 ea inhalation DAILY 01/30/23 01/30/23 62.5 mcg-vilant 25 mcg inhalat.powder (Trelegy Ellipta) furosemide 40 mg tablet 40 mg PO QAM 01/30/23 01/30/23 gabapentin 300 mg capsule 300 mg PO BID 01/30/23 01/30/23 glipizide 10 mg tablet, extended 10 mg PO QAM 01/30/23 01/30/23 release 24 hr lancets 33 gauge (OneTouch Delica 01/30/23 01/30/23 Plus Lancet) levothyroxine 200 mcg tablet 200 mcg PO QAM 01/30/23 01/30/23 lisinopril 40 mg tablet 40 mg PO QPM 01/30/23 01/30/23 mirabegron 25 mg tablet,extended 25 mg PO QAM 01/30/23 01/30/23 release 24 hr (Myrbetriq) omeprazole 40 mg capsule,delayed 40 mg PO QAM 01/30/23 01/30/23 release ondansetron 4 mg disintegrating 4 mg PO Q8H PRN nausea/vomiting 01/30/23 01/30/23 tablet primidone 250 mg tablet 250 mg PO QID 01/30/23 01/30/23 sennosides 8.6 mg tablet (senna) 17.2 mg PO DAILY PRN constipation 01/30/23 01/30/23 simethicone 80 mg chewable tablet 80 mg PO Q6H PRN gas 01/30/23 01/30/23 (Gas Relief (simethicone)) sitagliptin phosphate 100 mg 100 mg PO QAM 01/30/23 01/30/23 tablet (Januvia) Allergies Allergy/AdvReac Type Severity Reaction Status Date / Time aspirin [Aspirin] Allergy Mild UPSET Verified 01/30/23 14:33 STOMACH ibuprofen [From Motrin] Allergy Mild Gastrointestinal Verified 01/30/23 14:33 Upset Review of Systems Review of Systems: Left ankle pain Yes all other systems are reviewed and are negative FORMERLY [facility], [facility]–1983 Past Medical History Medical History Anxiety and depression Back pain Bilateral primary osteoarthritis of knee Colon cancer screening COPD (chronic obstructive pulmonary disease) COPD exacerbation Diabetes mellitus Frequency of micturition GERD (gastroesophageal reflux disease) High cholesterol Hypertension Hypothyroidism ENMA on CPAP Osteoarthritis Tubular adenoma of colon Urgency incontinence Urgency of micturition Surgical History History of cholecystectomy History of lumpectomy of right breast Hx of colonoscopy Hx of cystoscopy Hx of right knee surgery Family History Family History Mother History of pancreatic cancer Social History Social History (Updated 08/19/22 @ 13:08 by Emily Manrique PA-C) Household Members Other:: lives with grandson Are you a primary pulmonary care nurse to a significant other at home: No Do you presently have visiting nurse or other home services: Yes (ZOOLOGY TECHNICAL OFFICER) Alcohol intake: never Patient Tobacco Use Status: Never used Tobacco Years Smoked: 30 Smoked in Last 30 Days: No Use of substances other than those prescribed or required for medical reasons: No Advance Directives: No Advance Directives Information Provided: Yes Physical Exam ED Vital Signs: Vital Signs - 24 hr 01/30/23 14:33 01/30/23 16:40 01/30/23 16:41 Temperature 98 F 97.3 F Pulse Rate 91 81 Respiratory Rate 19 16 18 Blood Pressure 117/59 L 100/66 Pulse Oximetry 98 93 Oxygen Delivery Method Room Air Room Air 01/30/23 18:15 01/30/23 21:28 01/30/23 21:30 Temperature Pulse Rate 84 76 Respiratory Rate 16 20 20 Blood Pressure 116/80 120/70 Pulse Oximetry 92 92 Oxygen Delivery Method Room Air Room Air 01/30/23 21:58 Temperature Pulse Rate 104 H Respiratory Rate 20 Blood Pressure Pulse Oximetry Oxygen Delivery Method BMI result Body Mass Index 43.0 Const General: cooperative, healthy appearing, comfortable, no acute distress, well developed, alert, awake and Physically active Orientation/consciousness: oriented to person, oriented to place, oriented to time and patient oriented x3 HENMT Head: Yes normal to inspection, Yes No palpable skull fracture present, Yes normocephalic, Yes atraumatic and No abrasion Ears: hearing grossly normal bilaterally, external ears normal, TM's normal bilaterally, TM normal on the right, EAC's normal, mastoids normal and no periauricular adenopathy Eyes General: appearance normal, both eyes and all related structures Neck Neck: Yes normal visual inspection, Yes full ROM, Yes no lymphadenopathy, Yes no meningeal signs, Yes trachea midline, Yes supple, No anterior neck swelling and No tender Chest Chest palpation & inspection: normal inspection of the chest and normal palpation of entire chest wall Resp Effort & Inspection: normal respiratory effort and able to speak in complete sentences Auscultation: clear to auscultation bilaterally Cardio Jugular venous distension: no JVD Heart sounds: S1 normal heart sound present and S2 normal heart sound present GI Inspection: Yes normal to inspection and No abdominal wall ecchymosis Palpation (GI): Soft to palpation, not firm, nontender, no guarding and not rigid General: No CVA tenderness and Yes no CVA tenderness Back/Spine/Pelvis Back: no CVA tenderness, No CVA tenderness and No back tenderness Skin General skin exam: no rashes or lesions noted and elasticity normal Neuro General: oriented to person, oriented to place, oriented to time, patient oriented x3, tone normal, moves all extremities, Normal light touch and pain sensation, no meningeal signs, no focal motor deficits, CN's II-XI intact bilaterally and normal sensation to monofilament Extrem Ankle/foot/toe images: 1. Positive for tenderness on palpation. Negative for crepitus. Negative ecchymosis. Positive for slight swelling. Vascular neuro exam intact. Patient able to move toes. Movement of ankle limited due to pain Psych Appearance: grossly normal, well kempt and not disheveled Course Course Course Narrative: X-ray ordered. Reevaluation(s) Reevaluation #1: X-ray shows fracture but no dislocation. Fracture of medial malleolus and posterior values nondisplaced. Dr. Newberry evaluated xray and states no reduction needed. Just posterior splint. Daughter and patient agree patient should be evaluated morning by PT and Case Management for possible short-term rehab. Splint placed. Basic labs ordered. Patient given Dilaudid. Med rec ordered. Negative for any neurovascular compromise Time: 19:28 Medications Administered Generic Name Dose Route Start Last Admin Trade Name Freq PRN Reason Stop Dose Admin Atorvastatin Calcium 40 mg 01/30/23 21:15 01/30/23 21:28 Atorvastatin Calcium 40 Mg Tablet PO 40 mg BEDTIME MASOUD Administration Doxepin HCl 20 mg 01/30/23 21:15 01/30/23 21:51 Doxepin Hcl 10 Mg Capsule PO 20 mg BEDTIME MASOUD Administration Gabapentin 300 mg 01/30/23 21:15 01/30/23 21:28 Gabapentin 300 Mg Capsule PO 300 mg BID MASOUD Administration Discontinued Medications Generic Name Dose Route Start Last Admin Trade Name Freq PRN Reason Stop Dose Admin Hydromorphone HCl 1 mg 01/30/23 16:33 01/30/23 16:40 Hydromorphone Hcl 1 Mg/Ml Syringe IM 01/30/23 16:34 1 mg ONCE ONE Administration Protocol Morphine Sulfate 4 mg 01/30/23 21:11 01/30/23 21:28 Morphine Sulfate 4 Mg/Ml Cartridge IVPUSH 01/30/23 21:12 4 mg ONCE ONE Administration Protocol Sodium Zirconium Cyclosilicate 10 gm 01/30/23 21:11 01/30/23 21:28 Sodium Zirconium Cyclosilicate 10 Gm Powd.Pack PO 01/30/23 21:12 10 gm ONCE ONE Administration Medical Decision Making Medical Decision Making [facility] Narrative: 72-year-old edema presents to ED for left ankle foot pain. Patient has left ankle fracture that does not need reduction. Patient placed in splint. Patient awaiting for case management and PT evaluation the morning. Patient given pain meds. Meds reconciled Differential Diagnosis Differential Diagnoses: The differential diagnosis associated with the presentation includes (Ankle fracture. Ankle dislocation) Admission/Observation Consideration of admission/observation: Escalation of care including admission/observation considered Lab Data [facility] Lab Attestation statement: I reviewed the patient's lab results. 01/30/23 20:00 01/30/23 20:00 Labs: Lab Results 01/30/23 01/30/23 Range/Units 20:00 20:00 WBC 6.8 (4.8-10.8) X10*3/uL RBC 4.74 (4.20-5.50) X10*6/uL Hgb 13.2 (12.0-16.0) g/dl Hct 42.5 (37.0-47.0) % MCV 89.7 (80.0-98.0) fL MCH 27.8 (27.0-33.0) pg MCHC 31.1 (31.0-35.0) g/dl RDW 13.6 (11.0-16.0) % Plt Count 181 (160-400) X10*3/uL MPV Not Reportable Immature Gran % (Auto) 0.1 (0.0-0.4) % Neut % (Auto) 67.4 (45-73) % Lymph % (Auto) 24.7 (20-40) % [place] % (Auto) 4.7 (2-11) % Eos % (Auto) 2.8 (0-4) % Baso % (Auto) 0.3 (0-2) % Lymph # (Auto) 1.7 (1.2-4.9) X10*3/uL [place] # (Auto) 0.3 (0.1-1.2) X10*3/uL Eos # (Auto) 0.2 (0.0-0.4) X10*3/uL Baso # (Auto) 0.0 (0.0-0.2) X10*3/uL Abs Immat Gran (auto) 0.01 (0.00-0.03) X10*3/uL Absolute Neuts (auto) 4.6 (2.0-8.3) x10*3/uL Absolute Nucleated RBC 0.000 (0.0-0.012) X10*3/uL Nucleated RBC % (auto) 0.0 (0.0-0.2) /100WBC Smear Tech's Comments VERIFIED Sodium 142 (135-145) mmol/L Potassium 5.3 H D (3.3-5.1) mmol/L Chloride 103 (96-108) mmol/L Carbon Dioxide 32 H (22-29) mmol/L Anion Gap 12 (12-20) BUN 15 (9-16) mg/dL Creatinine 1.16 (0.5-1.4) mg/dL Estim Creat Clear Calc 48.8 Estimated GFR 46 Random Glucose 148 H (60-115) mg/dL Calcium 9.4 D (8.4-10.2) mg/dL Total Bilirubin 0.8 (0.0-1.0) mg/dL AST 179 H (5-31) U/L ALT 81 H (0-31) U/L Alkaline Phosphatase 148 H (39-117) U/L Total Protein 6.8 (6.5-8.0) g/dL Albumin 4.1 (3.5-5.0) g/dL Independent Interpretation I performed an independent interpretation of an: EKG (Normal sinus rhythm. Bifascicular block. Ventricular rate 93. Pr interval 140. Care is 132. QTC 474. Negative) Radiology Impression Discussion of test interpretation with radiology: I have reviewed the radiologist's reading. Prescription Management I considered prescription management with: Pain Medication Discharge Plan Discharge Clinical Impression: Ankle fracture, left Patient Disposition: Still a Patient Prescriptions: No Action furosemide 40 mg tablet 40 mg PO QAM atorvastatin 40 mg tablet 40 mg PO BEDTIME sennosides [senna] 8.6 mg tablet 17.2 mg PO DAILY PRN (Reason: constipation) albuterol sulfate 2.5 mg /3 mL (0.083 %) solution for nebulization 2.5 mg inhalation Q8H PRN (Reason: wheezing) glipizide 10 mg tablet extended release 24hr 10 mg PO QAM (DME) OneTouch Ultra Test Strip MISCELLANEOUS BID doxepin 10 mg capsule 20 mg PO BEDTIME omeprazole 40 mg capsule,delayed release(DR/EC) 40 mg PO QAM acetaminophen 500 mg tablet 500 mg PO Q8H PRN (Reason: Pain) citalopram 20 mg tablet 20 mg PO QAM primidone 250 mg tablet 250 mg PO QID gabapentin 300 mg capsule 300 mg PO BID budesonide 0.5 mg/2 mL suspension for nebulization 0.5 mg inhalation BID levothyroxine 200 mcg tablet 200 mcg PO QAM albuterol sulfate 90 mcg/actuation HFA aerosol inhaler 1 puff INHALATION QID PRN (Reason: wheezing) lisinopril 40 mg tablet 40 mg PO QPM ondansetron 4 mg tablet,disintegrating 4 mg PO Q8H PRN (Reason: nausea/vomiting) simethicone [Gas Relief (simethicone)] 80 mg tablet,chewable 80 mg PO Q6H PRN (Reason: gas) bupropion HCl 300 mg tablet extended release 24 hr 300 mg PO QAM bupropion HCl 150 mg tablet extended release 24 hr 150 mg PO QAM Januvia 100 mg tablet 100 mg PO QAM Myrbetriq 25 mg tablet extended release 24 hr 25 mg PO QAM (DME) lancets [OneTouch Delica Plus Lancet] 33 gauge mis MISCELLANEOUS BID Trelegy Ellipta 200-62.5-25 mcg blister with device 1 ea inhalation DAILY
[2023-01-30 20:05] LABS: Hematocrit 42.5 % (37.0-47.0); Mean Corpuscular Volume 89.7 fL (80.0-98.0); PLT CLUMP 1; Red Blood Count 4.74 X10*6/uL (4.20-5.50); Red Cell Distribution Width 13.6 % (11.0-16.0); SCAN SMEAR FLAG 1
[2023-01-30 20:07] LABS: Basophils Percent Auto 0.3 % (0-2); Eosinophils Absolute Auto 0.2 X10*3/uL (0.0-0.4); Eosinophils Percent Auto 2.8 % (0-4); Hemoglobin 13.2 g/dl (12.0-16.0); Imm Gran Abs Auto 0.01 X10*3/uL (0.00-0.03); Imm Gran Pct Auto 0.1 % (0.0-0.4); Lymphocytes Absolute Auto 1.7 X10*3/uL (1.2-4.9); Lymphocytes Percent Auto 24.7 % (20-40); MANUAL DIFF FLAG SCAN; Mean Corpuscular HGB Conc 31.1 g/dl (31.0-35.0); Mean Corpuscular Hemoglobin 27.8 pg (27.0-33.0); Monocytes Absolute Auto 0.3 X10*3/uL (0.1-1.2); Monocytes Percent Auto 4.7 % (2-11); Neutrophils Absolute Auto 4.6 x10*3/uL (2.0-8.3); Neutrophils Percent Auto 67.4 % (45-73)
[2023-01-30 20:28] LABS: Platelet Count 181 X10*3/uL (160-400); White Blood Count 6.8 X10*3/uL (4.8-10.8)
[2023-01-30 20:30] LABS: Alanine Aminotransferase 81 U/L (0-31); Albumin Level 4.1 g/dL (3.5-5.0); Alkaline Phosphatase 148 U/L (39-117); Anion Gap 12 (12-20); Aspartate Amino Transferase 179 U/L (5-31); Bilirubin Total 0.8 mg/dL (0.0-1.0); Blood Urea Nitrogen 15 mg/dL (9-16); Calcium 9.4 mg/dL (8.4-10.2); Carbon Dioxide 32 mmol/L (22-29); Chloride 103 mmol/L (96-108); Creatinine Clr Calc Pharmacy 48.8; Estimated Glomerular Filt Rate 46; Glucose Random 148 mg/dL (60-115); Potassium 5.3 mmol/L (3.3-5.1); SLIDE REVIEW VERIFIED; Sodium 142 mmol/L (135-145); Total Protein 6.8 g/dL (6.5-8.0)
--- NOTE | 2023-01-30 21:09 | PC.NURSE ---
This medical writer assumed care of this Pt at 1900. Pt A&Ox3, reports 9/10 constant left lower leg pain, split is applied. Pt able to wiggle toes and feel touch. IV line placed, provider Bunny aware of Pt increase pain, new orders placed and given as ordered.
--- NOTE | 2023-01-30 21:11 | ECG_ITS ---
Test Reason : HYPERGLYCEMIA Blood Pressure : / mmHG Vent. Rate : 093 BPM Atrial Rate : 093 BPM P-R Int : 140 ms QRS Dur : 132 ms QT Int : 382 ms P-R-T Axes : 050 -46 031 degrees QTc Int : 474 ms Normal sinus rhythm Right bundle branch block Left anterior fascicular block Bifascicular block Abnormal ECG When compared with ECG of 17-DEC-2022 12:33, Left anterior fascicular block is now Present Referred By: Jesu Hollis Electronically Signed By:Bereket Silverman
[2023-01-30] MEDS: Gabapentin 300 MG CAPSULE PO (21:28)
[2023-01-30] MEDS: Morphine Sulfate 4 MG/ML CARTRIDGE IVPUSH (21:28)
[2023-01-30] MEDS: Sodium Zirconium Cyclosilicate 10 GM POWD.PACK PO (21:28)
[2023-01-30] MEDS: Atorvastatin Calcium 40 MG TABLET PO (21:28)
[2023-01-30] MEDS: Doxepin HCl 10 MG CAPSULE 20 MG PO (21:51)
[2023-01-31] VITALS (8 sets, daily range): BP systolic 98–118; BP diastolic 56–81; PULSE 74–102; RESP 12–18; TEMP 36.1–37.6; O2SAT 91–100
[2023-01-31] MEDS: Morphine Sulfate 4 MG/ML CARTRIDGE IVPUSH ×2 (02:58→12:38)
[2023-01-31] MEDS: Omeprazole 40 MG CAPSULE.DR PO (06:25)
--- NOTE | 2023-01-31 06:34 | MHC.EDTECH ---
pt has a purewick
--- NOTE | 2023-01-31 07:48 | PC.NURSE ---
Addendum entered by Syeda Rodriguez RN 01/31/23 09:48: meds held per MD order until speech/swallow eval Original Note: pt coughing after eat bite of food, coughing up bits of food. removed tray from pt. informed PA. pt to receive speech/swallow eval and be NPO until they eval.
--- NOTE | 2023-01-31 08:20 | MHC.EDTECH ---
Patient wash and clean bed change,reposition. patient relaxing watching TV.
[2023-01-31 08:23] LABS: Anion Gap 14 (12-20); Blood Urea Nitrogen 19 mg/dL (9-16); Carbon Dioxide 27 mmol/L (22-29); Chloride 101 mmol/L (96-108); Creatinine Clr Calc Pharmacy 44.9; Estimated Glomerular Filt Rate 42; Glucose Random 150 mg/dL (60-115); Potassium 4.3 mmol/L (3.3-5.1); Sodium 138 mmol/L (135-145)
[2023-01-31] MEDS: HYDROmorphone HCl 0.5 MG/0.5 ML SYRINGE 0.25 MG IM (09:58)
--- NOTE | 2023-01-31 15:24 | MHC.SL.SWA ---
Addendum entered and electronically signed by Laya Fried MA, [facility]-CODING QUALITY COORDINATOR 02/01/23 09:44: D.S. Original Note: Speech Pathologist Impression: Risk of Aspiration Risk of Aspiration Due to: Weak Voice Dysphasia Diet Status: Upgrade Liquid Consistency and Strategies for Safe Swallow: Liquid Intake Recommendation: Thin Liquid Intake Strategies: Small Sips No Straws Solid Food Consistency: Dietary Recommendations: Chopped/Advanced (NDD3) Additional Modifications to Solid Foods: Moisten w/ sauce/gravy Oral Medication Intake: Whole with Liquid Please contact the pharmacy regarding appropriate crushable or liquid drug formulations that are available whenever modified delivery is recommended. Compensatory Strategies and Precautions to be Taken for Safe Swallow: Sitting Upright (90 deg) No Straw Small Bites and Sips Avoid Specific Foods Supervision While Eating and Drinking for Safe Swallow: Total Supervision (1:1) Foods to Avoid: Hard, sticky, tough to chew foods Swallowing Recommended Treatments: Compens. Strategy Educat. Recommendation for Speech: Inpatient Speech Therapy Comment: Recommend CHOPPED/ADVANCED solids (NDD3), THIN liquids, pills WHOLE w/ LIQUID. Recommend supervision d/t reported coughing during meals. Recommend f/u with CODING QUALITY COORDINATOR during hospitalization to monitor for s/s of aspiration and toleration of diet. D/t reported consistent coughing when eating and drinking, patient may benefit from MBSS. RN updated in ED. , RN, RD notified via [facility]. Asset Protection Officer Clinican/Clinical Fellow: Yes: Luz Xiong M.A., [facility]-CODING QUALITY COORDINATOR Supervisory Statement: I have reviewed and agree with the student/clinical fellow's documentation: Speech Language Pathologist:
[2023-01-31 15:29] LABS: COVID-19 Test Negative (Negative); IDNOW Serial# BCCEAD1C
--- NOTE | 2023-01-31 16:34 | PC.NURSE ---
PT saw pt - due to pt being non- weight bearing at this time, plan for pt to go to STR. Speech/Swallow saw pt - recommend chopped diet
[2023-01-31] MEDS: oxyCODONE HCl Immed Release 5 MG TABLET PO ×2 (17:16→22:49)
[2023-01-31] MEDS: Acetaminophen 325 MG TABLET 650 MG PO (17:16)
--- NOTE | 2023-01-31 17:19 | MHC.EDTECH ---
this pct just assumed care of pt ,vitals sign taken ,pt was given dinner ,pure wick in place ,belongings list don't ,fresh water given ,pt niece at bed side .
[2023-01-31] MEDS: Sennosides 8.6 MG TABLET 17.2 MG PO (20:36)
[2023-01-31] MEDS: Atorvastatin Calcium 40 MG TABLET PO (20:36)
[2023-01-31] MEDS: Gabapentin 300 MG CAPSULE PO (20:36)
[2023-01-31] MEDS: lisinopriL 40 MG TABLET PO (20:37)
[2023-01-31] MEDS: Primidone 50 MG TABLET 250 MG PO (20:37)
--- NOTE | 2023-01-31 21:45 | MHC.CM.ED ---
CM met with patient with medical officer, as patient is [place] speaking. Pt was initially sleepy, having been recently medicated, but did wake and was able to answer all questions. Pt was initially resistant to any discussion about STR, but after much discussion and pt awareness that she cannot bear weight on her L foot and cannot use her walker, that patient agreed to 1 week of PT at a facility. Pt understands that she cannot wear weight on that left leg. Pt lives with her grandson (who is 22). Her son helps her daily and her daughter in law is her CUSTOMER EXPERIENCE ANALYST. Pt has a wheelchair, walker, commode, home oxygen and CPAP. CUSTOMER EXPERIENCE ANALYST works 5 days/week. Has 3 hours in the am and 2 hours in the pm. Paid through [employer]. HCP is on file. [facility] x3/[employer] x1. Pt requests that CM speak with her daughter regarding STR. CM spoke with daughter, who speaks Kuwaiti. Joselyn Georgi ([phone]). Joselyn is requesting referrals to facilities in [place]. CM explained that patient is contracted with [facility] and that local referrals would be made, with priority to those facilities in [place] contracted with her mother's insurance. D/C plan: STR. Will need BLS transport. NWB L leg. CM will follow for discharge planning.
[2023-01-31] MEDS: Doxepin HCl 10 MG CAPSULE 20 MG PO (21:46)
[2023-02-01] MEDS: Acetaminophen 325 MG TABLET 650 MG PO (03:42)
--- NOTE | 2023-02-01 03:53 | PC.NURSE ---
Assumed care for pt. Pt reports LLE pain, 05/19. Acetaminophen administered crushed with applesauce. Pt tolerated well. Will continue to monitor.
[2023-02-01 06:00] VITALS: BP 107/70; PULSE 77; RESP 16; TEMP 36.5; O2SAT 96
[2023-02-01] MEDS: oxyCODONE HCl Immed Release 5 MG TABLET PO ×2 (06:23→10:32)
[2023-02-01] MEDS: Omeprazole 40 MG CAPSULE.DR PO (06:24)
[2023-02-01] MEDS: Levothyroxine Sodium 200 MCG TABLET PO (06:44)
[2023-02-01] MEDS: Gabapentin 300 MG CAPSULE PO (08:12)
[2023-02-01] MEDS: Furosemide 40 MG TABLET PO (08:12)
[2023-02-01] MEDS: Escitalopram Oxalate 10 MG TABLET PO (08:12)
[2023-02-01] MEDS: Mirabegron 25 MG TAB.ER.24H PO (10:24)
[2023-02-01] MEDS: Primidone 50 MG TABLET 250 MG PO ×2 (10:24→13:15)
[2023-02-01] MEDS: glipiZIDE XL 10 MG TAB.ER.24 PO (10:25)
[2023-02-01] MEDS: buPROPion HCl XL 300 MG TAB.ER.24H PO (10:25)
[2023-02-01] MEDS: SITagliptin Phosphate 100 MG TABLET PO (10:25)
[2023-02-01] MEDS: buPROPion HCl XL 150 MG TAB.ER.24H PO (10:25)
--- NOTE | 2023-02-01 10:58 | MHC.CM.ED ---
Addendum entered by Evette Oliveira 02/01/23 12:20: [facility] accepts patient. Original Note: Patient remains in ER overflow. No bed offers made within 25 miles. Referral broadcaasted within 50 miles. [facility] and [facility] are able to offer a bed. Met with patient, daughter in law and operations manager assistant. Patient's daughter Harini on speaker phone during the conversation. Patient feels facilities are too far and wants to go home with VNA. Patient has family available to help her. Patient aware VNA referral will have to be broadcasted due to staffing availability. [facility] transport arranged for 2pm. Patient, Fitz MONTESINOS and Dina WEBER aware. Continue to monitor for d/c needs.
[2023-02-01] MEDS: Albuterol Sulfate 90 MCG 8 GM INHALER 1 PUFF INHALE (12:08)
[2023-02-01 13:33] VITALS: BP 90/63; PULSE 90; RESP 14; O2SAT 98
--- NOTE | 2023-02-01 13:44 | PC.NURSE ---
Patient to discharge home today at 2pm. Vitals taken: BP 90/63 via automated cuff. BP then taken manually and got 92 Systolic on both sides. P.A. aware. No orders at this time.
--- NOTE | 2023-02-01 14:14 | MHC.EDTECH ---
patient picked up by EMS for transport home, where she resides with son and grandson.
== END 2023-02-01 14:24 | disposition home or self-care (01) ==
PROVIDERS: Physician Assistant; Physician Assistant Medical; Emergency Provider Internal Medicine; PCP Internal Medicine
DX: S82.892A Other fracture of left lower leg, initial encounter for closed fracture (principal); R26.81 Unsteadiness on feet; R51.9 Headache, unspecified; M54.2 Cervicalgia; W01.0XXA Fall on same level from slipping, tripping and stumbling without subsequent striking against object, initial encounter; Y93.9 Activity, unspecified; Y92.9 Unspecified place or not applicable; Y99.9 Unspecified external cause status; Z20.822 Contact with and (suspected) exposure to COVID-19; Z20.828 Contact with and (suspected) exposure to other viral communicable diseases; Z79.899 Other long term (current) drug therapy
CPT/HCPCS: 29515; 36415; 71046; 73610; 80048; 80053; 85025; 87635; 93005; 96372; 96374; 96375; 97161; 99285; J1170; J2270

== ENCOUNTER 2023-02-03 13:06 | Emergency (ER) | payer OTHER, SELFPAY ==
--- NOTE | ~2023-02-03 | XR_ITS ---
EXAMINATION: XR ANKLE, LEFT CLINICAL INFORMATION: Patient removed splint at home. COMPARISON: 01/30/2023 TECHNIQUE: AP, lateral, and mortise views of the left ankle. FINDINGS: Again noted are mildly displaced cortical fracture fragments at the medial aspect of the medial tibial metaphysis. The medial malleolar fragment is laterally displaced by approximately 0.7 cm (compared to 0.5 cm on 01/30/2023). Also, there is slight interval widening of the tibiofibular syndesmotic space. Again noted are avulsion fragments at level of inferior tibiofibular ligaments of the syndesmosis. The posterior malleolar fracture is posteriorly displaced by 0.2 cm, unchanged compared to 01/30/2023. There is slight worsening of lateral talar subluxation within the injured mortise. Soft tissues are moderately swollen around the ankle. Moderate sized calcaneal enthesophytes. XR/XR ankle LT min 3V IMPRESSION: * There has been interval widening of the tibiofibular syndesmotic space, interval increased lateral displacement of the medial malleolar fragment and slight worsening of lateral talar subluxation. * No significant change in mildly displaced posterior malleolar fracture. * Soft tissues remain moderately swollen around the ankle.
--- NOTE | 2023-02-03 13:13 | ED_ITS ---
HPI - General Adult General Chief complaint: Extremity Injury, Lower <GUS Robb - Last Filed: 02/03/23 18:29> Stated complaint: TIB/FIB FX PAIN <GUS Robb - Last Filed: 02/03/23 18:29> Time Seen by Provider: 02/03/23 13:30 <GUS Robb - Last Filed: 02/03/23 18:29> Source: patient, EMS, RN notes reviewed and old records reviewed <GUS Robb - Last Filed: 02/03/23 18:29> Mode of arrival: EMS <GUS Robb - Last Filed: 02/03/23 18:29> History of Present Illness HPI narrative: 72-year-old female with a past medical history of ENMA, asthma, COPD on 2 L NC baseline, diabetes, anxiety, depression, known medial/posterior malleolar fracture s/p trip and fall in 01/30 patient was evaluated in our ED, splint placed STR was recommended at that time however patient declined, presenting to the ED via EMS for increased pain to fracture site and inability to care for self at home. Daughter's believe patient needs STR. Patient states she removed plenty at home to let the area breathe. Denies more recent injury/trauma or fall, numbness, tingling or weakness <GUS Robb - Last Filed: 02/03/23 18:29> Related Data Home medications: Home Medications Medication Instructions Recorded Confirmed acetaminophen 500 mg tablet 500 mg PO Q8H PRN Pain 01/30/23 02/03/23 albuterol sulfate 2.5 mg/3 mL 2.5 mg inhalation Q8H PRN wheezing 01/30/23 02/03/23 (0.083 %) solution for nebulization albuterol sulfate 90 mcg/actuation 1 puff inhalation QID PRN wheezing 01/30/23 02/03/23 aerosol inhaler atorvastatin 40 mg tablet 40 mg PO BEDTIME 01/30/23 02/03/23 blood sugar diagnostic (OneTouch 01/30/23 01/30/23 Ultra Test strips) budesonide 0.5 mg/2 mL suspension 0.5 mg inhalation BID 01/30/23 02/03/23 for nebulization bupropion HCl 150 mg 24 hr tablet, 150 mg PO QAM 01/30/23 02/03/23 extended release bupropion HCl 300 mg 24 hr tablet, 300 mg PO QAM 01/30/23 02/03/23 extended release citalopram 20 mg tablet 20 mg PO QAM 01/30/23 02/03/23 doxepin 10 mg capsule 20 mg PO BEDTIME 01/30/23 02/03/23 fluticasone fur. 200 mcg-umeclid 1 ea inhalation DAILY 01/30/23 02/03/23 62.5 mcg-vilant 25 mcg inhalat.powder (Trelegy Ellipta) furosemide 40 mg tablet 40 mg PO QAM 01/30/23 02/03/23 gabapentin 300 mg capsule 300 mg PO BID 01/30/23 02/03/23 glipizide 10 mg tablet, extended 10 mg PO QAM 01/30/23 02/03/23 release 24 hr lancets 33 gauge (OneTouch Delica 01/30/23 01/30/23 Plus Lancet) levothyroxine 200 mcg tablet 200 mcg PO QAM 01/30/23 02/03/23 lisinopril 40 mg tablet 40 mg PO QPM 01/30/23 02/03/23 mirabegron 25 mg tablet,extended 25 mg PO QAM 01/30/23 02/03/23 release 24 hr (Myrbetriq) omeprazole 40 mg capsule,delayed 40 mg PO QAM 01/30/23 02/03/23 release ondansetron 4 mg disintegrating 4 mg PO Q8H PRN nausea/vomiting 01/30/23 02/03/23 tablet primidone 250 mg tablet 250 mg PO QID 01/30/23 02/03/23 sennosides 8.6 mg tablet (senna) 17.2 mg PO DAILY PRN constipation 01/30/23 02/03/23 simethicone 80 mg chewable tablet 80 mg PO Q6H PRN gas 01/30/23 02/03/23 (Gas Relief (simethicone)) sitagliptin phosphate 100 mg 100 mg PO QAM 01/30/23 02/03/23 tablet (Januvia) Previous Rx's Medication Instructions Recorded morphine 15 mg immediate release 15 mg PO Q4-6H PRN severe pain 02/04/23 tablet (scale score 7-10) #20 tabs <GUS Robb - Last Filed: 02/03/23 18:29> Allergies/adverse reactions: Allergies Allergy/AdvReac Type Severity Reaction Status Date / Time aspirin [Aspirin] Allergy Mild UPSET Verified 02/04/23 13:17 STOMACH ibuprofen [From Motrin] Allergy Mild Gastrointestinal Verified 02/04/23 13:17 Upset <GUS Robb - Last Filed: 02/03/23 18:29> Review of Systems Review of Systems: Constitutional: No Fever, No Chills ENT/Mouth: No Ear Pain, No Nasal Congestion, No sore throat Cardiovascular: No Chest Pain, No SOB Respiratory: No Cough, No Sputum Gastrointestinal: No Nausea, No Vomiting, No Diarrhea, No Constipation, No Abdominal pain Genitourinary: No Dysuria, No Urinary Frequency, No Urgency, No Flank Pain Musculoskeletal: +joint pain, No Myalgias, + Joint Swelling Skin: No Skin Lesions, No rash Neuro: No Weakness, No Numbness, No Paresthesias <GUS Robb Last Filed: 02/03/23 18:29> Yes all other systems are reviewed and are negative <GUS Robb Last Filed: 02/03/23 18:29> Constitutional: Constitutional: Reports as per HPI <GUS Robb Last Filed: 02/03/23 18:29> FOR[facility]LY [facility] Past Medical History Attestation statement: The following information was validated with the patient. <GUS Robb Last Filed: 02/03/23 18:29> Medical History: Medical History Anxiety and depression Back pain Bilateral primary osteoarthritis of knee Colon cancer screening COPD (chronic obstructive pulmonary disease) COPD exacerbation Diabetes mellitus Frequency of micturition GERD (gastroesophageal reflux disease) High cholesterol Hypertension Hypothyroidism ENMA on CPAP Osteoarthritis Tubular adenoma of colon Urgency incontinence Urgency of micturition <GUS Robb Last Filed: 02/03/23 18:29> Surgical History: Surgical History History of cholecystectomy History of lumpectomy of right breast Hx of colonoscopy Hx of cystoscopy Hx of right knee surgery <GUS Robb - Last Filed: 02/03/23 18:29> Family History Family History: Family History Mother History of pancreatic cancer <GUS Robb - Last Filed: 02/03/23 18:29> Social History Social History: Social History Household Members Other:: lives with grandson Are you a primary home care associate to a significant other at home: No Do you presently have visiting nurse or other home services: Yes ([employer]) Alcohol intake: current Alcohol intake frequency: a few times a month Patient Tobacco Use Status: Never used Tobacco Years Smoked: 30 Smoked in Last 30 Days: No Use of substances other than those prescribed or required for medical reasons: No Advance Directives: Yes Advance Directives on File: Yes Advance Directives Date on File: 01/31/23 <GUS Robb - Last Filed: 02/03/23 18:29> Physical Exam ED Vital Signs: Vital Signs - 24 hr 02/03/23 18:13 02/04/23 07:27 02/04/23 10:59 Pulse Rate 77 77 76 Respiratory Rate 18 20 Blood Pressure 105/68 102/60 Pulse Oximetry 95 96 Oxygen Delivery Method Nasal Cannula Nasal Cannula Oxygen Flow Rate 02/04/23 15:31 Pulse Rate 77 Respiratory Rate 16 Blood Pressure 84/51 L Pulse Oximetry 97 Oxygen Delivery Method Nasal Cannula Oxygen Flow Rate 2 BMI result Body Mass Index 0.0 <GUS Robb - Last Filed: 02/03/23 18:29> Vital Signs - 24 hr 02/03/23 18:13 02/04/23 07:27 02/04/23 10:59 Pulse Rate 77 77 76 Respiratory Rate 18 20 Blood Pressure 105/68 102/60 Pulse Oximetry 95 96 Oxygen Delivery Method Nasal Cannula Nasal Cannula Oxygen Flow Rate 02/04/23 15:31 Pulse Rate 77 Respiratory Rate 16 Blood Pressure 84/51 L Pulse Oximetry 97 Oxygen Delivery Method Nasal Cannula Oxygen Flow Rate 2 BMI result Body Mass Index 0.0 <Edward Lyons - Last Filed: 02/04/23 17:05> Const General: cooperative, healthy appearing and no acute distress <GUS Robb - Last Filed: 02/03/23 18:29> Orientation/consciousness: patient oriented x3 <GUS Robb - Last Filed: 02/03/23 18:29> Limitations: no limitations <GUS Robb - Last Filed: 02/03/23 18:29> HENMT Head: Yes normal to inspection and Yes atraumatic <Dilia Ott PA - Last Filed: 02/03/23 18:29> Ears: hearing grossly normal bilaterally <Dilia Ott PA - Last Filed: 02/03/23 18:29> General nose exam: Normal external nose present <GUS Robb - Last Filed: 02/03/23 18:29> Face and sinus: Yes normal facial exam <GUS Robb - Last Filed: 02/03/23 18:29> Eyes General: appearance normal, both eyes and all related structures <GUS Robb - Last Filed: 02/03/23 18:29> EOM: EOMs intact bilaterally <Dilia Ott PA - Last Filed: 02/03/23 18:29> Neck Neck: Yes normal visual inspection and Yes no meningeal signs <GUS Robb - Last Filed: 02/03/23 18:29> Resp Effort & Inspection: normal respiratory effort and no respiratory distress <GUS Robb - Last Filed: 02/03/23 18:29> Cardio Rate: regular rate <GUS Robb - Last Filed: 02/03/23 18:29> Heart sounds: S1 normal heart sound present and S2 normal heart sound present <GUS Robb - Last Filed: 02/03/23 18:29> Peripheral pulses: Peripheral pulses 2+ throughout <GUS Robb - Last Filed: 02/03/23 18:29> Skin Rashes: no rashes <GUS Robb - Last Filed: 02/03/23 18:29> Wounds: no wounds <Dilia Ott PA - Last Filed: 02/03/23 18:29> Neuro General: patient oriented x3, tone normal and no meningeal signs <GUS Robb Last Filed: 02/03/23 18:29> Extrem Other: + left ankle and foot with noted swelling and healing ecchymosis. + diffusely tender to palpation. Limited ROM secondary to pain. Sensation intact to light touch. NV intact <GUS Robb Last Filed: 02/03/23 18:29> Course Course Course Narrative: -physical therapy evaluated patient and recommends short-term rehab. XR ankle LT min 3V IMPRESSION: *? There has been interval widening of the tibiofibular syndesmotic space, interval increased lateral displacement of the medial malleolar fragment and slight worsening of lateral talar subluxation. *? No significant change in mildly displaced posterior malleolar fracture. *? Soft tissues remain moderately swollen around the ankle. ? > no additional reduction will be performed at this time. Posterior short-leg and stirrup splint will be reapplied. -physician observation initiated. Patient will remain in the ED overnight pending insurance authorization -1900--ED care transferred to GUS Roland pending case management placement <GUS Robb - Last Filed: 02/03/23 18:29> Reevaluation(s) Reevaluation #1: Patient will be discharged to rehab later today. I was asked to write a prescription for morphine 50 mg p.o. which the patient has been taking with good relief of her pain. <Edward Lyons - Last Filed: 02/04/23 17:05> Time: 17:02 <Edward Lyons - Last Filed: 02/04/23 17:05> Medications Administered Generic Name Dose Route Start Last Admin Trade Name Freq PRN Reason Stop Dose Admin Albuterol Sulfate 2.5 mg 02/03/23 18:26 02/04/23 07:26 Albuterol Sulfate (0.083%) 2.5 Mg/3 Ml Vial.Neb INHALE 2.5 mg RQ8H MASOUD Administration Atorvastatin Calcium 40 mg 02/03/23 21:00 02/03/23 20:44 Atorvastatin Calcium 40 Mg Tablet PO 40 mg BEDTIME MASOUD Administration Bupropion HCl 150 mg 02/03/23 18:30 02/04/23 10:54 Bupropion Hcl Xl 150 Mg Tab.Er.24h PO 150 mg DAILY MASOUD Administration Bupropion HCl 300 mg 02/03/23 18:30 02/04/23 10:55 Bupropion Hcl Xl 300 Mg Tab.Er.24h PO 300 mg DAILY MASOUD Administration Doxepin HCl 20 mg 02/03/23 21:00 02/03/23 20:44 Doxepin Hcl 10 Mg Capsule PO 20 mg BEDTIME MASOUD Administration Escitalopram Oxalate 20 mg 02/03/23 18:30 02/04/23 10:53 Escitalopram Oxalate 10 Mg Tablet PO 20 mg DAILY MASOUD Administration Furosemide 40 mg 02/03/23 18:30 02/04/23 10:54 Furosemide 40 Mg Tablet PO 40 mg DAILY MASOUD Administration Protocol Gabapentin 300 mg 02/03/23 21:00 02/04/23 10:54 Gabapentin 300 Mg Capsule PO 300 mg BID MASOUD Administration Glipizide 10 mg 02/03/23 18:30 02/04/23 10:55 Glipizide Xl 10 Mg Tab.Er.24 PO 10 mg DAILY MASOUD Administration Levothyroxine Sodium 200 mcg 02/03/23 18:30 02/04/23 10:55 Levothyroxine Sodium 200 Mcg Tablet PO 200 mcg DAILY MASOUD Administration Lisinopril 40 mg 02/03/23 19:00 02/03/23 21:03 Lisinopril 40 Mg Tablet PO Not Given BEDTIME [facility] Protocol Mirabegron 25 mg 02/03/23 18:30 02/04/23 10:55 Mirabegron 25 Mg Tab.Er.24h PO 25 mg DAILY MASOUD Administration Morphine Sulfate 15 mg 02/03/23 18:05 02/04/23 07:08 Morphine Sulfate Immed Release 15 Mg Tablet PO 15 mg Q4H PRN Administration Pain, Moderate (Pain Scale 4-6 Omeprazole 40 mg 02/03/23 18:30 02/04/23 07:08 Omeprazole 40 Mg Capsule.Dr PO 40 mg DAILY@0630 [facility] Administration Ondansetron HCl 4 mg 02/03/23 18:26 02/03/23 22:44 Ondansetron Odt 4 Mg Tab.Rapdis TRANSLINGU 4 mg Q8H PRN Administration nausea/vomiting Primidone 250 mg 02/03/23 21:00 02/04/23 16:57 Primidone 50 Mg Tablet PO 250 mg QID MASOUD Administration Sitagliptin Phosphate 100 mg 02/03/23 18:30 02/04/23 10:55 Sitagliptin Phosphate 100 Mg Tablet PO 100 mg DAILY MASOUD Administration Discontinued Medications Generic Name Dose Route Start Last Admin Trade Name Frejudy PRN Reason Stop Dose Admin Acetaminophen 650 mg 02/03/23 13:53 02/03/23 14:01 Acetaminophen 325 Mg Tablet PO 02/03/23 13:54 650 mg ONCE ONE Administration Morphine Sulfate 4 mg 02/03/23 13:52 02/03/23 14:01 Morphine Sulfate 4 Mg/Ml Cartridge IM 02/03/23 13:53 4 mg ONCE ONE Administration Protocol <GUS Robb - Last Filed: 02/03/23 18:29> Medications Administered Generic Name Dose Route Start Last Admin Trade Name Freq PRN Reason Stop Dose Admin Albuterol Sulfate 2.5 mg 02/03/23 18:26 02/04/23 07:26 Albuterol Sulfate (0.083%) 2.5 Mg/3 Ml Vial.Neb INHALE 2.5 mg RQ8H MASOUD Administration Atorvastatin Calcium 40 mg 02/03/23 21:00 02/03/23 20:44 Atorvastatin Calcium 40 Mg Tablet PO 40 mg BEDTIME MASOUD Administration Bupropion HCl 150 mg 02/03/23 18:30 02/04/23 10:54 Bupropion Hcl Xl 150 Mg Tab.Er.24h PO 150 mg DAILY MASOUD Administration Bupropion HCl 300 mg 02/03/23 18:30 02/04/23 10:55 Bupropion Hcl Xl 300 Mg Tab.Er.24h PO 300 mg DAILY MASOUD Administration Doxepin HCl 20 mg 02/03/23 21:00 02/03/23 20:44 Doxepin Hcl 10 Mg Capsule PO 20 mg BEDTIME MASOUD Administration Escitalopram Oxalate 20 mg 02/03/23 18:30 02/04/23 10:53 Escitalopram Oxalate 10 Mg Tablet PO 20 mg DAILY MASOUD Administration Furosemide 40 mg 02/03/23 18:30 02/04/23 10:54 Furosemide 40 Mg Tablet PO 40 mg DAILY MASOUD Administration Protocol Gabapentin 300 mg 02/03/23 21:00 02/04/23 10:54 Gabapentin 300 Mg Capsule PO 300 mg BID MASOUD Administration Glipizide 10 mg 02/03/23 18:30 02/04/23 10:55 Glipizide Xl 10 Mg Tab.Er.24 PO 10 mg DAILY MASOUD Administration Levothyroxine Sodium 200 mcg 02/03/23 18:30 02/04/23 10:55 Levothyroxine Sodium 200 Mcg Tablet PO 200 mcg DAILY [facility] Administration Lisinopril 40 mg 02/03/23 19:00 02/03/23 21:03 Lisinopril 40 Mg Tablet PO Not Given BEDTIME [facility] Protocol Mirabegron 25 mg 02/03/23 18:30 02/04/23 10:55 Mirabegron 25 Mg Tab.Er.24h PO 25 mg DAILY [facility] Administration Morphine Sulfate 15 mg 02/03/23 18:05 02/04/23 07:08 Morphine Sulfate Immed Release 15 Mg Tablet PO 15 mg Q4H PRN Administration Pain, Moderate (Pain Scale 4-6 Omeprazole 40 mg 02/03/23 18:30 02/04/23 07:08 Omeprazole 40 Mg Capsule.Dr PO 40 mg DAILY@0630 [facility] Administration Ondansetron HCl 4 mg 02/03/23 18:26 02/03/23 22:44 Ondansetron Odt 4 Mg Tab.Rapdis TRANSLINGU 4 mg Q8H PRN Administration nausea/vomiting Primidone 250 mg 02/03/23 21:00 02/04/23 16:57 Primidone 50 Mg Tablet PO 250 mg QID [facility] Administration Sitagliptin Phosphate 100 mg 02/03/23 18:30 02/04/23 10:55 Sitagliptin Phosphate 100 Mg Tablet PO 100 mg DAILY [facility] Administration Discontinued Medications Generic Name Dose Route Start Last Admin Trade Name Freq PRN Reason Stop Dose Admin Acetaminophen 650 mg 02/03/23 13:53 02/03/23 14:01 Acetaminophen 325 Mg Tablet PO 02/03/23 13:54 650 mg ONCE ONE Administration Morphine Sulfate 4 mg 02/03/23 13:52 02/03/23 14:01 Morphine Sulfate 4 Mg/Ml Cartridge IM 02/03/23 13:53 4 mg ONCE ONE Administration Protocol <Edward Lyons - Last Filed: 02/04/23 17:05> Procedures Orthopedic Splinting/Casting Injury #1: Side: left <GUS Robb - Last Filed: 02/03/23 18:29> Lower Extremity Injury Location: ankle <GUS Robb - Last Filed: 02/03/23 18:29> Lower Extremity Immobilizer: posterior splint and stirrup splint <GUS Robb - Last Filed: 02/03/23 18:29> Medical Decision Making Medical Decision Making MDM Narrative: 72-year-old female with a past medical history of EMNA, asthma, COPD on 2 L NC baseline, diabetes, anxiety, depression, known medial/posterior malleolar fracture s/p trip and fall in 01/30, presenting to the ED via EMS for increased pain to fracture site and inability to care for self at home. On exam vital signs stable, NAD, nontoxic appearing, splint removed, neurovascularly intact. Noted tenderness with healing ecchymosis as above. Low suspicion for septic joint/arthritis. No evidence of vascular compromise Will obtain repeat imaging as patient self remove splint at home, replace splint , and obtain PT/Case Management eval Plan: X-rays, pain control, PT/case management Please refer to course for remaining clinical decision making, interpretation of labs/imaging results, and discussions with consultants and/or family members. <GUS Robb - Last Filed: 02/03/23 18:29> Differential Diagnosis Differential Diagnoses: The differential diagnosis associated with the presentation includes <GUS Robb - Last Filed: 02/03/23 18:29> As above <GUS Robb - Last Filed: 02/03/23 18:29> Admission/Observation Consideration of admission/observation: Escalation of care including admission/observation considered <GUS Robb - Last Filed: 02/03/23 18:29> Lab Data [facility] Lab Attestation statement: I reviewed the patient's lab results. <GUS Robb - Last Filed: 02/03/23 18:29> Labs: Lab Results 02/03/23 Range/Units 14:35 COVID-19 (JUNIE) Negative (Negative) COVID-19 Clin Com See Note <GUS Robb - Last Filed: 02/03/23 18:29> Lab Results 02/03/23 Range/Units 14:35 COVID-19 (JUNIE) Negative (Negative) COVID-19 Clin Com See Note <Edward Lyons - Last Filed: 02/04/23 17:05> Radiology Impression Discussion of test interpretation with radiology: I have reviewed the radiologist's reading. <GUS Robb Last Filed: 02/03/23 18:29> External Record Review External record reviewed: Inpatient record, Office record, Outpatient record, Prior outpatient labs, Prior outpatient radiology, Primary care record and Outside ED record <GUS Robb Last Filed: 02/03/23 18:29> Discharge Plan Discharge Clinical Impression: Ankle fracture Qualifiers: Encounter type: subsequent encounter Fracture type: closed Laterality: left <GUS Robb Last Filed: 02/03/23 18:29> Patient Disposition: Home, Self-Care <GUS Robb Last Filed: 02/03/23 18:29> Instructions: Ankle Fracture (DC) <GUS Robb Last Filed: 02/03/23 18:29> Additional Instructions: KEEP SPLINT ON, DRY, AND CLEAN DO NOT BEAR ANY WEIGHT ON YOUR LEFT LEG YOU NEED TO FOLLOW-UP WITH ORTHOPEDICS [facility]. ELEVATE. Use morphine for severe or breakthrough pain <GUS Robb Last Filed: 02/03/23 18:29> Prescriptions: New morphine 15 mg tablet 15 mg PO Q4-6H PRN (Reason: severe pain (scale score 7-10)) Qty: 20 0RF Rx Instructions: Partial Fill upon patient request. No Action furosemide 40 mg tablet 40 mg PO QAM atorvastatin 40 mg tablet 40 mg PO BEDTIME sennosides [senna] 8.6 mg tablet 17.2 mg PO DAILY PRN (Reason: constipation) albuterol sulfate 2.5 mg /3 mL (0.083 %) solution for nebulization 2.5 mg inhalation Q8H PRN (Reason: wheezing) glipizide 10 mg tablet extended release 24hr 10 mg PO QAM (DME) OneTouch Ultra Test Strip MISCELLANEOUS BID doxepin 10 mg capsule 20 mg PO BEDTIME omeprazole 40 mg capsule,delayed release(DR/EC) 40 mg PO QAM acetaminophen 500 mg tablet 500 mg PO Q8H PRN (Reason: Pain) citalopram 20 mg tablet 20 mg PO QAM primidone 250 mg tablet 250 mg PO QID gabapentin 300 mg capsule 300 mg PO BID budesonide 0.5 mg/2 mL suspension for nebulization 0.5 mg inhalation BID levothyroxine 200 mcg tablet 200 mcg PO QAM albuterol sulfate 90 mcg/actuation HFA aerosol inhaler 1 puff INHALATION QID PRN (Reason: wheezing) lisinopril 40 mg tablet 40 mg PO QPM ondansetron 4 mg tablet,disintegrating 4 mg PO Q8H PRN (Reason: nausea/vomiting) simethicone [Gas Relief (simethicone)] 80 mg tablet,chewable 80 mg PO Q6H PRN (Reason: gas) bupropion HCl 300 mg tablet extended release 24 hr 300 mg PO QAM bupropion HCl 150 mg tablet extended release 24 hr 150 mg PO QAM Januvia 100 mg tablet 100 mg PO QAM Myrbetriq 25 mg tablet extended release 24 hr 25 mg PO QAM (DME) lancets [OneTouch Delica Plus Lancet] 33 [place] [facility] [place]ISCELLANEOUS BID Trelegy Ellipta 200-62.5-25 mcg blister with device 1 ea inhalation DAILY <GUS Robb - Last Filed: 02/03/23 18:29> Ref[place]: [facility] [place] Group] - 1 week [facility] [Outside] <GUS Robb - Last Filed: 02/03/23 18:29>
[2023-02-03 13:24] VITALS: BP 110/78; PULSE 78; O2SAT 100
[2023-02-03 13:31] VITALS: BP 114/61; PULSE 80; RESP 20; TEMP 36.5; O2SAT 97
[2023-02-03] MEDS: Morphine Sulfate 4 MG/ML CARTRIDGE IM (14:01)
[2023-02-03] MEDS: Acetaminophen 325 MG TABLET 650 MG PO (14:01)
--- NOTE | 2023-02-03 14:31 | MHC.CM.ED ---
Addendum entered by Evette Oliveira 02/03/23 15:05: Met with patient and family member to verify CM is aware she is looking for STR. Both aware referral has been made within 50 miles. Original Note: Received case management consult from Dilia WEBER. Patient known to CM. Patient was in [facility] ER. STR was recommended at that time. Patient has [facility] for insurance. Placement was difficult to find locally. Patient and family declined STR about an hour away. Patient returned to ER due to pain. Physical therapy eval and Covid swab are pending. Anticipate STR will be recommended. Referral broadcasted to all facilities that are contracted with patient's insurance within 50 miles at this time. Continue to monitor for d/c needs.
[2023-02-03 14:51] LABS: COVID-19 Test Negative (Negative); IDNOW Serial# 6674DD1D
[2023-02-03 14:58] VITALS: BP 114/61; PULSE 80; O2SAT 97
--- NOTE | 2023-02-03 15:00 | PC.NURSE ---
pt medicated per MAR, reassesed pt pain which is now 05/19
--- NOTE | 2023-02-03 16:09 | PHA.MEDREC ---
Pharmacy Consult ? Medication Reconciliation Pharmacy has completed the medication reconciliation.
[2023-02-03 18:13] VITALS: BP 105/68; PULSE 77; O2SAT 95
[2023-02-03] MEDS: Morphine Sulfate Immed Release 15 MG TABLET PO (18:15)
--- NOTE | 2023-02-03 18:26 | PC.NURSE ---
pt medicated per DEC 16 left foot pain- pt dtr at bedside pt does have an STR bed pending insurance approval for tomorrow. pt dtr at bedside, aware of plan pt will be resplinted
--- NOTE | 2023-02-03 19:50 | MHC.EDTECH ---
POSTERIOR SHORT LEG WITH STIRRUP SPLINT APPLIED TO LEFT LEG PER RN.
--- NOTE | 2023-02-03 20:11 | PC.NURSE ---
pt eating prior to medication administration, pharmacy contacted for outstanding medication.
[2023-02-03] MEDS: lisinopriL 40 MG TABLET PO (20:43)
[2023-02-03] MEDS: Escitalopram Oxalate 10 MG TABLET 20 MG PO (20:43)
[2023-02-03] MEDS: Furosemide 40 MG TABLET PO (20:43)
[2023-02-03] MEDS: buPROPion HCl XL 150 MG TAB.ER.24H PO (20:44)
[2023-02-03] MEDS: Atorvastatin Calcium 40 MG TABLET PO (20:44)
[2023-02-03] MEDS: Omeprazole 40 MG CAPSULE.DR PO (20:44)
[2023-02-03] MEDS: Doxepin HCl 10 MG CAPSULE 20 MG PO (20:44)
[2023-02-03] MEDS: buPROPion HCl XL 300 MG TAB.ER.24H PO (20:44)
[2023-02-03] MEDS: Levothyroxine Sodium 200 MCG TABLET PO (20:44)
[2023-02-03] MEDS: Primidone 50 MG TABLET 250 MG PO (20:45)
[2023-02-03] MEDS: glipiZIDE XL 10 MG TAB.ER.24 PO (20:45)
[2023-02-03] MEDS: SITagliptin Phosphate 100 MG TABLET PO (20:45)
[2023-02-03] MEDS: Mirabegron 25 MG TAB.ER.24H PO (20:45)
[2023-02-03] MEDS: Gabapentin 300 MG CAPSULE PO (20:45)
--- NOTE | 2023-02-03 20:55 | PC.NURSE ---
pt medicated per MAR- pt can take multiple meds whole, pt sts that her pain is okay at this time call garcia within reach [facility]
[2023-02-03] MEDS: Ondansetron ODT 4 MG TAB.RAPDIS TRANSLINGU (22:44)
--- NOTE | 2023-02-03 23:21 | PC.NURSE ---
Pt assisted to bedside commode. Pt unsteady on her feet, needs minimum one assist.
[2023-02-04] MEDS: Omeprazole 40 MG CAPSULE.DR PO (07:08)
[2023-02-04] MEDS: Morphine Sulfate Immed Release 15 MG TABLET PO (07:08)
[2023-02-04] MEDS: Albuterol Sulfate (0.083%) 2.5 MG/3 ML VIAL.NEB INHALE ×2 (07:26→17:15)
[2023-02-04 07:27] VITALS: PULSE 77; RESP 18; O2SAT 96
[2023-02-04] MEDS: Escitalopram Oxalate 10 MG TABLET 20 MG PO (10:53)
[2023-02-04] MEDS: Primidone 50 MG TABLET 250 MG PO ×3 (10:54→16:57)
[2023-02-04] MEDS: Gabapentin 300 MG CAPSULE PO (10:54)
[2023-02-04] MEDS: Furosemide 40 MG TABLET PO (10:54)
[2023-02-04] MEDS: buPROPion HCl XL 150 MG TAB.ER.24H PO (10:54)
[2023-02-04] MEDS: Mirabegron 25 MG TAB.ER.24H PO (10:55)
[2023-02-04] MEDS: glipiZIDE XL 10 MG TAB.ER.24 PO (10:55)
[2023-02-04] MEDS: buPROPion HCl XL 300 MG TAB.ER.24H PO (10:55)
[2023-02-04] MEDS: SITagliptin Phosphate 100 MG TABLET PO (10:55)
[2023-02-04] MEDS: Levothyroxine Sodium 200 MCG TABLET PO (10:55)
[2023-02-04 10:59] VITALS: BP 102/60; PULSE 76; RESP 20; O2SAT 96
--- NOTE | 2023-02-04 12:34 | MHC.EDTECH ---
pt brought in her CPAP machine - Wrist band has been applied
--- NOTE | 2023-02-04 14:27 | MHC.CM.ED ---
Patient remains in ER overflow. Still waiting for insurance auth for [place]. Continue to monitor for d/c needs.
--- NOTE | 2023-02-04 14:55 | PC.NURSE ---
pt brought over from main ED, pt mainly Japanese speaking but does understand bits of Maltese. Pt verbalizes that her pain is at a 5/10, well controlled and does not need morphine at this time. Pt provided with lunch, and now has family member visiting. Respirations equal and unlabored, skin pwd, ankle splint intact, CMS present in left toes, no apparent distress at this time. Continue plan of care for case management follow up
[2023-02-04 15:31] VITALS: BP 84/51; PULSE 77; RESP 16; O2SAT 97
[2023-02-04 17:15] VITALS: PULSE 75; RESP 18; O2SAT 96
--- NOTE | 2023-02-04 17:20 | MHC.CM.ED ---
Insurance auth obtained. BLS booked for 6-7 pm tonight. 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 [facility] [place]. Facility aware. Karine Rosa, liaison has contacted the facility. Pt Family, RN and Provider aware.
== END 2023-02-04 18:40 | disposition home or self-care (01) ==
PROVIDERS: Physician Assistant; Emergency Provider Student in an Organized Health Care Education/Training Program; PCP Internal Medicine
DX: M25.572 Pain in left ankle and joints of left foot (principal); S82.52XG Displaced fracture of medial malleolus of left tibia, subsequent encounter for closed fracture with delayed healing; W19.XXXD Unspecified fall, subsequent encounter; Z79.899 Other long term (current) drug therapy
CPT/HCPCS: 29515; 73610; 87635; 94640; 96372; 97161; 99285; J2270

== ENCOUNTER 2023-02-10 06:20 | Outpatient (REF) | payer OTHER, SELFPAY ==
--- NOTE | ~2023-02-10 | XR_ITS ---
EXAMINATION: XR ANKLE, LEFT XR TIBIA FIBULA, LEFT CLINICAL INFORMATION: Pain in left leg. Pain in left ankle and joints of left foot. COMPARISON: 02/03/2023. TECHNIQUE: 3 views of the left ankle, 2 views of the left tibia fibula. FINDINGS: There is no oblique minimally displaced fracture of the proximal fibula with slight lateral and anterior displacement of the distal fracture fragment. Again seen are fractures of the posterior malleolus and medial malleolus. There is widening of the tibiofibular syndesmosis. XR/XR ankle LT min 3V IMPRESSION: Medial and posterior malleoli are fractures of the left ankle with widening of the tibiofibular syndesmosis. Proximal fibular fracture.
--- NOTE | ~2023-02-10 | XR_ITS ---
EXAMINATION: XR ANKLE, LEFT XR TIBIA FIBULA, LEFT CLINICAL INFORMATION: Pain in left leg. Pain in left ankle and joints of left foot. COMPARISON: 02/03/2023. TECHNIQUE: 3 views of the left ankle, 2 views of the left tibia fibula. FINDINGS: There is no oblique minimally displaced fracture of the proximal fibula with slight lateral and anterior displacement of the distal fracture fragment. Again seen are fractures of the posterior malleolus and medial malleolus. There is widening of the tibiofibular syndesmosis. XR/XR tibia fibula LT 2V IMPRESSION: Medial and posterior malleoli are fractures of the left ankle with widening of the tibiofibular syndesmosis. Proximal fibular fracture.
== END 2023-02-10 06:21 | disposition home or self-care (01) ==
LOC: HO.HOSX 06:20
PROVIDERS: Visit Provider Physician Assistant
DX: S82.832A Other fracture of upper and lower end of left fibula, initial encounter for closed fracture (principal); S82.892A Other fracture of left lower leg, initial encounter for closed fracture
CPT/HCPCS: 73590; 73610; 99202

== ENCOUNTER 2023-02-10 12:10 | Emergency (ER) | payer OTHER, SELFPAY ==
[2023-02-10 12:20] VITALS: BP 94/43; PULSE 82; RESP 20; TEMP 36.6; O2SAT 96; BMI 41.1
--- NOTE | 2023-02-10 12:23 | MHC.EDTECH ---
Pt changed into hospital gown and placed on monitor
--- NOTE | 2023-02-10 12:36 | MHC.EDTECH ---
Bladder scan of 961 completed, RN aware
--- NOTE | 2023-02-10 12:38 | ED_ITS ---
HPI - General Adult General Chief complaint: General Medical <Diana Kwan NP - Last Filed: 02/10/23 15:44> Stated complaint: PT FEELS NOT BEING TREATED WELL @ REHAB PER EMS <Diana Kwan NP - Last Filed: 02/10/23 15:44> Time Seen by Provider: 02/10/23 12:33 <Diana Kwan NP - Last Filed: 02/10/23 15:44> Source: patient and EMS <Diana Kwan NP - Last Filed: 02/10/23 15:44> Mode of arrival: EMS <Diana Kwan NP - Last Filed: 02/10/23 15:44> Limitations: no limitations <Diana Kwan NP - Last Filed: 02/10/23 15:44> History of Present Illness HPI narrative: 72-year-old female with a past medical history of ENMA, asthma, COPD on 2 L NC baseline, diabetes, anxiety, depression, known medial/posterior malleolar fracture s/p trip and fall on 01/30 coming from [facility] because she feels they are not caring for her well. Family is at the bedside. They explain their frustration as she keeps wanting to go to the bathroom and noone is coming to help her when she hits the call garcia. They feel she is being neglected. They are also upset that the patient has not been assisted to get out of bed more. The granddaughter states they called me this morning to say she was retaining >900ml of urine and they placed a catheter, but I feel they have not been helping her up to the bathroom. Unsure if urine was tested for infection. On arrival our ED nurse noted the nance catheter was not inserted completely <Diana Kwan NP - Last Filed: 02/10/23 15:44> Related Data Home medications: Home Medications Medication Instructions Recorded Confirmed albuterol sulfate 2.5 mg/3 mL 2.5 mg inhalation Q8H PRN wheezing 01/30/23 02/10/23 (0.083 %) solution for nebulization atorvastatin 40 mg tablet 40 mg PO BEDTIME 01/30/23 02/10/23 blood sugar diagnostic (OneTouch 01/30/23 01/30/23 Ultra Test strips) budesonide 0.5 mg/2 mL suspension 0.5 mg inhalation BID 01/30/23 02/10/23 for nebulization bupropion HCl 150 mg 24 hr tablet, 150 mg PO QAM 01/30/23 02/10/23 extended release bupropion HCl 300 mg 24 hr tablet, 300 mg PO QAM 01/30/23 02/10/23 extended release citalopram 20 mg tablet 20 mg PO QAM 01/30/23 02/10/23 fluticasone fur. 200 mcg-umeclid 1 ea inhalation DAILY 01/30/23 02/10/23 62.5 mcg-vilant 25 mcg inhalat.powder (Trelegy Ellipta) gabapentin 300 mg capsule 300 mg PO BEDTIME 01/30/23 02/10/23 lancets 33 gauge (OneTouch Delica 01/30/23 01/30/23 Plus Lancet) levothyroxine 200 mcg tablet 200 mcg PO QAM 01/30/23 02/10/23 mirabegron 25 mg tablet,extended 25 mg PO QAM 01/30/23 02/10/23 release 24 hr (Myrbetriq) ondansetron 4 mg disintegrating 4 mg PO Q8H PRN nausea/vomiting 01/30/23 02/10/23 tablet primidone 250 mg tablet 250 mg PO QID 01/30/23 02/10/23 sennosides 8.6 mg tablet (senna) 17.2 mg PO DAILY PRN constipation 01/30/23 02/10/23 simethicone 80 mg chewable tablet 80 mg PO Q6H PRN gas 01/30/23 02/10/23 (Gas Relief (simethicone)) sitagliptin phosphate 100 mg 100 mg PO QAM 01/30/23 02/10/23 tablet (Januvia) acetaminophen 325 mg tablet 650 mg PO Q6H PRN TEMP > 101 02/10/23 02/10/23 acetaminophen 500 mg tablet 500 mg PO Q8H PRN Pain 02/10/23 02/10/23 bisacodyl 10 mg rectal suppository 10 mg NC DAILY PRN Constipation 02/10/23 02/10/23 cholecalciferol (vitamin D3) 50 50 mcg PO DAILY 02/10/23 02/10/23 mcg (2,000 unit) tablet enoxaparin 40 mg/0.4 mL 40 mg subcut DAILY 02/10/23 02/10/23 subcutaneous syringe (Lovenox) furosemide 20 mg tablet 20 mg PO DAILY 02/10/23 02/10/23 lisinopril 5 mg tablet 5 mg PO BEDTIME 02/10/23 02/10/23 magnesium hydroxide 400 mg/5 mL 30 ml PO DAILY PRN Constipation 02/10/23 02/10/23 oral suspension (Milk of Magnesia) morphine 15 mg immediate release 15 mg PO Q12H PRN severe pain 02/10/23 02/10/23 tablet (scale score 7-10) polyethylene glycol 3350 17 gram 17 g PO DAILY 02/10/23 02/10/23 oral powder packet (Miralax) sennosides 8.6 mg tablet (senna) 17.2 mg PO BID 02/10/23 02/10/23 sodium phosphates 19 gram-7 118 ml NC DAILY PRN Constipation 02/10/23 02/10/23 gram/118 mL enema (Fleet Enema) trazodone 50 mg tablet 25 mg PO BEDTIME PRN SEDATIVE 02/10/23 02/10/23 <Diana Kwan NP - Last Filed: 02/10/23 15:44> Allergies/adverse reactions: Allergies Allergy/AdvReac Type Severity Reaction Status Date / Time aspirin [Aspirin] Allergy Mild UPSET Verified 02/10/23 12:27 STOMACH ibuprofen [From Motrin] Allergy Mild Gastrointestinal Verified 02/10/23 12:27 Upset <Diana Kwan NP - Last Filed: 02/10/23 15:44> Review of Systems Review of Systems: Yes all other systems are reviewed and are negative <Diana Kwan NP - Last Filed: 02/10/23 15:44> Constitutional: Constitutional: Reports no additional constitutional complaints, Denies body ache(s), Denies chills, Denies fever(s), Denies headache(s) and Denies weakness <Diana Kwan NP - Last Filed: 02/10/23 15:44> Eyes: Eyes: Reports no additional eye complaints and Denies change in vision <Diana Kwan NP - Last Filed: 02/10/23 15:44> ENT: Reports system reviewed and no additional complaints, except as docume nted, Denies dizziness, Denies headache(s), Denies nasal congestion, Denies nasal discharge and Denies neck pain <Diana Kwan ROTATING EQUIPMENT SPECIALIST - Last Filed: 02/10/23 15:44> Cardiovascular: Cardiovascular: Reports no additional cardiovascular complaints, Denies chest pain, Denies leg edema and Denies dyspnea <Diana Kwan ROTATING EQUIPMENT SPECIALIST - Last Filed: 02/10/23 15:44> Respiratory: Respiratory: Reports no additional respiratory complaints, Denies cough and Denies dyspnea <Diana Kwan ROTATING EQUIPMENT SPECIALIST - Last Filed: 02/10/23 15:44> Gastrointestinal: Gastrointestinal: Reports no additional gastrointestinal complaints, Denies abdominal pain, Denies diarrhea, Denies nausea and Denies vomiting <Diana Kwan ROTATING EQUIPMENT SPECIALIST - Last Filed: 02/10/23 15:44> Genitourinary: Genitourinary: Reports no additional female genitourinary complaints and Denies urinary incontinence <Diana Kwan ROTATING EQUIPMENT SPECIALIST - Last Filed: 02/10/23 15:44> Musculoskeletal: Musculoskeletal: Reports no additional musculoskeletal complaints, Denies back pain, Denies arthralgias, Denies joint swelling, Denies neck pain, Denies numbness and Denies tingling <Diana Kwan ROTATING EQUIPMENT SPECIALIST - Last Filed: 02/10/23 15:44> Integumentary/Breasts: Skin/Breast: Reports system reviewed and no additional complaints, except as docu and Denies rash <Diana Kwan ROTATING EQUIPMENT SPECIALIST - Last Filed: 02/10/23 15:44> Neurologic: Reports system reviewed and no additional complaints, except as documented, Denies dizziness, Denies headache(s), Denies numbness, Denies tingling and Denies weakness <Diana Kwan ROTATING EQUIPMENT SPECIALIST - Last Filed: 02/10/23 15:44> FOR[facility]LY [facility] Past Medical History Attestation statement: The following information was validated with the patient. <Diana Kwan NP - Last Filed: 02/10/23 15:44> Source: old records reviewed and nursing notes reviewed <Diana Kwan NP - Last Filed: 02/10/23 15:44> Medical History: Medical History Anxiety and depression Back pain Bilateral primary osteoarthritis of knee Colon cancer screening COPD (chronic obstructive pulmonary disease) COPD exacerbation Diabetes mellitus Frequency of micturition GERD (gastroesophageal reflux disease) High cholesterol Hypertension Hypothyroidism ENMA on CPAP Osteoarthritis Tubular adenoma of colon Urgency incontinence Urgency of micturition <Diana Kwan NP - Last Filed: 02/10/23 15:44> Surgical History: Surgical History History of cholecystectomy History of lumpectomy of right breast Hx of colonoscopy Hx of cystoscopy Hx of right knee surgery <Diana Kwan NP - Last Filed: 02/10/23 15:44> Family History Family History: Family History Mother History of pancreatic cancer <Diana Kwan NP - Last Filed: 02/10/23 15:44> Social History Social History: Social History Household Members Other:: lives with grandson Are you a primary congregational care pastor to a significant other at home: No 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) Alcohol intake: never Patient Tobacco Use Status: Never used Tobacco Years Smoked: 30 Advance Directives Date on File: 01/31/23 <Diana Kwan NP - Last Filed: 02/10/23 15:44> Physical Exam ED Vital Signs: Vital Signs - 24 hr 02/10/23 12:20 02/10/23 13:51 02/10/23 16:02 Temperature 98 F 97.8 F Pulse Rate 82 77 73 Respiratory Rate 20 17 13 Blood Pressure 94/43 L 99/63 90/64 Pulse Oximetry 96 96 96 Oxygen Delivery Method Nasal Cannula Nasal Cannula Nasal Cannula Oxygen Flow Rate 2 2.5 02/10/23 22:39 02/11/23 06:00 Temperature 100.2 F 96.9 F Pulse Rate 84 83 Respiratory Rate 18 20 Blood Pressure 112/62 106/69 Pulse Oximetry 93 94 Oxygen Delivery Method Nasal Cannula Nasal Cannula Oxygen Flow Rate 2.5 2 BMI result Body Mass Index 41.1 <Diana Kwan NP - Last Filed: 02/10/23 15:44> Vital Signs - 24 hr 02/10/23 12:20 02/10/23 13:51 02/10/23 16:02 Temperature 98 F 97.8 F Pulse Rate 82 77 73 Respiratory Rate 20 17 13 Blood Pressure 94/43 L 99/63 90/64 Pulse Oximetry 96 96 96 Oxygen Delivery Method Nasal Cannula Nasal Cannula Nasal Cannula Oxygen Flow Rate 2 2.5 02/10/23 22:39 02/11/23 06:00 Temperature 100.2 F 96.9 F Pulse Rate 84 83 Respiratory Rate 18 20 Blood Pressure 112/62 106/69 Pulse Oximetry 93 94 Oxygen Delivery Method Nasal Cannula Nasal Cannula Oxygen Flow Rate 2.5 2 BMI result Body Mass Index 41.1 <Dina Lares PA - Last Filed: 02/11/23 07:01> Const General: cooperative, healthy appearing, comfortable and no acute distress <Diana Kwan NP - Last Filed: 02/10/23 15:44> Orientation/consciousness: patient oriented x3 <Diana Kwan NP - Last Filed: 02/10/23 15:44> Limitations: no limitations <Diana Kwan NP - Last Filed: 02/10/23 15:44> HENAK Head: Yes normal to inspection <Diana Kwan NP - Last Filed: 02/10/23 15:44> Ears: hearing grossly normal bilaterally <Diana Kwan NP - Last Filed: 02/10/23 15:44> Eyes General: appearance normal, both eyes and all related structures <Diana Kwan NP - Last Filed: 02/10/23 15:44> Pupils: Equal, round and reactive pupils present <Diana Kwan NP - Last Filed: 02/10/23 15:44> Neck Neck: Yes normal visual inspection <Diana Kwan NP - Last Filed: 02/10/23 15:44> Chest Chest palpation & inspection: normal inspection of the chest <Diana Kwan NP - Last Filed: 02/10/23 15:44> Resp Effort & Inspection: normal respiratory effort <Diana Kwan NP - Last Filed: 02/10/23 15:44> GI Inspection: Yes normal to inspection <Diana Kwan NP - Last Filed: 02/10/23 15:44> Back/Spine/Pelvis Thoracic/Lumbar Spine: thoracic and lumbar spine normal to inspection <Diana Kwan NP - Last Filed: 02/10/23 15:44> Skin General skin exam: no rashes or lesions noted <Diana Kwan NP - Last Filed: 02/10/23 15:44> Neuro General: patient oriented x3 and moves all extremities <Diana Kwan NP - Last Filed: 02/10/23 15:44> Cranial nerves: Yes Equal, round and reactive pupils present <Diana Kwan NP - Last Filed: 02/10/23 15:44> Extrem Other: Splint in place to left lower extremity <Diana Kwan NP - Last Filed: 02/10/23 15:44> Course Course Course Narrative: +UTI. Will start cefuroxime BID x 7 days. Placed in physician observation pending case management. <Diana Kwan NP - Last Filed: 02/10/23 15:44> Reevaluation(s) Reevaluation #1: 02/11/2023 0700: Physician observation continues. Patient to be evaluated by case management for placement at a different STR. Patient continuing to get medication for UTI. <GUS Haywood - Last Filed: 02/11/23 07:01> Time: 07:00 <GUS Haywood - Last Filed: 02/11/23 07:01> Medications Administered Generic Name Dose Route Start Last Admin Trade Name Freq PRN Reason Stop Dose Admin Acetaminophen 650 mg 02/10/23 19:12 02/10/23 20:47 Acetaminophen 325 Mg Tablet PO 650 mg Q8H PRN Administration Pain Atorvastatin Calcium 40 mg 02/10/23 21:00 02/10/23 20:49 Atorvastatin Calcium 40 Mg Tablet PO 40 mg BEDTIME MASOUD Administration Cefuroxime Axetil 250 mg 02/10/23 15:00 02/10/23 20:49 Cefuroxime Axetil 250 Mg Tablet PO 250 mg BID MASOUD Administration Gabapentin 300 mg 02/10/23 21:00 02/10/23 20:47 Gabapentin 300 Mg Capsule PO 300 mg BEDTIME MASOUD Administration Levothyroxine Sodium 200 mcg 02/11/23 06:00 02/11/23 05:16 Levothyroxine Sodium 200 Mcg Tablet PO 200 mcg DAILY@0600 MASOUD Administration Lisinopril 5 mg 02/10/23 21:00 02/10/23 20:49 Lisinopril 5 Mg Tablet PO 5 mg BEDTIME MASOUD Administration Protocol Oxycodone HCl 5 mg 02/10/23 19:17 02/10/23 19:49 Oxycodone Hcl Immed Release 5 Mg Tablet PO 5 mg Q6H PRN Administration Pain, Severe (Pain Scale 7-10) Senna 17.2 mg 02/10/23 21:00 02/10/23 20:49 Sennosides 8.6 Mg Tablet PO 17.2 mg BID MASOUD Administration Trazodone HCl 25 mg 02/10/23 18:57 02/10/23 20:47 Trazodone Hcl 25 Mg Halftab PO 25 mg BEDTIME PRN Administration SEDATIVE <Diana Kwan NP - Last Filed: 02/10/23 15:44> Medications Administered Generic Name Dose Route Start Last Admin Trade Name Freq PRN Reason Stop Dose Admin Acetaminophen 650 mg 02/10/23 19:12 02/10/23 20:47 Acetaminophen 325 Mg Tablet PO 650 mg Q8H PRN Administration Pain Atorvastatin Calcium 40 mg 02/10/23 21:00 02/10/23 20:49 Atorvastatin Calcium 40 Mg Tablet PO 40 mg BEDTIME MASOUD Administration Cefuroxime Axetil 250 mg 02/10/23 15:00 02/10/23 20:49 Cefuroxime Axetil 250 Mg Tablet PO 250 mg BID MASOUD Administration Gabapentin 300 mg 02/10/23 21:00 02/10/23 20:47 Gabapentin 300 Mg Capsule PO 300 mg BEDTIME MASOUD Administration Levothyroxine Sodium 200 mcg 02/11/23 06:00 02/11/23 05:16 Levothyroxine Sodium 200 Mcg Tablet PO 200 mcg DAILY@0600 MASOUD Administration Lisinopril 5 mg 02/10/23 21:00 02/10/23 20:49 Lisinopril 5 Mg Tablet PO 5 mg BEDTIME MASOUD Administration Protocol Oxycodone HCl 5 mg 02/10/23 19:17 02/10/23 19:49 Oxycodone Hcl Immed Release 5 Mg Tablet PO 5 mg Q6H PRN Administration Pain, Severe (Pain Scale 7-10) Senna 17.2 mg 02/10/23 21:00 02/10/23 20:49 Sennosides 8.6 Mg Tablet PO 17.2 mg BID MASOUD Administration Trazodone HCl 25 mg 02/10/23 18:57 02/10/23 20:47 Trazodone Hcl 25 Mg Halftab PO 25 mg BEDTIME PRN Administration SEDATIVE <GUS Haywood - Last Filed: 02/11/23 07:01> Medical Decision Making Medical Decision Making MDM Narrative: this is a 72-year-old female who comes to the ER from a short-term rehab facility as she is unhappy with her care there and would like to go to a secondary short-term rehab facility. She did have a Nance catheter placed this morning at the short-term rehab for concern for urinary retention. Family is unsure if she was tested for urinary tract infection. On arrival to the emergency room with a Nance catheter placed by the short-term rehab is not completely inserted and is not draining urine. Therefore this was replaced by 1 of our staff nurses. We will send urine and obtain a case management consultation. <Diana Kwan NP - Last Filed: 02/10/23 15:44> Differential Diagnosis Differential Diagnoses: The differential diagnosis associated with the presentation includes <Diana Kwan NP - Last Filed: 02/10/23 15:44> Lab Data Result Diagrams: 02/10/23 20:44 <Diana Kwan NP - Last Filed: 02/10/23 15:44> Labs: Lab Results 02/10/23 02/10/23 02/10/23 Range/Units 14:10 14:52 20:44 Creatinine 1.21 (0.5-1.4) mg/dL Estim Creat Clear Calc 45.6 Estimated GFR 43 Urine Color Yellow Urine Appearance Clear Urine pH 6.0 (5.0-9.0) Ur Specific [place] 1.010 (1.005-1.025) Urine Protein Trace (Neg-Trace) mg/dL Urine Glucose (UA) Negative (Negative) mg/dL Urine Ketones Negative (Negative) mg/dL Urine Blood Large (3+) H (Negative) Urine Nitrite Negative (Negative) Ur Leukocyte Esterase Small (1+) H (Negative) Urine RBC 0-2 (0-2) /HPF Urine WBC 0-5 (0-5) /HPF Ur Squamous Epith Cells 0-2 (0-2) /HPF Urine Bacteria None Seen (None Seen) Hyaline Casts 0-2 (0-2) /LPF COVID-19 (JUNIE) Negative (Negative) COVID-19 Clin Com See Note <Diana Kwan NP - Last Filed: 02/10/23 15:44> Lab Results 02/10/23 02/10/23 02/10/23 Range/Units 14:10 14:52 20:44 Creatinine 1.21 (0.5-1.4) mg/dL Estim Creat Clear Calc 45.6 Estimated GFR 43 Urine Color Yellow Urine Appearance Clear Urine pH 6.0 (5.0-9.0) Ur Specific [place] 1.010 (1.005-1.025) Urine Protein Trace (Neg-Trace) mg/dL Urine Glucose (UA) Negative (Negative) mg/dL Urine Ketones Negative (Negative) mg/dL Urine Blood Large (3+) H (Negative) Urine Nitrite Negative (Negative) Ur Leukocyte Esterase Small (1+) H (Negative) Urine RBC 0-2 (0-2) /HPF Urine WBC 0-5 (0-5) /HPF Ur Squamous Epith Cells 0-2 (0-2) /HPF Urine Bacteria None Seen (None Seen) Hyaline Casts 0-2 (0-2) /LPF COVID-19 (JUNIE) Negative (Negative) COVID-19 Clin Com See Note <GUS Haywood - Last Filed: 02/11/23 07:01> Discharge Plan Discharge Clinical Impression: Ankle fracture <Diana Kwan NP - Last Filed: 02/10/23 15:44> Patient Disposition: Still a Patient <Diana Kwan NP - Last Filed: 02/10/23 15:44> Prescriptions: No Action acetaminophen 325 mg Tablet 650 mg PO Q6H PRN (Reason: TEMP > 101) bisacodyl 10 mg Suppository 10 mg NC DAILY PRN (Reason: Constipation) Fleet Enema 19-7 gram/118 mL Enema 118 ml NC DAILY PRN (Reason: Constipation) furosemide 20 mg Tablet 20 mg PO DAILY lisinopril 5 mg Tablet 5 mg PO BEDTIME enoxaparin [Lovenox] 40 mg/0.4 mL Syringe 40 mg SUBCUT DAILY magnesium hydroxide [Milk of Magnesia] 400 mg/5 mL Suspension 30 ml PO DAILY PRN (Reason: Constipation) polyethylene glycol 3350 [Miralax] 17 gram Powder In Packet 17 g PO DAILY morphine 15 mg tablet 15 mg PO Q12H PRN (Reason: severe pain (scale score 7-10)) Rx Instructions: Partial Fill upon patient request. sennosides [senna] 8.6 mg Tablet 17.2 mg PO BID trazodone 50 mg Tablet 25 mg PO BEDTIME PRN (Reason: SEDATIVE) acetaminophen 500 mg Tablet 500 mg PO Q8H PRN (Reason: Pain) cholecalciferol (vitamin D3) 50 mcg (2,000 unit) Tablet 50 mcg PO DAILY atorvastatin 40 mg tablet 40 mg PO BEDTIME sennosides [senna] 8.6 mg tablet 17.2 mg PO DAILY PRN (Reason: constipation) albuterol sulfate 2.5 mg /3 mL (0.083 %) solution for nebulization 2.5 mg inhalation Q8H PRN (Reason: wheezing) (DME) OneTouch Ultra Test Strip MISCELLANEOUS BID citalopram 20 mg tablet 20 mg PO QAM primidone 250 mg tablet 250 mg PO QID gabapentin 300 mg capsule 300 mg PO BEDTIME budesonide 0.5 mg/2 mL suspension for nebulization 0.5 mg inhalation BID levothyroxine 200 mcg tablet 200 mcg PO QAM ondansetron 4 mg tablet,disintegrating 4 mg PO Q8H PRN (Reason: nausea/vomiting) simethicone [Gas Relief (simethicone)] 80 mg tablet,chewable 80 mg PO Q6H PRN (Reason: gas) bupropion HCl 300 mg tablet extended release 24 hr 300 mg PO QAM bupropion HCl 150 mg tablet extended release 24 hr 150 mg PO QAM Januvia 100 mg tablet 100 mg PO QAM Myrbetriq 25 mg tablet extended release 24 hr 25 mg PO QAM (DME) lancets [OneTouch Delica Plus Lancet] 33 gauge misc MISCELLANEOUS BID Trelegy Ellipta 200-62.5-25 mcg blister with device 1 ea inhalation DAILY <Diana Kwan, ROTATING EQUIPMENT SPECIALIST - Last Filed: 02/10/23 15:44>
--- NOTE | 2023-02-10 13:03 | PC.NURSE ---
per pt's grand-daughter pt s/p fall yesterday at snf, denies hitting her head/loc.pt is a/o x 4. 7/10 l foot.
--- NOTE | 2023-02-10 13:07 | PC.NURSE ---
pt has l foot fx x 3 wks that requires surgery next wk. nance cath placed in ed.
[2023-02-10 13:51] VITALS: BP 99/63; PULSE 77; RESP 17; TEMP 36.6; O2SAT 96
[2023-02-10 14:17] LABS: Appearance Urine Clear; Color Urine Yellow; Glucose Urine UA Negative (Negative); Leukocyte Esterase Urine Small (1+) (Negative); Nitrite Urine Negative (Negative); UMIC TRIGGER UACC YES; Urine Blood Large (3+) (Negative); Urine Ketones Negative (Negative); Urine Protein Trace mg/dL (Neg-Trace)
[2023-02-10 14:35] LABS: Bacteria Urine None Seen (None Seen); Hyaline Casts Urine 0-2 /LPF (0-2); RBC Urine 0-2 /HPF (0-2); Squamous Epithelial Cell Urine 0-2 /HPF (0-2); UACC Culture Trigger YES; WBC Urine 0-5 /HPF (0-5)
--- NOTE | 2023-02-10 14:54 | MHC.EDTECH ---
Covid swab collected and sent
[2023-02-10 15:29] LABS: COVID-19 Test Negative (Negative); IDNOW Serial# 6674DD1D
[2023-02-10 16:02] VITALS: BP 90/64; PULSE 73; RESP 13; O2SAT 96
--- NOTE | 2023-02-10 16:39 | PC.NURSE ---
Joseph PCT let this RN know that the pts blood pressure is 90/60s. Pts blood pressure has been running consistently low since being here, Diana WEBER aware, no new orders. Will hold BP medications if blood pressure remains low later in the day
--- NOTE | 2023-02-10 16:59 | MHC.EDTECH ---
Pt placed on bed wilson at this time.
--- NOTE | 2023-02-10 18:47 | PHA.MEDREC ---
MED REC COMPLETE, NO ISSUES Pharmacy Consult ? Medication Reconciliation Pharmacy has completed the medication reconciliation.
[2023-02-10] MEDS: oxyCODONE HCl Immed Release 5 MG TABLET PO (19:49)
[2023-02-10] MEDS: traZODone HCL 25 MG HALFTAB PO (20:47)
[2023-02-10] MEDS: Acetaminophen 325 MG TABLET 650 MG PO (20:47)
[2023-02-10] MEDS: Gabapentin 300 MG CAPSULE PO (20:47)
[2023-02-10] MEDS: lisinopriL 5 MG TABLET PO (20:49)
[2023-02-10] MEDS: Sennosides 8.6 MG TABLET 17.2 MG PO (20:49)
[2023-02-10] MEDS: Atorvastatin Calcium 40 MG TABLET PO (20:49)
[2023-02-10 21:10] LABS: Creatinine Clr Calc Pharmacy 45.6; Estimated Glomerular Filt Rate 43
--- NOTE | 2023-02-10 21:54 | MHC.CM.ED ---
CM met with patient with molding machine setter. Pt A&Ox3. Family and patient were unhappy with recent facilities care, but now patient states she was okay at facility. Was a [facility] from 02/04-02/10, when she was sent to ED for falls and urinary retention. Pt does want to go home, but is willing to have PT see her in the morning. Referrals placed with facilities that contract with [facility]. Prior to fx ankle, pt was living at home with grandson. Son helps her and DIL is her FPGA ENGINEER. PCP Amparo Daniel. Uses cane, walker, W/C shower chair, home oxygen and CPAP. HCP on file. HCP#1 Harini ([phone]) and HCP#2 Joselyn Laureano ([phone]), who speaks Vincentian. CM following for discharge planning.
[2023-02-10 22:39] VITALS: BP 112/62; PULSE 84; RESP 18; TEMP 37.9; O2SAT 93
[2023-02-11] MEDS: Levothyroxine Sodium 200 MCG TABLET PO (05:16)
[2023-02-11 06:00] VITALS: BP 106/69; PULSE 83; RESP 20; TEMP 36.1; O2SAT 94
[2023-02-11] MEDS: Cholecalciferol (Vitamin D3) 25 MCG TABLET 50 MCG PO (08:27)
[2023-02-11] MEDS: Escitalopram Oxalate 10 MG TABLET PO (08:27)
[2023-02-11] MEDS: Enoxaparin Sodium 40 MG/0.4 ML SYRINGE SUBCUT (08:27)
[2023-02-11] MEDS: Furosemide 20 MG TABLET PO (08:27)
[2023-02-11] MEDS: Sennosides 8.6 MG TABLET 17.2 MG PO (08:27)
[2023-02-11] MEDS: SITagliptin Phosphate 100 MG TABLET PO (08:27)
[2023-02-11] MEDS: buPROPion HCl XL 300 MG TAB.ER.24H PO (08:27)
[2023-02-11] MEDS: polyethylene glycoL 3350 17 GM POWD.PACK PO (08:30)
--- NOTE | 2023-02-11 09:56 | PC.NURSE ---
pt cleaned and repositioned, daughter at bedside.
[2023-02-11 10:24] VITALS: BP 106/69; PULSE 83; O2SAT 94
--- NOTE | 2023-02-11 12:16 | MHC.CM.ED ---
Patient remains in ER overflow. Physical therapy eval completed. Short term rehab is recommended. Clinical updates sent to facilities still following patient: [facility], [facility], [facility], [facility], [facility], [facility] [place], [facility], and [facility]. Continue to monitor for d/c needs.
[2023-02-11] MEDS: oxyCODONE HCl Immed Release 5 MG TABLET PO ×2 (12:21→18:00)
[2023-02-11 14:00] VITALS: BP 135/70; PULSE 88; RESP 18; TEMP 36.8; O2SAT 92
--- NOTE | 2023-02-11 15:00 | PC.NURSE ---
Assumed care of patient at this time.
[2023-02-11 17:12] LABS: Glucose, Whole Blood 114 mg/dL (60-115)
[2023-02-11] MEDS: Acetaminophen 325 MG TABLET 650 MG PO (17:37)
--- NOTE | 2023-02-11 18:17 | MHC.CM.ED ---
Both patient and family request that patient be discharged to home. Refusing STR. HCP/daughter Harini, requests that patient be discharged tomorrow so they can arrange services with her insurance for help at home. Harini tells CM that she has already spoken with insurance company and they will provide SN and PT at home. Harini tells CM that patient will have surgical repair on ankle on Tuesday, February 16. Harini tells CM that there is plenty of family to care for her at home. CM will book transport home tomorrow at 10am. Please call Harini when ambulance arrives to transport patient home.
[2023-02-11] MEDS: Gabapentin 300 MG CAPSULE PO (19:52)
[2023-02-11] MEDS: Atorvastatin Calcium 40 MG TABLET PO (19:52)
[2023-02-11] MEDS: lisinopriL 5 MG TABLET PO (19:52)
[2023-02-11] MEDS: Albuterol Sulfate (0.083%) 2.5 MG/3 ML VIAL.NEB INHALE (19:55)
--- NOTE | 2023-02-11 20:01 | PC.NURSE ---
Patient bathed, soap and warm water, baby powder applied, new jawney, new sheets on bed, hair brushed and braided at this time. Patient compliant with care, a/ox1-2, mood labile, noted to be tearful at times and then laughing. She continuously is taking off jamin wrap around left foot, attempted to educated patient but has dementia at baseline. Mccormick in place, draining clear, yellow urine, [id number].
[2023-02-11 22:00] VITALS: BP 135/89; PULSE 78; RESP 16; TEMP 36.3; O2SAT 98
[2023-02-11 22:33] VITALS: RESP 18; O2SAT 98
[2023-02-12 00:22] VITALS: BP 140/82; PULSE 66; RESP 17; TEMP 36; O2SAT 92
[2023-02-12] MEDS: oxyCODONE HCl Immed Release 5 MG TABLET PO (00:38)
[2023-02-12] MEDS: Acetaminophen 325 MG TABLET 650 MG PO (03:25)
--- NOTE | 2023-02-12 05:12 | PC.NURSE ---
Assumed care of patient at 2300. Patient c/o pain in left ankle. Medicated with good effect.
[2023-02-12 05:52] VITALS: BP 130/70; PULSE 69; RESP 17; TEMP 36.7; O2SAT 100
[2023-02-12] MEDS: Levothyroxine Sodium 200 MCG TABLET PO (06:21)
[2023-02-12 07:24] LABS: Glucose, Whole Blood 95 mg/dL (60-115)
[2023-02-12] MEDS: SITagliptin Phosphate 100 MG TABLET PO (08:50)
[2023-02-12] MEDS: buPROPion HCl XL 300 MG TAB.ER.24H PO (08:50)
[2023-02-12] MEDS: Enoxaparin Sodium 40 MG/0.4 ML SYRINGE SUBCUT (08:50)
[2023-02-12] MEDS: Escitalopram Oxalate 10 MG TABLET PO (08:50)
[2023-02-12] MEDS: Sennosides 8.6 MG TABLET 17.2 MG PO (08:50)
[2023-02-12] MEDS: Cholecalciferol (Vitamin D3) 25 MCG TABLET 50 MCG PO (08:50)
[2023-02-12] MEDS: Furosemide 20 MG TABLET PO (08:50)
[2023-02-12] MEDS: polyethylene glycoL 3350 17 GM POWD.PACK PO (08:50)
[2023-02-12 09:06] VITALS: BP 165/81; PULSE 74; RESP 18; TEMP 36.4; O2SAT 98
--- NOTE | 2023-02-12 09:31 | PC.NURSE ---
family at the bedside. patient denies pain at this time. able to express needs. call garcia within reach..
== END 2023-02-12 10:10 | disposition home or self-care (01) ==
PROVIDERS: Nurse Practitioner Family; Physician Assistant; Emergency Provider Emergency Medicine; PCP Internal Medicine
DX: S82.892D Other fracture of left lower leg, subsequent encounter for closed fracture with routine healing (principal); W19.XXXD Unspecified fall, subsequent encounter; N39.0 Urinary tract infection, site not specified; Z20.822 Contact with and (suspected) exposure to COVID-19; E11.9 Type 2 diabetes mellitus without complications; I10 Essential (primary) hypertension; E78.5 Hyperlipidemia, unspecified; Z79.899 Other long term (current) drug therapy; Z79.02 Long term (current) use of antithrombotics/antiplatelets
CPT/HCPCS: 36415; 51798; 81001; 82565; 82947; 87086; 87635; 97162; 99285; J1650

== ENCOUNTER 2023-02-16 10:42 | Day surgery (SDC) | payer OTHER, SELFPAY ==
--- NOTE | 2023-02-15 10:00 | P.CONAN_ITS ---
Documented by User: Regina Christopher NP 02/15/23 10:04 HPI - Anesthesia Eval Consult details Narrative: 72yo F for Left Ankle Fracture ORIF Started on abx for UTI 02/14/23 by PCP. Awaiting office visit notes. [facility] Active Problems Active Problems: All Active Problems (Updated 02/13/23 @ 00:02 by rA Lainez) Fracture, fibula, proximal (Acute) Fracture of proximal end of left tibia (Acute) Dyspnea on exertion (Acute) Hx of adenomatous polyp of colon (Acute) Bilateral primary osteoarthritis of knee (Acute) Pulmonary fibrosis (Acute) Asthma-COPD overlap syndrome (Acute) ENMA on CPAP (Acute) Dyspnea on exertion (Acute) Nocturia more than twice per night (Acute) Overactive bladder (Acute) Pulmonary nodules (Acute) Tubular adenoma of colon (Acute) Frequency of micturition (Acute) Urgency of micturition (Acute) Urgency incontinence (Acute) Colon cancer screening (Acute) Diabetes mellitus (Acute) COPD exacerbation (Acute) Anxiety and depression (Acute) Past Medical History Medical History Anxiety and depression Back pain Bilateral primary osteoarthritis of knee Colon cancer screening COPD (chronic obstructive pulmonary disease) COPD exacerbation Diabetes mellitus Frequency of micturition GERD (gastroesophageal reflux disease) High cholesterol Hypertension Hypothyroidism ENMA on CPAP Osteoarthritis Tubular adenoma of colon Urgency incontinence Urgency of micturition Family History Family History Mother History of pancreatic cancer Surgical History Surgical History History of cholecystectomy History of lumpectomy of right breast Hx of colonoscopy Hx of cystoscopy Hx of right knee surgery Social History Social History Household Members Other:: lives with grandson Are you a primary manager care management to a significant other at home: No Do you presently have visiting nurse or 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) Alcohol intake: never Patient Tobacco Use Status: Never used Tobacco Years Smoked: 30 Second Hand Smoke Exposure: No Advance Directives Date on File: 01/31/23 Meds Allergies Allergy/AdvReac Type Severity Reaction Status Date / Time aspirin [Aspirin] Allergy Mild UPSET Verified 02/10/23 12:27 STOMACH ibuprofen [From Motrin] Allergy Mild Gastrointestinal Verified 02/10/23 12:27 Upset Home Medications Medication Instructions Recorded Confirmed Last Taken Type albuterol sulfate 2.5 mg/3 mL 2.5 mg inhalation Q8H PRN wheezing 01/30/23 02/10/23 1 Day Ago History (0.083 %) solution for nebulization ~01/29/23 atorvastatin 40 mg tablet 40 mg PO BEDTIME 01/30/23 02/10/23 1 Day Ago History ~01/29/23 blood sugar diagnostic ([facility] 01/30/23 01/30/23 1 Day Ago History Ultra Test strips) ~01/29/23 budesonide 0.5 mg/2 mL suspension 0.5 mg inhalation BID 01/30/23 02/10/23 1 Day Ago History for nebulization ~01/29/23 bupropion HCl 150 mg 24 hr tablet, 150 mg PO QAM 01/30/23 02/10/23 1 Day Ago History extended release ~01/29/23 bupropion HCl 300 mg 24 hr tablet, 300 mg PO QAM 01/30/23 02/10/23 1 Day Ago History extended release ~01/29/23 citalopram 20 mg tablet 20 mg PO QAM 01/30/23 02/10/23 1 Day Ago History ~01/29/23 fluticasone fur. 200 mcg-umeclid 1 ea inhalation DAILY 01/30/23 02/10/23 1 Day Ago History 62.5 mcg-vilant 25 mcg ~01/29/23 inhalat.powder (Trelegy Ellipta) gabapentin 300 mg capsule 300 mg PO BEDTIME 01/30/23 02/10/23 1 Day Ago History ~01/29/23 [facility] 01/30/23 01/30/23 1 Day Ago History Plus Lancet) ~01/29/23 levothyroxine 200 mcg tablet 200 mcg PO QAM 01/30/23 02/10/23 1 Day Ago History ~01/29/23 mirabegron 25 mg tablet,extended 25 mg PO QAM 01/30/23 02/10/23 1 Day Ago History release 24 hr (Myrbetriq) ~01/29/23 ondansetron 4 mg disintegrating 4 mg PO Q8H PRN nausea/vomiting 01/30/23 02/10/23 1 Day Ago History tablet ~01/29/23 primidone 250 mg tablet 250 mg PO QID 01/30/23 02/10/23 1 Day Ago History ~01/29/23 sennosides 8.6 mg tablet (senna) 17.2 mg PO DAILY PRN constipation 01/30/23 02/10/23 1 Day Ago History ~01/29/23 simethicone 80 mg chewable tablet 80 mg PO Q6H PRN gas 01/30/23 02/10/23 1 Day Ago History (Gas Relief (simethicone)) ~01/29/23 sitagliptin phosphate 100 mg 100 mg PO QAM 01/30/23 02/10/23 1 Day Ago History tablet (Januvia) ~01/29/23 acetaminophen 325 mg tablet 650 mg PO Q6H PRN TEMP > 101 02/10/23 02/10/23 Unknown History acetaminophen 500 mg tablet 500 mg PO Q8H PRN Pain 02/10/23 02/10/23 Unknown History bisacodyl 10 mg rectal suppository 10 mg SD DAILY PRN Constipation 02/10/23 02/10/23 Unknown History cholecalciferol (vitamin D3) 50 50 mcg PO DAILY 02/10/23 02/10/23 Unknown History mcg (2,000 unit) tablet enoxaparin 40 mg/0.4 mL 40 mg subcut DAILY 02/10/23 02/10/23 Unknown History subcutaneous syringe (Lovenox) furosemide 20 mg tablet 20 mg PO DAILY 02/10/23 02/10/23 Unknown History lisinopril 5 mg tablet 5 mg PO BEDTIME 02/10/23 02/10/23 Unknown History magnesium hydroxide 400 mg/5 mL 30 ml PO DAILY PRN Constipation 02/10/23 02/10/23 Unknown History oral suspension (Milk of Magnesia) polyethylene glycol 3350 17 gram 17 g PO DAILY 02/10/23 02/10/23 Unknown History oral powder packet (Miralax) sennosides 8.6 mg tablet (senna) 17.2 mg PO BID 02/10/23 02/10/23 Unknown History sodium phosphates 19 gram-7 118 ml SD DAILY PRN Constipation 02/10/23 02/10/23 Unknown History gram/118 mL enema (Fleet Enema) trazodone 50 mg tablet 25 mg PO BEDTIME PRN SEDATIVE 02/10/23 02/10/23 Unknown History Exam Exam Date and Time: February 15, 2023 1000 Pertinent Lab Results Pertinent Lab Results: Laboratory Tests 01/30/23 01/31/23 02/10/23 20:00 08:05 20:44 WBC 6.8 Hgb 13.2 Hct 42.5 Plt Count 181 Sodium 138 Potassium 4.3 Chloride 101 Carbon Dioxide 27 BUN 19 H Creatinine 1.21 Narrative Narrative: ECHO 05/2022 Conclusions: - Normal left ventricular size and systolic function. There is ? mildly increased left ventricular wall thickness.? The visually? estimated ejection fraction is between 55-60%. ? - Normal right ventricular cavity size and systolic function.? ? - The left atrium is mildly dilated.? The right atrium is normal in size. ? - There is mild dilatation of the ascending aorta measuring 3.50 cm.? EKG 01/2023 Vent. Rate : 093 BPM ? ? Atrial Rate : 093 BPM ?? P-R Int : 140 ms? QRS Dur : 132 ms ? ? QT Int : 382 ms ? ? ? P-R-T Axes : 050 -46 031 degrees ?? QTc Int : 474 ms ? Normal sinus rhythm Right bundle branch block Left anterior fascicular block Bifascicular block Abnormal ECG When compared with ECG of 17-DEC-2022 12:33, Left anterior fascicular block is now Present Assessment and Plan Assessment Anesthesia Assessment: Chart Reviewed Documented by User: Pablito Liao MD 02/16/23 13:34 [facility] Past Medical History Medical History Anxiety and depression Back pain Bilateral primary osteoarthritis of knee Colon cancer screening COPD (chronic obstructive pulmonary disease) COPD exacerbation Diabetes mellitus Frequency of micturition GERD (gastroesophageal reflux disease) High cholesterol Hypertension Hypothyroidism ENMA on CPAP Osteoarthritis Tubular adenoma of colon Urgency incontinence Urgency of micturition Family History Family History Mother History of pancreatic cancer Family history of problems with anesthesia: No Surgical History Surgical History History of cholecystectomy History of lumpectomy of right breast Hx of colonoscopy Hx of cystoscopy Hx of right knee surgery History of Problems with Anesthesia: No Social History Social History Household Members Other:: lives with grandson Are you a primary manager care management to a significant other at home: No Do you presently have visiting nurse or 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) Alcohol intake: never Patient Tobacco Use Status: Never used Tobacco Years Smoked: 30 Second Hand Smoke Exposure: No Advance Directives Date on File: 01/31/23 Meds Allergies Allergy/AdvReac Type Severity Reaction Status Date / Time aspirin [Aspirin] Allergy Mild UPSET Verified 02/10/23 12:27 STOMACH ibuprofen [From Motrin] Allergy Mild Gastrointestinal Verified 02/10/23 12:27 Upset Home Medications Medication Instructions Recorded Confirmed Last Taken Type albuterol sulfate 2.5 mg/3 mL 2.5 mg inhalation Q8H PRN wheezing 01/30/23 02/10/23 1 Day Ago History (0.083 %) solution for nebulization ~01/29/23 atorvastatin 40 mg tablet 40 mg PO BEDTIME 01/30/23 02/10/23 1 Day Ago History ~01/29/23 blood sugar diagnostic ([facility] 01/30/23 01/30/23 1 Day Ago History Ultra Test strips) ~01/29/23 budesonide 0.5 mg/2 mL suspension 0.5 mg inhalation BID 01/30/23 02/10/23 1 Day Ago History for nebulization ~01/29/23 bupropion HCl 150 mg 24 hr tablet, 150 mg PO QAM 01/30/23 02/10/23 1 Day Ago History extended release ~01/29/23 bupropion HCl 300 mg 24 hr tablet, 300 mg PO QAM 01/30/23 02/10/23 1 Day Ago History extended release ~01/29/23 citalopram 20 mg tablet 20 mg PO QAM 01/30/23 02/10/23 1 Day Ago History ~01/29/23 fluticasone fur. 200 mcg-umeclid 1 ea inhalation DAILY 01/30/23 02/10/23 1 Day Ago History 62.5 mcg-vilant 25 mcg ~01/29/23 inhalat.powder (Trelegy Ellipta) gabapentin 300 mg capsule 300 mg PO BEDTIME 01/30/23 02/10/23 1 Day Ago History ~01/29/23 lancets 33 gauge ([facility] Delica 01/30/23 01/30/23 1 Day Ago History Plus Lancet) ~01/29/23 levothyroxine 200 mcg tablet 200 mcg PO QAM 01/30/23 02/10/23 1 Day Ago History ~01/29/23 mirabegron 25 mg tablet,extended 25 mg PO QAM 01/30/23 02/10/23 1 Day Ago History release 24 hr (Myrbetriq) ~01/29/23 ondansetron 4 mg disintegrating 4 mg PO Q8H PRN nausea/vomiting 01/30/23 02/10/23 1 Day Ago History tablet ~01/29/23 primidone 250 mg tablet 250 mg PO QID 01/30/23 02/10/23 1 Day Ago History ~01/29/23 sennosides 8.6 mg tablet (senna) 17.2 mg PO DAILY PRN constipation 01/30/23 02/10/23 1 Day Ago History ~01/29/23 simethicone 80 mg chewable tablet 80 mg PO Q6H PRN gas 01/30/23 02/10/23 1 Day Ago History (Gas Relief (simethicone)) ~01/29/23 sitagliptin phosphate 100 mg 100 mg PO QAM 01/30/23 02/10/23 1 Day Ago History tablet (Januvia) ~01/29/23 acetaminophen 325 mg tablet 650 mg PO Q6H PRN TEMP > 101 02/10/23 02/10/23 Unknown History acetaminophen 500 mg tablet 500 mg PO Q8H PRN Pain 02/10/23 02/10/23 Unknown History bisacodyl 10 mg rectal suppository 10 mg SD DAILY PRN Constipation 02/10/23 02/10/23 Unknown History cholecalciferol (vitamin D3) 50 50 mcg PO DAILY 02/10/23 02/10/23 Unknown History mcg (2,000 unit) tablet enoxaparin 40 mg/0.4 mL 40 mg subcut DAILY 02/10/23 02/10/23 Unknown History subcutaneous syringe (Lovenox) furosemide 20 mg tablet 20 mg PO DAILY 02/10/23 02/10/23 Unknown History lisinopril 5 mg tablet 5 mg PO BEDTIME 02/10/23 02/10/23 Unknown History magnesium hydroxide 400 mg/5 mL 30 ml PO DAILY PRN Constipation 02/10/23 02/10/23 Unknown History oral suspension (Milk of Magnesia) polyethylene glycol 3350 17 gram 17 g PO DAILY 02/10/23 02/10/23 Unknown History oral powder packet (Miralax) sennosides 8.6 mg tablet (senna) 17.2 mg PO BID 02/10/23 02/10/23 Unknown Hi story sodium phosphates 19 gram-7 118 ml SD DAILY PRN Constipation 02/10/23 02/10/23 Unknown History gram/118 mL enema (Fleet Enema) trazodone 50 mg tablet 25 mg PO BEDTIME PRN SEDATIVE 02/10/23 02/10/23 Unknown History Exam Airway Mallampati Class: III TM Dist: >3cm Neck ROM: Limited Heart: rrr Lungs: diminished bs Assessment and Plan Assessment Anesthesia Assessment: Anesthesia Plan Discussed Final Anesthetic Review Family History of Problems with Anesthesia: No History of Problems with Anesthesia: No NPO: Yes ASA Class: IV Final Preanesthetic Review: No Changes in Pt Med Stat, Meds/Allgs Chart Reviewed, Consent Obtained/Reviewed and Anes Risks/Benef Reviewed Patient Risk: High Procedure Risk: Intermediate Anesthetic Plan Anesthetic Plan: Regional Block Disposition: Standard PACU
--- NOTE | ~2023-02-16 | FL_ITS ---
EXAMINATION: XR FLUOROSCOPY WITH IMAGES CLINICAL INFORMATION: Fracture left ankle. COMPARISON: Left tibia and fibula 02/10/2023. TECHNIQUE: Fluoroscopy Supervised By: Dr. Klever Jj. Fluoroscopy Time: 0.4. Cumulative Dose: 0.733 mGy. DAP: 0.0127 Gycm2. Images: 5. FINDINGS: There are 5 digital images revealing 2 screws stabilizing medial malleolar fracture. There is a tract seen extending from the distal fibula all the way to the distal tibia. The ankle mortise and subtalar joints are normal. The soft tissues are normal. FL/FL guidance in OR IMPRESSION: Two screws stabilizing medial malleolar fracture. There is a tract seen extending from the distal fibula to the distal tibia with button along the distal fibula.
--- NOTE | 2023-02-16 10:21 | P.BOP_ITS ---
Brief Operative Note Date of Service: 02/16/23 Pre-op diagnosis: Retained orthopaedic hardware right knee Post-op diagnosis: same Procedure: Removal of hardware right knee Implants: None Surgeon: Klever Jj MD Anesthesia: GETA and regional Was an Vice President Of Finance used for this Procedure?: Yes Vice President Of Finance: Roxanne Rock Estimated blood loss (mL): 20 Tourniquet time (min): 20 IV fluids (mL): 500 Pathology: none sent Condition: stable Disposition: PACU
[2023-02-16 11:29] VITALS: BMI 41.1
[2023-02-16 11:48] VITALS: BP 140/84; PULSE 79; RESP 16; TEMP 36.2; O2SAT 96
[2023-02-16] MEDS: Lactated Ringers 1,000 ML 50 ML IVCONT (11:48)
[2023-02-16 11:54] LABS: Glucose, Whole Blood 110 mg/dL (60-115)
--- NOTE | 2023-02-16 16:21 | PM.OP ---
Brief Operative Note Date of Service: 02/16/23 Pre-op diagnosis: Left ankle fracture Post-op diagnosis: same Procedure: ORIF left ankle ORIF left syndesmosis Implants: Partially threaded 4.0 cannulated screws, Garland Arthrex syndesmosis tightrope Surgeon: Klever Jj MD Anesthesia: GETA, regional and local Was an Molybdenum Steamer Operator used for this Procedure?: Yes Molybdenum Steamer Operator: Roxanne Rock Estimated blood loss (mL): 75 Tourniquet time (min): 30 IV fluids (mL): 800 Pathology: none sent Condition: stable Disposition: PACU
[2023-02-16 16:35] VITALS: BP 134/82; PULSE 76; RESP 16; TEMP 36.2; O2SAT 98
[2023-02-16 16:40] VITALS: BP 127/78; PULSE 75; RESP 16; O2SAT 99
[2023-02-16 16:45] VITALS: BP 128/70; PULSE 74; RESP 16; O2SAT 98
[2023-02-16 16:50] VITALS: BP 126/72; PULSE 81; RESP 16; O2SAT 94
[2023-02-16 17:05] VITALS: PULSE 83; RESP 18; TEMP 36.4; O2SAT 96
[2023-02-17 07:26] LABS: Glucose, Whole Blood 123 mg/dL (60-115)
--- NOTE | 2023-02-17 12:41 | P.OP_ITS ---
Operative Note Operative Note Date of Service: 02/16/23 Narrative: Date of Service: 02/16/23 Pre-op diagnosis: Left ankle fracture Post-op diagnosis: same Procedure: ORIF left ankle ORIF left syndesmosis Implants: Partially threaded 4.0 cannulated screws, Romelia Arthrex syndesmosis tightrope Surgeon: Klever Jj MD Anesthesia: GETA, regional and local Was an Financial Center Manager used for this Procedure?: Yes Financial Center Manager: Roxanne Rock Estimated blood loss (mL): 75 Tourniquet time (min): 30 IV fluids (mL): 800 Pathology: none sent Condition: stable Disposition: PACU Procedure in detail: Patient was brought to the operating room and placed supine on the operative table. All bony prominences were well padded and a time-out was called to identify proper site proper procedure proper surgeon. IV antibiotics per weight were administered. I began by exsanguinating limb is slightly tourniquet to 300 mm Hg. I then made a standard posterolateral incision over the medial malleolus. Full-thickness flaps were developed and the fracture was identified and cleaned with a combination of curette, rongeur and irrigation. A tenaculum was used to provisionally reduce the fracture and 2 k wires were inserted across the fracture using standard AO technique. The bone was of poor quality. The reduction was acceptable and I over-drilled and placdd 2 40 mm partially threaded 4.0 cannulated screws. I irrigated copiously and turned my attention to the sydesmosis. The tibiofibular overlap was <0. Therefore I placed a syndesmosis tightrope from lateral to medial and tightnened this. The bone quality was not sufficient to fully hold the medial button but I was stil lable to tighten the syndesmsois as the medial buttone seems to have caught on the medial malleolar screw and was stable. I was unable to tight tne the sydesmosis more given her bone quality. Therefore all instrumentation was removed and copious irrigation was performed. Absorbable suture and adam were used for closure and the patient was placed into sterile dressings and a well-padded posterior splint. Tourniquet was let down and the patient was extubated brought to recovery room in stable condition there were no known complications.
== END 2023-02-16 17:25 | disposition home or self-care (01) ==
LOC: HO.SSS 10:43
PROVIDERS: PCP Internal Medicine; Visit Provider Orthopaedic Surgery
PROC: (CPT 27792; principal; 2023-02-16 13:40)
DX: S82.102A Unspecified fracture of upper end of left tibia, initial encounter for closed fracture (principal); S82.52XA Displaced fracture of medial malleolus of left tibia, initial encounter for closed fracture; S93.432A Sprain of tibiofibular ligament of left ankle, initial encounter; M25.572 Pain in left ankle and joints of left foot; M17.0 Bilateral primary osteoarthritis of knee; I10 Essential (primary) hypertension; E78.00 Pure hypercholesterolemia, unspecified; F41.8 Other specified anxiety disorders; J44.9 Chronic obstructive pulmonary disease, unspecified; E11.9 Type 2 diabetes mellitus without complications; Z79.4 Long term (current) use of insulin; Z79.899 Other long term (current) drug therapy; N39.41 Urge incontinence; W19.XXXA Unspecified fall, initial encounter; X50.1XXA Overexertion from prolonged static or awkward postures, initial encounter; Y93.9 Activity, unspecified; Y92.009 Unspecified place in unspecified non-institutional (private) residence as the place of occurrence of the external cause; Y99.8 Other external cause status
CPT/HCPCS: 27792; 27829; 82947; C1713; J0690; J1100; J1885; J2370; J2405; J2795; J3010

== ENCOUNTER → 2023-02-21 13:56 | Outpatient (BNVA) | payer OTHER, SELFPAY | PROVIDERS: PCP Internal Medicine; Visit Provider Physician Assistant ==

== ENCOUNTER 2023-02-28 07:07 | Outpatient (REF) | payer OTHER, SELFPAY ==
--- NOTE | ~2023-02-28 | XR_ITS ---
EXAMINATION: XR ANKLE, LEFT CLINICAL INFORMATION: Pain COMPARISON: Left ankle radiograph from 02/10/2023 TECHNIQUE: AP, lateral, and mortise views of the left ankle. FINDINGS: Status post placement of 2 partially threaded cannulated screws involving the medial malleolus. Small amount of heterotopic ossification noted in this region. Anchoring devices along the distal tibial fibular syndesmosis with ghost tracks are identified. Redemonstration of fracture involving the posterior malleolus. Soft tissue swelling with overlying skin adam noted along the bilateral ankles. Plantar calcaneal heel spur. Enthesopathy at the Achilles tendon insertion site. Spurring the dorsal midfoot. Joint spaces and alignment are otherwise maintained. XR/XR ankle LT min 3V IMPRESSION: 1. Status post placement of 2 partially threaded cannulated screws involving the medial malleolus fracture. Small amount of heterotopic ossification noted in this region. Anchoring devices along the distal tibial fibular syndesmosis with ghost tracks are identified. 2. Redemonstration of fracture involving the posterior malleolus. 3. Soft tissue swelling with overlying skin adam noted along the bilateral ankles. 4. Plantar calcaneal heel spur. Enthesopathy at the Achilles tendon insertion site.
== END 2023-02-28 07:08 | disposition home or self-care (01) ==
LOC: HO.HOSX 07:07
PROVIDERS: Visit Provider Physician Assistant
DX: S82.892D Other fracture of left lower leg, subsequent encounter for closed fracture with routine healing (principal)
CPT/HCPCS: 29405; 73610; 99212

== ENCOUNTER 2023-03-09 01:19 | Emergency (ER) | payer OTHER, SELFPAY ==
[2023-03-09] VITALS (7 sets, daily range): BP systolic 107–130; BP diastolic 58–90; PULSE 90–94; RESP 14–22; TEMP 36.8–38; O2SAT 94–96; BMI 40.2
--- NOTE | 2023-03-09 01:41 | PC.NURSE ---
Pt ca&ox3, reports 8/10 left leg pain. Left leg in cast. No signs of distress. Will continue to monitor.
--- NOTE | 2023-03-09 02:01 | PC.NURSE ---
Pt ca&ox3, no signs of distress. Denies chest pain and sob. Reports 8/10 left leg pain onset 1 day ago. Will continue to monitor.
--- NOTE | 2023-03-09 02:32 | ED_ITS ---
HPI - Extremity Problem General Chief complaint: Extremity Injury, Lower Stated complaint: leg pain Time Seen by Provider: 03/09/23 02:32 Source: patient Mode of arrival: EMS Limitations: no limitations History of Present Illness HPI Narrative: Patient is status post left ankle or if 02/16/2023 seen by Ortho on 02/28 still complaining of pain with no tight feeling able to move her toes patient patient was given morphine tablet which she states she has finished her pain medication no swelling or color change of the toes Related Data Home Medications Medication Instructions Recorded Confirmed albuterol sulfate 2.5 mg/3 mL 2.5 mg inhalation Q8H PRN wheezing 01/30/23 02/28/23 (0.083 %) solution for nebulization atorvastatin 40 mg tablet 40 mg PO BEDTIME 01/30/23 02/28/23 blood sugar diagnostic ([facility] 01/30/23 02/28/23 Ultra Test strips) budesonide 0.5 mg/2 mL suspension 0.5 mg inhalation BID 01/30/23 02/28/23 for nebulization bupropion HCl 150 mg 24 hr tablet, 150 mg PO QAM 01/30/23 02/28/23 extended release bupropion HCl 300 mg 24 hr tablet, 300 mg PO QAM 01/30/23 02/28/23 extended release citalopram 20 mg tablet 20 mg PO QAM 01/30/23 02/28/23 gabapentin 300 mg capsule 300 mg PO BEDTIME 01/30/23 02/28/23 lancets 33 gauge ([facility] Delica 01/30/23 02/28/23 Plus Lancet) levothyroxine 200 mcg tablet 200 mcg PO QAM 01/30/23 02/28/23 mirabegron 25 mg tablet,extended 25 mg PO QAM 01/30/23 02/28/23 release 24 hr (Myrbetriq) ondansetron 4 mg disintegrating 4 mg PO Q8H PRN nausea/vomiting 01/30/23 02/28/23 tablet primidone 250 mg tablet 250 mg PO QID 01/30/23 02/28/23 sennosides 8.6 mg tablet (senna) 17.2 mg PO DAILY PRN constipation 01/30/23 02/28/23 simethicone 80 mg chewable tablet 80 mg PO Q6H PRN gas 01/30/23 02/28/23 (Gas Relief (simethicone)) sitagliptin phosphate 100 mg 100 mg PO QAM 01/30/23 02/28/23 tablet (Januvia) acetaminophen 325 mg tablet 650 mg PO Q6H PRN TEMP > 101 02/10/23 02/28/23 acetaminophen 500 mg tablet 500 mg PO Q8H PRN Pain 02/10/23 02/28/23 bisacodyl 10 mg rectal suppository 10 mg VT DAILY PRN Constipation 02/10/23 02/28/23 cholecalciferol (vitamin D3) 50 50 mcg PO DAILY 02/10/23 02/28/23 mcg (2,000 unit) tablet enoxaparin 40 mg/0.4 mL 40 mg subcut DAILY 02/10/23 02/28/23 subcutaneous syringe (Lovenox) furosemide 20 mg tablet 20 mg PO DAILY 02/10/23 02/28/23 lisinopril 5 mg tablet 5 mg PO BEDTIME 02/10/23 02/28/23 magnesium hydroxide 400 mg/5 mL 30 ml PO DAILY PRN Constipation 02/10/23 oral suspension (Milk of Magnesia) polyethylene glycol 3350 17 gram 17 g PO DAILY 02/10/23 02/28/23 oral powder packet (Miralax) sennosides 8.6 mg tablet (senna) 17.2 mg PO BID 02/10/23 02/28/23 sodium phosphates 19 gram-7 118 ml VT DAILY PRN Constipation 02/10/23 02/28/23 gram/118 mL enema (Fleet Enema) trazodone 50 mg tablet 25 mg PO BEDTIME PRN SEDATIVE 02/10/23 02/28/23 Previous Rx's Medication Instructions Recorded oxycodone 5 mg tablet 5 mg PO Q4H PRN pain (scale score 02/16/23 4-6) 7 days #42 tabs walker #1 ea 02/21/23 fluticasone fur. 200 mcg-umeclid 1 ea inhalation DAILY #60 ea 02/28/23 62.5 mcg-vilant 25 mcg inhalat.powder (Trelegy Ellipta) oxycodone 5 mg tablet 5 mg PO Q6H PRN pain #14 tabs 03/09/23 Allergies Allergy/AdvReac Type Severity Reaction Status Date / Time aspirin [Aspirin] Allergy Mild UPSET Verified 02/28/23 12:55 STOMACH ibuprofen [From Motrin] Allergy Mild Gastrointestinal Verified 02/28/23 12:55 Upset Review of Systems Review of Systems: Yes all other systems are reviewed and are negative [facility] Past Medical History Medical History Anxiety and depression Back pain Bilateral primary osteoarthritis of knee Colon cancer screening COPD (chronic obstructive pulmonary disease) COPD exacerbation Diabetes mellitus Frequency of micturition GERD (gastroesophageal reflux disease) High cholesterol Hypertension Hypothyroidism ENMA on CPAP Osteoarthritis Tubular adenoma of colon Urgency incontinence Urgency of micturition Surgical History History of cholecystectomy History of lumpectomy of right breast Hx of colonoscopy Hx of cystoscopy Hx of right knee surgery Family History Family History Mother History of pancreatic cancer Social History Social History Household Members Other:: lives with grandson Are you a primary care manager to a significant other at home: No 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) Alcohol intake: never Patient Tobacco Use Status: Never used Tobacco Years Smoked: 30 Smoked in Last 30 Days: No Second Hand Smoke Exposure: No Use of substances other than those prescribed or required for medical reasons: No Advance Directives: Yes Advance Directives on File: Yes Advance Directives Date on File: 01/31/23 Physical Exam Vital Signs: Vital Signs: Last Vital Signs Temp 98.3 F 03/09/23 04:18 Pulse 91 03/09/23 04:18 Resp 14 03/09/23 05:31 BP 110/58 L 03/09/23 04:18 Pulse Ox 94 03/09/23 04:18 O2 Del Method Room Air 03/09/23 04:18 BMI result Body Mass Index 40.2 Extrem: Other: Patient has left short leg cast with fairly loose able to move her toes does not seem like has any neurovascular compromise patient does have similar pain since surgery per Orthopedic notes fell give a course of oxycodone advised to follow-u p with orthopedics Medications Administered Discontinued Medications Generic Name Dose Route Start Last Admin Trade Name Freq PRN Reason Stop Dose Admin Ketorolac Tromethamine 60 mg 03/09/23 04:36 03/09/23 04:44 Ketorolac Tromethamine 30 Mg/Ml Vial IM 03/09/23 04:37 60 mg ONCE ONE Administration Oxycodone HCl 10 mg 03/09/23 02:49 03/09/23 03:08 Oxycodone Hcl Immed Release 5 Mg Tablet PO 03/09/23 02:50 10 mg ONCE ONE Administration Discharge Plan Discharge Clinical Impression: Left leg pain Patient Disposition: Home, Self-Care Instructions: Leg Pain (ED) Additional Instructions: Continue taking your pain medication Follow-up with your orthopedic Prescriptions: New oxycodone 5 mg tablet 5 mg PO Q6H PRN (Reason: pain) Qty: 14 0RF Rx Instructions: Partial Fill upon patient request. No Action (DME) walker Misc See Rx Instructions .ROUTE .MEDSUPPLY Qty: 1 0RF Rx Instructions: Folding front wheeled walker Lesli Ellipta 200-62.5-25 mcg blister with device 1 ea inhalation DAILY Qty: 60 5RF acetaminophen 325 mg Tablet 650 mg PO Q6H PRN (Reason: TEMP > 101) bisacodyl 10 mg Suppository 10 mg VT DAILY PRN (Reason: Constipation) Fleet Enema 19-7 gram/118 mL Enema 118 ml VT DAILY PRN (Reason: Constipation) furosemide 20 mg Tablet 20 mg PO DAILY lisinopril 5 mg Tablet 5 mg PO BEDTIME enoxaparin [Lovenox] 40 mg/0.4 mL Syringe 40 mg SUBCUT DAILY magnesium hydroxide [Milk of Magnesia] 400 mg/5 mL Suspension 30 ml PO DAILY PRN (Reason: Constipation) polyethylene glycol 3350 [Miralax] 17 gram Powder In Packet 17 g PO DAILY sennosides [senna] 8.6 mg Tablet 17.2 mg PO BID trazodone 50 mg Tablet 25 mg PO BEDTIME PRN (Reason: SEDATIVE) acetaminophen 500 mg Tablet 500 mg PO Q8H PRN (Reason: Pain) cholecalciferol (vitamin D3) 50 mcg (2,000 unit) Tablet 50 mcg PO DAILY oxycodone 5 mg tablet 5 mg PO Q4H PRN (Reason: pain (scale score 4-6)) 7 Days Qty: 42 0RF Rx Instructions: Partial Fill upon patient request. atorvastatin 40 mg tablet 40 mg PO BEDTIME sennosides [senna] 8.6 mg tablet 17.2 mg PO DAILY PRN (Reason: constipation) albuterol sulfate 2.5 mg /3 mL (0.083 %) solution for nebulization 2.5 mg inhalation Q8H PRN (Reason: wheezing) (DME) OneTouch Ultra Test Strip MISCELLANEOUS BID citalopram 20 mg tablet 20 mg PO QAM primidone 250 mg tablet 250 mg PO QID gabapentin 300 mg capsule 300 mg PO BEDTIME budesonide 0.5 mg/2 mL suspension for nebulization 0.5 mg inhalation BID levothyroxine 200 mcg tablet 200 mcg PO QAM ondansetron 4 mg tablet,disintegrating 4 mg PO Q8H PRN (Reason: nausea/vomiting) simethicone [Gas Relief (simethicone)] 80 mg tablet,chewable 80 mg PO Q6H PRN (Reason: gas) bupropion HCl 300 mg tablet extended release 24 hr 300 mg PO QAM bupropion HCl 150 mg tablet extended release 24 hr 150 mg PO QAM Januvia 100 mg tablet 100 mg PO QAM Myrbetriq 25 mg tablet extended release 24 hr 25 mg PO QAM (DME) lancets [OneTouch Delica Plus Lancet] 33 gauge misc MISCELLANEOUS BID Interventions: ED Discharge Assessment Last Done: 03/09/23 05:56 Discharge Date/Time: 03/09/23 06:11
[2023-03-09] MEDS: oxyCODONE HCl Immed Release 5 MG TABLET 10 MG PO (03:08)
--- NOTE | 2023-03-09 03:10 | PC.NURSE ---
Pt medicated per dec. Pt ca&ox3, no signs of distress. Will continue to monitor.
--- NOTE | 2023-03-09 04:19 | PC.NURSE ---
Pt ca&ox3, no signs of distress. Vitals are stable. Will continue to monitor.
[2023-03-09] MEDS: Ketorolac Tromethamine 30 MG/ML VIAL 60 MG IM (04:44)
--- NOTE | 2023-03-09 04:50 | PC.NURSE ---
Pt ca&ox3, no signs of distress. Pt reporting 10/10 pain. Provider made aware. Pt medicated per mar. Will continue to monitor.
--- NOTE | 2023-03-09 05:31 | PC.NURSE ---
Pt resting comfortably. Pt reports pain meds effective 2/10 pain. No signs of distress. Pt ca&ox3. Will continue to monitor.
== END 2023-03-09 06:11 | disposition home or self-care (01) ==
PROVIDERS: Emergency Provider Internal Medicine; PCP Internal Medicine
DX: G89.18 Other acute postprocedural pain (principal); M79.605 Pain in left leg; E11.9 Type 2 diabetes mellitus without complications; I10 Essential (primary) hypertension; E78.5 Hyperlipidemia, unspecified; Z79.899 Other long term (current) drug therapy; Z79.02 Long term (current) use of antithrombotics/antiplatelets
CPT/HCPCS: 96372; 99284; J1885

== ENCOUNTER 2023-03-30 08:25 | Outpatient (REF) | payer OTHER, SELFPAY ==
--- NOTE | ~2023-03-30 | XR_ITS ---
EXAMINATION: XR ANKLE, LEFT CLINICAL INFORMATION: Pain. COMPARISON: Radiographs dated 02/28/2023. TECHNIQUE: AP, lateral, and mortise views of the left ankle. FINDINGS: There is bony demineralization. 2 orthopedic fixator screws are applied to the medial malleolus, without residual fracture line noted. Syndesmotic tightrope hardware noted. The ankle mortise is intact. The previously noted posterior malleolus fracture is poorly visualized. There is no dislocation or joint effusion. There is degenerative change of the tibiotalar joint. Boehler's angle is normal. There are moderate posterior and plantar calcaneal spurs. There is generalized soft tissue swelling, most pronounced adjacent to the medial malleolus. XR/XR ankle LT min 3V IMPRESSION: 1. There is stable alignment [id number] of a medial malleolus fracture. A persistent fracture line is redemonstrated. 2. There is soft tissue swelling, most pronounced adjacent to the medial malleolus. 3. The previously noted posterior malleolus fracture is poorly visualized. 4. There are moderate posterior and plantar left calcaneal spurs.
== END 2023-03-30 08:26 | disposition home or self-care (01) ==
LOC: HO.HOSX 08:25
PROVIDERS: Visit Provider Physician Assistant
DX: Z98.890 Other specified postprocedural states (principal); Z87.81 Personal history of (healed) traumatic fracture
CPT/HCPCS: 73610; 99212

== ENCOUNTER 2023-04-15 12:17 | Outpatient (REF) | payer OTHER, SELFPAY ==
--- NOTE | ~2023-04-15 | US_ITS ---
EXAMINATION: US RETROPERITONEAL COMPLETE (RENAL) CLINICAL INFORMATION: Ongoing episodes of microscopic hematuria and recurrent UTIs. COMPARISON: CT abdomen and pelvis and ultrasound abdomen limited 12/17/2022. Ultrasound abdomen complete 06/04/2016. TECHNIQUE: Real-time imaging of the kidneys and bladder. FINDINGS: RIGHT KIDNEY: 11.1 x 4.2 x 5.4 cm (SAG x AP x TRV). The kidney is normal in size, contour, and echogenicity. Renal cortical thickness is normal. No calculi or focal parenchymal lesions. No hydronephrosis. LEFT KIDNEY: 11.0 x 4.0 x 4.2 cm (SAG x AP x TRV). The kidney is normal in size, contour, and echogenicity. Renal cortical thickness is normal. No calculi or focal parenchymal lesions. No hydronephrosis. BLADDER: Well distended and normal. Bilateral ureteral jets are demonstrated. Prevoid bladder volume is 173.8 mL. Postvoid bladder volume is 5.1 mL. US/US retroperitoneal comp IMPRESSION: No evidence of obstructive uropathy. No evidence of nephrolithiasis. No suspicious renal mass identified. No significant postvoid residual..
== END 2023-04-15 12:18 | disposition home or self-care (01) ==
LOC: HO.US 12:17
PROVIDERS: PCP Internal Medicine; Visit Provider Student in an Organized Health Care Education/Training Program
DX: R30.9 Painful micturition, unspecified (principal)
CPT/HCPCS: 76770

== ENCOUNTER 2023-05-02 10:56 | Outpatient (AMB) | payer OTHER, SELFPAY ==
--- NOTE | 2023-05-02 10:59 | A.OFFVIS_ITS ---
Intake Intake Visit Reasons: OV- B/L knee OA, Last B/L inj 07/01/22 Intake Note: Joselyn is a 73 year old female who presents today for a follow up of her bilateral knee pain. She last had injections done 07/01/23. Patient reports that her knees are equally painful, last injections only helped for about a day. Allergies aspirin [Aspirin] Allergy (Mild, Verified 05/02/23 11:00) UPSET STOMACH ibuprofen [From Motrin] Allergy (Mild, Verified 05/02/23 11:00) Gastrointestinal Upset HPI OV- B/L knee OA, Last B/L inj 07/01/22 HPI Details Joselyn is a 73 year old woman with bilateral knee OA, presenting with complaints of bilateral knee & left ankle pain. She continues to have pain with daily activity, and says her most recent injection from 06/11/22 gave her only days of relief. She had a left ankle ORIF on 02/16/23 and has had difficulty walking since. She is seen today in a walking boot. [facility] Medical History Anxiety and depression Back pain Bilateral primary osteoarthritis of knee Colon cancer screening COPD (chronic obstructive pulmonary disease) COPD exacerbation Diabetes mellitus Frequency of micturition GERD (gastroesophageal reflux disease) High cholesterol Hypertension Hypothyroidism ENMA on CPAP Osteoarthritis Tubular adenoma of colon Urgency incontinence Urgency of micturition Surgical History History of cholecystectomy History of lumpectomy of right breast Hx of colonoscopy Hx of cystoscopy Hx of right knee surgery Family History Mother History of pancreatic cancer Social History Household Members Other:: lives with grandson Are you a primary care navigator to a significant other at home: No 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) Alcohol intake: never Patient Tobacco Use Status: Never used Tobacco Years Smoked: 30 Second Hand Smoke Exposure: No Advance Directives Date on File: 01/31/23 Review of Systems Const All systems reviewed & are unremarkable except as noted in HPI and below Physical Exam Const General: no acute distress and alert Orientation/consciousness: patient oriented x3 Neuro General: patient oriented x3 Extrem Other: Bilateral Knees: media joint line tenderness mild effusion left ankle with intact skin and inc c/d/i Psych Appearance: grossly normal Affect: normal affect Attitude: cooperative Results Reviewed Results Reviewed: I personally reviewed relevant radiographs. Severe medial compartment osteoarthritis bilateral knees Assessment & Plan Assessment & Plan (1) Bilateral primary osteoarthritis of knee: Code(s): M17.0 - Bilateral primary osteoarthritis of knee Plan: This is a 73 year old woman with severe bilateral knee OA. She has pain with daily activity and found no relief from her previous steroid injection on 06/11/22. (2) Status post ORIF of fracture of ankle: Code(s): Z98.890 - Other specified postprocedural states; Z87.81 - Personal history of (healed) traumatic fracture Plan: S/P left ankle ORIF, DOS: 02/16/23. She has been wearing a walking boot and WBAT, but continues to have pain. She will follow up in 2 weeks with X-rays of her ankle. We can discuss intervention for her knees at that time. She will continue to WBAT in her boot. Plan Scribed for Klever Jj MD by Duglas Villarreal, medical records auditor, on 05/02/23 at 11:15 AM, EST. Medications: Discontinued morphine Partial Fill upon patient request. 15 mg PO Q4-6H PRN 20 tabs 0RF severe pain (scale score 7-10) Coding Level of Care Code Est Pt Level 3 (63225) Global (91656) Diagnoses Bilateral primary osteoarthritis of knee M17.0 Status post ORIF of fracture of ankle Z98.890; Z87.81
== END 2023-05-02 11:17 | disposition home or self-care (01) ==
PROVIDERS: PCP Internal Medicine; Visit Provider Orthopaedic Surgery
DX: M17.0 Bilateral primary osteoarthritis of knee (principal)
CPT/HCPCS: 99024; 99213

== ENCOUNTER → 2023-05-02 10:56 | Outpatient (BNVA) | payer OTHER, SELFPAY | PROVIDERS: PCP Internal Medicine; Visit Provider Orthopaedic Surgery | DX: M17.0 Bilateral primary osteoarthritis of knee (principal); Z98.890 Other specified postprocedural states; Z87.81 Personal history of (healed) traumatic fracture | CPT/HCPCS: 99212 ==

== ENCOUNTER 2023-05-05 11:14 | Outpatient (REF) | payer OTHER, SELFPAY ==
--- NOTE | ~2023-05-05 | XR_ITS ---
EXAMINATION: XR ANKLE, LEFT CLINICAL INFORMATION: Left ankle pain. COMPARISON: 03/30/2023 and studies dating back to 01/30/2023. TECHNIQUE: AP, lateral, and mortise views of the left ankle. FINDINGS: 2 screws are seen in place for fixation of the medial malleolar fracture without significant change in alignment. There appears to be some degree of bony union present. Syndesmotic device present. Previous distal fibula fracture line is not seen. Posterior malleolar fracture appears to have some degree of bony union. Alignment is unchanged. There remains some mild soft tissue swelling. Calcaneal spurs at sites of insertion of Achilles and plantar tendons noted. There is spurring of the talonavicular joint. There is spurring of the tarsal metatarsal joints. XR/XR ankle LT min 3V IMPRESSION: 1. Evidence of healing left ankle fractures without change in alignment. 2. Degenerative changes of the left foot as described.
== END 2023-05-05 11:15 | disposition home or self-care (01) ==
LOC: HO.HOSX 11:14
PROVIDERS: Visit Provider Physician Assistant
DX: M17.0 Bilateral primary osteoarthritis of knee (principal)
CPT/HCPCS: 73610

== ENCOUNTER 2023-05-05 13:53 | Outpatient (AMB) | payer OTHER, SELFPAY ==
--- NOTE | 2023-05-05 13:57 | A.OFFVIS_ITS ---
Intake Intake Visit Reasons: PO-ORIF LT Ankle, 02/16/23 -w xrays Intake Note: Joselyn is a 72 year old female who presents today for a post operative left ankle ORIF, 02/16/23. Xrays udated in office. Patient reports she is doing well, denies any ankle pain. Continues to wear boot as instructed. Allergies aspirin [Aspirin] Allergy (Mild, Verified 05/05/23 14:11) UPSET STOMACH ibuprofen [From Motrin] Allergy (Mild, Verified 05/05/23 14:11) Gastrointestinal Upset HPI PO-ORIF LT Ankle, 02/16/23 -w xrays HPI Details 73-year-old female who returns to the office today for post-op left ankle ORIF, 02/16/23. She states she has no pain and is doing well overall. She continues to work on physical therapy with benefits. She is wearing the boot as instructed. She has no concerns today. [facility] Medical History Anxiety and depression Back pain Bilateral primary osteoarthritis of knee Colon cancer screening COPD (chronic obstructive pulmonary disease) COPD exacerbation Diabetes mellitus Frequency of micturition GERD (gastroesophageal reflux disease) High cholesterol Hypertension Hypothyroidism ENMA on CPAP Osteoarthritis Tubular adenoma of colon Urgency incontinence Urgency of micturition Surgical History History of cholecystectomy History of lumpectomy of right breast Hx of colonoscopy Hx of cystoscopy Hx of right knee surgery Family History Mother History of pancreatic cancer Social History Household Members Other:: lives with grandson Are you a primary career coordinator to a significant other at home: No 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 Incision well healed. There is mild swelling throughout the ankle. Pulses are present. NVI. Assessment & Plan Assessment & Plan (1) Bilateral primary osteoarthritis of knee: Code(s): M17.0 - Bilateral primary osteoarthritis of knee Plan She was transitioned into a lace-up ankle brace. She will continue to work with physical therapy to restore her strength and work on gait training. I would like to see her back in 6 weeks for repeat x-rays, sooner if needed. I also put in a referral to pain management for geniculate injection in bilateral knees. Orders: Orders XR ankle LT min 3V Today M25.572 - Pain in left ankle and joints of left foot Referrals Pain Management Referral M17.0 - Bilateral primary osteoarthritis of knee Medications: Discontinued morphine Partial Fill upon patient request. 15 mg PO Q4-6H PRN 20 tabs 0RF severe pain (scale score 7-10) Patient Instructions: Scribed for Keisha Tucker PA-C, by Cody Caal, medical laboratory technical officer, on 05/05/2023 at 2:00 PM EST. I, Keisha Tucker PA-C, have personally reviewed and agree with the information entered by the scribe. Coding Level of Care Code Global (56184) Diagnoses Bilateral primary osteoarthritis of knee M17.0
== END 2023-05-05 14:45 | disposition home or self-care (01) ==
PROVIDERS: PCP Internal Medicine; Visit Provider Physician Assistant
DX: M17.0 Bilateral primary osteoarthritis of knee (principal)
CPT/HCPCS: 99024

== ENCOUNTER 2023-05-18 10:27 | Outpatient (AMB) | payer OTHER, SELFPAY ==
--- NOTE | 2023-05-18 10:49 | A.OFFVIS_ITS ---
Intake Vital Signs 05/18/23 10:50 Weight 220 lb BP 126/88 Blood Pressure Location Lt brachial Position Sitting Respiration 16 Pulse 78 Pulse Source Pulse Oximeter Pulse Oximetry (%) 96 Oxygen Delivery Method Room Air Intake Visit Reasons: PRIMARY OSTEOARTHRITIS OF KNEES Allergies aspirin [Aspirin] Allergy (Mild, Verified 05/18/23 10:51) UPSET STOMACH ibuprofen [From Motrin] Allergy (Mild, Verified 05/18/23 10:51) Gastrointestinal Upset HPI HPI Comments History of Present Illness Details Ms. Ortiz Moreno is a very pleasant 73 year old female who presents to the office today on referral from orthopedics for evaluation and management of her chronic bilateral knee pain. Patient states she has arthritis in both knees, she was told years ago that she needs TKA but she would need to lose weight prior to any surgery. Patient states she has pain in both knees, left worse than right. Pain does not radiate. She uses a wheelchair d/t pain in both knees. She is not able to lose weight as she cannot increase activity secondary to pain. She takes tylenol for the pain with some relief. Pain today is reported as 10/10, constant and worse in the evenings and at night. In terms of muscle damage condition is described as aching, spasming, dull. cramping, squeezing and throbbing. Pain is negatively impacting her enjoyment of life, sleep, walking and overall mood. Patient denies implantable devices, pacemaker, defibrillator. [facility] Medical History Anxiety and depression Back pain Bilateral primary osteoarthritis of knee Colon cancer screening COPD (chronic obstructive pulmonary disease) COPD exacerbation Diabetes mellitus Frequency of micturition GERD (gastroesophageal reflux disease) High cholesterol Hypertension Hypothyroidism ENMA on CPAP Osteoarthritis Tubular adenoma of colon Urgency incontinence Urgency of micturition Surgical History History of cholecystectomy History of lumpectomy of right breast Hx of colonoscopy Hx of cystoscopy Hx of right knee surgery Family History Mother History of pancreatic cancer Social History Household Members Other:: lives with grandson Are you a primary rn progressive care to a significant other at home: No 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 Answers questions appropriately. Fully engaged in examination. Skin: warm, dry, intact without visible rashes or lesions. HEENT: Normocephalic. Conjuntivae clear without exudate. Sclera non-icteric. Hearing intact. Cardiac: External chest normal in appearance. Respiratory: No signs of trauma. No signs of respiratory distress. No cough, audible wheezing or stridor. Abdomen: without gross distension. MS: Able to transition from sit to stand with minimal assistance. uses a wheelchair d/t pain with ambulation. Bilateral knees nontender to palpation decreased ROM bilateral knees, pain with ROM in all planes. crepitus noted bilaterally Neurological: Oriented to person, place, time and situation. Thought process intact. Psychiatric: Appropriate mood and affect. Good judgment and insight. Assessment & Plan Assessment & Plan (1) Bilateral primary osteoarthritis of knee: Code(s): M17.0 - Bilateral primary osteoarthritis of knee Plan Ms. Ortiz Moreno is a very pleasant 73 year old female who presented to the office today for evaluation and management of her chronic bilateral knee pain. XR left and Right knee ordered today Discussed options for treatment including diagnostic interventional testing, therapeutic injections, peripheral nerve stimulation with Sprint, RFA and more permanent neuromodulation. Plan for Fluoroscopy guided Left Genicular Nerve Block with local anesthetic. Will follow with Left Genicular RFA if diagnostic block provides positive results. Patient would like to proceed with Right knee after completion of the left one. All questions and concerns have been answered and patient agrees with the plan. Follow up after diagnostic injection, sooner if needed. Orders: Orders XR knee LT 3V Today M17.0 - Bilateral primary osteoarthritis of knee XR knee RT 3V Today M17.0 - Bilateral primary osteoarthritis of knee Medications: Discontinued morphine Partial Fill upon patient request. 15 mg PO Q4-6H PRN 20 tabs 0RF severe pain (scale score 7-10) Coding Level of Care Code New Pt Level 4 (02581) Diagnoses Bilateral primary osteoarthritis of knee M17.0
[2023-05-18 10:50] VITALS: BP 126/88; PULSE 78; RESP 16; O2SAT 96
== END 2023-05-18 10:59 | disposition home or self-care (01) ==
PROVIDERS: PCP Internal Medicine; Visit Provider Registered Nurse Emergency
DX: M17.0 Bilateral primary osteoarthritis of knee (principal)
CPT/HCPCS: 99204

== ENCOUNTER → 2023-05-18 10:27 | Outpatient (BNVA) | payer OTHER, SELFPAY | PROVIDERS: PCP Internal Medicine; Visit Provider Registered Nurse Emergency | DX: M17.0 Bilateral primary osteoarthritis of knee (principal) | CPT/HCPCS: 99202 ==

== ENCOUNTER 2023-05-18 18:06 | Outpatient (REF) | payer OTHER, SELFPAY | END 2023-05-18 18:07 | disposition home or self-care (01) | LOC: HO.HHCLNP 18:06 | PROVIDERS: Visit Provider Emergency Medicine | DX: N02.9 Recurrent and persistent hematuria with unspecified morphologic changes (principal) | CPT/HCPCS: 87086 ==

== ENCOUNTER 2023-05-19 12:47 | Outpatient (REF) | payer OTHER, SELFPAY ==
--- NOTE | ~2023-05-19 | XR_ITS ---
EXAMINATION: XR KNEE, BILATERAL CLINICAL INDICATIONS: Bilateral primary osteoarthritis of knee. COMPARISON: Bilateral AP knee standing and left knee 10/17/2019 TECHNIQUE: 3 views each knee. FINDINGS: LEFT KNEE: There is severe loss of medial and and patellofemoral compartment joint space. There is moderate periarticular spurring medial compartment. No suprapatellar joint effusion, loose bodies or bony erosive changes. There is a healing fracture proximal fibula. RIGHT KNEE: There is severe loss of medial and mild loss of patellofemoral compartment joint space with periarticular spurring in medial and patellofemoral compartments. No visible acute fracture, dislocation or subluxation seen. No bony erosive changes. The soft tissues are normal. No abnormal joint effusion. XR/XR knee RT 3V IMPRESSION: 1. Degenerative arthritic changes medial and patellofemoral compartment both knees. No visible acute fracture, dislocation or subluxation seen. No joint effusion or loose bodies. 2. There is a healing fracture proximal fibula left knee.
--- NOTE | ~2023-05-19 | XR_ITS ---
EXAMINATION: XR KNEE, BILATERAL CLINICAL INDICATIONS: Bilateral primary osteoarthritis of knee. COMPARISON: Bilateral AP knee standing and left knee 10/17/2019 TECHNIQUE: 3 views each knee. FINDINGS: LEFT KNEE: There is severe loss of medial and and patellofemoral compartment joint space. There is moderate periarticular spurring medial compartment. No suprapatellar joint effusion, loose bodies or bony erosive changes. There is a healing fracture proximal fibula. RIGHT KNEE: There is severe loss of medial and mild loss of patellofemoral compartment joint space with periarticular spurring in medial and patellofemoral compartments. No visible acute fracture, dislocation or subluxation seen. No bony erosive changes. The soft tissues are normal. No abnormal joint effusion. XR/XR knee LT 3V IMPRESSION: 1. Degenerative arthritic changes medial and patellofemoral compartment both knees. No visible acute fracture, dislocation or subluxation seen. No joint effusion or loose bodies. 2. There is a healing fracture proximal fibula left knee.
== END 2023-05-19 12:48 | disposition home or self-care (01) ==
LOC: HO.XRAY 12:47
PROVIDERS: PCP Internal Medicine; Visit Provider Registered Nurse Emergency
DX: M17.0 Bilateral primary osteoarthritis of knee (principal)
CPT/HCPCS: 73562

== ENCOUNTER 2023-05-26 14:37 | Outpatient (REF) | payer OTHER, SELFPAY ==
[2023-05-26 18:08] LABS: Urine Cytology See Pathology rpt
== END 2023-05-26 14:38 | disposition home or self-care (01) ==
LOC: HO.LAB 14:37
PROVIDERS: PCP Internal Medicine; Visit Provider Urology
DX: R31.0 Gross hematuria (principal); N32.81 Overactive bladder; N39.0 Urinary tract infection, site not specified
CPT/HCPCS: 81003; 88112; 99212

== ENCOUNTER 2023-05-26 14:37 | Outpatient (AMB) | payer OTHER, SELFPAY ==
--- NOTE | 2023-05-26 12:21 | A.OFFVIS_ITS ---
Intake Intake Visit Reasons: recurrent UTI Intake Note: NEW Patient presents today to established treatment for Recurrent UTI: Meds- None Allergies to Antibiotic- No Known Allergies Blood Thinner- None Instructor Nurse Required: Yes Instructor Nurse Language: Welsh Accompanied by: Other Relationship Allergies aspirin [Aspirin] Allergy (Mild, Verified 05/26/23 15:10) UPSET STOMACH ibuprofen [From Motrin] Allergy (Mild, Verified 05/26/23 15:10) Gastrointestinal Upset HPI HPI Comments History of Present Illness Details Joselyn is a 73-year-old female who presents today to the office for a follow up of recurrent urinary tract infections. 05/26/2023? She presents today with her [id number] who interprets for her. She has a past medical history significant for insulin dependent diabetes. She was previously seen by nurse practitioner, Fina. She has been evaluated for lower urinary tract symptoms of urgency, overactive bladder and treated for recurrent urinary tract infections. Patient states that she is currently not taking any medications for lower urinary tract symptoms. She states that she noticed blood in the urine several weeks ago. Patient is wearing pads as needed. In review of urinalysis performed on 03/02/2023 revealed large blood in the urine. Urine culture was sent, which came back <10,000 floresita. She uses a walker for assisting ambulation. She reports pain in her knees. She is scheduled for surgery on 06/14/2023. I have reviewed the results of renal US from on 04/15/2023 revealed no hydronephrosis, no renal mass or renal calculi noted. Evaluation today--UA--leukocytes: negative; blood: negative. Plan: Urine for cytology. Follow up office Cystoscopy. [facility] Medical History Anxiety and depression Back pain Bilateral primary osteoarthritis of knee Colon cancer screening COPD (chronic obstructive pulmonary disease) COPD exacerbation Diabetes mellitus Frequency of micturition GERD (gastroesophageal reflux disease) High cholesterol Hypertension Hypothyroidism ENMA on CPAP Osteoarthritis Tubular adenoma of colon Urgency incontinence Urgency of micturition Surgical History History of cholecystectomy History of lumpectomy of right breast Hx of colonoscopy Hx of cystoscopy Hx of right knee surgery Family History Mother History of pancreatic cancer Social History Household Members Other:: lives with grandson Are you a primary vision care associate to a significant other at home: No Do you presently have 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) Alcohol intake: never Patient Tobacco Use Status: Never used Tobacco Years Smoked: 30 Second Hand Smoke Exposure: No Advance Directives Date on File: 01/31/23 Results AMB Urinalysis, Automated UA Leukoctes 0 Bryant/uL Last Edit by VINH Cross on 05/26/23 15:22 UA Nitrite Negative Last Edit by VINH Cross on 05/26/23 15:22 UA Urobilinogen 0.2 mg/dL Last Edit by VINH Cross on 05/26/23 15:2 2 UA Protein 0 mg/dL Last Edit by VINH Cross on 05/26/23 15:22 UA pH 6.5 Last Edit by VINH Cross on 05/26/23 15:22 UA Blood 0 Chema/uL Last Edit by VINH Cross on 05/26/23 15:22 UA Specific [place] 1.010 Last Edit by VINH Cross on 05/26/23 15: 22 UA Ketone Negative Last Edit by VINH Cross on 05/26/23 15:22 UA Bilirubin 0 mg/dL Last Edit by VINH Cross on 05/26/23 15:22 UA Glucose 0 mg/dL Last Edit by VINH Cross on 05/26/23 15:22 Results Reviewed Results Reviewed: Laboratory Last Values Urine pH (Auto) 6.5 05/26/23 15:15 Specific [place] (Auto) 1.010 05/26/23 15:15 Urine Protein (Auto) 0 mg/dL 05/26/23 15:15 Glucose (UA)(Auto) 0 mg/dL 05/26/23 15:15 Urine Ketones (Auto) Negative 05/26/23 15:15 Urine Blood (Auto) 0 Chema/uL 05/26/23 15:15 Urine Nitrite (Auto) Negative 05/26/23 15:15 Urine Bilirubin (Auto) 0 mg/dL 05/26/23 15:15 Urine Urobilinogen (Auto) 0.2 mg/dL 05/26/23 15:15 Leukocyte Esterase (Auto) 0 Bryant/uL 05/26/23 15:15 Date of Service: 04/15/23 EXAMINATION: US RETROPERITONEAL COMPLETE (RENAL) CLINICAL INFORMATION: Ongoing episodes of microscopic hematuria and recurrent UTIs. COMPARISON: CT abdomen and pelvis and ultrasound abdomen limited 12/17/2022. Ultrasound abdomen complete 06/04/2016. FINDINGS: RIGHT KIDNEY: 11.1 x 4.2 x 5.4 cm (SAG x AP x TRV). The kidney is normal in size, contour, and echogenicity. Renal cortical thickness is normal. No calculi or focal parenchymal lesions. No hydronephrosis. LEFT KIDNEY: 11.0 x 4.0 x 4.2 cm (SAG x AP x TRV). The kidney is normal in size, contour, and echogenicity. Renal cortical thickness is normal. No calculi or focal parenchymal lesions. No hydronephrosis. BLADDER: Well distended and normal. Bilateral ureteral jets are demonstrated. Prevoid bladder volume is 173.8 mL. Postvoid bladder volume is 5.1 mL. IMPRESSION: No evidence of obstructive uropathy. No evidence of nephrolithiasis. No suspicious renal mass identified. No significant postvoid residual. Assessment & Plan Assessment & Plan (1) Overactive bladder: Code(s): N32.81 - Overactive bladder (2) Gross hematuria: Code(s): R31.0 - Gross hematuria (3) Recurrent UTI: Code(s): N39.0 - Urinary tract infection, site not specified Plan Urine for cytology. Follow up office Cystoscopy. Orders: Orders Urine Cytology 05/26/23 R31.0 - Gross hematuria AMB Urinalysis Automated 05/26/23 Z13.9 - Encounter for screening, unspecified Medications: Discontinued morphine Partial Fill upon patient request. 15 mg PO Q4-6H PRN 20 tabs 0RF severe pain (scale score 7-10) Patient Instructions: The patient had an opportunity to ask questions regarding treatment plan. All questions were answered. Imaging, Laboratory studies and physical exam results were discussed and reviewed in detail. No major barriers to understanding were identified. The patient expressed understanding and agreement with the above treatment plan.? ? ? The patient is aware they should contact our office by phone for worsening of their current condition or the appearance of new symptoms. Compliance is encouraged with any medications and followup testing that is ordered.? ? ? It is a privilege to be allowed the opportunity to participate in the urologic care of your patient. If you have any questions or concerns regarding treatment for the above conditions please do not hesitate to contact me. The office telephone contact is [phone].? ? ? This note is constructed in part using voice recognition software. While every effort has been made to ensure accuracy cyber transport systems specialist errors may have been included.? ? ? Yours sincerely,? ? ? Radha Mccullough MD? Coding Level of Care Code Est Pt Level 4 (61441) Diagnoses Overactive bladder N32.81 Gross hematuria R31.0 Recurrent UTI N39.0
== END 2023-05-26 15:30 | disposition home or self-care (01) ==
PROVIDERS: PCP Internal Medicine; Visit Provider Urology
DX: N32.81 Overactive bladder (principal); R31.0 Gross hematuria; N39.0 Urinary tract infection, site not specified
CPT/HCPCS: 99214

== ENCOUNTER 2023-06-03 12:49 | Outpatient (REF) | payer OTHER, SELFPAY ==
--- NOTE | ~2023-06-03 | CT_ITS ---
EXAMINATION: CT CHEST WITHOUT CONTRAST CLINICAL INFORMATION: Other nonspecific abnormal findings of lung jordan; evaluate right apical and left lower lung opacities COMPARISON: Correlation is made with chest radiography dated 01/31/2023 and comparison is made with CT examination dated 12/17/2022 and 07/06/2021. TECHNIQUE: Multidetector volumetric CT imaging of the chest was done. Axial MIP volume rendering provided. Sagittal and coronal reformatted images were obtained. This CT examination was performed using dose optimization techniques as appropriate, variously including the following: *Automated exposure control *Adjustment of mA and/or kV according to patient size (this includes techniques or standardized protocols for targeted exams where dose is matched to indication/reason for exam; i.e. extremities or head) *Use of iterative reconstruction technique DLP: 205.00 mGy-cm FINDINGS: CONSULTATIVE SALES ASSOCIATE: Persistent medial right apical and lateral pleural based opacities LUNGS: The lungs are better expanded than on prior examination. No mass or dense consolidation is seen in the medial right apex. There is subpleural reticular and groundglass opacity posteriorly in the upper lungs and in the lower lobes. In the lower lungs there is also subpleural septal thickening and reticular opacity. The findings are suspicious for interstitial pneumonitis. Thin section images demonstrate innumerable tiny peripheral pulmonary nodules through the lungs measuring up to 3 mm. No dominant mass is seen. Allowing for technical differences, no significant change is appreciated. There is bilateral lower lobe bronchiectasis. There is persistent pleural-based coarse reticular and confluent opacity in the inferior lateral left upper lobe adjacent to a healing rib fracture. This may represent chronic atelectasis and scarring. MEDIASTINUM: There is tortuous brachiocephalic vasculature in the superior right peritracheal region which appears to explain the lateral apical opacity on chest radiography. There is evidence of previous thyroidectomy. The heart appears normal in size and the aorta is not dilated. There is a prominent pretracheal lymph node measuring 21 mm in diameter which is unchanged from prior examination. No other adenopathy is demonstrated. CORONARY ARTERY CALCIFICATION: None visualized on this study. PLEURA: There is no pleural effusion. No pleural mass or thickening. AXILLA: No lymphadenopathy. UPPER ABDOMEN: Unremarkable. Status post cholecystectomy. OSSEOUS STRUCTURES: Chronic mild compression deformity of the T4 vertebrae, unchanged. Healing fracture of the lateral left seventh rib. CT/CT chest wo IV con IMPRESSION: There is tortuous brachiocephalic vasculature in the right paratracheal region accounting for medial apical opacity on chest radiography. There is a healing fracture of the lateral left seventh rib with adjacent mild pleural thickening and probable chronic atelectasis or pulmonary scarring accounting for lateral lung opacity on chest radiography. There is peripheral reticular and groundglass opacity in both lungs, consistent with interstitial pneumonitis and possible pulmonary fibrosis. There is been some progression of interstitial lung disease compared to 2001. There are innumerable small nodules in the lungs measuring up to 3 mm in diameter which are not significantly changed from prior studies. Bilateral lower lobe bronchiectasis. Stable prominent pretracheal lymph node. No developing adenopathy is appreciated. Clinical and laboratory correlation is recommended to determine the significance of the pulmonary opacities including tiny lung nodules. Fleischner guidelines were followed.
== END 2023-06-03 12:50 | disposition home or self-care (01) ==
LOC: HO.CT 12:49
PROVIDERS: PCP Internal Medicine Rheumatology; Visit Provider Internal Medicine Pulmonary Disease
DX: R91.8 Other nonspecific abnormal finding of lung field (principal)
CPT/HCPCS: 71250

== ENCOUNTER 2023-06-14 06:02 | Outpatient (REF) | payer OTHER, SELFPAY ==
--- NOTE | ~2023-06-14 | FL_ITS ---
EXAMINATION: XR FLUOROSCOPY WITH IMAGES CLINICAL INFORMATION: Bilateral primary osteoarthritis of the knee. COMPARISON: None available. TECHNIQUE: Fluoroscopy Supervised By: Dr. Malik Ceballos. Fluoroscopy Time: 0.3. Cumulative Dose: 8.5 mGy. DAP: 0.147 Gycm2. Images: 4. FINDINGS: [place] project medial and lateral to the distal left femoral metaphysis. Needle also projects medial to the proximal tibial metaphysis. FL/FL guidance in treatment room IMPRESSION: Fluoroscopic guidance for pain management procedure.
== END 2023-06-14 06:03 | disposition home or self-care (01) ==
LOC: CF 06:02
PROVIDERS: Visit Provider Anesthesiology
DX: M17.0 Bilateral primary osteoarthritis of knee (principal)
CPT/HCPCS: 64454

== ENCOUNTER 2023-06-14 08:48 | Outpatient (AMB) | payer OTHER, SELFPAY ==
--- NOTE | 2023-06-14 09:00 | MHC.OFFVIS ---
Intake Vital Signs 06/14/23 09:01 06/14/23 09:59 Height 5 ft 2 in Weight 220 lb BMI 40.2 BP 134/72 122/86 Blood Pressure Location Rt brachial Lt brachial Position Sitting Sitting Respiration 14 14 Pulse 80 86 Pulse Source Pulse Oximeter Pulse Oximeter Pulse Oximetry (%) 91 L 92 Oxygen Delivery Method Room Air Room Air Comment pre-op post-op Intake Visit Reasons: LEFT DIAGNOSTIC GENICULAR NERVE BLOCK Allergies aspirin [Aspirin] Allergy (Mild, Verified 06/14/23 09:00) UPSET STOMACH ibuprofen [From Motrin] Allergy (Mild, Verified 06/14/23 09:00) Gastrointestinal Upset PFSH Medical History Anxiety and depression Back pain Bilateral primary osteoarthritis of knee Colon cancer screening COPD (chronic obstructive pulmonary disease) COPD exacerbation Diabetes mellitus Frequency of micturition GERD (gastroesophageal reflux disease) High cholesterol Hypertension Hypothyroidism NEMA on CPAP Osteoarthritis Tubular adenoma of colon Urgency incontinence Urgency of micturition Surgical History History of cholecystectomy History of lumpectomy of right breast Hx of colonoscopy Hx of cystoscopy Hx of right knee surgery Family History Mother History of pancreatic cancer Social History Household Members Other:: lives with grandson Are you a primary healthcare science specialist to a significant other at home: No Do you presently have 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) Alcohol intake: never Patient Tobacco Use Status: Never used Tobacco Years Smoked: 30 Second Hand Smoke Exposure: No Advance Directives Date on File: 01/31/23 Physical Exam Vital Signs: Last Vital Signs Pulse 86 06/14/23 09:59 Resp 14 06/14/23 09:59 BP 122/86 06/14/23 09:59 Pulse Ox 92 06/14/23 09:59 Oxygen Delivery Method Room Air 06/14/23 09:59 BMI result Body Mass Index 40.2 Results Reviewed Results Reviewed: 06/14/23 09:17 Lidocaine HCl 2 % MPF [Xylocaine 2 % MPF] 5 ml .ROUTE .STK-MED ONE Assessment & Plan Assessment & Plan (1) Bilateral primary osteoarthritis of knee: Code(s): M17.0 - Bilateral primary osteoarthritis of knee Plan: LEFT DIAGNOSTIC GENICULAR NERVES BLOCK. ?Informed consent was explained to the patient. All questions were explained and answered. The patient was taken inside the operating room. The patient was positioned supine on operating table with her LEFT leg elevated on a gel bin. Time-out was performed delineating correct site, side, the nature of the procedure, patient's allergy, preoperative antibiotic if needed. All operating room staff was participating in OR time-out procedure. C-arm was brought over the operating field and picture of the left knee was demonstrated on the screen. Anterolateral and anteromedial surfaces of the knee were prepped with chloroprep and draped with utility towels. The point of interest were delineated for: FOR: superior lateral genicular nerve as the connection of the metaphysis of the left femur with corresponding diaphysis on the lateral silhouette of the femur distal bone, For superior medial genicular nerve the point of interest was delineated is the connection of metaphysis of left femur with corresponding diaphysis on the medial silhouette on the femoral distal bone. For inferior medial genicular nerve the point of interest was delineated as connection of metaphysis of the proximal tibia on the medial side with corresponding diaphysis of the same bone. The projections of the points of interest on anterior surface of the left knee was injected with small amount of lidocaine 2% 1-to 2 ml. After that 3 needles 22 gauge 3-1/2 inch long were driven to were the point of interest in tunnel vision fashion. When needles gently contacted the bones the position of the C-arm was switched to the lateral view and needles positions were adjusted to assure that the tip of the needle is located at the mid shaft of each of the above described bones. After that small amount of ROPIVACAINE 0.5% was injected into each needle position total dose of bupivacaine was 4.5 cc. No steroids were used. Upon the completion of the injections the needles were removed sterile dressing was applied, THE PATIENT TOLERATED PROCEDURE FAIRLY WELL. Plan Ms. Ortiz Moreno is a very pleasant 73 year old female who presented to the office today for evaluation and management of her chronic bilateral knee pain. XR left and Right knee ordered today Discussed options for treatment including diagnostic interventional testing, therapeutic injections, peripheral nerve stimulation with Sprint, RFA and more permanent neuromodulation. Plan for Fluoroscopy guided Left Genicular Nerve Block with local anesthetic. Will follow with Left Genicular RFA if diagnostic block provides positive results. Patient would like to proceed with Right knee after completion of the left one. All questions and concerns have been answered and patient agrees with the plan. Follow up after diagnostic injection, sooner if needed. Orders: Orders FL guidance in treatment room 06/14/23 M17.0 - Bilateral primary osteoarthritis of knee Medications: Discontinued morphine Partial Fill upon patient request. 15 mg PO Q4-6H PRN 20 tabs 0RF severe pain (scale score 7-10) Coding Level of Care Code Procedure Only Diagnoses Bilateral primary osteoarthritis of knee M17.0
[2023-06-14 09:01] VITALS: BP 134/72; PULSE 80; RESP 14; O2SAT 91; BMI 40.2
[2023-06-14 09:59] VITALS: BP 122/86; PULSE 86; RESP 14; O2SAT 92
== END 2023-06-14 09:49 | disposition home or self-care (01) ==
LOC: HO.PMCPRC 08:48
PROVIDERS: PCP Internal Medicine Rheumatology; Visit Provider Anesthesiology
DX: M17.0 Bilateral primary osteoarthritis of knee (principal)
CPT/HCPCS: 64454

== ENCOUNTER 2023-06-16 13:24 | Outpatient (AMB) | payer OTHER, SELFPAY ==
--- NOTE | 2023-06-16 14:00 | A.OFFVIS_ITS ---
Intake Vital Signs 06/16/23 14:03 Height 5 ft 2 in Weight 220 lb BMI 40.2 Intake Visit Reasons: OV-left ankle ORIF, 02/16/23-Follow up Intake Note: Joselyn is a 73 year old female who presents today with her son for a follow up for her left ankle ORIF, 02/16/23. Patient reports she has some discomfort when she walks. She states that she tried not to walk to much due to her b/l knee pain which she is seeing pain management for. Allergies aspirin [Aspirin] Allergy (Mild, Verified 06/16/23 14:02) UPSET STOMACH ibuprofen [From Motrin] Allergy (Mild, Verified 06/16/23 14:02) Gastrointestinal Upset HPI OV-left ankle ORIF, 02/16/23-Follow up HPI Details 73-year-old female who returns to [facility] today with her son for a follow-up of left ankle ORIF, 02/16/23. She states she is doing well in regards to her ankle. She states most of her pain is in the knee which make it difficult to ambulate. She is currently seeing pain mgmnt for geniculate injections. [facility] History Anxiety and depression Back pain Bilateral primary osteoarthritis of knee Colon cancer screening COPD (chronic obstructive pulmonary disease) COPD exacerbation Diabetes mellitus Frequency of micturition GERD (gastroesophageal reflux disease) High cholesterol Hypertension Hypothyroidism ENMA on CPAP Osteoarthritis Tubular adenoma of colon Urgency incontinence Urgency of micturition Surgical History History of cholecystectomy History of lumpectomy of right breast Hx of colonoscopy Hx of cystoscopy Hx of right knee surgery Family History Mother History of pancreatic cancer Social History Household Members Other:: lives with grandson Are you a primary behavioral health care coordinator to a significant other at home: No Do you presently have 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 Incision well healed. There is mild swelling throughout the ankle. Pulses are present. NVI. Results Reviewed Results Reviewed: X-rays of the left ankle obtained in the office today show orthopedic hardware intact, ankle mortis intact. Assessment & Plan Assessment & Plan (1) Status post ORIF of fracture of ankle: Code(s): Z98.890 - Other specified postprocedural states; Z87.81 - Personal history of (h ealed) traumatic fracture Plan She is going to increase activity as tolerated. She is currently being treated for bilateral knee pain with pain management which has been limiting her ability to walk long distances. If she develops any pain, questions or concerns in regards to her ankle, she will contact the office, otherwise follow-up as needed. Orders: Orders XR ankle LT min 3V Today M25.572 - Pain in left ankle and joints of left foot Patient Instructions: Scribed for Keisha Tucker PA-C, by Cody Caal certified medical coding specialist, on 06/16/2023 at 1:45 PM EST. I, Keisha Tucker PA-C, have personally reviewed and agree with the information entered by the scribe. Coding Level of Care Code Global (60914) Diagnoses Status post ORIF of fracture of ankle Z98.890; Z87.81
[2023-06-16 14:03] VITALS: BMI 40.2
== END 2023-06-16 14:23 | disposition home or self-care (01) ==
PROVIDERS: PCP Internal Medicine Rheumatology; Visit Provider Physician Assistant
DX: S82.892D Other fracture of left lower leg, subsequent encounter for closed fracture with routine healing (principal); Z87.81 Personal history of (healed) traumatic fracture
CPT/HCPCS: 99213

== ENCOUNTER 2023-06-16 13:24 | Outpatient (REF) | payer OTHER, SELFPAY ==
--- NOTE | ~2023-06-16 | XR_ITS ---
EXAMINATION: XR ANKLE, LEFT CLINICAL INFORMATION: Pain. COMPARISON: 05/05/2023. TECHNIQUE: AP, lateral, and mortise views of the left ankle. FINDINGS: Once again hardware is seen in the ankle. No evidence for hardware failure. Bony fragments are also once again seen in the region without significant change. No evidence for an acute finding. Spurring in the posterior calcaneus. XR/XR ankle LT min 3V IMPRESSION: Once again hardware in place. No evidence of hardware failure. No significant change in fracture fragment position. Fracture lines still visible.
== END 2023-06-16 13:25 | disposition home or self-care (01) ==
LOC: HO.HOSX 13:24
PROVIDERS: PCP Internal Medicine Rheumatology; Visit Provider Physician Assistant
DX: M25.572 Pain in left ankle and joints of left foot (principal); Z98.890 Other specified postprocedural states; Z87.81 Personal history of (healed) traumatic fracture
CPT/HCPCS: 73610; 99212

== ENCOUNTER 2023-06-21 08:36 | Outpatient (AMB) | payer OTHER, SELFPAY ==
--- NOTE | 2023-06-21 08:39 | A.OFFVIS_ITS ---
Intake Vital Signs 06/21/23 08:40 Height 5 ft 2 in Weight 220 lb BMI 40.2 BP 147/76 H Blood Pressure Location Lt brachial Position Sitting Respiration 14 Pulse 84 Pulse Source Pulse Oximeter Pulse Oximetry (%) 93 Oxygen Delivery Method Room Air Intake Visit Reasons: LEFT DIAGNOSTIC GENICULAR NERVE BLOCK/06/14/23 Process Laboratory Specialist Required: Yes Process Laboratory Specialist Name: Prefers Dtr-in-law Allergies aspirin [Aspirin] Allergy (Mild, Verified 06/21/23 08:43) UPSET STOMACH ibuprofen [From Motrin] Allergy (Mild, Verified 06/21/23 08:43) Gastrointestinal Upset Medication List - Last Reconciled 06/21/23 by Dina Costa LPN acetaminophen 500 mg PO Q8H PRN albuterol sulfate 2.5 mg inhalation Q8H PRN atorvastatin 40 mg PO BEDTIME bisacodyl 10 mg OK DAILY PRN blood sugar diagnostic (simpleFLOORSuch Ultra Test strips) budesonide 0.5 mg inhalation BID bupropion HCl 300 mg PO QAM bupropion HCl 150 mg PO QAM citalopram 20 mg PO QAM doxepin 20 mg PO BEDTIME fubzgoxcesd-oswuxffmy-dllzdbfh 200-62.5-25 mcg (Trelegy Ellipta) 1 ea inhalation DAILY gabapentin 300 mg PO BEDTIME glipizide ER 10 mg PO QAM insulin lispro subcut lancets (OneTouch Delica Plus Lancet) levothyroxine 200 mcg PO QAM lisinopril 40 mg PO QPM magnesium hydroxide (Milk of Magnesia) 30 mL PO DAILY PRN primidone 250 mg PO QID simethicone (Gas Relief (simethicone)) 80 mg PO Q6H PRN sitagliptin phosphate (Januvia) 100 mg PO QAM theophylline ER 300 mg PO DAILY walker Folding front wheeled walker HPI HPI Comments History of Present Illness Details Joselyn presents to the office today for follow up 1 week s/p left diagnostic genicular nerve block. Patient is accompanied by her daughter in law who assists with interpretation. Patient reports 100% pain relief since diagnstic nerve block. She reports improvement in mobility and function. Physical therapy is coming to the home today, plan to assist with helping her utilize a walker to become more ambulatory. She would like to proceed with left genicular RFA. She would also like to proceed with diagnostic right genicular nerve block. She is hoping to get relief from pain in both knees so that she can increase activity which will aide in weight loss which is a requirement for bilateral TKA. 06/14/2023 left diagnostic genicular nerve block with 100% pain relief sustained at 1 week follow up. Prior: Ms. Ortiz Moreno is a very pleasant 73 year old female who presents to the office today on referral from orthopedics for evaluation and management of her chronic bilateral knee pain. Patient states she has arthritis in both knees, she was told years ago that she needs TKA but she would need to lose weight prior to any surgery. Patient states she has pain in both knees, left worse than right. Pain does not radiate. She uses a wheelchair d/t pain in both knees. She is not able to lose weight as she cannot increase activity secondary to pain. She takes tylenol for the pain with some relief. Pain today is reported as 10/10, constant and worse in the evenings and at night. In terms of muscle damage condition is described as aching, spasming, dull. cramping, squeezing and throbbing. Pain is negatively impacting her enjoyment of life, sleep, walking and overall mood. Patient denies implantable devices, pacemaker, defibrillator. [facility] Medical History Anxiety and depression Back pain Bilateral primary osteoarthritis of knee Colon cancer screening COPD (chronic obstructive pulmonary disease) COPD exacerbation Diabetes mellitus Frequency of micturition GERD (gastroesophageal reflux disease) High cholesterol Hypertension Hypothyroidism ENMA on CPAP Osteoarthritis Tubular adenoma of colon Urgency incontinence Urgency of micturition Surgical History History of cholecystectomy History of lumpectomy of right breast Hx of colonoscopy Hx of cystoscopy Hx of right knee surgery Family History Mother History of pancreatic cancer Social History Household Members Other:: lives with grandson Are you a primary daycare provider to a significant other at home: No Do you presently have visiting nurse or other home services: Yes (ELEVATOR ATTENDANT) Alcohol intake: never Patient Tobacco Use Status: Never used Tobacco Years Smoked: 30 Second Hand Smoke Exposure: No Advance Directives Date on File: 01/31/23 Review of Systems Const All systems reviewed & are unremarkable except as noted in HPI and below Physical Exam Vital Signs: Last Vital Signs Pulse 84 06/21/23 08:40 Resp 14 06/21/23 08:40 BP 147/76 H 06/21/23 08:40 Pulse Ox 93 06/21/23 08:40 Oxygen Delivery Method Room Air 06/21/23 08:40 BMI result Body Mass Index 40.2 General: awake, alert, oriented. Answers questions appropriately. Fully engaged in examination. Skin: warm, dry, intact without visible rashes or lesions. HEENT: Normocephalic. Conjuntivae clear without exudate. Sclera non-icteric. Hearing intact. Cardiac: External chest normal in appearance. Respiratory: No signs of trauma. No signs of respiratory distress. No cough, audible wheezing or stridor. Abdomen: without gross distension. MS: Able to transition from sit to stand with minimal assistance. uses a wheelchair d/t pain with ambulation. Bilateral knees nontender to palpation Right knee: decreased ROM, pain with ROM in all planes. Left knee: nontender to palpation. no pain with active/passive ROM. crepitus noted bilaterally Neurological: Oriented to person, place, time and situation. Thought process intact. Psychiatric: Appropriate mood and affect. Good judgment and insight. Results Reviewed Results Reviewed: 05/19/2023 LEFT KNEE: There is severe loss of medial and and patellofemoral compartment joint space. There is moderate periarticular spurring medial compartment. No suprapatellar joint effusion, loose bodies or bony erosive changes. There is a healing fracture proximal fibula. RIGHT KNEE: There is severe loss of medial and mild loss of patellofemoral compartment joint space with periarticular spurring in medial and patellofemoral compartments. No visible acute fracture, dislocation or subluxation seen. No bony erosive changes. The soft tissues are normal. No abnormal joint effusion. IMPRESSION: 1. Degenerative arthritic changes medial and patellofemoral compartment both knees. No visible acute fracture, dislocation or subluxation seen. No joint effusion or loose bodies. 2. There is a healing fracture proximal fibula left knee. Assessment & Plan Assessment & Plan (1) Osteoarthritis of left knee: Code(s): M17.12 - Unilateral primary osteoarthritis, left knee Qualifiers: Osteoarthritis type: primary Qualified Code(s): M17.12 - Unilateral primary osteoarthritis, left knee (2) Osteoarthritis of right knee: Code(s): M17.11 - Unilateral primary osteoarthritis, right knee Qualifiers: Osteoarthritis type: primary Qualified Code(s): M17.11 - Unilateral primary osteoarthritis, right knee Rosie Alves is a very pleasant 73 year old female who presented to the office today, accompanied by her daughter in law, for follow up 1 week s/p left side diagnostic genicular RFA. Patient reports 100% pain relief sustained since the procedure on 06/14/2023 with no untoward effects of the procedure. She is attending PT; with relief of her left knee pain she plans on working with PT to get up and ambulate with the use of a walker. Discussed options for treatment including diagnostic interventional testing, therapeutic injections, peripheral nerve stimulation with Sprint, RFA and more permanent neuromodulation. Given positive results of diagnostic left genicular nerve block with improvement in mobility and function, will schedule for Fluoroscopy guided Left Genicular RFA with local anesthetic. Will schedule for Fluoroscopy guided Right genicular RFA with local anesthetic. All questions and concerns have been answered and patient agrees with the plan. Follow up after procedure, sooner if needed. Coding Level of Care Code Est Pt Level 3 (53109) Diagnoses Primary osteoarthritis of left knee M17.12 Osteoarthritis type: primary Primary osteoarthritis of right knee M17.11 Osteoarthritis type: primary
[2023-06-21 08:40] VITALS: BP 147/76; PULSE 84; RESP 14; O2SAT 93; BMI 40.2
== END 2023-06-21 08:54 | disposition home or self-care (01) ==
PROVIDERS: PCP Internal Medicine; Visit Provider Registered Nurse Emergency
DX: M17.0 Bilateral primary osteoarthritis of knee (principal); M25.561 Pain in right knee
CPT/HCPCS: 99214

== ENCOUNTER → 2023-06-21 08:36 | Outpatient (BNVA) | payer OTHER, SELFPAY | PROVIDERS: PCP Internal Medicine; Visit Provider Registered Nurse Emergency | DX: M17.0 Bilateral primary osteoarthritis of knee (principal); Z98.890 Other specified postprocedural states | CPT/HCPCS: 99212 ==

== ENCOUNTER 2023-06-24 12:55 | Outpatient (AMB) | payer OTHER, SELFPAY ==
--- NOTE | 2023-06-24 13:06 | MHC.OFFVIS ---
Intake Intake Visit Reasons: 1m/cysto Intake Note: Patient presents today for a CYSTOSCOPY Procedure: unable to void, PVR 0 Meds: None Allergies to Antibiotic: No Known Allergies Blood Thinner: Furosemide Urinalysis test clear for Cysto? Disposable Uro-G Cystoscope Cannula: Lot: [id number] Exp: 02/11/2025 Watch Crystal Edge Grinder Required: Yes Watch Crystal Edge Grinder Name: Tatiana Barraza Accompanied by: daughter in law Allergies aspirin [Aspirin] Allergy (Mild, Verified 06/24/23 13:29) UPSET STOMACH ibuprofen [From Motrin] Allergy (Mild, Verified 06/24/23 13:29) Gastrointestinal Upset HPI HPI Comments History of Present Illness Details Joselyn is a 73-year-old female who presents today to the office for a follow-up. 06/24/2023? She is followed today for office cystoscopy. 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 Urine for cytology was ordered, and she was advised to follow up office Cystoscopy during that time. I reviewed the urine cytology report results from 05/27/2023 revealed negative for high-grade urothelial carcinoma.? She mentions having mild burning sensation with urination. Cystoscopy procedure: The patient was provided ciprofloxacin 500 mg x 1 dose pre-procedure today. Consent was obtained to perform cystoscopy procedure. The patient was unable to provide urine sample, Cath'd PVR 150 mL, UA - leuk neg, blood neg Cystoscopy findings: no suspicious bladder lesions. Review of charts: Last visit: 05/26/2023? She presents today with her [id number]-[id number] who interprets for her. She has a past medical history significant for insulin dependent diabetes. She was previously seen by nurse practitioner, Fina. She has been evaluated for lower urinary tract symptoms of urgency, overactive bladder and treated for recurrent urinary tract infections. Patient states that she is currently not taking any medications for lower urinary tract symptoms. She states that she noticed blood in the urine several weeks ago. Patient is wearing pads as needed. In review of urinalysis performed on 03/02/2023 revealed large blood in the urine. Urine culture was sent, which came back <10,000 floresita. She uses a walker for assisting ambulation. She reports pain in her knees. She is scheduled for surgery on 06/14/2023. I have reviewed the results of renal US from on 04/15/2023 revealed no hydronephrosis, no renal mass or renal calculi noted. Evaluation today--UA--leukocytes: negative; blood: negative. Plan: Urine for cytology. Follow up office Cystoscopy. 06/24/2023: Plan: LUTS - mild dysuria. Will send surveillance urine culture. Follow-up in 3 months to monitor the PVR, and to check the urinalysis. [facility] Medical History Anxiety and depression Back pain Bilateral primary osteoarthritis of knee Colon cancer screening COPD (chronic obstructive pulmonary disease) COPD exacerbation Diabetes mellitus Frequency of micturition GERD (gastroesophageal reflux disease) High cholesterol Hypertension Hypothyroidism ENMA on CPAP Osteoarthritis Tubular adenoma of colon Urgency incontinence Urgency of micturition Surgical History History of cholecystectomy History of lumpectomy of right breast Hx of colonoscopy Hx of cystoscopy Hx of right knee surgery Family History Mother History of pancreatic cancer Social History Household Members Other:: lives with grandson Are you a primary director of critical care to a significant other at home: No Do you presently have visiting nurse or other home services: Yes (CV TECH) Alcohol intake: never Patient Tobacco Use Status: Never used Tobacco Years Smoked: 30 Second Hand Smoke Exposure: No Advance Directives Date on File: 01/31/23 Review of Systems Const All systems reviewed & are unremarkable except as noted in HPI and below Reports no additional complaints Eyes Reports no additional complaints ENT Reports no additional complaints Card Denies dyspnea Resp Denies cough and Denies dyspnea GI Reports no additional complaints Reports no additional complaints Musc Reports no additional complaints Skin/Breast Denies rash and Denies unusual bruising Neuro Reports no additional complaints Psych Reports no additional complaints Endo Reports no additional complaints Rob/Lymph Reports no additional complaints Aller/Immun Reports no additional complaints Office Procedures Bladder/Catheter Procedure Details: Under sterile technique a 14 Swedish catheter was passed transurethrally, 150 mL urine drained [id number] Bladder Catheter Procedure code (CPT) selection complete Cystoscopy Consent Discussed risk and benefit or proposed procedure with the patient. Information consent for procedure given to the patient. Discussed technical aspects, risks, benefits and alternatives in full. Addressed all of the patient's questions and concerns regarding the procedure. The patient demonstrated knowledge and understanding. They wish to proceed with this procedure. Preparation The patient was prepped in the usual manner. A photoengraving sketch maker was present and in the room. Genitalia was prepped with betadine solution in a sterile manner. Lidocaine Jelly 2% was placed into the urethra and 16Fr flexible Olympus cystoscope was inserted into the meatus after adequate lubrication. Procedure Time out per protocol performed. Bladder Inspection Bladder Inspection: The bladder was inspected in its entirety with utilization retroflexion displaying: Tumor(s): none visualized Trabeculation: Mild Mucosal Erthema: mild Orifices: normal shape and position Urethra: normal Cystoscopy findings: no suspicious bladder lesions visualized 70782-Toblgnkhcd DISPOSABLE SCOPE URO-G FLEXIBLE SCOPE Procedure code (CPT) selection complete Post Void Residual Post Residual Void Post Void Residual (PVR): 0 69676-Taft Void Residual by ultrasound Office Meds lidocaine HCl 2 % mucosal jelly in applicator Performing Provider: Radha Mccullough MD [facility] Documented (not given) by: Radha Mccullough MD on 06/27/23 09:04 Dose Route Admin Location Dispensed Lot Number Expiration Date [facility] Php Architect 10 mL intra-urethral mL ciprofloxacin HCl 500 mg tablet Performing Provider: Radha Mccullough MD Performing [facility] Documented (not given) by: Radha Mccullough MD on 06/27/23 09:04 Dose Route Admin Location Dispensed Lot Number Expiration Date [place] Php Architect 500 mg PO tab Results AMB Urinalysis, Automated UA Leukoctes 0 Bryant/uL Last Edit by YVETTE Finley on 06/24/23 13:59 UA Nitrite Negative Last Edit by YVETTE Finley on 06/24/23 13:59 UA Urobilinogen 0.2 mg/dL Last Edit by YVETTE Finley on 06/24/23 13:59 UA Protein 0 mg/dL Last Edit by YVETTE Finley on 06/24/23 13:59 UA pH 6.0 Last Edit by YVETTE Finley on 06/24/23 13:59 UA Blood 0 Chema/uL Last Edit by [facility] on 06/24/23 13:59 UA Specific Ceres 1.015 Last Edit by Tatiana Barraza [facility] on 06/24/23 13:59 UA Ketone Negative Last Edit by Tatiana Barraza [facility] on 06/24/23 13:59 UA Bilirubin 0 mg/dL Last Edit by Tatiana Barraza [facility] on 06/24/23 13:59 UA Glucose 0 mg/dL Last Edit by Tatiana Barraza [facility] on 06/24/23 13:59 Results Reviewed Results Reviewed: Laboratory Last Values Urine pH (Auto) 6.0 06/24/23 13:58 Specific Ceres (Auto) 1.015 06/24/23 13:58 Urine Protein (Auto) 0 mg/dL 06/24/23 13:58 Glucose (UA)(Auto) 0 mg/dL 06/24/23 13:58 Urine Ketones (Auto) Negative 06/24/23 13:58 Urine Blood (Auto) 0 Chema/uL 06/24/23 13:58 Urine Nitrite (Auto) Negative 06/24/23 13:58 Urine Bilirubin (Auto) 0 mg/dL 06/24/23 13:58 Urine Urobilinogen (Auto) 0.2 mg/dL 06/24/23 13:58 Leukocyte Esterase (Auto) 0 Bryant/uL 06/24/23 13:58 Diagnosis Urine: Negative for high-grade urothelial carcinoma. See comment. COMMENT: Cellular specimen consisting of single urothelial cells and squamous cells. Clinical History Gross hematuria Material Received Urine Gross Description 60cc clear yellow fluid Assessment & Plan Assessment & Plan (1) Overactive bladder: Code(s): N32.81 - Overactive bladder (2) Gross hematuria: Code(s): R31.0 - Gross hematuria (3) Recurrent UTI: Code(s): N39.0 - Urinary tract infection, site not specified Plan LUTS - mild dysuria. Will send surveillance urine culture. Follow-up in 3 months to monitor the PVR, and to check the urinalysis. Orders: Orders AMB Cystoscopy 06/24/23 N39.0 - Urinary tract infection, site not specified, R31.0 - Gross hematuria AMB Bladder/Catheter Procedure 06/24/23 N39.0 - Urinary tract infection, site not specified AMB Post Void Residual by ultrasound 06/24/23 Z13.9 - Encounter for screening, unspecified AMB Urinalysis Automated 06/24/23 Z13.9 - Encounter for screening, unspecified Urine Culture 06/24/23 N39.0 - Urinary tract infection, site not specified Medications: New lidocaine HCl 2% 10 mL intra-urethral ONCE 10 mL 0RF N39.0 - Urinary tract infection, site not specified, R31.0 - Gross hematuria ciprofloxacin HCl 500 mg PO ONCE 1 tab 0RF N39.0 - Urinary tract infection, site not specified, R31.0 - Gross hematuria Patient Instructions: The patient had an opportunity to ask questions regarding treatment plan. All questions were answered. Imaging, Laboratory studies and physical exam results were discussed and reviewed in detail. No major barriers to understanding were identified. The patient expressed understanding and agreement with the above treatment plan.? ? ? The patient is aware they should contact our office by phone for worsening of their current condition or the appearance of new symptoms. Compliance is encouraged with any medications and followup testing that is ordered.? ? ? It is a privilege to be allowed the opportunity to participate in the urologic care of your patient. If you have any questions or concerns regarding treatment for the above conditions please do not hesitate to contact me. The office telephone contact is [phone].? ? ? This note is constructed in part using voice recognition software. While every effort has been made to ensure accuracy concrete bucket loader errors may have been included.? ? ? Yours sincerely,? ? ? Radha Mccullough MD? ? Coding Level of Care Code Procedure Only Diagnoses Overactive bladder N32.81 Gross hematuria R31.0 Recurrent UTI N39.0 CPT Codes Post Residual Void - PVR CPT Code: 38401-Yahu Void Residual by ultrasound ([id number]) Bladder/Catheter Procedure - CPT: 41704-Blodkt Bladder Catheter ([id number]) Cystoscopy - CPT: 56940-Chliuflnyd ([id number])
== END 2023-06-24 14:07 | disposition home or self-care (01) ==
PROVIDERS: PCP Internal Medicine; Visit Provider Urology
DX: N32.81 Overactive bladder (principal); R31.0 Gross hematuria; N39.0 Urinary tract infection, site not specified
CPT/HCPCS: 52000

== ENCOUNTER 2023-06-24 12:55 | Outpatient (REF) | payer OTHER, SELFPAY | END 2023-06-24 12:56 | disposition home or self-care (01) | LOC: HO.LNP 12:55 | PROVIDERS: PCP Internal Medicine; Visit Provider Urology | DX: N39.0 Urinary tract infection, site not specified (principal); N32.81 Overactive bladder; R31.0 Gross hematuria | CPT/HCPCS: 51798; 52000; 81003; 87086 ==

== ENCOUNTER 2023-07-01 11:49 | Day surgery (SDC) | payer OTHER, SELFPAY ==
--- NOTE | ~2023-07-01 | FL_ITS ---
EXAMINATION: XR FLUOROSCOPY WITH IMAGES CLINICAL INFORMATION: Right genicular nerve block. COMPARISON: None available. TECHNIQUE: Fluoroscopy Supervised By: Dr. Malik Ceballos. Fluoroscopy Time: 0.1 minutes. Cumulative Dose: 1.75 mGy. DAP: 0.477 Gycm2. Images: 2. FINDINGS: Images demonstrate needle placement for right knee geniculate nerve block FL/FL guidance in OR IMPRESSION: Fluoroscopy guidance for geniculate nerve block
--- NOTE | 2023-07-01 14:04 | PC.NURSE ---
patient and son discussed with dr. zimmerman and dominic from medical record clerk services and decision was made that patient does not have pain in left knee so today's procedure was changed to right knee genicular nerve block as this was a plan for the future. doctor educated patient and son that when/if pain returns to left knee then RFA of left will be done. all verbalized understanding. new consent written and signed. right knee marked by doctor.
[2023-07-01 14:07] VITALS: BMI 40.2
[2023-07-01 14:09] VITALS: BP 154/88; PULSE 81; RESP 18; TEMP 36.7; O2SAT 94
--- NOTE | 2023-07-01 14:11 | P.HPSUR_ITS ---
Pre-Procedural Eval Section A Date of Service: 07/01/23 The patient is an INPATIENT: No Changes since office visit: Yes Patient answered all questions The History & Physical has been completed within 30 days and I have reviewed it.: No Section B Chief Complaint: Unilateral primary osteoarthritis, left knee,pain Details of Present Illness: Bilateral knee osteoarthritis, right knee pain Relevant Family History (Specify if Yes): No Relevant Social History: None Present Medications: see Short Stay Collaborative assessment Medical History: Significant History History of Previous Operations: No relevant previous surgery Allergies: Allergies Allergy/AdvReac Type Severity Reaction Status Date / Time aspirin [Aspirin] Allergy Mild UPSET Verified 06/24/23 13:29 STOMACH ibuprofen [From Motrin] Allergy Mild Gastrointestinal Verified 06/24/23 13:29 Upset Review of Systems Sugical H&P ROS: Negative: Cardiovascular, Respiratory, Neurological, Psychiatr ic, Hem-Onc, Allergic/Immunologic, Gastrointestinal, Genitourinary, Musculoskeletal, Integumentary, Endocrine and Eyes/Ears/Nose/Throat and Yes, Specify: Constitution (Obesity) Exam Surgical H&P Exam: Normal: HEENT, Normal: Heart, Normal: Lungs, Normal: Skin and Normal: Neurological and Significant Findings: Extremities (Osteoarthritis bilateral knees changes.) and Significant Findings: Abdomen (Enlarged) Plan Diagnosis/Plan: Change I have reviewed the history and physical and performed a pertinent physical examination on my patient. The patient reported that she does not have much of the pain in the left knee. Therefore it will be not very prudent to perform radiofrequency ablation on the left. Instead I offered patient to perform as her nurse practitioner planned diagnostic genicular nerve block on the right. When the pain in the left knee will be back we will perform radiofrequency ablation on the left knee. Results of diagnostic genicular nerve block will be evaluated in the office. With good results we can perform right knee RFA as well. Time Spent With Patient Time: Total time managing care of this patient today ____ minutes.
--- NOTE | 2023-07-01 14:15 | PC.NURSE ---
sid at OR desk updated at this time regarding the change.
--- NOTE | 2023-07-01 14:26 | PC.NURSE ---
report given to j luis geller rn at this time.
--- NOTE | 2023-07-01 15:09 | P.BOP_ITS ---
Brief Operative Note Date of Service: 06/24/23 Pre-op diagnosis: Right knee osteoarthritis right knee pain Post-op diagnosis: same Procedure: diagnostic genicular nerve block right knee Surgeon: Malik Ceballos MD Anesthesia: local Was an Finance Insurance Manager used for this Procedure?: No Estimated blood loss (mL): 0 Condition: stable Disposition: PACU
--- NOTE | 2023-07-01 15:09 | P.OP_ITS ---
Operative Note Operative Note Date of Service: 07/01/23 Narrative: RIGHT DIAGNOSTIC GENICULAR NERVES BLOCK. Informed consent was explained to the patient. All questions were explained and answered. The patient was taken inside the operating room. The patient was positioned supine on operating table with her RIGHT leg elevated on a gel bin. Time-out was performed delineating correct site, side, the nature of the procedure, patient's allergy, preoperative antibiotic if needed. All operating room staff was participating in OR time-out procedure. C-arm was brought over the operating field and picture of the left knee was demonstrated on the screen. Anterolateral and anteromedial surfaces of the knee were prepped with chloroprep and draped with utility towels. The point of interest were delineated for: FOR: superior lateral genicular nerve as the connection of the metaphysis of the RIGHTfemur with corresponding diaphysis on the lateral silhouette of the femur distal bone, For superior medial genicular nerve ( SUPRAPATELLAR SAPHENOUS NERVE) the point of interest was delineated is the connection of metaphysis of left femur with corresponding diaphysis on the medial silhouette on the femoral distal bone. For inferior medial genicular nerve ( INFRAPATELLAR SAPHENOUS NERVE)the point of interest was delineated as connection of metaphysis of the proximal tibia on the medial side with corresponding diaphysis of the same bone. The projections of the points of interest on anterior surface of the RIGHT knee was injected with small amount of lidocaine 2% 1-to 2 ml. After that 3 needles 22 gauge 3-1/2 inch long were driven toward the point of interest in tunnel v ision fashion. When needles gently contacted the bones the position of the C-arm was switched to the lateral view and needles positions were adjusted to assure that the tip of the needle is located at the mid shaft of each of the above described bones. After that small amount of ROPIVACAINE 0.5% was injected into each needle position total dose of bupivacaine was 4.5 cc. No steroids were used. Upon the completion of the injections the needles were removed sterile dressing was applied, THE PATIENT TOLERATED PROCEDURE FAIRLY WELL.
[2023-07-01 15:15] VITALS: BP 135/89; PULSE 80; RESP 14; TEMP 37.2; O2SAT 94
== END 2023-07-01 15:47 | disposition home or self-care (01) ==
PROVIDERS: PCP Internal Medicine; Visit Provider Anesthesiology
PROC: (CPT 64454; principal; 2023-07-01 13:50)
DX: M25.561 Pain in right knee (principal); M17.11 Unilateral primary osteoarthritis, right knee; G47.33 Obstructive sleep apnea (adult) (pediatric); J44.9 Chronic obstructive pulmonary disease, unspecified; I10 Essential (primary) hypertension; E11.9 Type 2 diabetes mellitus without complications; F41.8 Other specified anxiety disorders; Z79.51 Long term (current) use of inhaled steroids; Z79.4 Long term (current) use of insulin; Z79.899 Other long term (current) drug therapy; Z99.89 Dependence on other enabling machines and devices; Z88.8 Allergy status to other drugs, medicaments and biological substances; Z98.890 Other specified postprocedural states
CPT/HCPCS: 64454; J2795

== ENCOUNTER → 2023-07-01 11:49 | Outpatient (BNV) | payer OTHER, SELFPAY | PROVIDERS: PCP Internal Medicine; Visit Provider Anesthesiology | DX: M17.11 Unilateral primary osteoarthritis, right knee (principal) | CPT/HCPCS: 64454 ==

== ENCOUNTER 2023-07-07 13:51 | Outpatient (REF) | payer OTHER, SELFPAY | END 2023-07-07 13:52 | disposition home or self-care (01) | LOC: HO.MAMMO 13:51 | PROVIDERS: PCP Internal Medicine; Visit Provider Internal Medicine | DX: Z12.31 Encounter for screening mammogram for malignant neoplasm of breast (principal) | CPT/HCPCS: 77063; 77067 ==

== ENCOUNTER → 2023-07-07 14:15 | Outpatient (BNV) | payer OTHER, SELFPAY | PROVIDERS: PCP Internal Medicine; Visit Provider Radiology Diagnostic Radiology | DX: Z12.31 Encounter for screening mammogram for malignant neoplasm of breast (principal) | CPT/HCPCS: 77063; 77067 ==

== ENCOUNTER 2023-07-12 12:46 | Outpatient (REF) | payer OTHER, SELFPAY | END 2023-07-12 12:47 | disposition home or self-care (01) | LOC: HO.XRAY 12:46 | PROVIDERS: PCP Internal Medicine; Visit Provider Registered Nurse Emergency | DX: M47.816 Spondylosis without myelopathy or radiculopathy, lumbar region (principal); M51.36 Other intervertebral disc degeneration, lumbar region | CPT/HCPCS: 72110; 99212 ==

== ENCOUNTER 2023-07-12 12:46 | Outpatient (AMB) | payer OTHER, SELFPAY ==
[2023-07-12 12:55] VITALS: BP 126/88; PULSE 88; RESP 18; O2SAT 93; BMI 40.8
--- NOTE | 2023-07-12 12:55 | A.OFFVIS_ITS ---
Intake Vital Signs 07/12/23 12:55 Height 5 ft 2 in Weight 223 lb BMI 40.8 BP 126/88 Blood Pressure Location Lt radial Position Sitting Respiration 18 Pulse 88 Pulse Source Pulse Oximeter Pulse Oximetry (%) 93 Oxygen Delivery Method Room Air Intake Visit Reasons: lower back pain/Confirmed Allergies aspirin [Aspirin] Allergy (Mild, Verified 07/12/23 12:56) UPSET STOMACH ibuprofen [From Motrin] Allergy (Mild, Verified 07/12/23 12:56) Gastrointestinal Upset HPI HPI Comments History of Present Illness Details Patient presents back to the office today for new complaint of lower back pain. She reports that she has been suffering with this pain for awhile . She was supposed to have PT at her house but they didn't have anyone to send . She has not tried lidocaine patches or cream. She takes tylenol without relief. She recently had bilateral genicular nerve blocks for her knee pain with 100% relief of pain to both knees. Patient and family were hoping this would enable her to get up from wheelchair and be more mobile. She states the lower back pain is now impeding her ability to stand and walk. She denies red flag symptoms including new loss of bowel, bladder or saddle anesthesia. Previously: Ms. Ortiz Moreno is a very pleasant 73 year old female who presents to the office today on referral from orthopedics for evaluation and management of her chronic bilateral knee pain. Patient states she has arthritis in both knees, she was told years ago that she needs TKA but she would need to lose weight prior to any surgery. Patient states she has pain in both knees, left worse than right. Pain does not radiate. She uses a wheelchair d/t pain in both knees. She is not able to lose weight as she cannot increase activity secondary to pain. She takes tylenol for the pain with some relief. Pain today is reported as 10/10, constant and worse in the evenings and at night. In terms of muscle damage condition is described as aching, spasming, dull. cramping, squeezing and throbbing. Pain is negatively impacting her enjoyment of life, sleep, walking and overall mood. Patient denies implantable devices, pacemaker, defibrillator. [facility] Medical History Anxiety and depression Back pain Bilateral primary osteoarthritis of knee Colon cancer screening COPD (chronic obstructive pulmonary disease) COPD exacerbation Diabetes mellitus Frequency of micturition GERD (gastroesophageal reflux disease) High cholesterol Hypertension Hypothyroidism ENMA on CPAP Osteoarthritis Tubular adenoma of colon Urgency incontinence Urgency of micturition Surgical History History of cholecystectomy History of lumpectomy of right breast Hx of colonoscopy Hx of cystoscopy Hx of right knee surgery Family History Mother History of pancreatic cancer Social History Household Members Other:: lives with grandson Are you a primary health care manager to a significant other at home: No 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 Answers questions appropriately. Fully engaged in examination. Skin: warm, dry, intact without visible rashes or lesions. HEENT: Normocephalic. Conjuntivae clear without exudate. Sclera non-icteric. Hearing intact. Cardiac: External chest normal in appearance. Respiratory: No signs of trauma. No signs of respiratory distress. No cough, audible wheezing or stridor. Abdomen: without gross distension. MS: Able to transition from sit to stand with minimal assistance. uses a wheelchair Tenderness to palpation over midline lumbar vertebrae and lumbar paraspinal muscles Facet loading positive SLR with and without dorsiflexion negative Neurological: Oriented to person, place, time and situation. Thought process int act. Psychiatric: Appropriate mood and affect. Good judgment and insight. Assessment & Plan Assessment & Plan (1) Facet arthritis of lumbar region: Code(s): M47.816 - Spondylosis without myelopathy or radiculopathy, lumbar region (2) Degenerative disc disease, lumbar: Code(s): M51.36 - Other intervertebral disc degeneration, lumbar region Plan Joselyn is a very pleasant 73 year old female who presents back to the office today for new complaint of low back pain. PT eval and treat order placed with [facility], patient is wheelchair bound with home care provided by family. She is able to transition from sit to stand but is not able to ambulate even with walker. Lidocaine patches ordered. If these are not covered by insurance will send topical cream. XR LS ordered for eval Patient will follow up here after completing at least 6-8 sessions of PT, if pain is unchanged will plan for Fluoroscopy guided diagnostic L3 L4 DR L5 MBBs with local anesthetic. All questions were answered, patient and family agree with the plan. Follow up after PT. Orders: Orders XR lumbar spine 4V min Today M47.816 - Spondylosis without myelopathy or radiculopathy, lumbar region Referrals [facility] Referral M51.36 - Other intervertebral disc degeneration, lumbar region Medications: New lidocaine 5% leave on most painful area for up to 12 hrs 1 patch topical DAILY 30 ea 1RF Coding Level of Care Code Est Pt Level 4 (56988) Diagnoses Facet arthritis of lumbar region M47.816 Degenerative disc disease, lumbar M51.36
== END 2023-07-12 13:11 | disposition home or self-care (01) ==
PROVIDERS: PCP Internal Medicine; Visit Provider Registered Nurse Emergency
DX: M47.816 Spondylosis without myelopathy or radiculopathy, lumbar region (principal); M51.36 Other intervertebral disc degeneration, lumbar region
CPT/HCPCS: 99214

== ENCOUNTER 2023-08-17 13:59 | Outpatient (AMB) | payer OTHER, SELFPAY ==
[2023-08-17 14:11] VITALS: BP 139/86; PULSE 84; RESP 14; O2SAT 94; BMI 40.8
--- NOTE | 2023-08-17 14:11 | A.OFFVIS_ITS ---
Intake Vital Signs 08/17/23 14:11 Height 5 ft 2 in Weight 223 lb BMI 40.8 BP 139/86 Blood Pressure Location Lt brachial Position Sitting Respiration 14 Pulse 84 Pulse Source Pulse Oximeter Pulse Oximetry (%) 94 Oxygen Delivery Method Room Air Intake Visit Reasons: follow up for back pain/injection discussion Allergies aspirin [Aspirin] Allergy (Mild, Verified 08/17/23 14:10) UPSET STOMACH ibuprofen [From Motrin] Allergy (Mild, Verified 08/17/23 14:10) Gastrointestinal Upset HPI HPI Comments History of Present Illness Details Patient presents back to the office today for follow up lower back pain. PT has been coming to the home 2x weekly, there are days she is not able to participate because of the pain. She still feels relief of her bilateral knee pain after genicular nerve blocks but now the back pain is limiting her. She has been taking tylenol and gabapentin but pain persists. Patient would like to proceed with injections in hopes she can get relief of her back pain which would enable her to actively participate in PT. She has been trying to walk more around the house using a walker but some days the pain makes it hard to even get out of bed. Prior: Patient presents back to the office today for new complaint of lower back pain. She reports that she has been suffering with this pain for awhile . She was supposed to have PT at her house but they didn't have anyone to send . She has not tried lidocaine patches or cream. She takes tylenol without relief. She recently had bilateral genicular nerve blocks for her knee pain with 100% relief of pain to both knees. Patient and family were hoping this would enable her to get up from wheelchair and be more mobile. She states the lower back pain is now impeding her ability to stand and walk. She denies red flag symptoms including new loss of bowel, bladder or saddle anesthesia. Previously: Ms. Ortiz Moreno is a very pleasant 73 year old female who presents to the office today on referral from orthopedics for evaluation and management of her chronic bilateral knee pain. Patient states she has arthritis in both knees, she was told years ago that she needs TKA but she would need to lose weight prior to any surgery. Patient states she has pain in both knees, left worse than right. Pain does not radiate. She uses a wheelchair d/t pain in both knees. She is not able to lose weight as she cannot increase activity secondary to pain. She takes tylenol for the pain with some relief. Pain today is reported as 10/10, constant and worse in the evenings and at night. In terms of muscle damage condition is described as aching, spasming, dull. cramping, squeezing and throbbing. Pain is negatively impacting her enjoyment of life, sleep, walking and overall mood. Patient denies implantable devices, pacemaker, defibrillator. [facility] Medical History Anxiety and depression Back pain Bilateral primary osteoarthritis of knee Colon cancer screening COPD (chronic obstructive pulmonary disease) COPD exacerbation Diabetes mellitus Frequency of micturition GERD (gastroesophageal reflux disease) High cholesterol Hypertension Hypothyroidism ENMA on CPAP Osteoarthritis Tubular adenoma of colon Urgency incontinence Urgency of micturition Surgical History History of cholecystectomy History of lumpectomy of right breast Hx of colonoscopy Hx of cystoscopy Hx of right knee surgery Family History Mother History of pancreatic cancer Social History Household Members Other:: lives with grandson Are you a primary body care manager to a significant other at home: No 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 Answers questions appropriately. Fully engaged in examination. Skin: warm, dry, intact without visible rashes or lesions. HEENT: Normocephalic. Conjuntivae clear without exudate. Sclera non-icteric. Hearing intact. Cardiac: External chest normal in appearance. Respiratory: No signs of trauma. No signs of respiratory distress. No cough, audible wheezing or stridor. Abdomen: without gross distension. MS: Able to transition from sit to stand with minimal assistance. uses a w heelchair Tenderness to palpation over midline lumbar vertebrae and lumbar paraspinal muscles Facet loading positive SLR with and without dorsiflexion negative Neurological: Oriented to person, place, time and situation. Thought process intact. Psychiatric: Appropriate mood and affect. Good judgment and insight. Results Reviewed Results Reviewed: 07/14/2023 XR/XR lumbar spine 4V min FINDINGS: There is a mild scoliosis convex to the left. Degenerative changes are present, most marked at T12 through S1. There is mild disc space narrowing at L5-S1. The remainder of the disc spaces are well preserved. There are degenerative changes seen at the L5-S1 facet joints. No bony destructive lesions or fractures are seen. Surgical clips are present in the gallbladder fossa. When comparison is made to the 12/17/2022 CT scan, there has been no interval change IMPRESSION: Mild degenerative changes in the lumbosacral spine, as described above, unchanged from 12/17/2022.. Assessment & Plan Assessment & Plan (1) Facet arthritis of lumbar region: Code(s): M47.816 - Spondylosis without myelopathy or radiculopathy, lumbar region (2) Degenerative disc disease, lumbar: Code(s): M51.36 - Other intervertebral disc degeneration, lumbar region Plan Ms. Ortiz Moreno is a very pleasant 73 year old female who presents back to the office today for follow up lumbar back pain. Patient has exhausted conservative therapy, no relief with Tylenol or prescription medications. She is not able to tolerate PT due to her pain. Discussed options for treatment including diagnostic interventional testing, epidural steroid injections, peripheral nerve stimulation with Sprint, RFA and more permanent neuromodulation. Informational pamphlets provided. Will schedule for Fluoroscopy guided diagnostic L3 L4 DR L5 MBBs with local anesthetic, plan for RFA if she reports relief of her pain with improvement in function and mobility after diagnostic injections. All questions and concerns have been answered and patient agrees with the plan. Follow up after injections, sooner if needed. Coding Level of Care Code Est Pt Level 3 (08687) Diagnoses Facet arthritis of lumbar region M47.816 Degenerative disc disease, lumbar M51.36
== END 2023-08-17 14:32 | disposition home or self-care (01) ==
PROVIDERS: PCP Internal Medicine; Visit Provider Registered Nurse Emergency
DX: M47.816 Spondylosis without myelopathy or radiculopathy, lumbar region (principal); M51.36 Other intervertebral disc degeneration, lumbar region
CPT/HCPCS: 99214

== ENCOUNTER → 2023-08-17 13:59 | Outpatient (BNVA) | payer OTHER, SELFPAY | PROVIDERS: PCP Internal Medicine; Visit Provider Registered Nurse Emergency | DX: M47.816 Spondylosis without myelopathy or radiculopathy, lumbar region (principal); M51.36 Other intervertebral disc degeneration, lumbar region | CPT/HCPCS: 99212 ==

== ENCOUNTER 2023-09-20 06:09 | Outpatient (REF) | payer OTHER, SELFPAY ==
--- NOTE | ~2023-09-20 | FL_ITS ---
EXAMINATION: XR FLUOROSCOPY WITH IMAGES CLINICAL INFORMATION: Spondylosis without myelopathy or radiculopathy, lumbar region. COMPARISON: None available. TECHNIQUE: Fluoroscopy Supervised By: Dr. Malik Ceballos. Fluoroscopy Time: 0.4 minutes. Cumulative Dose: 14.5 mGy. DAP: 0.232 Gycm2. Images: 6. FINDINGS: Images demonstrate needle placement and contrast injection adjacent to the bilateral lateral L3, L4 and L5 vertebrae FL/FL guidance in treatment room IMPRESSION: Fluoroscopic guidance for pain management procedure.
== END 2023-09-20 06:10 | disposition home or self-care (01) ==
LOC: CF 06:09
PROVIDERS: Visit Provider Anesthesiology
DX: M47.816 Spondylosis without myelopathy or radiculopathy, lumbar region (principal); M51.36 Other intervertebral disc degeneration, lumbar region
CPT/HCPCS: 64493; 64494; J2795; J3301; Q9967

== ENCOUNTER 2023-09-20 10:13 | Outpatient (AMB) | payer OTHER, SELFPAY ==
--- NOTE | 2023-09-20 10:14 | MHC.OFFVIS ---
Intake Vital Signs 09/20/23 11:52 09/20/23 11:53 Height 5 ft 2 in 5 ft 2 in Weight 223 lb 223 lb BMI 40.8 40.8 BP 102/58 L 124/60 Blood Pressure Location Lt brachial Lt brachial Position Sitting Sitting Respiration 12 14 Pulse 89 83 Pulse Source Pulse Oximeter Pulse Oximeter Pulse Oximetry (%) 94 94 Oxygen Delivery Method Room Air Room Air Comment pre-op post-op Intake Visit Reasons: BILAT DX L3-L4-DRL5 Medial Branch Blocks Allergies aspirin [Aspirin] Allergy (Mild, Verified 09/20/23 11:54) UPSET STOMACH ibuprofen [From Motrin] Allergy (Mild, Verified 09/20/23 11:54) Gastrointestinal Upset PFSH Medical History Anxiety and depression Back pain Bilateral primary osteoarthritis of knee Colon cancer screening COPD (chronic obstructive pulmonary disease) COPD exacerbation Diabetes mellitus Frequency of micturition GERD (gastroesophageal reflux disease) High cholesterol Hypertension Hypothyroidism ENMA on CPAP Osteoarthritis Tubular adenoma of colon Urgency incontinence Urgency of micturition Surgical History History of cholecystectomy History of lumpectomy of right breast Hx of colonoscopy Hx of cystoscopy Hx of right knee surgery Family History Mother History of pancreatic cancer Social History Household Members Other:: lives with grandson Are you a primary healthcare consulting manager to a significant other at home: No 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) Alcohol intake: never Comment: will take Tylenol at home Patient Tobacco Use Status: Never used Tobacco Years Smoked: 30 Second Hand Smoke Exposure: No Advance Directives Date on File: 01/31/23 Physical Exam Vital Signs: Last Vital Signs Pulse 83 09/20/23 11:53 Resp 14 09/20/23 11:53 BP 124/60 09/20/23 11:53 Pulse Ox 94 09/20/23 11:53 Oxygen Delivery Method Room Air 09/20/23 11:53 BMI result Body Mass Index 40.8 Assessment & Plan Assessment & Plan (1) Facet arthritis of lumbar region: Code(s): M47.816 - Spondylosis without myelopathy or radiculopathy, lumbar region Plan: Diagnostic medial branch block L3,L4 dorsal ramus L5 bilateral.? ? ?Informed consent was explained to the patient. All questions were explained and? answered.? The patient was taken inside the operating room where she was positioned prone on the operating table. Time-out was performed delineating correct site, side, the nature of the procedure, patient's allergy, . All operating room staff was participating in OR time-out procedure. ? ? The lower back was prepped with ChloraPrep and draped with sterile towels.? C-arm was brought over the operating field and sq picture of L4-, L5 vertebra and S1 AREA were delineated on the screen.? Point of interest were delineated as confluence of superior articular process of L4 and L5 vertebra bilaterally with corresponding transverse processes as well as confluence of the sacral alae bilaterally with superior articular process of S1.? The projection of the point of interest to the skin were injected with the small amount of local anesthetic lidocaine 2% 1-1.5 cc.? After that 22 gauge 3.5 inch spinal needle was driven sequentially to the points of interest in tunnel vision fashion. After needles gently contacted the bone at the point of interests the needle was injected with small amount of the contrast.? The injection of the contrast did not demonstrate any intravascular or intrathecal spread of the contrast.? After that injection of the? ropivacaine 0.5%-1cc was performed at each needle location.??after that the needles were removed and Bandaids were applied. ? Upon completion of the injections? needle was? removed and sterile Band-Aids were applied.? The patient tolerated procedure very well. (2) Degenerative disc disease, lumbar: Code(s): M51.36 - Other intervertebral disc degeneration, lumbar region Plan Ms. Ortiz Moreno is a very pleasant 73 year old female who presents back to the office today for follow up lumbar back pain. Patient has exhausted conservative therapy, no relief with Tylenol or prescription medications. She is not able to tolerate PT due to her pain. Discussed options for treatment including diagnostic interventional testing, epidural steroid injections, peripheral nerve stimulation with Sprint, RFA and more permanent neuromodulation. Informational pamphlets provided. Will schedule for Fluoroscopy guided diagnostic L3 L4 DR L5 MBBs with local anesthetic, plan for RFA if she reports relief of her pain with improvement in function and mobility after diagnostic injections. All questions and concerns have been answered and patient agrees with the plan. Follow up after injections, sooner if needed. Orders: Orders FL guidance in treatment room 09/20/23 M47.816 - Spondylosis without myelopathy or radiculopathy, lumbar region Coding Level of Care Code Procedure Only Diagnoses Facet arthritis of lumbar region M47.816 Degenerative disc disease, lumbar M51.36
[2023-09-20 11:52] VITALS: BP 102/58; PULSE 89; RESP 12; O2SAT 94; BMI 40.8
[2023-09-20 11:53] VITALS: BP 124/60; PULSE 83; RESP 14; O2SAT 94; BMI 40.8
== END 2023-09-20 11:31 | disposition home or self-care (01) ==
PROVIDERS: PCP Internal Medicine; Visit Provider Anesthesiology
DX: M47.816 Spondylosis without myelopathy or radiculopathy, lumbar region (principal); M51.36 Other intervertebral disc degeneration, lumbar region
CPT/HCPCS: 64493; 64494

== ENCOUNTER 2023-09-22 11:01 | Outpatient (AMB) | payer OTHER, SELFPAY ==
--- NOTE | 2023-09-22 11:22 | MHC.OFFVIS ---
Intake Vital Signs 09/22/23 11:23 Height 5 ft 2 in Weight 223 lb BMI 40.8 BP 130/81 Blood Pressure Location Lt brachial Position Sitting Respiration 18 Pulse 91 Pulse Source Pulse Oximeter Pulse Oximetry (%) 96 Oxygen Delivery Method Room Air Intake Visit Reasons: s/p Bilateral Dx L3-L4-DRL5 MBB 09/20/23 Allergies aspirin [Aspirin] Allergy (Mild, Verified 09/22/23 11:22) UPSET STOMACH ibuprofen [From Motrin] Allergy (Mild, Verified 09/22/23 11:22) Gastrointestinal Upset HPI HPI Comments History of Present Illness Details Patient presents back to the office today for follow up 2 days s/p diagnostoic bilateral L3 L4 DR L5 MBBs She reports pain today 0/10, has been without pain since the procedure aside from one episode of 1/10 pain when she was using the commode 2 hours after the procedure. Patient has not needed Tylenol or anti-inflammatory medication since the procedure. Pain her knees remains minimal since having bilateral genicular nerve blocks. She has appt with PT today, has to contact medicare to appeal futher PT treatment as medicare is denying coverage for further visits. She has improved function and mobility, hoping to extend PT now that she can be more active participant. Prior: Patient presents back to the office today for follow up lower back pain. PT has been coming to the home 2x weekly, there are days she is not able to participate because of the pain. She still feels relief of her bilateral knee pain after genicular nerve blocks but now the back pain is limiting her. She has been taking tylenol and gabapentin but pain persists. Patient would like to proceed with injections in hopes she can get relief of her back pain which would enable her to actively participate in PT. She has been trying to walk more around the house using a walker but some days the pain makes it hard to even get out of bed. Prior: Patient presents back to the office today for new complaint of lower back pain. She reports that she has been suffering with this pain for awhile . She was supposed to have PT at her house but they didn't have anyone to send . She has not tried lidocaine patches or cream. She takes tylenol without relief. She recently had bilateral genicular nerve blocks for her knee pain with 100% relief of pain to both knees. Patient and family were hoping this would enable her to get up from wheelchair and be more mobile. She states the lower back pain is now impeding her ability to stand and walk. She denies red flag symptoms including new loss of bowel, bladder or saddle anesthesia. Previously: Ms. Ortiz Moreno is a very pleasant 73 year old female who presents to the office today on referral from orthopedics for evaluation and management of her chronic bilateral knee pain. Patient states she has arthritis in both knees, she was told years ago that she needs TKA but she would need to lose weight prior to any surgery. Patient states she has pain in both knees, left worse than right. Pain does not radiate. She uses a wheelchair d/t pain in both knees. She is not able to lose weight as she cannot increase activity secondary to pain. She takes tylenol for the pain with some relief. Pain today is reported as 10/10, constant and worse in the evenings and at night. In terms of muscle damage condition is described as aching, spasming, dull. cramping, squeezing and throbbing. Pain is negatively impacting her enjoyment of life, sleep, walking and overall mood. Patient denies implantable devices, pacemaker, defibrillator. [facility] Medical History Anxiety and depression Back pain Bilateral primary osteoarthritis of knee Colon cancer screening COPD (chronic obstructive pulmonary disease) COPD exacerbation Diabetes mellitus Frequency of micturition GERD (gastroesophageal reflux disease) High cholesterol Hypertension Hypothyroidism ENMA on CPAP Osteoarthritis Tubular adenoma of colon Urgency incontinence Urgency of micturition Surgical History History of cholecystectomy History of lumpectomy of right breast Hx of colonoscopy Hx of cystoscopy Hx of right knee surgery Family History Mother History of pancreatic cancer Social History Household Members Other:: lives with grandson Are you a primary manager career to a significant other at home: No Do you presently have visiting nurse or other home services: Yes (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 Answers questions appropriately. Fully engaged in examination. Skin: warm, dry, intact without visible rashes or lesions. HEENT: Normocephalic. Conjuntivae clear without exudate. Sclera non-icteric. Hearing intact. Cardiac: External chest normal in appearance. Respiratory: No signs of trauma. No signs of respiratory distress. No cough, audible wheezing or stridor. Abdomen: without gross distension. MS: No obvious swelling or deformities. uses a wheelchair Neurological: Oriented to person, place, time and situation. Thought process intact. Psychiatric: Appropriate mood and affect. Good judgment and insight. Results Reviewed Results Reviewed: 07/14/2023 XR/XR lumbar spine 4V min FINDINGS: There is a mild scoliosis convex to the left. Degenerative changes are present, most marked at T12 through S1. There is mild disc space narrowing at L5-S1. The remainder of the disc spaces are well preserved. There are degenerative changes seen at the L5-S1 facet joints. No bony destructive lesions or fractures are seen. Surgical clips are present in the gallbladder fossa. When comparison is made to the 12/17/2022 CT scan, there has been no interval change IMPRESSION: Mild degenerative changes in the lumbosacral spine, as described above, unchanged from 12/17/2022.. Assessment & Plan Assessment & Plan (1) Facet arthritis of lumbar region: Code(s): M47.816 - Spondylosis without myelopathy or radiculopathy, lumbar region (2) Degenerative disc disease, lumbar: Code(s): M51.36 - Other intervertebral disc degeneration, lumbar region Plan Ms. Ortiz Moreno is a very pleasant 73 year old female who presents back to the office today for follow up 2 days s/p diagnostic L3 L4 DR L5 MBBs. Patient reports 100% pain relief since procedure with improvement in function and mobility. She has not needed analgesic or anti-inflammatory medications the procedure. Patient is scheduled for physical therapy this afternoon, she is hoping to be and more active participant now that her pain is improved. She was told by PT that her sessions will be ending, plans to appeal with Medicare as they do not want cover further therapy visits. Discussed options for treatment including steroid injections, peripheral nerve stimulation with Sprint, RFA and more permanent neuromodulation. Patient and family would like to contact the office when pain returns to either knee or lower back. At that time will proceed with RFA of the painful area. All questions and concerns have been answered and patient agrees with the plan. Follow up when pain returns, sooner if needed. Coding Level of Care Code Est Pt Level 3 (44477) Diagnoses Facet arthritis of lumbar region M47.816 Degenerative disc disease, lumbar M51.36
[2023-09-22 11:23] VITALS: BP 130/81; PULSE 91; RESP 18; O2SAT 96; BMI 40.8
== END 2023-09-22 11:23 | disposition home or self-care (01) ==
PROVIDERS: PCP Internal Medicine; Visit Provider Registered Nurse Emergency
DX: M47.816 Spondylosis without myelopathy or radiculopathy, lumbar region (principal); M51.36 Other intervertebral disc degeneration, lumbar region
CPT/HCPCS: 99213

== ENCOUNTER → 2023-09-22 11:01 | Outpatient (BNVA) | payer OTHER, SELFPAY | PROVIDERS: PCP Internal Medicine; Visit Provider Registered Nurse Emergency | DX: M47.816 Spondylosis without myelopathy or radiculopathy, lumbar region (principal); M51.36 Other intervertebral disc degeneration, lumbar region | CPT/HCPCS: 99212 ==

== ENCOUNTER 2023-10-13 12:52 | Outpatient (REF) | payer OTHER, SELFPAY | END 2023-10-13 12:53 | disposition home or self-care (01) | LOC: HO.LAB 12:52 | PROVIDERS: PCP Internal Medicine; Visit Provider Urology | DX: N39.0 Urinary tract infection, site not specified (principal) | CPT/HCPCS: 81003; 87086; 99212 ==

== ENCOUNTER 2023-10-13 12:52 | Outpatient (AMB) | payer OTHER, SELFPAY ==
--- NOTE | 2023-10-13 13:23 | A.OFFVIS_ITS ---
Intake Intake Visit Reasons: 3m/PVR Intake Note: Patient presents today for a 3 months follow-up PVR: Meds: None Allergies to Antibiotic: No Known Allergies Blood Thinner: Furosemide PVR 204 mL Citrix Administrator Required: Yes Citrix Administrator Name: Ion Sanchez, VINH/YESENIA Kumari Information Interpreted: non-clinical & clinical Accompanied by: daughter in law Allergies aspirin [Aspirin] Allergy (Mild, Verified 10/13/23 13:24) UPSET STOMACH ibuprofen [From Motrin] Allergy (Mild, Verified 10/13/23 13:24) Gastrointestinal Upset HPI HPI Comments History of Present Illness Details 10/13/23--Joselyn is a 73-year-old female w ho presents today to the office for a follow-up. She is thai speaking, Certified forensic scientist present. She was last evaluated on 06/24/23, at which time office cystoscopy was done. Cystoscopy findings- no suspicious bladder lesions. She continues to complain of dysuria. Denies gross hematuria Bladder scan PVR 204 mL Review of chart: LV--06/24/2023?She is followed today for office cystoscopy. Certified digital learning platforms manager present for visit She was last seen by me on 05/26/2023 for gross hematuria. Urine for cytology was ordered, I reviewed the urine cytology report results from 05/27/2023 revealed negative for high-grade urothelial carcinoma.? She mentions having mild burning sensation with urination. Cystoscopy procedure: Consent was obtained to perform cystoscopy procedure. The patient was unable to provide urine sample, Cath'd PVR 150 mL, UA - leuk neg, blood neg Cystoscopy findings: no suspicious bladder lesions. Office visit: 05/26/2023? She presents today with her [id number] who interprets for her. She has a past medical history significant for insulin dependent diabetes. She was previously seen by nurse practitioner, Fina. She has been evaluated for lower urinary tract symptoms of urgency, overactive bladder and treated for recurrent urinary tract infections. Patient states that she is currently not taking any medications for lower urinary tract symptoms. She states that she noticed blood in the urine several weeks ago. Patient is wearing pads as needed. In review of urinalysis performed on 03/02/2023 revealed large blood in the urine. Urine culture was sent, which came back <10,000 floresita. She uses a walker for assisting ambulation. She reports pain in her knees. She is scheduled for surgery on 06/14/2023. I have reviewed the results of renal US from on 04/15/2023 revealed no hydronephrosis, no renal mass or renal calculi noted. Evaluation today--UA--leukocytes: negative; blood: negative. Plan: Urine for cytology. Follow up office Cystoscopy. 10/13/23: Plan: repeat surveillance urine c/s LUTS - persistent dysuria. FU with nursing for catheterized urine for migrogen, repeat urine cytology PFSH Medical History Anxiety and depression Back pain Bilateral primary osteoarthritis of knee Colon cancer screening COPD (chronic obstructive pulmonary disease) COPD exacerbation Diabetes mellitus Frequency of micturition GERD (gastroesophageal reflux disease) High cholesterol Hypertension Hypothyroidism ENMA on CPAP Osteoarthritis Tubular adenoma of colon Urgency incontinence Urgency of micturition Surgical History History of cholecystectomy History of lumpectomy of right breast Hx of colonoscopy Hx of cystoscopy Hx of right knee surgery Family History Mother History of pancreatic cancer Social History Household Members Other:: lives with grandson Are you a primary animal care taker to a significant other at home: No Do you presently have visiting nurse or other home services: Yes (INSTRUCTION DEAN) Alcohol intake: never Comment: will take Tylenol at home Patient Tobacco Use Status: Never used Tobacco Years Smoked: 30 Second Hand Smoke Exposure: No Advance Directives Date on File: 01/31/23 Review of Systems Const All systems reviewed & are unremarkable except as noted in HPI and below Reports no additional complaints Eyes Reports no additional complaints ENT Reports no additional complaints Card Denies dyspnea Resp Denies cough and Denies dyspnea GI Reports no additional complaints Reports no additional complaints Musc Reports no additional complaints Skin/Breast Denies rash and Denies unusual bruising Neuro Reports no additional complaints Psych Reports no additional complaints Endo Reports no additional complaints Rob/Lymph Reports no additional complaints Aller/Immun Reports no additional complaints Results AMB Urinalysis, Automated UA Leukoctes 70 Bryant/uL Last Edit by VINH Cross on 10/13/23 13:55 UA Nitrite Negative Last Edit by Ion Sanchez [facility] on 10/13/23 13:55 UA Urobilinogen 0.2 mg/dL Last Edit by Ion Sanchez [facility] on 10/13/23 13:5 5 UA Protein 15 mg/dL Last Edit by Ion Sanchez [facility] on 10/13/23 13:55 UA pH 6.0 Last Edit by Ion Sanchez [facility] on 10/13/23 13:55 UA Blood 0 Chema/uL Last Edit by Ion Sanchez [facility] on 10/13/23 13:55 UA Specific [place] 1.010 Last Edit by Ion Sanchez [facility] on 10/13/23 13: 55 UA Ketone Negative Last Edit by Ion Sanchez Jaylan on 10/13/23 13:55 UA Bilirubin 1 mg/dL Last Edit by Ion Sanchez [facility] on 10/13/23 13:55 UA Glucose 0 mg/dL Last Edit by Ion Sanchez [facility] on 10/13/23 13:55 Results Reviewed Results Reviewed: Laboratory Last Values Urine pH (Auto) 6.0 10/13/23 13:54 Specific [place] (Auto) 1.010 10/13/23 13:54 Urine Protein (Auto) 15 mg/dL 10/13/23 13:54 Glucose (UA)(Auto) 0 mg/dL 10/13/23 13:54 Urine Ketones (Auto) Negative 10/13/23 13:54 Urine Blood (Auto) 0 Chema/uL 10/13/23 13:54 Urine Nitrite (Auto) Negative 10/13/23 13:54 Urine Bilirubin (Auto) 1 mg/dL 10/13/23 13:54 Urine Urobilinogen (Auto) 0.2 mg/dL 10/13/23 13:54 Leukocyte Esterase (Auto) 70 Bryant/uL 10/13/23 13:54 Date of Service: 04/15/23 EXAMINATION: US RETROPERITONEAL COMPLETE (RENAL) CLINICAL INFORMATION: Ongoing episodes of microscopic hematuria and recurrent UTIs. COMPARISON: CT abdomen and pelvis and ultrasound abdomen limited 12/17/2022. Ultrasound abdomen complete 06/04/2016. TECHNIQUE: Real-time imaging of the kidneys and bladder. FINDINGS: RIGHT KIDNEY: 11.1 x 4.2 x 5.4 cm (SAG x AP x TRV). The kidney is normal in size, contour, and echogenicity. Renal cortical thickness is normal. No calculi or focal parenchymal lesions. No hydronephrosis. LEFT KIDNEY: 11.0 x 4.0 x 4.2 cm (SAG x AP x TRV). The kidney is normal in size, contour, and echogenicity. Renal cortical thickness is normal. No calculi or focal parenchymal lesions. No hydronephrosis. BLADDER: Well distended and normal. Bilateral ureteral jets are demonstrated. Prevoid bladder volume is 173.8 mL. Postvoid bladder volume is 5.1 mL. IMPRESSION: No evidence of obstructive uropathy. No evidence of nephrolithiasis. No suspicious renal mass identified. No significant postvoid residual.. Assessment & Plan Assessment & Plan (1) Overactive bladder: Code(s): N32.81 - Overactive bladder (2) Gross hematuria: Code(s): R31.0 - Gross hematuria (3) Recurrent UTI: Code(s): N39.0 - Urinary tract infection, site not specified Plan Plan: repeat surveillance urine c/s LUTS - persistent dysuria. FU with nursing for catheterized urine for migrogen, repeat urine cytology Orders: Orders AMB Post Void Residual by ultrasound 10/13/23 N39.8 - Other specified disorders of urinary system AMB Urinalysis Automated 10/13/23 Z13.9 - Encounter for screening, unspecified Urine Culture 10/13/23 N39.0 - Urinary tract infection, site not specified Patient Instructions: The patient had an opportunity to ask questions regarding treatment plan. All questions were answered. Imaging, Laboratory studies and physical exam results were discussed and reviewed in detail. No major barriers to understanding were identified. The patient expressed understanding and agreement with the above treatment plan. The patient is aware they should contact our office by phone for worsening of their current condition or the appearance of new symptoms. Compliance is encouraged with any medications and followup testing that is ordered. It is a privilege to be allowed the opportunity to participate in the urologic care of your patient. If you have any questions or concerns regarding treatment for the above conditions please do not hesitate to contact me. The office telephone contact is [phone]. This note is constructed in part using voice recognition software. While every effort has been made to ensure accuracy child protective services specialist errors may have been included. Yours sincerely, Radha Mccullough MD Coding Level of Care Code Est Pt Level 3 (11688) Diagnoses Overactive bladder N32.81 Gross hematuria R31.0 Recurrent UTI N39.0
== END 2023-10-13 14:10 | disposition home or self-care (01) ==
PROVIDERS: PCP Internal Medicine; Visit Provider Urology
DX: N32.81 Overactive bladder (principal); R31.0 Gross hematuria; N39.0 Urinary tract infection, site not specified
CPT/HCPCS: 99213

== ENCOUNTER → 2023-11-21 12:37 | Outpatient (BNVA) | payer OTHER, SELFPAY | PROVIDERS: PCP Internal Medicine; Visit Provider Urology ==

== ENCOUNTER → 2023-11-24 10:27 | Outpatient (BNVA) | payer OTHER, SELFPAY | PROVIDERS: PCP Internal Medicine; Visit Provider Urology | DX: N39.0 Urinary tract infection, site not specified (principal); N39.41 Urge incontinence; R39.15 Urgency of urination; R31.0 Gross hematuria | CPT/HCPCS: 51701 ==

== ENCOUNTER 2023-12-21 16:35 | Outpatient (REF) | payer OTHER, SELFPAY ==
--- NOTE | ~2023-12-21 | XR_ITS ---
EXAMINATION: XR CERVICAL SPINE XR RIGHT SHOULDER CLINICAL INFORMATION: Acute right shoulder pain and right neck pain. TECHNIQUE: 3 views of the right shoulder. 5 views of the cervical spine. COMPARISON: CT chest of 06/03/2023, CT cervical spine of 01/02/2023, right shoulder radiographs of 01/02/2023. FINDINGS: CERVICAL SPINE: The bones are diffusely demineralized. Redemonstration of surgical clips status post thyroidectomy. Multilevel degenerative changes in the cervical spine are difficult to evaluate as visualization is severely limited due to overlying bone and soft tissues with poor visualization of C5, C6 and C7. RIGHT SHOULDER: Moderate degenerative changes in the acromioclavicular joint with joint space narrowing and hypertrophic change. Sclerosis along the greater tuberosity may suggest rotator cuff disease. The bones are diffusely demineralized. Degenerative changes in the imaged upper thoracic spine. XR/XR shoulder RT min 2V IMPRESSION: 1. Multilevel degenerative changes in the cervical spine are difficult to evaluate as visualization is severely limited due to overlying bone and soft tissues with poor visualization of C5, C6 and C7. 2. Moderate degenerative changes in the right acromioclavicular joint.
--- NOTE | ~2023-12-21 | XR_ITS ---
EXAMINATION: XR CERVICAL SPINE XR RIGHT SHOULDER CLINICAL INFORMATION: Acute right shoulder pain and right neck pain. TECHNIQUE: 3 views of the right shoulder. 5 views of the cervical spine. COMPARISON: CT chest of 06/03/2023, CT cervical spine of 01/02/2023, right shoulder radiographs of 01/02/2023. FINDINGS: CERVICAL SPINE: The bones are diffusely demineralized. Redemonstration of surgical clips status post thyroidectomy. Multilevel degenerative changes in the cervical spine are difficult to evaluate as visualization is severely limited due to overlying bone and soft tissues with poor visualization of C5, C6 and C7. RIGHT SHOULDER: Moderate degenerative changes in the acromioclavicular joint with joint space narrowing and hypertrophic change. Sclerosis along the greater tuberosity may suggest rotator cuff disease. The bones are diffusely demineralized. Degenerative changes in the imaged upper thoracic spine. XR/XR cervical spine 3V IMPRESSION: 1. Multilevel degenerative changes in the cervical spine are difficult to evaluate as visualization is severely limited due to overlying bone and soft tissues with poor visualization of C5, C6 and C7. 2. Moderate degenerative changes in the right acromioclavicular joint.
== END 2023-12-21 16:36 | disposition home or self-care (01) ==
LOC: HO.XRAY 16:35
PROVIDERS: Absent Provider Internal Medicine; PCP Internal Medicine; Visit Provider Family Medicine
DX: M54.2 Cervicalgia (principal); M54.12 Radiculopathy, cervical region; M25.511 Pain in right shoulder
CPT/HCPCS: 72040; 73030

== ENCOUNTER 2024-01-27 18:51 | Outpatient (REF) | payer OTHER, SELFPAY | END 2024-01-27 18:52 | disposition home or self-care (01) | LOC: HO.HHCLNP 18:51 | PROVIDERS: Visit Provider Internal Medicine | DX: N39.46 Mixed incontinence (principal) | CPT/HCPCS: 87086 ==

== ENCOUNTER 2024-02-01 10:24 | Outpatient (AMB) | payer OTHER, SELFPAY ==
--- NOTE | 2024-02-01 10:35 | A.OFFVIS_ITS ---
Intake Visit Reasons: new prob-Rt shoulder pain Intake Note: Joselyn a 73 year old female who presents today for an evaluation of right shoulder pain. Patient reports pain in her shoulder for years that has been recently getting worse. Her pain radiates up her neck and down her arm. Limited ROM. Denies injury. No previous tx. She would like to discuss having a cortisone injection. Allergies aspirin [Aspirin] Allergy (Mild, Verified 02/01/24 10:38) UPSET STOMACH ibuprofen [From Motrin] Allergy (Mild, Verified 02/01/24 10:38) Gastrointestinal Upset HPI HPI new prob-Rt shoulder pain: Details: 73-year-old female who presents to the office today for evaluation of right shoulder pain. She states she has bilateral shoulder pain which is worse on her right shoulder. She currently states she has pain and limited ROM in her right shoulder which has been recently getting worse. Her pain radiates up to her neck and down to her arm. She denies any injury and has not had any treatment in the past. She frequently uses a wheelchair. She takes Tylenol for her pain. She has a history of diabetes. [facility] Medical History Anxiety and depression Back pain Bilateral primary osteoarthritis of knee Colon cancer screening COPD (chronic obstructive pulmonary disease) COPD exacerbation Diabetes mellitus Frequency of micturition GERD (gastroesophageal reflux disease) High cholesterol Hypertension Hypothyroidism ENMA on CPAP Osteoarthritis Tubular adenoma of colon Urgency incontinence Urgency of micturition Surgical History History of cholecystectomy History of lumpectomy of right breast Hx of colonoscopy Hx of cystoscopy Hx of right knee surgery Family History Mother History of pancreatic cancer Social History Household Members Other:: lives with grandson Are you a primary critical care unit nurse to a significant other at home: No Do you presently have visiting nurse or other home services: Yes (LOT ASSOCIATE) Alcohol intake: never Comment: will take Tylenol at home Patient Tobacco Use Status: Never used Tobacco Years Smoked: 30 Second Hand Smoke Exposure: No Advance Directives Date on File: 04/24/23 Review of Systems Const All systems reviewed & are unremarkable except as noted in HPI and below Physical Exam Extrem Other: Right shoulder normal to inspection. Tenderness over the bicipital groove and along the deltoid region of the shoulder. Forward flexion to 100, external rotation to 90, internal rotation to S1. 5/5 RTC strength. Positive Lozano. NVI. Office Procedures Joint Injection/Drain Joint Injection/Drain Primary Site: right shoulder Prep: site was prepped using aseptic technique, ethochloride spray was applied and injection warnings given Injected: 40 mg of, DepoMedrol, with 8 mL of and 1% plain lidocaine Procedure: The patient tolerated the procedure well and there was some relief with the local anesthesia Coding 55891 - Glenohumeral/Tronchanteric Bursa/Intraarticular Procedure code (CPT) selection complete Results Reviewed Results Reviewed: xrays of the right shoulder obtained on 12/21/23 significant for ac joint oa Assessment & Plan Assessment & Plan (1) Osteoarthritis of right shoulder: Code(s): M19.011 - Primary osteoarthritis, right shoulder Category: Medical Plan We discussed options today which include steroid injection. They did consent to move forward with the right shoulder injection, which was tolerated well. I recommended rest, ice and elevation and OTC anti-inflammatories PRN for discomfort. We also discussed their diabetes and the effect the steroid can have on their blood glucose levels; therefore, they will continue to monitor these very closely over the next 72 hours. If there are any concerns, they should report to the ED immediately. Patient Instructions: Scribed for Keisha Tucker PA-C, by Cody Caal medical physics researcher, on 02/01/2024 at 11:15 AM TOY. Keisha Alexander PA-C, have personally reviewed and agree with the information entered by the scribe. Coding Level of Care Code Est Pt Level 3 (24436) Diagnoses Osteoarthritis of right shoulder M19.011 CPT Codes Coding - Joint 7: 10295 - Glenohumeral/Tronchanteric Bursa/Intraarticular ([id number])
== END 2024-02-01 10:53 | disposition home or self-care (01) ==
PROVIDERS: PCP Internal Medicine; Visit Provider Physician Assistant
DX: M19.011 Primary osteoarthritis, right shoulder (principal)
CPT/HCPCS: 20610; 99213

== ENCOUNTER → 2024-02-01 10:24 | Outpatient (BNVA) | payer OTHER, SELFPAY | PROVIDERS: PCP Internal Medicine; Visit Provider Physician Assistant | DX: M19.011 Primary osteoarthritis, right shoulder (principal) | CPT/HCPCS: 20610; 99212; J1010 ==

== ENCOUNTER 2024-02-15 09:58 | Outpatient (AMB) | payer OTHER, SELFPAY ==
--- NOTE | 2024-02-15 10:11 | MHC.OFFVIS ---
Intake Visit Reasons: 2w f/u right shoulder pain Intake Note: Joselyn is a 73 year old female who presents today for a follow up of her right shoulder OA, last injection 02/01/24. Patient reports having her last injection is still giving her relief. She expresses that her pain is still constant on the back side of the bicep. Patient reports her pain is a 4/10 today on the pain scale. Allergies aspirin [Aspirin] Allergy (Mild, Verified 02/15/24 10:15) UPSET STOMACH ibuprofen [From Motrin] Allergy (Mild, Verified 02/15/24 10:15) Gastrointestinal Upset HPI HPI 2w f/u right shoulder pain: Details: 73 yo female returns to the office today f/u left shoulder pain. She states she has had injections in the past with relief. [facility] Medical History Anxiety and depression Back pain Bilateral primary osteoarthritis of knee Colon cancer screening COPD (chronic obstructive pulmonary disease) COPD exacerbation Diabetes mellitus Frequency of micturition GERD (gastroesophageal reflux disease) High cholesterol Hypertension Hypothyroidism ENMA on CPAP Osteoarthritis Tubular adenoma of colon Urgency incontinence Urgency of micturition Surgical History History of cholecystectomy History of lumpectomy of right breast Hx of colonoscopy Hx of cystoscopy Hx of right knee surgery Family History Mother History of pancreatic cancer Social History Household Members Other:: lives with grandson Are you a primary health care liaison to a significant other at home: No Do you presently have 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 Tenderness over the bicipital groove and along the deltoid region of the shoulder. Forward flexion to 100, external rotation to 90, internal rotation to S1. 5/5 RTC strength. Positive Lozano. NVI. Office Procedures Joint Injection/Drain Joint Injection/Drain Primary Site: left shoulder Prep: site was prepped using aseptic technique, ethochloride spray was applied and injection warnings given Injected: 40 mg of, DepoMedrol, with 8 mL of and 1% plain lidocaine Approach Used: posterolateral Procedure: The patient tolerated the procedure well and there was some relief with the local anesthesia Coding 66084 - Glenohumeral/Tronchanteric Bursa/Intraarticular Procedure code (CPT) selection complete Assessment & Plan Assessment & Plan (1) Osteoarthritis of left shoulder: Code(s): M19.012 - Primary osteoarthritis, left shoulder Category: Medical Plan: We discussed options today, which include steroid injection. The patient did consent to move forward with the injection, which was tolerated well.? I recommended rest, ice and elevation and OTC antiinflammatories prn for discomfort. If symptoms persist over the next 6-8 weeks, they will contact our office, otherwise, prn We also discussed their diabetes and the effect the steroid can have on thier blood glucose levels; therefore, they will continue to monitor these very closely over the next 72 hours Coding Level of Care Code Est Pt Level 3 (82054) Diagnoses Osteoarthritis of left shoulder M19.012 CPT Codes Coding - Joint 7: 39184 - Glenohumeral/Tronchanteric Bursa/Intraarticular ([id number])
== END 2024-02-15 10:36 | disposition home or self-care (01) ==
PROVIDERS: PCP Internal Medicine; Visit Provider Physician Assistant
DX: M19.012 Primary osteoarthritis, left shoulder (principal)
CPT/HCPCS: 20610; 99213

== ENCOUNTER → 2024-02-15 09:58 | Outpatient (BNVA) | payer OTHER, SELFPAY | PROVIDERS: PCP Internal Medicine; Visit Provider Physician Assistant | DX: M19.012 Primary osteoarthritis, left shoulder (principal) | CPT/HCPCS: 20610; 99212; J1010 ==

== ENCOUNTER 2024-03-23 10:02 | Outpatient (AMB) | payer OTHER, SELFPAY ==
--- NOTE | 2024-03-23 10:04 | A.OFFVIS_ITS ---
Intake Visit Reasons: 4m follow up Intake Note: Patient presents today for a 3 months follow-up PVR: Meds: None Allergies to Antibiotic: No Known Allergies Blood Thinner: Furosemide PVR, 0 mL Shrimp Packer Required: Yes Shrimp Packer Name: Jerald # [id number] Information Interpreted: non-clinical & clinical Accompanied by: daughter in law Allergies aspirin [Aspirin] Allergy (Mild, Verified 02/15/24 10:15) UPSET STOMACH ibuprofen [From Motrin] Allergy (Mild, Verified 02/15/24 10:15) Gastrointestinal Upset Medication List - Last Reconciled 03/23/24 by Radha Mccullough MD acetaminophen 500 mg PO Q8H PRN albuterol sulfate 2.5 mg inhalation Q8H PRN atorvastatin 40 mg PO BEDTIME benzonatate 100 mg PO BID PRN bisacodyl 10 mg [place] DAILY PRN blood sugar diagnostic (OutsmartTouch Ultra Test strips) budesonide 0.5 mg inhalation BID bupropion HCl XL 300 mg PO QAM bupropion HCl XL 150 mg PO QAM citalopram 20 mg PO QAM doxepin 20 mg PO BEDTIME fluconazole 100 mg PO DAILY fesqwzmrifh-jqanogtew-tyccvnmt 200-62.5-25 mcg (Trelegy Ellipta) 1 ea inhalation DAILY gabapentin 300 mg PO BEDTIME glipizide ER 10 mg PO QAM insulin lispro subcut lancets (OneTouch Delica Plus Lancet) levothyroxine 200 mcg PO QAM lidocaine 5% 1 patch topical DAILY lisinopril 40 mg PO QPM magnesium hydroxide (Milk of Magnesia) 30 mL PO DAILY PRN mirabegron ER (Myrbetriq) 25 mg PO DAILY phenazopyridine (Pyridium) 200 mg PO BID PRN primidone 250 mg PO QID simethicone (Gas Relief (simethicone)) 80 mg PO Q6H PRN sitagliptin phosphate (Januvia) 100 mg PO QAM theophylline ER 300 mg PO DAILY walker Folding front wheeled walker HPI Comments Details: 03/23/2024--Joselyn is a 73-year-old female who is followed for irritative urinary symptoms and recurrent UTIs. She was last seen in the office 10/13/2023, Microgestin analysis discussed, catheterize urine sent for microgen which came back negative. The patient states that the symptoms of burning have improved but she does feel spasms in the bladder area. She denies blood in the urine. Certified infrastructure manager utilized. Urinalysis is negative. Bladder scan PVR 0 mL. Will trial Myrbetriq 25 mg daily and Pyridium p.r.n.. Follow-up in 4 months. Review of chart: 10/13/23--Joselyn is a 73-year-old female who presents today to the office for a follow-up. She is mexican speaking, Certified filter helper present. She was last evaluated on 06/24/23, at which time office cystoscopy was done. Cystoscopy findings- no suspicious bladder lesions. She continues to complain of dysuria. Denies gross hematuria. Bladder scan PVR 204 mL. Plan: repeat surveillance urine c/s. LUTS - persistent dysuria. FU with nursing for catheterized urine for migrogen, repeat urine cytology 06/24/2023?She is followed today for office cystoscopy. Certified infrastructure manager present for visit She was last seen by me on 05/26/2023 for gross hematuria. Urine for cytology was ordered, I reviewed the urine cytology report results from 05/27/2023 revealed negative for high-grade urothelial carcinoma.? She mentions having mild burning sensation with urination. Cystoscopy procedure: Consent was obtained to perform cystoscopy procedure. The patient was unable to provide urine sample, Cath'd PVR 150 mL, UA - leuk neg, blood neg Cystoscopy findings: no suspicious bladder lesions. Office visit: 05/26/2023?She presents today with her yzuwfdwb-kk-aya who interprets for her. She has a past medical history significant for insulin dependent diabetes. She was previously seen by nurse practitioner, Fina. She has been evaluated for lower urinary tract symptoms of urgency, overactive bladder and treated for recurrent urinary tract infections. Patient states that she is currently not taking any medications for lower urinary tract symptoms. She states that she noticed blood in the urine several weeks ago. Patient is wearing pads as needed. In review of urinalysis performed on 03/02/2023 revealed large blood in the urine. Urine culture was sent, which came back <10,000 floresita. She uses a walker for assisting ambulation. She reports pain in her knees. She is scheduled for surgery on 06/14/2023. I have reviewed the results of renal US from on 04/15/2023 revealed no hydronephrosis, no renal mass or renal calculi noted. Evaluation today--UA--leukocytes: negative; blood: negative. Plan: Urine for cytology. Follow up office Cystoscopy. [facility] Medical History Anxiety and depression Back pain Bilateral primary osteoarthritis of knee Colon cancer screening COPD (chronic obstructive pulmonary disease) COPD exacerbation Diabetes mellitus Frequency of micturition GERD (gastroesophageal reflux disease) High cholesterol Hypertension Hypothyroidism ENMA on CPAP Osteoarthritis Tubular adenoma of colon Urgency incontinence Urgency of micturition Surgical History History of cholecystectomy History of lumpectomy of right breast Hx of colonoscopy Hx of cystoscopy Hx of right knee surgery Family History Mother History of pancreatic cancer Social History Household Members Other:: lives with grandson Are you a primary career professional to a significant other at home: No Do you presently have 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) Alcohol intake: never Comment: will take Tylenol at home Patient Tobacco Use Status: Never used Tobacco Years Smoked: 30 Second Hand Smoke Exposure: No Advance Directives Date on File: 01/31/23 Results AMB Urinalysis, Automated UA Leukoctes 0 Bryant/uL Last Edit by VINH Cross on 03/23/24 10:17 UA Nitrite Negative Last Edit by VINH Cross on 03/23/24 10:17 UA Urobilinogen 0.2 mg/dL Last Edit by VINH Cross on 03/23/24 10:1 7 UA Protein 0 mg/dL Last Edit by VINH Cross on 03/23/24 10:17 UA pH 6.0 Last Edit by Ion Sanchez A on 03/23/24 10:17 UA Blood 0 Chema/uL Last Edit by Ion Sanchez A on 03/23/24 10:17 UA Specific Cromwell 1.010 Last Edit by Ion Sanchez A on 03/23/24 10: 17 UA Ketone Negative Last Edit by Ion Sanchez A on 03/23/24 10:17 UA Bilirubin 0 mg/dL Last Edit by Ion Sanchez A on 03/23/24 10:17 UA Glucose 0 mg/dL Last Edit by Ion Sanchez A on 03/23/24 10:17 Results Reviewed Results Reviewed: Laboratory Last Values Urine pH (Auto) 6.0 03/23/24 10:16 Specific Cromwell (Auto) 1.010 03/23/24 10:16 Urine Protein (Auto) 0 mg/dL 03/23/24 10:16 Glucose (UA)(Auto) 0 mg/dL 03/23/24 10:16 Urine Ketones (Auto) Negative 03/23/24 10:16 Urine Blood (Auto) 0 Chema/uL 03/23/24 10:16 Urine Nitrite (Auto) Negative 03/23/24 10:16 Urine Bilirubin (Auto) 0 mg/dL 03/23/24 10:16 Urine Urobilinogen (Auto) 0.2 mg/dL 03/23/24 10:16 Leukocyte Esterase (Auto) 0 Bryant/uL 03/23/24 10:16 Assessment & Plan Assessment & Plan (1) Overactive bladder: Code(s): N32.81 - Overactive bladder Category: Medical (2) Gross hematuria: Code(s): R31.0 - Gross hematuria Category: Medical (3) Recurrent UTI: Code(s): N39.0 - Urinary tract infection, site not specified Category: Medical Plan Myrbetriq 25 mg daily. Pyridium p.r.n.. Follow-up in 4 months Orders: Orders AMB Post Void Residual by ultrasound Today N39.8 - Other specified disorders of urinary system AMB Urinalysis Automated Today Z13.9 - Encounter for screening, unspecified Medications: New mirabegron ER (Myrbetriq) 25 mg PO DAILY 30 tabs 3RF phenazopyridine (Pyridium) take with food 200 mg PO BID PRN 30 tabs 1RF bladder spasms, dysuria Patient Instructions: The patient had an opportunity to ask questions regarding treatment plan. The patient expressed understanding and agreement with the above treatment plan. The patient is aware they should contact our office by phone for worsening of their current condition or the appearance of new symptoms. Compliance is encouraged with any medications and followup testing that is ordered. It is a privilege to be allowed the opportunity to participate in the urologic care of your patient. If you have any questions or concerns regarding treatment for the above conditions please do not hesitate to contact me. The office telephone contact is [phone]. This note is constructed in part using voice recognition software. While every effort has been made to ensure accuracy director trade errors may have been included. Yours sincerely, Radha Mccullough MD Coding Level of Care Code Est Pt Level 4 (32553) Diagnoses Overactive bladder N32.81 Gross hematuria R31.0 Recurrent UTI N39.0
== END 2024-03-23 10:40 | disposition home or self-care (01) ==
PROVIDERS: PCP Internal Medicine; Visit Provider Urology
DX: N32.81 Overactive bladder (principal); R31.0 Gross hematuria; N39.0 Urinary tract infection, site not specified; Z13.9 Encounter for screening, unspecified
CPT/HCPCS: 99214

== ENCOUNTER → 2024-03-23 10:02 | Outpatient (BNVA) | payer OTHER, SELFPAY | PROVIDERS: PCP Internal Medicine; Visit Provider Urology | DX: N32.81 Overactive bladder (principal); R31.0 Gross hematuria; N39.0 Urinary tract infection, site not specified; Z79.899 Other long term (current) drug therapy | CPT/HCPCS: 81003; 99212 ==

== ENCOUNTER 2024-04-30 13:50 | Outpatient (REF) | payer OTHER, SELFPAY ==
--- NOTE | ~2024-04-30 | XR_ITS ---
EXAMINATION: XR HAND, LEFT CLINICAL INFORMATION: Pain and swelling few weeks. No specific injury. COMPARISON: None available. TECHNIQUE: PA, lateral, and oblique views of the left hand. FINDINGS: No visible acute fracture or dislocation. Alignment is anatomic. Mild first CMC arthritis. Mild fourth DIP joint space narrowing. No erosions or abnormal soft tissue calcifications. Soft tissue swelling of the hand. No radiopaque foreign bodies. XR/XR hand LT min 3V IMPRESSION: No radiographic evidence of acute fracture. Soft tissue swelling. Mild arthritis.
== END 2024-04-30 13:51 | disposition home or self-care (01) ==
LOC: HO.HHCX 13:50
PROVIDERS: Visit Provider Family Medicine
DX: M79.642 Pain in left hand (principal); R60.0 Localized edema
CPT/HCPCS: 73130

== ENCOUNTER 2024-05-05 09:07 | Outpatient (REF) | payer OTHER, SELFPAY ==
[2024-05-05 12:01] LABS: Creatinine Urine 49.43 mg/dL; Microalbum/Creatinine Ratio Ur 34.3 ug/mg cr (<30)
[2024-05-05 12:03] LABS: Alanine Aminotransferase 28 U/L (0-31); Albumin Level 4.4 g/dL (3.5-5.0); Alkaline Phosphatase 117 U/L (39-117); Anion Gap 14 (12-20); Aspartate Amino Transferase 28 U/L (5-31); Bilirubin Total 0.4 mg/dL (0.0-1.0); Blood Urea Nitrogen 18 mg/dL (9-16); Calcium 9.9 mg/dL (8.4-10.2); Carbon Dioxide 28 mmol/L (22-29); Chloride 104 mmol/L (96-108); Cholesterol 174 mg/dL (<200); Estimated Glomerular Filt Rate > 60; Glucose Random 120 mg/dL (60-115); HDL Cholesterol 58 mg/dL (>40); LDL Cholesterol Calculated 73 mg/dL (<100); Potassium 4.1 mmol/L (3.3-5.1); Sodium 142 mmol/L (135-145); TSH reflex Free T4 36.93 uIU/mL (0.32-4.0); Total Protein 7.5 g/dL (6.5-8.0); Triglycerides 215 mg/dL (<150); Vitamin D 25-OH Total 9.2 ng/mL (>30)
[2024-05-05 12:34] LABS: Free T4 (Free Thyroxine) 0.74 ng/dL (0.71-1.85)
[2024-05-05 13:43] LABS: Reflex LDLD? No
== END 2024-05-05 09:08 | disposition home or self-care (01) ==
LOC: HO.LAB 09:07
PROVIDERS: PCP Internal Medicine; Visit Provider Internal Medicine
DX: E11.9 Type 2 diabetes mellitus without complications (principal); M17.0 Bilateral primary osteoarthritis of knee
CPT/HCPCS: 36415; 80053; 80061; 82043; 82306; 82570; 84439; 84443

== ENCOUNTER 2024-05-15 09:08 | Outpatient (REF) | payer OTHER, SELFPAY ==
--- NOTE | 2024-05-15 09:22 | EMG_ITS ---
Right median and ulnar motor and sensory studies were performed. Right radial sensory study was performed and paraspinal muscles were tested with a needle. IMPRESSION: 1. Mild right median neuropathy across carpal tunnel. 2. Mild right ulnar neuropathy across cubital tunnel. 3. No evidence of radiculopathy. MD GIGI Haddad/MEERA / [id number]
[2024-05-15 11:23] LABS: Free T4 (Free Thyroxine) 0.82 ng/dL (0.71-1.85); TSH reflex Free T4 27.44 uIU/mL (0.32-4.0)
[2024-05-16 09:03] LABS: Triiodothyronine T3 Free 2.5 pg/mL (2.3-4.2); Triiodothyronine T3 Total 92 ng/dL (76-181)
[2024-05-16 18:13] LABS: Thyroglobulin Antibodies <1 IU/mL (< or = 1)
== END 2024-05-15 09:09 | disposition home or self-care (01) ==
LOC: HO.NEURO 09:08
PROVIDERS: Absent Provider Internal Medicine; PCP Internal Medicine; Visit Provider Family Medicine
DX: M79.601 Pain in right arm (principal); E03.9 Hypothyroidism, unspecified; G89.29 Other chronic pain
CPT/HCPCS: 36415; 84436; 84439; 84443; 84480; 84481; 86800; 95886; 95909

== ENCOUNTER 2024-05-16 08:37 | Outpatient (AMB) | payer OTHER, SELFPAY ==
--- NOTE | 2024-05-16 08:42 | A.OFFVIS_ITS ---
Vital Signs 05/16/24 08:51 Height 5 ft 2 in Weight 223 lb BMI 40.8 Intake Visit Reasons: OV- LT shoulder pain last inj 02/15/24 Intake Note: Joselyn a 74 year old female who presents today for a follow up of left shoulder, last injection on 02/15/24. Patient reports injection provided her with little relief. States her right shoulder causes her the most pain and she is limited on her ROM. She is requesting bilateral shoulder injections. Allergies aspirin [Aspirin] Allergy (Mild, Verified 05/16/24 08:50) UPSET STOMACH ibuprofen [From Motrin] Allergy (Mild, Verified 05/16/24 08:50) Gastrointestinal Upset Medication List - Last Reconciled 05/16/24 by Keisha Tucker PA-C acetaminophen 500 mg PO Q8H PRN albuterol sulfate 2.5 mg inhalation Q8H PRN atorvastatin 40 mg PO BEDTIME benzonatate 100 mg PO BID PRN bisacodyl 10 mg [place] DAILY PRN blood sugar diagnostic (Digital AllianceTouch Ultra Test strips) budesonide 0.5 mg inhalation BID bupropion HCl XL 300 mg PO QAM bupropion HCl XL 150 mg PO QAM celecoxib (Celebrex) 200 mg PO BID 30 days citalopram 20 mg PO QAM doxepin 20 mg PO BEDTIME fluconazole 100 mg PO DAILY wynzjajbetw-wtdprhvzp-xdagmzfz 200-62.5-25 mcg (Trelegy Ellipta) 1 ea inhalation DAILY gabapentin 300 mg PO BEDTIME glipizide ER 10 mg PO QAM insulin lispro subcut lancets (OneTouch Delica Plus Lancet) levothyroxine 200 mcg PO QAM lidocaine 5% 1 patch topical DAILY lisinopril 40 mg PO QPM magnesium hydroxide (Milk of Magnesia) 30 mL PO DAILY PRN mirabegron ER (Myrbetriq) 25 mg PO DAILY phenazopyridine (Pyridium) 200 mg PO BID PRN primidone 250 mg PO QID simethicone (Gas Relief (simethicone)) 80 mg PO Q6H PRN sitagliptin phosphate (Januvia) 100 mg PO QAM theophylline ER 300 mg PO DAILY walker Folding front wheeled walker HPI HPI OV- LT shoulder pain last inj 02/15/24: Details: 74-year-old female who returns to the office today with a family member for a follow-up of left shoulder pain. She currently states she has most pain and limited ROM in her right shoulder. She had her last left shoulder injection on 02/15/24 which provided her mild relief. She would like to have bilateral shoulder injections today. She takes Tylenol for her pain. She has a history of diabetes. Her sugar level is over 200 today. [facility] Medical History Anxiety and depression Back pain Bilateral primary osteoarthritis of knee Colon cancer screening COPD (chronic obstructive pulmonary disease) COPD exacerbation Diabetes mellitus Frequency of micturition GERD (gastroesophageal reflux disease) High cholesterol Hypertension Hypothyroidism ENMA on CPAP Osteoarthritis Tubular adenoma of colon Urgency incontinence Urgency of micturition Surgical History Hx of right knee surgery Hx of colonoscopy Hx of cystoscopy History of lumpectomy of right breast History of cholecystectomy Family History Mother History of pancreatic cancer Social History Household Members Other:: lives with grandson Are you a primary care technician to a significant other at home: No Do you 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 Tenderness over the bicipital groove and along the deltoid region of the shoulder. Forward flexion to 100, external rotation to 90, internal rotation to S1. 5/5 RTC strength. Positive Lozano. NVI. Assessment & Plan Assessment & Plan (1) Osteoarthritis of left shoulder: Code(s): M19.012 - Primary osteoarthritis, left shoulder Category: Medical Plan Her family member was with her today who stated that her sugar was over 200. I am not comfortable with proceeding with a steroid injection this time. I stressed the importance of managing her sugar over the next few days to ensure we can proceed with an injection next week. I did book her for 05/25/24 for this and if she get can her sugars under control we can proceed. She can contact me otherwise if that is not the case. Medications: New celecoxib (Celebrex) 200 mg PO BID 60 caps 3RF 30 days Patient Instructions: Scribed for Keisha Tucker PA-C, by Cody Caal nuclear medical technologist, on 05/16/2024 at 9:30 AM EST.? I, Keisha Tucker PA-C, have personally reviewed and agree with the information entered by the scribe. Coding Level of Care Code Est Pt Level 3 (69169) Diagnoses Osteoarthritis of left shoulder M19.012
[2024-05-16 08:51] VITALS: BMI 40.8
== END 2024-05-16 09:26 | disposition home or self-care (01) ==
PROVIDERS: PCP Internal Medicine; Visit Provider Physician Assistant
DX: M19.012 Primary osteoarthritis, left shoulder (principal)
CPT/HCPCS: 99213

== ENCOUNTER → 2024-05-16 08:37 | Outpatient (BNVA) | payer OTHER, SELFPAY | PROVIDERS: PCP Internal Medicine; Visit Provider Physician Assistant | DX: M19.012 Primary osteoarthritis, left shoulder (principal) | CPT/HCPCS: 99212 ==

== ENCOUNTER 2024-05-25 08:33 | Outpatient (AMB) | payer OTHER, SELFPAY ==
--- NOTE | 2024-05-25 08:57 | A.OFFVIS_ITS ---
Intake Visit Reasons: ov- b/l shoulder pain Intake Note: Joselyn a 74 year old female who presents today for a follow up of bilateral shoulder pain, left shoulder injection on 02/15/24. Patient is requesting to have a right shoulder injection. Allergies aspirin [Aspirin] Allergy (Mild, Verified 05/25/24 08:58) UPSET STOMACH ibuprofen [From Motrin] Allergy (Mild, Verified 05/25/24 08:58) Gastrointestinal Upset HPI HPI ov- b/l shoulder pain: Details: 74-year-old?female, who is New Zealander speaking, presents?in the office today for a follow-up of bilateral shoulder pain. The patient was last seen in the office on 05/16/24 by Keisha Tucker PA-C when she was scheduled for a cortisone injection in the right shoulder. It was discussed that the patient needed to closely monitor her blood glucose due to a reading of over 200 before presentation. She was given a prescription for celecoxib 200 mg PO BID.? ? While in the office today, to discuss a cortisone injection in the right shou lder. ? ? Patient has a significant medical history of diabetes mellitus. [facility] Medical History Anxiety and depression Back pain Bilateral primary osteoarthritis of knee Colon cancer screening COPD (chronic obstructive pulmonary disease) COPD exacerbation Diabetes mellitus Frequency of micturition GERD (gastroesophageal reflux disease) High cholesterol Hypertension Hypothyroidism ENMA on CPAP Osteoarthritis Tubular adenoma of colon Urgency incontinence Urgency of micturition Surgical History Hx of right knee surgery Hx of colonoscopy Hx of cystoscopy History of lumpectomy of right breast History of cholecystectomy Family History Mother History of pancreatic cancer Social History Household Members Other:: lives with grandson Are you a primary day care supervisor to a significant other at home: No Do you 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 have 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) Alcohol intake: never Comment: will take Tylenol at home Patient Tobacco Use Status: Never used Tobacco Years Smoked: 30 Second Hand Smoke Exposure: No Advance Directives Date on File: 01/31/23 Review of Systems Const All systems reviewed & are unremarkable except as noted in HPI and below Physical Exam Const General: cooperative, healthy appearing and no acute distress Resp Effort & Inspection: normal respiratory effort and able to speak in complete sentences Cardio Rate: regular rate Peripheral pulses: Peripheral pulses 2+ throughout GI Palpation (GI): Soft to palpation Skin Lesions: no lesions Rashes: no rashes Extrem Other: Right shoulder normal to inspection. Tenderness over the bicipital groove and along the deltoid region of the shoulder. Forward flexion to 100, external rotation to 90, internal rotation to S1. 5/5 RTC strength. Positive Lozano. NVI. Office Procedures Joint Injection/Aspiration Joint Injection/Aspiration Primary Site: right shoulder Prep: site was prepped using aseptic technique, ethochloride spray was applied and injection warnings given Injected: with 1 mL of, with 8 mL of (2% plain lido ), in the subcromial space and decadron Approach Used: posterolateral Procedure: The patient tolerated the procedure well, but had some pain with the injection and there was some relief with the local anesthesia Coding 72800 - Large joint Procedure code (CPT) selection complete Assessment & Plan Assessment & Plan (1) Osteoarthritis of right shoulder: Code(s): M19.011 - Primary osteoarthritis, right shoulder Category: Medical Plan Ms. Ortiz Moreno is a 74-year-old?female, who is [place] Zealander speaking, presents?in the office today for a follow-up of bilateral shoulder pain. The patient was last seen in the office on 05/16/24 by Keisha Tucker PA-C when she was scheduled for a cortisone injection in the right shoulder. It was discussed that the patient needed to closely monitor her blood glucose due to a reading of over 200 before presentation. She was given a prescription for celecoxib 200 mg PO BID.? ? While in the office today, to discuss a cortisone injection in the right shoulder. ? ? Patient has a significant medical history of diabetes mellitus.? ? The patient was offered a cortisone injection in the right shoulder. The patient was explained the risks, benefits, and alternatives to receiving this injection. After receiving consent for the injection, the patient had the procedure done while in the office today. The patient tolerated the procedure well with no complications.? ? Due to the patient?s history of diabetes, they were instructed to monitor his/her blood glucose level. The patient was informed that they could see a rise in their numbers and if the numbers became too high, they were instructed to call their PCP. The patient was also informed that they could have facial flushing as a side effect of the injection, but this will pass.? ? Follow-up will be PRN, or sooner if needed. ? Patient Instructions: Scribed for Keisha Tucker PA-C, by Cody Caal medical reimbursement specialist, on 05/25/2024 at 8:45 AM EST.? Scribed by Altagracia Mercedes medical reimbursement specialist, for Roxanne Rock PA-C on 05/25/2024 at 9:55 am, EST.? Coding Level of Care Code Est Pt Level 3 (16243) Diagnoses Osteoarthritis of right shoulder M19.011 CPT Codes Coding - 04032 Large joint: 04729 - Large joint ([id number])
== END 2024-05-25 09:37 | disposition home or self-care (01) ==
PROVIDERS: PCP Internal Medicine; Visit Provider Physician Assistant
DX: M19.011 Primary osteoarthritis, right shoulder (principal)
CPT/HCPCS: 20610; 99213

== ENCOUNTER → 2024-05-25 08:33 | Outpatient (BNVA) | payer OTHER, SELFPAY | PROVIDERS: PCP Internal Medicine; Visit Provider Physician Assistant | DX: M19.011 Primary osteoarthritis, right shoulder (principal); M25.512 Pain in left shoulder | CPT/HCPCS: 20610; 99212; J1010 ==

== ENCOUNTER 2024-06-12 12:54 | Outpatient (AMB) | payer OTHER, SELFPAY ==
[2024-06-12 13:08] VITALS: BP 123/67; PULSE 73; O2SAT 94; BMI 40.2
--- NOTE | 2024-06-12 13:08 | MHC.OFFVIS ---
Vital Signs 06/12/24 13:08 Height 5 ft 2 in Weight 220 lb BMI 40.2 BP 123/67 Blood Pressure Location Lt brachial Position Sitting Pulse 73 Pulse Source Pulse Oximeter Pulse Oximetry (%) 94 Oxygen Delivery Method Room Air Intake Visit Reasons: Chronic Pain of Right Upper Extremity Allergies aspirin [Aspirin] Allergy (Mild, Verified 06/12/24 13:09) UPSET STOMACH ibuprofen [From Motrin] Allergy (Mild, Verified 06/12/24 13:09) Gastrointestinal Upset Medication List - Last Reconciled 06/12/24 by Caro Vallejo acetaminophen 500 mg PO Q8H PRN albuterol sulfate 2.5 mg inhalation Q8H PRN atorvastatin 40 mg PO BEDTIME benzonatate 100 mg PO BID PRN bisacodyl 10 mg ME DAILY PRN blood sugar diagnostic (Sourceryuch Ultra Test strips) budesonide 0.5 mg inhalation BID bupropion HCl XL 300 mg PO QAM bupropion HCl XL 150 mg PO QAM celecoxib (Celebrex) 200 mg PO BID 30 days citalopram 20 mg PO QAM doxepin 20 mg PO BEDTIME fluconazole 100 mg PO DAILY qxzncpkijme-txghpgvpl-powxeewg 200-62.5-25 mcg (Trelegy Ellipta) 1 ea inhalation DAILY gabapentin 300 mg PO BEDTIME glipizide ER 10 mg PO QAM insulin lispro subcut lancets ([email or web address] Delica Plus Lancet) levothyroxine 200 mcg PO QAM lidocaine 5% 1 patch topical DAILY lisinopril 40 mg PO QPM magnesium hydroxide (Milk of Magnesia) 30 mL PO DAILY PRN mirabegron ER (Myrbetriq) 25 mg PO DAILY phenazopyridine (Pyridium) 200 mg PO BID PRN primidone 250 mg PO QID simethicone (Gas Relief (simethicone)) 80 mg PO Q6H PRN sitagliptin phosphate (Januvia) 100 mg PO QAM theophylline ER 300 mg PO DAILY walker Folding front wheeled walker HPI Comments Details: Patient presents back to the office today for new complaint of right shoulder pain Pain today is rated as 7/10, constant. She has been suffering with this pain for quite some time. Underwent 2 steroid injections, most recent 1 was 3 weeks ago. No improvement in pain since the injection. Completed PT without improvement. Taking Tylenol with minimal improvement of her symptoms. Currently prescribed Celebrex which also is not improving her pain. Patient is right-handed. She reports pain today 0/10, has been without pain since the procedure aside from one episode of 1/10 pain when she was using the commode 2 hours after the procedure. Patient has not needed Tylenol or anti-inflammatory medication since the procedure. Pain her knees remains minimal since having bilateral genicular nerve blocks. She has appt with PT today, has to contact medicare to appeal futher PT treatment as medicare is denying coverage for further visits. She has improved function and mobility, hoping to extend PT now that she can be more active participant. Intake note: Ms. Ortiz Moreno is a very pleasant 73 year old female who presents to the office today on referral from orthopedics for evaluation and management of her chronic bilateral knee pain. Patient states she has arthritis in both knees, she was told years ago that she needs TKA but she would need to lose weight prior to any surgery. Patient states she has pain in both knees, left worse than right. Pain does not radiate. She uses a wheelchair d/t pain in both knees. She is not able to lose weight as she cannot increase activity secondary to pain. She takes tylenol for the pain with some relief. Pain today is reported as 10/10, constant and worse in the evenings and at night. In terms of muscle damage condition is described as aching, spasming, dull. cramping, squeezing and throbbing. Pain is negatively impacting her enjoyment of life, sleep, walking and overall mood. Patient denies implantable devices, pacemaker, defibrillator. [facility] Medical History Anxiety and depression Back pain Bilateral primary osteoarthritis of knee Colon cancer screening COPD (chronic obstructive pulmonary disease) COPD exacerbation Diabetes mellitus Frequency of micturition GERD (gastroesophageal reflux disease) High cholesterol Hypertension Hypothyroidism ENMA on CPAP Osteoarthritis Tubular adenoma of colon Urgency incontinence Urgency of micturition Surgical History Hx of right knee surgery Hx of colonoscopy Hx of cystoscopy History of lumpectomy of right breast History of cholecystectomy Family History Mother History of pancreatic cancer Social History Household Members Other:: lives with grandson Are you a primary before and after school daycare worker to a significant other at home: No Do you presently have visiting nurse or other home services: Yes ([employer] OR [employer]UT [employer] WORK[employer]) Alcohol intake: never Comment: will take Tylenol at home Patient Tobacco Use Status: Never used Tobacco Years Smoked: 30 Second Hand Smoke Exposure: No Advance Directives Date on File: 01/31/23 Review of Systems Const All systems reviewed & are unremarkable except as noted in HPI and below Physical Exam Vital Signs: Last Vital Signs Pulse 73 06/12/24 13:08 BP 123/67 06/12/24 13:08 Pulse Ox 94 06/12/24 13:08 Oxygen Delivery Method Room Air 06/12/24 13:08 BMI result Body Mass Index 40.2 General: awake, alert, oriented. Answers questions appropriately. Fully engaged in examination. Skin: warm, dry, intact without visible rashes or lesions. HEENT: Normocephalic. Conjuntivae clear without exudate. Sclera non-icteric. Hearing intact. Cardiac: External chest normal in appearance. Respiratory: No signs of trauma. No signs of respiratory distress. No cough, audible wheezing or stridor. Abdomen: without gross distension. MS: No obvious swelling or deformities. uses a wheelchair Right shoulder: Pain with overhead reach, unable to reach behind the back secondary to pain. Tenderness to palpation over lateral right shoulder. Neurological: Oriented to person, place, time and situation. Thought process intact. Psychiatric: Appropriate mood and affect. Good judgment and insight. Assessment & Plan Assessment & Plan (1) Facet arthritis of lumbar region: Code(s): M47.816 - Spondylosis without myelopathy or radiculopathy, lumbar region Category: Medical (2) Degenerative disc disease, lumbar: Code(s): M51.36 - Other intervertebral disc degeneration, lumbar region Category: Medical (3) Osteoarthritis of right shoulder: Code(s): M19.011 - Primary osteoarthritis, right shoulder Category: Medical (4) Right shoulder pain: Code(s): M25.511 - Pain in right shoulder Category: Medical Plan Ms. Ortiz Moreno is a very pleasant 74 year old female who presents back to the office today for evaluation management of her right shoulder pain She has exhausted conservative therapy including PT, home exercise program, aizv-hvo-dvwxqfm medications, nonsteroidal anti-inflammatory medications and steroid injections without improvement of her symptoms Discussed options for treatment including steroid injections, peripheral nerve stimulation with Sprint, RFA and more permanent neuromodulation. Sprint pamphlet provided. Will schedule for fluoroscopy guided right diagnostic suprascapular nerve block with local anesthetic. If positive results will plan for right suprascapular sprint PNS All questions and concerns have been answered and patient agrees with the plan. Follow up after injection, sooner if needed. Coding Level of Care Code Est Pt Level 3 (91043) Complex EM visit Add On G2211 Diagnoses Facet arthritis of lumbar region M47.816 Degenerative disc disease, lumbar M51.36 Osteoarthritis of right shoulder M19.011 Right shoulder pain M25.511
== END 2024-06-12 13:32 | disposition home or self-care (01) ==
PROVIDERS: PCP Internal Medicine; Visit Provider Registered Nurse Emergency
DX: M47.816 Spondylosis without myelopathy or radiculopathy, lumbar region (principal); M51.36 Other intervertebral disc degeneration, lumbar region; M19.011 Primary osteoarthritis, right shoulder; M25.511 Pain in right shoulder
CPT/HCPCS: 99213; G2211

== ENCOUNTER → 2024-06-12 12:54 | Outpatient (BNVA) | payer OTHER, SELFPAY | PROVIDERS: PCP Internal Medicine; Visit Provider Registered Nurse Emergency | DX: M47.816 Spondylosis without myelopathy or radiculopathy, lumbar region (principal); M51.36 Other intervertebral disc degeneration, lumbar region; M19.011 Primary osteoarthritis, right shoulder; M25.511 Pain in right shoulder | CPT/HCPCS: 99212 ==